=== PATIENT | female | born 1990 | race Caucasian/White ===

== ENCOUNTER 2021-05-12 17:09 | Emergency (ER) | payer OTHER ==
[~2021-05-12] VITALS: Ht 175.3 cm; Wt 80.1 kg
[2021-05-12] MEDS ORDERED: NS 1,000 ML IV ONE (17:25)
[2021-05-12 17:55] LABS: BASO # 0.1 10^3/uL (0.0-0.2); BASO % 0.7 % (0.0-1.0); EOS # 0.2 10^3/uL (0.0-0.5); EOS % 2.8 % (0.0-3.0); HEMATOCRIT 36.9 % (36.0-47.0); HEMOGLOBIN 12.7 g/dl (12.0-15.5); LYMPH # 2.7 10^3/uL (1.5-5.0); LYMPH % 39.9 % (24.0-44.0); MEAN CORPUSCULAR HEMOGLOBIN 31.5 pg (27.0-33.0); MEAN CORPUSCULAR HGB CONC 34.4 g/dl (32.0-36.5); MEAN CORPUSCULAR VOLUME 91.6 fl (80.0-96.0); MONO # 0.6 10^3/uL (0.0-0.8); MONO % 8.6 % (2.0-8.0); NEUTROPHILS # 3.2 10^3/uL (1.5-8.5); NEUTROPHILS % 47.7 % (36.0-66.0); PLATELET COUNT, AUTOMATED 251 10^3/uL (150-450); RED BLOOD COUNT 4.03 10^6/uL (4.00-5.40); WHITE BLOOD COUNT 6.8 10^3/uL (4.0-10.0)
[2021-05-12 18:23] LABS: BLOOD UREA NITROGEN 15 MG/DL (7-18); CALCIUM LEVEL 8.7 MG/DL (8.5-10.1); CARBON DIOXIDE LEVEL 27 MEQ/L (21-32); CHLORIDE LEVEL 109 MEQ/L (98-107); CREATININE FOR GFR 0.83 MG/DL (0.55-1.30); GLOMERULAR FILTRATION RATE > 60.0 (>60); GLUCOSE, FASTING 91 MG/DL (70-100); SODIUM LEVEL 140 MEQ/L (136-145)
[2021-05-12 18:25] LABS: HCG, SERUM QUALITATIVE NEGATIVE (NEGATIVE)
[2021-05-12 19:26] VITALS: BP 129/86
--- NOTE | 2021-05-13 10:14 | ECGEPIP ---
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
== END 2021-05-12 19:37 | disposition home or self-care (01) ==
LOC: M ED 17:09
DX: I49.8 Other specified cardiac arrhythmias (principal); Z88.0 Allergy status to penicillin; Z88.6 Allergy status to analgesic agent

== ENCOUNTER 2021-06-07 12:04 | Emergency (ER) | payer OTHER ==
[~2021-06-07] VITALS: Ht 175.3 cm; Wt 82.9 kg
[2021-06-07] MEDS ORDERED: LITH150C (13:04)
[2021-06-07] MEDS ORDERED: FLUD0.1T (13:04)
[2021-06-07] MEDS ORDERED: BUPR150T12 (13:04)
[2021-06-07] MEDS ORDERED: DIAZ10TA2 (13:04)
[2021-06-07] MEDS ORDERED: NS 1,000 ML IV ONE ×2 (17:35)
[2021-06-07 18:05] LABS: BASO # 0.1 10^3/uL (0.0-0.2); BASO % 0.7 % (0.0-1.0); EOS # 0.3 10^3/uL (0.0-0.5); EOS % 3.2 % (0.0-3.0); HEMATOCRIT 41.4 % (36.0-47.0); HEMOGLOBIN 14.1 g/dl (12.0-15.5); LYMPH % 31.1 % (24.0-44.0); MEAN CORPUSCULAR HEMOGLOBIN 31.6 pg (27.0-33.0); MEAN CORPUSCULAR HGB CONC 34.1 g/dl (32.0-36.5); MEAN CORPUSCULAR VOLUME 92.8 fl (80.0-96.0); MONO # 0.6 10^3/uL (0.0-0.8); MONO % 5.9 % (2.0-8.0); NEUTROPHILS # 5.7 10^3/uL (1.5-8.5); NEUTROPHILS % 58.7 % (36.0-66.0); PLATELET COUNT, AUTOMATED 306 10^3/uL (150-450); RED BLOOD COUNT 4.46 10^6/uL (4.00-5.40); WHITE BLOOD COUNT 9.7 10^3/uL (4.0-10.0)
[2021-06-07 19:06] LABS: CK-MB VALUE MASS 1.3 NG/ML (<3.6); CPK CREATINE PHOSPHOKINASE 139 U/L (26-192); MB/CK RELATIVE INDEX 0.94 (< OR =4); TROPONIN I < 0.02 NG/ML (< 0.10)
[2021-06-07 20:47] VITALS: BP 137/76
--- NOTE | 2021-06-08 19:04 | ECGEPIP ---
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
== END 2021-06-07 20:46 | disposition home or self-care (01) ==
LOC: M ED 12:04
DX: R55 Syncope and collapse (principal); I49.8 Other specified cardiac arrhythmias; Q79.60 Ehlers-Danlos syndrome, unspecified; Z88.0 Allergy status to penicillin; Z88.6 Allergy status to analgesic agent; Z79.899 Other long term (current) drug therapy

== ENCOUNTER → 2021-08-02 | Outpatient (POV) | payer BC, OTHER ==
[~2021-08-02] VITALS: Ht 175.3 cm; Wt 82.9 kg
[~2021-08-02] MED LIST: BUPR150T12; DIAZ10TA2; FLUD0.1T; LITH150C
[2021-08-02 13:30] VITALS: BP 137/87
--- NOTE | 2021-08-04 10:22 | IRCOV ---
[facility] IR Consult Office Visit IR Consult Office Visit DATE: Aug 02, 2021 REASON FOR CONSULTATION/CHIEF COMPLAINT: Port placement. 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 She reports that she has required IV saline infusions for this, although no regular infusions are scheduled. She has changed her care to local slate cutter operator Dr. Orozco and is new to the area. Patient wonders if she may benefit from a port. She does not have regular infusions scheduled. There are no issues with peripheral venous access. ALLERGIES: Please see below. HOME MEDICATIONS: Please see below. PAST MEDICAL HISTORY: None other PAST SURGICAL HISTORY: Non pertinent FAMILY HISTORY: Non pertinent. SOCIAL HISTORY: Non-smoker. Denies alcohol or drugs. REVIEW OF SYSTEMS: Otherwise negative PHYSICAL EXAMINATION: VITAL SIGNS: Please see below. GENERAL APPEARANCE: Appears well. Comfortable at rest. HEENT: Normal eye movements. RESPIRATORY: Breathing comfortably at rest. No use of accessory muscles. CARDIOVASCULAR: Normal rate. EXTREMITIES: Moving all 4 extremities. NEUROLOGICAL: Alert and oriented. PSYCHIATRIC: Appropriate to circumstance. LABORATORY DATA: 06/07/2021 hemoglobin 14.1 hematocrit 41.4 WBC 9.7 platelets 306. Imaging: None. ASSESSMENT/PLAN: 31-year-old female with reported dysautonomia, recently establishing care with local slate cutter operator Dr. Orozco. Patient reports she does require isotonic saline infusions from time to time and wondered if she may benefit from a port. She does not have regular infusions scheduled. Given her young age and the chronicity of this condition, she would be better managed with peripheral IVs, when and as required. Second option would be a PICC line, which may not be practical given her occupation. However, she may be taught to use and maintain her own PICC line. Given her young age, and no present issues with peripheral access, a lifelong port would be troublesome in terms of central venous scarring and port malfunction. Eventually, if patient runs out of peripheral venous access, a port may be indicated. I spent 15 minutes in consultation with the patient. Thank you for this referral. CC Dr. Orozco Allergies Coded Allergies: Penicillins (Verified Allergy, Unknown, 05/12/21) codeine (Verified Allergy, Unknown, 05/12/21) Home Medications Miscellaneous Medications Bupropion Hcl (Bupropion Xl), (Reported) Diazepam (Diazepam), (Reported) Fludrocortisone Acetate (Fludrocortisone Acetate), (Reported) [place] Carbonate ([place] Carbonate), (Reported) VS, I&O, 24H, Fishbone Vital Signs/I&O Vital Signs Date Time Temp Pulse Resp B/P (MAP) Pulse Ox O2 Delivery O2 Flow Rate FiO2 08/02/21 13:30 97.3 87 18 137/87 (104) 98 Room Air NUBIA PRADO MD Aug 04, 2021 10:22
== END ==
LOC: M IRPOV 13:21
PROVIDERS: ATTEND Radiology Diagnostic Radiology
DX: Z01.89 Encounter for other specified special examinations (principal); Z88.0 Allergy status to penicillin; Z88.5 Allergy status to narcotic agent

== ENCOUNTER 2021-08-06 15:03 | Inpatient (IN) | payer BC ==
[~2021-08-06 15:03] MED LIST changes: -BUPR150T12; +BUPR150T12 PO; -DIAZ10TA2; +DIAZ10TA2 PO; -FLUD0.1T; +FLUD0.1T PO; -LITH150C; +LITH150C PO
[2021-08-06] MEDS ORDERED: PROPOFOL 1,000 MG/100 ML VIAL As Ordered ONE (15:11)
[2021-08-06] MEDS ORDERED: MIDAZOLAM INJ 2MG/2ML VIAL (J2250 PER 1MG) As Ordered ONE (15:13)
[2021-08-06] MEDS ORDERED: MIDAZOLAM HCL 100 MG in D5W 80 ML IV SCH (15:15)
[2021-08-06] MEDS ORDERED: REFRIGERATOR IV KEYS XX PRN (15:15)
[2021-08-06] MEDS ORDERED: NS 1,000 ML IV ONE ×2 (15:20)
[2021-08-06 15:27] LABS: VENOUS BASE EXCESS -20.6 (-2.0-2.0); VENOUS HCO3 10.2 MEQ/L (23.0-27.0); VENOUS O2 SATURATION 93.4 % (60.0-80.0); VENOUS PARTIAL PRESSURE CO2 41.4 mmHg (38.0-50.0); VENOUS PARTIAL PRESSURE O2 94.7 mmHg (30.0-50.0); VENOUS PH 7.008 UNITS (7.330-7.430); VENOUS TOTAL CO2 11.4 MEQ/L (24.0-28.0)
[2021-08-06 15:29] LABS: BASO # 0.1 10^3/uL (0.0-0.2); BASO % 0.8 % (0.0-1.0); EOS # 0.5 10^3/uL (0.0-0.5); EOS % 3.9 % (0.0-3.0); HEMATOCRIT 45.7 % (36.0-47.0); HEMOGLOBIN 14.7 g/dl (12.0-15.5); LYMPH # 5.7 10^3/uL (1.5-5.0); LYMPH % 47.7 % (24.0-44.0); MEAN CORPUSCULAR HEMOGLOBIN 31.3 pg (27.0-33.0); MEAN CORPUSCULAR HGB CONC 32.2 g/dl (32.0-36.5); MEAN CORPUSCULAR VOLUME 97.4 fl (80.0-96.0); MONO # 1.1 10^3/uL (0.0-0.8); MONO % 9.2 % (2.0-8.0); NEUTROPHILS # 4.6 10^3/uL (1.5-8.5); PLATELET COUNT, AUTOMATED 326 10^3/uL (150-450); RED BLOOD COUNT 4.69 10^6/uL (4.00-5.40)
--- NOTE | 2021-08-06 15:39 | REP ---
INDICATION: Drug Overdose. COMPARISON: No comparison chest x-ray. TECHNIQUE: Portable upright AP chest radiograph. FINDINGS: The lungs are well inflated and free of infiltrate. Pleural angles are sharp. Heart size is normal. Pulmonary vasculature is not increased. Endotracheal tube is seen in good position at the level of the proximal clavicles. EKG monitoring electrodes are noted. IMPRESSION: Endotracheal tube in good position. Otherwise no acute disease. <Electronically signed by Navarro Saleh > 08/06/21 2644
[2021-08-06] MEDS ORDERED: MAGNESIUM SULFATE IN WATER 2 GM in IV 1 EA IV STA ×2 (15:47)
[2021-08-06] MEDS ORDERED: SODIUM BICARBONATE 8.4% INJ 50 ML SYRINGE IV STA (15:47)
[2021-08-06] MEDS ORDERED: MAGNESIUM SULFATE IN WATER 2GM 50ML BAG (40MG/ML) (FOR ER ONLY) As Ordered ONE (15:49)
--- NOTE | 2021-08-06 16:00 | REP ---
INDICATION: seizing/unconcious. COMPARISON: None. TECHNIQUE: Helical scanning is acquired. 5 mm axial images were reformatted. Coronal MPR images were generated. FINDINGS: Bone window settings demonstrate an intact bony calvarium. There is no evidence of skull fracture or incidental bony calvarial lesion. The visualized paranasal sinuses appear clear. No intraorbital abnormality is seen. On soft tissue window setting images; the lateral, third, and fourth ventricles are normal in size and position. Lucia-white differentiation pattern is normal above and below the tentorium. There are is no evidence of intracranial hemorrhage. No mass, edema, infarction, or midline shift is seen. No extra-axial fluid collection is appreciated. Digital plasma processing centrifuge operator radiograph demonstrates bridget tracheal tube in place. IMPRESSION: Negative noncontrast head CT. <Electronically signed by Navarro Saleh > 08/06/21 1786
[2021-08-06 16:01] LABS: AMPHETAMINES LEVEL URINE NEGATIVE (NEGATIVE); BARBITURATES URINE NEGATIVE (NEGATIVE); BENZODIAZEPINES URINE NEGATIVE (NEGATIVE); CANNABINOIDS URINE NEGATIVE (NEGATIVE); COCAINE METABOLITE URINE NEGATIVE (NEGATIVE); METHADONE URINE NEGATIVE (NEGATIVE); OPIATES URINE NEGATIVE (NEGATIVE); PHENCYCLIDINE URINE NEGATIVE (NEGATIVE)
--- NOTE | 2021-08-06 16:02 | REP ---
INDICATION: seizure. COMPARISON: None. TECHNIQUE: Helical scanning is acquired and overlapping 2 mm high resolution axial images were generated and reviewed at bone and soft tissue window settings. Coronal and sagittal multiplanar re-formations images are generated. FINDINGS: There is no evidence of cervical spine element fracture. No skull base fracture is seen. Cervical vertebral body heights are preserved. Alignment is normal. Facet joints are normally aligned bilaterally at each cervical level on multiplanar re-formations images. There is no evidence of intraspinal or paraspinal hematoma. No extra vertebral abnormality is seen. An bridget tracheal tube is noted in place. IMPRESSION: Negative CT study of the cervical spine without contrast. No fracture seen. <Electronically signed by Navarro Saleh > 08/06/21 0947
[2021-08-06 16:20] LABS: OSMOLALITY SERUM 295 MOSM/KG (275-295)
[2021-08-06 16:23] LABS: ACETAMINOPHEN LEVEL < 2.0 UG/ML (10.0-30.0); ALBUMIN 4.9 GM/DL (3.2-5.2); ALT/SGPT 22 U/L (12-78); BILIRUBIN,DIRECT 0.2 MG/DL (0.0-0.2); BILIRUBIN,TOTAL 0.7 MG/DL (0.2-1.0); BLOOD UREA NITROGEN 12 MG/DL (7-18); CALCIUM LEVEL 8.6 MG/DL (8.5-10.1); CARBON DIOXIDE LEVEL 12 MEQ/L (21-32); CHLORIDE LEVEL 107 MEQ/L (98-107); CPK CREATINE PHOSPHOKINASE 137 U/L (26-192); CREATININE FOR GFR 1.07 MG/DL (0.55-1.30); ETHYL ALCOHOL (ETHANOL) 0.003 % (0.000-0.010); GLOMERULAR FILTRATION RATE > 60.0 (>60); GLUCOSE, FASTING 143 MG/DL (70-100); LITHIUM LEVEL < 0.20 MEQ/L (0.60-1.20); POTASSIUM SERUM 3.2 MEQ/L (3.5-5.1); SALICYLATE LEVEL < 1.7 MG/DL (5.0-30.0); SODIUM LEVEL 141 MEQ/L (136-145); TOTAL PROTEIN 7.9 GM/DL (6.4-8.2)
[2021-08-06] MEDS ORDERED: CHARCOAL ACTIVATED LIQUID 25 GM/120 ML BTL As Ordered ONE ×2 (16:31→16:32)
[2021-08-06] MEDS ORDERED: CHARCOAL ACTIVATED LIQUID 25 GM/120 ML BTL PO ONE (16:35)
--- NOTE | 2021-08-06 16:41 | REP ---
INDICATION: ett tube placement. COMPARISON: Comparison is made with the 3:13 p.m. film from this date. TECHNIQUE: Supine portable AP chest x-ray time stamped 4:28 p.m.. FINDINGS: Endotracheal tube is seen in good position at the level of the proximal clavicles. NG tube is been passed in the left upper quadrant of the abdomen. Monitoring electrodes are seen. The lungs are symmetrically aerated and clear. The pleural angles are sharp. Pulmonary vasculature is not increased. No acute bony abnormality. IMPRESSION: Endotracheal tube in good position. <Electronically signed by Navarro Saleh > 08/06/21 0180
[2021-08-06 16:45] LABS: ABG BASE EXCESS -3.8 (-2.0-2.0); ABG HCO3 21.7 MEQ/L (22.0-26.0); ABG O2 SATURATION 98.8 % (95.0-99.0); ABG PARTIAL PRESSURE CO2 40.7 mmHg (35.0-45.0); ABG PARTIAL PRESSURE O2 146.8 mmHg (75.0-100.0); ABG STANDARD HCO3 21.4 MEQ/L (22.0-26.0); ABG TOTAL CO2 22.9 MEQ/L (22.0-29.0); ABG pH (ARTERIAL) 7.344 UNITS (7.350-7.450)
--- OUTSIDE RECORDS SUMMARY | 2021-08-06 16:46 | CCD | Continuity of Care Document ---
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 Social History Type Date Description Comments Sex Unknown ETOH Use Rarely consumes alcohol Tobacco Use Start: Unknown Patient has never smoked Smoking Status Reviewed: 07/12/21 Patient has never smoked Exercise Type/Frequency Does not exercise curren tly Exercise Limitations Shortness Of Breath Exercise Limitations Dizziness Exercise Limitations Syncope Allergies and adverse reactions Active Allergies Criticality Reaction | Severity Comments Date Penicillin Unable to assess criticality 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 Codeine Unable to assess criticality Urticaria 06/13/2021 Medications Active Medications SIG Qnty Indications Ordering Provide r Date Fludrocortisone Acetate 0.1mg Tabl ets 3 by mouth every day 270tabs I49.8 Tony Anders MD 07/11/2021 Wellbutrin SR 150mg Tablets ER 12H R 1 tablet by mouth daily Unknown 07/11/2021 Jornay PM 20mg Caps ER 24HR 1 by mouth daily as needed Unknown 07/11/2021 Diazepam 5mg Tablets as neede d Unknown 07/11/2021 Ibuprofen 200mg Capsules as n eeded Unknown 07/11/2021 Zyrtec Allergy 10mg Capsules 1 by mouth every day as needed Unknown 07/11/2021 Immunizations Description No Information Available Vital Signs Date Vital Result Comment 07/12/2021 8:13am Weight 185.00 lb Home Weight 180lb Height 69 inches 5'9" BMI (Body Mass Index) 27.3 kg/m2 Heart Rate 74 /min BP Systolic Sitting 141 mmHg [place], large cuff/Ra ; HR: 74 bpm BP Diastolic Sitting 97 mmHg [place], large cuff/R a; HR: 74 bpm BP Systolic Lying Down 140 mmHg [place]ron, large cuff /Ra; HR: 69 bpm BP Diastolic Lying Down 93 mmHg Omron, large cuf f/Ra; HR: 69 bpm BP Systolic Standing 128 mmHg Omron, large cuff/R a; HR: 86 bpm BP Diastolic Standing 89 mmHg Omron, large cuff/ Ra; HR: 86 bpm Results Description No Information Available Procedures Date Code Description Status 07/12/2021 47707 Office/Outpatient New Moderate M DM 45-59 Minutes Completed 07/12/2021 86718 ECG 12-Lead Completed Medical Devices Description No Information Available Encounters Type Date Location Provider Dx Diagnosis Office Visit 07/12/2021 8:00a Main Office Tony Anders MD I49.8 Other specified cardiac arrhythmias Q79.60 Mack-Danlos syndrome, unsp ecified Assessments Date Code Description Provider 07/12/2021 I49.8 Other specified cardiac arrhythm ias Tony Anders MD 07/12/2021 Q79.60 Mack-Danlos syndrome, unspecif ied Tony Anders MD Plan of Treatment Future Appointment(s):* 11/02/2021 1:00 pm - Tony Anders MD at Main Office 07/12/2021 - Tony Anders MD* I49.8 Other specified cardiac arrhythmias* Referral:* Willy Raza DO, Surgery,General * Q79.60 Mack-Danlos syndrome, unspecified * All * Follow up:* Clinic visit in [address] Anders. Functional Status Functional Condition Comment Date Status Independent with all ADL's Activ e Mental Status Description No Information Available Referrals Refer to Reason for Referral Status Appt Date Willy Raza DO 31 yo patient with POTS; pat ient being referred for implantation of a mcc central line port for frequent administration of IV fluids. Thank you. Created [facility] General Sur[facility] [address] [address] [phone]
--- OUTSIDE RECORDS SUMMARY | 2021-08-06 16:46 | CCD | Continuity of Care Document ---
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 Codeine Unable to assess criticality Urticaria 06/13/2021 Medications Description No Information Available Immunizations Description No Information Available Vital Signs Description No Information Available Results Description No Information Available Procedures Description No Information Available Medical Devices Description No Information Available Encounters Description No Information Available Assessments Description No Information Available Plan of Treatment Future Appointment(s):* 07/12/2021 8:00 am - Tony Orozco MD at Main Office Functional Status Description No Information Available Mental Status Description No Information Available Referrals Description No Information Available"
--- OUTSIDE RECORDS SUMMARY | 2021-08-06 16:46 | CCD | Continuity of Care Document ---
Author Author Jaimie GUNTER MD Organization Unknown Address [address] [place] [address] Phone [phone] Care Team Providers Care Nursing Executive Name Role Phone [facility] Andreia Gardner NP-C AUTM [phone] Problems Active Problems Provider Date Sprain of ligament of tarsometatarsal joint Rolando Aviles Onset: 07/02/2018 Finger joint unstable Lm Ambrosio MD Onset: 05/18/2017 Shoulder joint unstable Lm Ambrosio MD Onset: 7 Herniation of rectum into vagina Onset: 08/31/2020 Urinary incontinence Onset: 08/31/2020 Cystocele Onset: 08/31/2020 Social History Type Date Description Comments Sex Unknown Tobacco Use Start: Unknown Never Smoked Cigarettes Smoking Status Reviewed: 04/28/21 Never Smoked Cigarettes ETOH Use Denies alcohol use Tobacco Use Start: Unknown Patient has never smoked Recreational Drug Use Denies Drug Use Exercise Type/Frequency Does not exercise Allergies, Adverse Reactions, Alerts Active Allergies Reaction Severity Comments Date Penicillin Keith Brian's Syndrome 0 05/18/2017 Codeine Itching, Vomiting 06/10/2020 Medications Active Medications SIG Qnty Indications Ordering Provide r Date Fludrocortisone Acetate 0.1mg Tabl ets take 3 tablets (0.3 mg) by mouth every day 90tabs R55 Misha montenegro, DO [facility] 11/25/2020 Normal Saline Infusion 1 liter over 1 hour if needed for dehydratio n 1units Misha Brasher DO [facility] 11/18/2020 Wheelchair Misc light weight wheelchair for limited mobility. with padded seat 1units Q79.60 Misha Brasher DO [facility] 11/10/2020 Zyrtec Allergy 10mg Capsules 1 by mouth every day Unknown Wellbutrin SR 150mg Tablets ER 12H R 1 tablet po daily Unknown Naproxen 500mg Tablets 1 tablet with food by mouth twice a day as needed Unknown 0 Albuterol Sulfate HFA 108(90Base) mcg/Act Aerosol 2 puffs by mouth every 4-6 hours as needed for SOB Unknown Ibuprofen 200 200mg Tablets 400-600mg every 6 hours as needed for pain. Unknown Diazepam 4-6mg as needed Unknown 0 [place] Carbonate 150mg Capsules 100MG at night Unknown History Medications Fludrocortisone Acetate 0.1mg Tabl ets take 2 (0.2 mg) by mouth every day 60tabs E86.0 Cristofer Rodriguez [facility] 11/16/2020 - 11/25/2020 Immunizations Description No Information Available Vital Signs Date Vital Result Comment 04/28/2021 1:37pm Height 69 inches 5'9" Weight 177.00 lb Heart Rate 94 /min BP Systolic 120 mmHg BP Diastolic 70 mmHg Body Temperature 97.8 F Pain Level 2 BMI (Body Mass Index) 26.1 kg/m2 04/22/2021 3:00pm Height 69 inches 5'9" Weight 180.25 lb Heart Rate 66 /min Respiratory Rate 18 /min Body Temperature 96.8 F Pain Level 8 BMI (Body Mass Index) 26.6 kg/m2 Results Test Acquired Date Facility Test Result H/L Range Note Basic Metabolic Panel 01/03/[address] [address] [phone] Sodium 142 mmol/L Normal 135-145 Potassium 4.5 mmol/L Normal 3.5-5.0 Chloride 109 mmol/L Normal 101-111 Co2 Carbon Dioxide 28 mmol/L Normal 22-32 Anion Gap 5 mmol/L Normal 2-11 Glucose 94 mg/dL Normal 70-100 Blood Urea Nitrogen 14 mg/dL Normal 6-24 Creatinine 0.90 mg/dL Normal 0.51-0.95 BUN/Creatinine Ratio 15.6 Normal 8-20 Calcium 9.7 mg/dL Normal 8.6-10.3 Egfr Non- 74.0 >60 Egfr 89.6 >60 1 Basic Metabolic Panel 12/03/[address] [facility] [address] [place] [address] [phone] Sodium 140 mmol/L Normal 135-145 Potassium 3.8 mmol/L Normal 3.5-5.0 Chloride 107 mmol/L Normal 101-111 Co2 Carbon Dioxide 27 mmol/L Normal 22-32 Anion Gap 6 mmol/L Normal 2-11 Glucose 93 mg/dL Normal 70-100 Blood Urea Nitrogen 12 mg/dL Normal 6-24 Creatinine 0.86 mg/dL Normal 0.51-0.95 BUN/Creatinine Ratio 14.0 Normal 8-20 Calcium 9.4 mg/dL Normal 8.6-10.3 Egfr Non- 78.0 >60 Egfr 94.4 >60 2 Basic Metabolic Panel 11/24/[address] [facility] [address] [place] [address] [phone] Sodium 141 mmol/L Normal 135-145 Potassium 4.1 mmol/L Normal 3.5-5.0 Chloride 108 mmol/L Normal 101-111 Co2 Carbon Dioxide 29 mmol/L Normal 22-32 Anion Gap 4 mmol/L Normal 2-11 Glucose 72 mg/dL Normal 70-100 Blood Urea Nitrogen 13 mg/dL Normal 6-24 Creatinine 0.95 mg/dL Normal 0.51-0.95 BUN/Creatinine Ratio 13.7 Normal 8-20 Calcium 9.5 mg/dL Normal 8.6-10.3 Egfr Non- 69.5 >60 Egfr 84.2 >60 3 Gardnerella/Yeast: Vaginal Dna 11/23/2020 N2N/CCD I mport Gardnerella/Yeast: Vaginal Dna See Note 4 Gardnerella/Yeast: Vaginal Dna See Note 5 Gardnerella/Yeast: Vaginal Dna Specimen Inquiry Gardnerella/Yeast: Vaginal Dna See Note 6 Gardnerella/Yeast: Vaginal Dna See Note 7 Gardnerella/Yeast: Vaginal Dna See Note 8 Gardnerella/Yeast: Vaginal Dna See Note 9 Gardnerella/Yeast: Vaginal Dna See Note 10 Gardnerella/Yeast: Vaginal Dna See Note 11 Gardnerella/Yeast: Vaginal Dna Req: [id number] Rec d: 11/23/20 Gardnerella/Yeast: Vaginal Dna Status: Comp Gardnerella/Yeast: Vaginal Dna _ Gardnerella/Yeast: Vaginal Dna Source: Vaginal Spdesc: Gardnerella/Yeast: Vaginal Dna Ordered: Arnol,Yeast Dna, Trich Dna Gardnerella/Yeast: Vaginal Dna Comments: [id number] Gardnerella/Yeast: Vaginal Dna See Note 12 Gardnerella/Yeast: Vaginal Dna Yes To Trich. Gardnerella/Yeast: Vaginal Dna See Note 13 Gardnerella/Yeast: Vaginal Dna See Note 14 Gardnerella/Yeast: Vaginal Dna See Note 15 Gardnerella/Yeast: Vaginal Dna See Note 16 Gardnerella/Yeast: Vaginal Dna See Note 17 Gardnerella/Yeast: Vaginal Dna Organism 1 Negative Maura Gardnerella/Yeast: Vaginal Dna Organism 2 Negative Gardnerella Gardnerella/Yeast: Vaginal Dna See Note 18 Gardnerella/Yeast: Vaginal Dna See Note 19 Gardnerella/Yeast: Vaginal Dna See Note 20 Gardnerella/Yeast: Vaginal Dna data available. Gardnerella/Yeast: Vaginal Dna See Note 21 Gardnerella/Yeast: Vaginal Dna See Note 22 Gardnerella/Yeast: Vaginal Dna See Note 23 Gardnerella/Yeast: Vaginal Dna See Note 24 Gardnerella/Yeast: Vaginal Dna See Note 25 Gardnerella/Yeast: Vaginal Dna Mixed infections may occur. Gardnerella/Yeast: Vaginal Dna See Note 26 Gardnerella/Yeast: Vaginal Dna during or immediately a fter antimicrobial therapy is Gardnerella/Yeast: Vaginal Dna See Note 27 Gardnerella/Yeast: Vaginal Dna See Note 28 Gardnerella/Yeast: Vaginal Dna or failure. Gardnerella/Yeast: Vaginal Dna See Note 29 Gardnerella/Yeast: Vaginal Dna Organism 1 Negative Trichomonas Gardnerella/Yeast: Vaginal Dna Continued On Next Page Gardnerella/Yeast: Vaginal Dna See Note 30 Gardnerella/Yeast: Vaginal Dna See Note 31 Gardnerella/Yeast: Vaginal Dna See Note 32 Gardnerella/Yeast: Vaginal Dna See Note 33 Gardnerella/Yeast: Vaginal Dna See Note 34 Gardnerella/Yeast: Vaginal Dna Specimen Inquiry Gardnerella/Yeast: Vaginal Dna See Note 35 Gardnerella/Yeast: Vaginal Dna See Note 36 Gardnerella/Yeast: Vaginal Dna See Note 37 Gardnerella/Yeast: Vaginal Dna See Note 38 Gardnerella/Yeast: Vaginal Dna See Note 39 Gardnerella/Yeast: Vaginal Dna See Note 40 Gardnerella/Yeast: Vaginal Dna See Note 41 Gardnerella/Yeast: Vaginal Dna See Note 42 Gardnerella/Yeast: Vaginal Dna See Note 43 Gardnerella/Yeast: Vaginal Dna test for therapeutic success or fail ure. Gardnerella/Yeast: Vaginal Dna See Note 44 Gardnerella/Yeast: Vaginal Dna * ML - Main Lab Gardnerella/Yeast: Vaginal Dna . Gardnerella/Yeast: Vaginal Dna End Of Report Gardnerella/Yeast: Vaginal Dna See Note 45 Gardnerella/Yeast: Vaginal Dna See Note 46 Gardnerella/Yeast: Vaginal Dna See Note 47 1 Because ethnic data i s not always readily available, this report includes an eGFR for both -Americans and non- Americans. The National Kidney Disease Education Program (NKDEP) does not endorse the use of the MDRD equation for patients that are not between the ages of 18 and 70, are , have extremes of body size, muscle mass, or nutritional status, or are non- or non-. According to the National Kidney Foundation, irrespective of diagnosis, the stage of the disease is based on the level of kidney function: Stage Description GFR(mL/min/1.73 m(2)) 1 Kidney damage with normal or decre ased GFR 90 2 Kidney damage with mild decrease i n GFR 60-89 3 Moderate decrease in GFR 30-59 4 Severe decrease in GFR 15-29 5 Kidney failure <15 (or dialysis) 2 Because ethnic data i s not always readily available, this report includes an eGFR for both -Americans and non- Americans. The National Kidney Disease Education Program (NKDEP) does not endorse the use of the MDRD equation for patients that are not between the ages of 18 and 70, are , have extremes of body size, muscle mass, or nutritional status, or are non- or non-. According to the National Kidney Foundation, irrespective of diagnosis, the stage of the disease is based on the level of kidney function: Stage Description GFR(mL/min/1.73 m(2)) 1 Kidney damage with normal or decre ased GFR 90 2 Kidney damage with mild decrease i n GFR 60-89 3 Moderate decrease in GFR 30-59 4 Severe decrease in GFR 15-29 5 Kidney failure <15 (or dialysis) 3 Because ethnic data i s not always readily available, this report includes an eGFR for both -Americans and non- Americans. The National Kidney Disease Education Program (NKDEP) does not endorse the use of the MDRD equation for patients that are not between the ages of 18 and 70, are , have extremes of body size, muscle mass, or nutritional status, or are non- or non-. According to the National Kidney Foundation, irrespective of diagnosis, the stage of the disease is based on the level of kidney function: Stage Description GFR(mL/min/1.73 m(2)) 1 Kidney damage with normal or decre ased GFR 90 2 Kidney damage with mild decrease i n GFR 60-89 3 Moderate decrease in GFR 30-59 4 Severe decrease in GFR 15-29 5 Kidney failure <15 (or dialysis) 4 Run Date: 11/24/20 [facility] Live Page 1 5 Run Time: 1214 1 [place], [place] [address] 6 7 Name: Jaimie Tobias : [address]: Chana REYES 8 Acct: [id number] Unit: [facility]ando [id number] Age: 30 Location: [facility] 9 Re11/23/20 Sex: F Status: Reg Ref 10 11 Spec: [id number] Co ll: 11/23/20-[address] [facility] [address]: hCana REYES 12 Verbal to Barbara Sin by German 0055 at 0811 on 11/24/20. 13 Queries: Would you like to order Trichomonas Vaginalis testing? Yes 14 15 Procedure Result Reported Site 16 17 Gardnerella/Yeast: Vaginal D na Final 11/24/20- 1214 ML 18 The presence of G. vaginalis , although suggestive, is not 19 diagnostic for bacterial vag inosis. Results should be 20 interpreted in conjuction wi th other clinical and laboratory 21 Women with vaginal discharge should be evaluated for risk 22 factors of cervicitis and pe lvic inflammatory disease, toxic 23 shock syndrome (S.aureus), a nd if present, evaluated for 24 organisms not included in is assay such as N. gonorrhoeae, 25 C. trachomatis, Mobiluncus, Mycoplasma and/or Prevotella. 26 The performance of this test on patient specimens collected 27 unknown. The presence or abs ence of Maura species, or G. 28 vaginalis cannot be used as a test for therapeutic success 29 Trichomonas: Vaginal Dna Pro be Final 11/24/20- 1214 ML 30 Department Of Pathology, [address] [place] [address] 31 Fa x #[phone] 32 Sharmin Alcazar M.D. Director [facility] # [id number] 33 Run Date: 11/24/20 [facility] Live Page 2 34 Run Time: 1213 [place], [place] [address] 35 36 Patient: MichelineJaimie Zhang [id number] (Continued) 37 38 Specimen: [id number] C ollected: 11/23/20-1499 Received: 11/23/20 (Continued) 39 40 Procedure Result Reported Site 41 42 Trichomonas: Vaginal Dna Pro be Final (continued) 11/24/20-1213 43 The presence or absence of T . vaginalis cannot be used as a 44 45 Department Of Pathology, [address] [place] [address] 46 Fa x #[phone] 47 Sharmin Alcazar M.D. Director [facility] # [id number] Procedures Date Code Description Status 04/28/2021 45209 Office/Outpatient Established Lo w MDM 20-29 Min Completed 04/22/2021 57136 Office/Outpatient Established Lo w MDM 20-29 Min Completed 04/22/2021 26187 Rad Shoulder Comp, Min. 2 Views Completed 01/04/2021 75037 Office/Outpatient Established Lo w MDM 20-29 Min Completed 11/25/2020 41333 Office/Outpatient Established Mo d MDM 30-39 Min Completed 11/23/2020 01980 Office/Outpatient Established Lo w MDM 20-29 Min Completed 11/16/2020 79996 Office/Outpatient Established Mo d MDM 30-39 Min Completed Medical Devices Description No Information Available Encounters Type Date Location Provider Dx Diagnosis Office Visit 04/28/2021 1:30p [facility] brodie Gunter MD S43.431D [facility] glenoid labrum lesi on of right shoulder, subs Office Visit 04/22/2021 2:30p [facility] [place] Lara Salvador, RPA-C M25.511 Pain in right shoulder Office Visit 01/04/2021 9:40a [facility] Misha Brasher DO [facility] R55 Syncope and collapse Office Visit 12/02/2020 1:15p [facility] [place] [facility] brodie Gunter MD S43.431D Superior glenoid labrum lesi on of right shoulder, subs Z47.89 Encounter for other orthoped ic aftercare Office Visit 11/25/2020 9:40a [facility] Misha Brashre, DO FACC R55 Syncope and collapse R00.0 Tachycardia, unspecified E86.0 Dehydration Office Visit 11/23/2020 2:30p [facility] Chana Richey PA-C N81.10 Cystocele, unspecified N76.0 Acute vaginitis N81.6 Rectocele Office Visit 11/16/2020 9:00a [facility] Misha Brasher, DO FACC R55 Syncope and collapse E86.0 Dehydration R00.0 Tachycardia, unspecified Assessments Date Code Description Provider 04/28/2021 S43.431D [facility] glenoid lab rum lesion of right shoulder, subsequent encounter Gonsalo Gunter MD 04/22/2021 M25.511 Pain in right shoulder Lara roque, [facility]-C 01/04/2021 R55 Syncope and collapse Misha flores, DO FAC 12/02/2020 S43.431D [facility] glenoid lab rum lesion of right shoulder, subsequent encounter Gonsalo Gunter MD 12/02/2020 Z47.89 Encounter for other orthopedic a ftercare Gonsalo Gunter MD 11/25/2020 R55 Syncope and collapse Misha flores, DO FACC 11/25/2020 R00.0 Tachycardia, unspecified Misha Brasher, DO FACC 11/25/2020 E86.0 Dehydration Misha Brasher, DO FACC 11/23/2020 N81.10 Cystocele, unspecified SUSANNA WhitesideC 11/23/2020 N76.0 Acute vaginitis ERIC Storey-C 11/23/2020 N81.6 Rectocele SUSANNA StoreyC 11/16/2020 R55 Syncope and collapse Misha flores, DO FACC 11/16/2020 E86.0 Dehydration Misha Brasher, DO FACC 11/16/2020 R00.0 Tachycardia, unspecified Misha Brasher, DO [facility] Plan of Treatment 04/28/2021 - Gonsalo Gunter MD* S43.431D Superior glenoid labrum lesion of right shoulder, subsequent encounter* New Therapy:* Physical Therapy * Follow up:* Follow up: As needed Functional Status Description No Information Available Mental Status Description No Information Available Referrals Description No Information Available
--- OUTSIDE RECORDS SUMMARY | 2021-08-06 16:46 | CCD | Continuity of Care Document ---
Author Author Jaimie ANDERS MD Organization Unknown Address [address] [facility] / [place] [address] Phone [phone] Care Team Providers Care Manager Portable Name Role Phone Misha Brasher DO AUT[facility] [phone] Luz Marina Willy A DO AUTM [phone] Problems Active Problems Provider Date Mack-Danlos syndrome [...] Available Procedures Date Code Description Status 07/12/2021 35673 Office/Outpatient New Moderate M DM 45-59 Minutes Completed 07/12/2021 08411 ECG 12-Lead Completed Medical Devices Description No [...] I49.8 Other specified cardiac arrhythmias* Referral:* Willy Raza, , Surgery,General * Recommendations:* Patient wanted to know if she could have a central line port so she can administer IV normal saline as needed for severe POTS symptoms. She previously had a standing order to receive IV fluids at a local emergency room where she used to live. She finds the administration of IV fluids to be the most effective treatment she has experienced thus far. I think this is a really good treatment option; however, I did explain to the patient that there is always risk of indwelling central line infections as 1 of the drawbacks for this solution. Patient would like to proceed with a central port for administration of IV fluids. I have referred her to general surgery for consideration of implantation of a central IV port. Continue fludrocortisone 0.3 mg daily. Midodrine and pyridostigmine for medication options discussed with the patient; patient wishes to hold off on both of these medications for now and wants to see if she could be managed with self administration of IV normal saline once she has a central IV port. 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 Anders. Functional Status Functional Condition Comment Date Status Independent with all ADL's Activ e Mental Status Description No Information Available Referrals Refer to Reason for Referral Status Appt Date Willy Raza, DO 31 yo patient with POTS; pat ient being referred for implantation of a moth exterminator central line port for frequent administration of IV fluids. Thank you. Created [facility] Medical Practice General Surger [address] [place] [address] [phone]
--- OUTSIDE RECORDS SUMMARY | 2021-08-06 16:47 | CCD ---
Author Author [facility] Organization [facility] Address Unknown Phone Unavailable Care Team Providers Care Solution Consultant Name Role Phone Rakan Kapoor MD Unavailable Unavailable Rakan Kapoor MD Unavailable Unavailable Rakan Kapoor MD Unavailable Unavailable Rakan Kapoor MD Unavailable Unavailable Rakan Kapoor MD Unavailable Unavailable Rakan Kapoor MD Unavailable Unavailable Rakan Kapoor MD Unavailable Unavailable Rakan Kapoor MD Unavailable Unavailable Rakan Kapoor MD Unavailable Unavailable Rakan Kapoor MD Unavailable Unavailable Rakan Kapoor MD Unavailable Unavailable Rakan Kapoor MD Unavailable Unavailable Rakan Kapoor MD Unavailable Unavailable Jessica, F Gonsalo Unavailable Unavailable Jessica, F Gonsalo Unavailable Unavailable Jessica, F Gonsalo Unavailable Unavailable Jessica, F Gonsalo Unavailable Unavailable Jessica, F Gonsalo Unavailable Unavailable Jessica, F Gonsalo Unavailable Unavailable Jessica, F Gonsalo Unavailable Unavailable Jessica, F Gonsalo Unavailable Unavailable Jessica, F Gonsalo Unavailable Unavailable Jessica, F Gonsalo Unavailable Unavailable Jessica, F Gonsalo Unavailable Unavailable Jessica, F Gonsalo Unavailable Unavailable Jessica, F Gonsalo Unavailable Unavailable Jessica, F Gonsalo Unavailable Unavailable Jessica, F Gonsalo Unavailable Unavailable Jessica, F Gonsalo Unavailable Unavailable Jessica, F Gonsalo Unavailable Unavailable Jessica, F Gonsalo Unavailable Unavailable Jessica, F Gonsalo Unavailable Unavailable Jessica, F Gonsalo Unavailable Unavailable Jessica, F Gonsalo Unavailable Unavailable Jessica, F Gonsalo Unavailable Unavailable Jessica, F Gonsalo Unavailable Unavailable Jessica, F Gonsalo Unavailable Unavailable Jessica, F Gonsalo Unavailable Unavailable Jessica, F Gonsalo Unavailable Unavailable Jessica, F Gonsalo Unavailable Unavailable Jessica, F Gonsalo Unavailable Unavailable Jessica, F Gonsalo Unavailable Unavailable Jessica, F Gonsalo Unavailable Unavailable Jessica, F Gonsalo Unavailable Unavailable Kuldip, COVID Unavailable Unavailable Schledorn, A Chana PA Unavailable Unavailable Schledorn, A Chana PA Unavailable Unavailable Schledorn, A Chana PA Unavailable Unavailable Schledorn, A Chana PA Unavailable Unavailable Schledorn, A Chana PA Unavailable Unavailable Schledorn, A Chana PA Unavailable Unavailable Schledorn, A Chana PA Unavailable Unavailable Schledorn, A Chana PA Unavailable Unavailable Schledorn, A Chana PA Unavailable Unavailable Schledorn, A Chana PA Unavailable Unavailable Schledorn, A Chana PA Unavailable Unavailable Schledorn, A Chana PA Unavailable Unavailable Schledorn, A Chana PA Unavailable Unavailable Schledorn, A Chana PA Unavailable Unavailable Schledorn, A Chana PA Unavailable Unavailable Schledorn, A Chana PA Unavailable Unavailable Schledorn, A Chana PA Unavailable Unavailable Schledorn, A Chana PA Unavailable Unavailable Niya Mayer MD Unavailable Unavailable Niya Mayer MD Unavailable Unavailable Niya Mayer MD Unavailable Unavailable Niya Mayer MD Unavailable Unavailable Niya Mayer MD Unavailable Unavailable Niya Mayer MD Unavailable Unavailable Niya Mayer MD Unavailable Unavailable Terrie Hernandez MD Unavailable Unavailable Terrie Hernandez MD Unavailable Unavailable Terrie Hernandez MD Unavailable Unavailable Terrie Hernandez MD Unavailable Unavailable Terrie Hernandez MD Unavailable Unavailable Terrie Hernandez MD Unavailable Unavailable Terrie Hernandez MD Unavailable Unavailable Terrie Hernandez MD Unavailable Unavailable Terrie Hernandez MD Unavailable Unavailable Terrie Hernandez MD Unavailable Unavailable Terrie Hernandez MD Unavailable Unavailable Terrie Hernandez MD Unavailable Unavailable Terrie Hernandez MD Unavailable Unavailable Terrie Hernandez MD Unavailable Unavailable Terrie Hernandez MD Unavailable Unavailable Terrie Hernandez MD Unavailable Unavailable Terrie Hernandez MD Unavailable Unavailable Terrie Hernandez MD Unavailable Unavailable Terrie Hernandez MD Unavailable Unavailable Terrie Hernandez MD Unavailable Unavailable Terrie Hernandez MD Unavailable Unavailable Terrie Hernandez MD Unavailable Unavailable Terrie Hernandez MD Unavailable Unavailable Terrie Hernandez MD Unavailable Unavailable Terrie Hernandez MD Unavailable Unavailable Terrie Hernandez MD Unavailable Unavailable Terrie Hernandez MD Unavailable Unavailable Terrie Hernandez MD Unavailable Unavailable Terrie Hernandez MD Unavailable Unavailable Terrie Hernandez MD Unavailable Unavailable Terrie Hernandez MD Unavailable Unavailable Terrie Hernandez MD Unavailable Unavailable Terrie Hernandez MD Unavailable Unavailable Terrie Hernandez MD Unavailable Unavailable Terrie Hernandez MD Unavailable Unavailable Terrie Hernandez MD Unavailable Unavailable Terrie Hernandez MD Unavailable Unavailable Terrie Hernandez MD Unavailable Unavailable Terrie Hernandez MD Unavailable Unavailable Terrie Hernandez MD Unavailable Unavailable Terrie Hernandez MD Unavailable Unavailable Terrie Hernandez MD Unavailable Unavailable Terrie Hernandez MD Unavailable Unavailable Terrie Hernandez MD Unavailable Unavailable Terrie Hernandez MD Unavailable Unavailable Terrie Hernandez MD Unavailable Unavailable Terrie Hernandez MD Unavailable Unavailable Terrie Hernandez MD Unavailable Unavailable Terrie Hernandez MD Unavailable Unavailable Terrie Hernandez MD Unavailable Unavailable Terrie Hernandez MD Unavailable Unavailable Terrie Hernandez MD Unavailable Unavailable [facility] Unavailable Unavailable Lai Aguirre MD Unavailable Unavailable Lai Aguirre MD Unavailable Unavailable Lai Aguirre MD Unavailable Unavailable Lai Aguirre MD Unavailable Unavailable Lai Aguirre MD Unavailable Unavailable Lai Aguirre MD Unavailable Unavailable Lai Aguirre MD Unavailable Unavailable Lai Aguirre MD Unavailable Unavailable Lai Aguirre MD Unavailable Unavailable Lai Aguirre MD Unavailable Unavailable Lai Aguirre MD Unavailable Unavailable Lai Aguirre MD Unavailable Unavailable Lai Aguirre MD Unavailable Unavailable Lai Aguirre MD Unavailable Unavailable Lai Aguirre MD Unavailable Unavailable Lai Aguirre MD Unavailable Unavailable Lai Aguirre MD Unavailable Unavailable Lai Aguirre MD Unavailable Unavailable Lai Aguirre MD Unavailable Unavailable Lai Aguirre MD Unavailable Unavailable Laney Smith MD Unavailable Unavailable Laney Smith MD Unavailable Unavailable Laney Smith MD Unavailable Unavailable Laney Smith MD Unavailable Unavailable Laney Smith MD Unavailable Unavailable Brasher, S Misha DO Unavailable Unavailable Brasher, S Misha DO Unavailable Unavailable Brasher, S Misha DO Unavailable Unavailable Brasher, S Misha DO Unavailable Unavailable Brasher, S Misha DO Unavailable Unavailable Brasher, S Misha DO Unavailable Unavailable Brasher, S Misha DO Unavailable Unavailable Brasher, S Misha DO Unavailable Unavailable Brasher, S Misha DO Unavailable Unavailable Brasher, S Misha DO Unavailable Unavailable Brasher, S Misha DO Unavailable Unavailable Brasher, S Misha DO Unavailable Unavailable Brasher, S Misha DO Unavailable Unavailable Brasher, S Misha DO Unavailable Unavailable Brasher, S Misha DO Unavailable Unavailable Brasher, S Misha DO Unavailable Unavailable Brasher, S Misha DO Unavailable Unavailable Brasher, S Misha DO Unavailable Unavailable Brasher, S Misha DO Unavailable Unavailable Brasher, S Misha DO Unavailable Unavailable Brasher, S Misha DO Unavailable Unavailable Brasher, S Misha DO Unavailable Unavailable Brasher, S Misha DO Unavailable Unavailable Brasher, S Misha DO Unavailable Unavailable Brasher, S Misha DO Unavailable Unavailable Brasher, S Misha DO Unavailable Unavailable Brasher, S Misha DO Unavailable Unavailable Brasher, S Misha DO Unavailable Unavailable Brasher, S Misha DO Unavailable Unavailable Brasher, S Misha DO Unavailable Unavailable Brasher, S Misha DO Unavailable Unavailable Brasher, S Misha DO Unavailable Unavailable Brasher, S Misha DO Unavailable Unavailable Brasher, S Misha DO Unavailable Unavailable Brasher, S Misha DO Unavailable Unavailable Brasher, S Misha DO Unavailable Unavailable Brasher, S Misha DO Unavailable Unavailable Brasher, S Misha DO Unavailable Unavailable Brasher, S Misha DO Unavailable Unavailable Brasher, S Misha DO Unavailable Unavailable Brasher, S Misha DO Unavailable Unavailable Erika San MD Unavailable Unavailable Erika San MD Unavailable Unavailable Erika San MD Unavailable Unavailable Erika San MD Unavailable Unavailable Erika San MD Unavailable Unavailable Howson, F Ángela MD Unavailable Unavailable Howson, F Ángela MD Unavailable Unavailable Howson, F Ángela MD Unavailable Unavailable Howson, F Ángela MD Unavailable Unavailable Howson, F Ángela MD Unavailable Unavailable Howson, F Ángela MD Unavailable Unavailable Howson, F Ángela MD Unavailable Unavailable Howson, F Ángela MD Unavailable Unavailable Howson, F Ángela MD Unavailable Unavailable Howson, F Ángela MD Unavailable Unavailable Howson, F Ángela MD Unavailable Unavailable Howson, F Ángela MD Unavailable Unavailable Howson, F Ángela MD Unavailable Unavailable Howson, F Ángela MD Unavailable Unavailable Howson, F Ángela MD Unavailable Unavailable Howson, F Ángela MD Unavailable Unavailable Howson, F Ángela MD Unavailable Unavailable Howson, F Ángela MD Unavailable Unavailable Howson, F Ángela MD Unavailable Unavailable Howson, F Ángela MD Unavailable Unavailable Howson, F Ángela MD Unavailable Unavailable Howson, F Ángela MD Unavailable Unavailable Howson, F Ángela MD Unavailable Unavailable Howson, F Ángela MD Unavailable Unavailable Howson, F Ángela MD Unavailable Unavailable Howson, F Ángela MD Unavailable Unavailable Howson, F Ángela MD Unavailable Unavailable Howson, F Ángela MD Unavailable Unavailable Howson, F Ángela MD Unavailable Unavailable Howson, F Ángela MD Unavailable Unavailable Howson, F Ángela MD Unavailable Unavailable Howson, F Ángela MD Unavailable Unavailable Howson, F Ángela MD Unavailable Unavailable Howson, F Ángela MD Unavailable Unavailable Howson, F Ángela MD Unavailable Unavailable Howson, F Ángela MD Unavailable Unavailable Howson, F Ángela MD Unavailable Unavailable Howson, F Ángela MD Unavailable Unavailable Howson, F Ángela MD Unavailable Unavailable Howson, F Ángela MD Unavailable Unavailable Howson, F Ángela MD Unavailable Unavailable ANTECOL, Sherwin RAMIREZ MD Unavailable Unavailable ANTECOLSherwin MD Unavailable Unavailable ANTECOLSherwin MD Unavailable Unavailable ANTECOLSherwin MD Unavailable Unavailable ANTECOLSherwin MD Unavailable Unavailable ANTECOLSherwin MD Unavailable Unavailable ANTECOLSherwin MD Unavailable Unavailable ANTECOLSherwin MD Unavailable Unavailable ANTECOLSherwin MD Unavailable Unavailable ANTECOLSherwin MD Unavailable Unavailable ANTECOLSherwin MD Unavailable Unavailable ANTECOLSherwin MD Unavailable Unavailable ANTECOLSherwin MD Unavailable Unavailable ANTECOLSherwin MD Unavailable Unavailable ANTECOLSherwin MD Unavailable Unavailable ANTECOLSherwin MD Unavailable Unavailable ANTECOLSherwin MD Unavailable Unavailable ANTECOLSherwin MD Unavailable Unavailable ANTECOLSherwin MD Unavailable Unavailable ANTECOLSherwin MD Unavailable Unavailable ANTECOLSherwin MD Unavailable Unavailable ANTECOLSherwin MD Unavailable Unavailable ANTECOLSherwin MD Unavailable Unavailable ANTECOL, Sherwin RAMIREZ MD Unavailable Unavailable ANTECOL, Shewrin RAMIREZ MD Unavailable Unavailable ANTECOL, Sherwin RAMIREZ MD Unavailable Unavailable ANTECOL, Sherwin RAMIREZ MD Unavailable Unavailable ANTECOL, Sherwin RAMIREZ MD Unavailable Unavailable ANTECOL, Sherwin RAMIREZ MD Unavailable Unavailable ANTECOL, Sherwin RAMIREZ MD Unavailable Unavailable ANTECOL, Sherwin RAMIREZ MD Unavailable Unavailable ANTECOL, Sherwin RAMIREZ MD Unavailable Unavailable ANTECOL, Sherwin RAMIREZ MD Unavailable Unavailable ANTECOL, Sherwin RAMIREZ MD Unavailable Unavailable ANTECOL, Sherwin RAMIREZ MD Unavailable Unavailable ANTECOL, Sherwin RAMIREZ MD Unavailable Unavailable ANTECOL, Sherwin RAMIREZ MD Unavailable Unavailable ANTECOL, Sherwin RAMIREZ MD Unavailable Unavailable ANTECOL, Sherwin RAMIREZ MD Unavailable Unavailable ANTECOL, Sherwin RAMIREZ MD Unavailable Unavailable ANTECOL, Sherwin RAMIREZ MD Unavailable Unavailable ANTECOL, Sherwin RAMIREZ MD Unavailable Unavailable ANTECOL, Sherwin RAMIREZ MD Unavailable Unavailable ANTECOL, Sherwin RAMIREZ MD Unavailable Unavailable ANTECOL, Sherwin RAMIREZ MD Unavailable Unavailable ANTECOL, Sherwin RAMIREZ MD Unavailable Unavailable ANTECOL, Sherwin RAMIREZ MD Unavailable Unavailable ANTECOL, Sherwin RAMIREZ MD Unavailable Unavailable ANTECOL, Sherwin RAMIREZ MD Unavailable Unavailable ANTECOL, Sherwin RAMIREZ MD Unavailable Unavailable ANTECOL, Sherwin RAMIREZ MD Unavailable Unavailable ANTECOL, Sherwin RAMIREZ MD Unavailable Unavailable ANTECOL, Sherwin RAMIREZ MD Unavailable Unavailable ANTECOL, Sherwin RAMIREZ MD Unavailable Unavailable MacQueen ([facility] COVID), DO NOT EDIT Damon LY Unavail able Unavailable Terrance Grove MD Unavailable Unavailable Terrance Grove MD Unavailable Unavailable Seemleif, Ray LY Unavailable Unavailable Seemant, Fnmarium LY Unavailable Unavailable Seemant, Fnmarium LY Unavailable Unavailable Seemant, Fnmarium LY Unavailable Unavailable Seemant, Fnmarium LY Unavailable Unavailable Seemleif, Fnmarium LY Unavailable Unavailable Seemleif, Fnmarium LY Unavailable Unavailable Seemant, Fnu Unavailable Unavailable Seemant, Fnu Unavailable Unavailable Seemant, Fnu Unavailable Unavailable Seemant, Fnu Unavailable Unavailable Seemant, Fnu Unavailable Unavailable Seemant, Fnu Unavailable Unavailable Seemant, Fnu Unavailable Unavailable Seemant, Fnu Unavailable Unavailable Seemant, Fnu Unavailable Unavailable Seemant, Fnu MD Unavailable Unavailable Seemant, Fnu Unavailable Unavailable Seemant, Fnu Unavailable Unavailable Seemant, Fnu Unavailable Unavailable Seemant, Fnu Unavailable Unavailable Seemant, Fnu MD Unavailable Unavailable Seemant, Fnu MD Unavailable Unavailable Seemant, Fnu MD Unavailable Unavailable Seemant, Fnu MD Unavailable Unavailable Seemant, Fnu MD Unavailable Unavailable Seemant, Fnu MD Unavailable Unavailable Seemant, Fnu MD Unavailable Unavailable Seemant, Fnu MD Unavailable Unavailable Elfar, M Talita MD Unavailable Unavailable Elfar, M Talita MD Unavailable Unavailable Elfar, M Talita MD Unavailable Unavailable Elfar, M Talita MD Unavailable Unavailable Elfar, M Talita MD Unavailable Unavailable Elfar, M Talita MD Unavailable Unavailable Elfar, M Talita MD Unavailable Unavailable Elfar, M Talita MD Unavailable Unavailable Elfar, M Talita MD Unavailable Unavailable Elfar, M Talita MD Unavailable Unavailable Bitting, A Lara RPA-C Unavailable Unavailable Bitting, A Lara RPA-C Unavailable Unavailable Bitting, A Lara RPA-C Unavailable Unavailable Bitting, A Lara RPA-C Unavailable Unavailable Bitting, A Lara RPA-C Unavailable Unavailable Bitting, A Lara RPA-C Unavailable Unavailable Bitting, A Lara RPA-C Unavailable Unavailable Bitting, A Lara RPA-C Unavailable Unavailable Bitting, A Lara RPA-C Unavailable Unavailable Re-disclosure Warning The records that you are about to access may contain information from federally-assisted alcohol or drug abuse programs. If such information is present, then the following federally mandated warning applies: This information has been disclosed to you from records protected by federal confidentiality rules (42 CFR part 2). The federal rules prohibit you from making any further disclosure of this information unless further disclosure is expressly permitted by the written consent of the person to whom it pertains or as otherwise permitted by 42 CFR part 2. A general authorization for the release of medical or other information is NOT sufficient for this purpose. The Federal rules restrict any use of the information to criminally investigate or prosecute any alcohol or drug abuse patient.The records that you are about to access may contain highly sensitive health information, the redisclosure of which is protected by Article 27-F of the [facility] Public Health law. If you continue you may have access to information: Regarding HIV / AIDS; Provided by facilities licensed or operated by the [facility] Office of Mental Health; or Provided by the [facility] Office for People With Developmental Disabilities. If such information is present, then the following [facility] mandated warning applies: This information has been disclosed to you from confidential records which are protected by state law. State law prohibits you from making any further disclosure of this information without the specific written consent of the person to whom it pertains, or as otherwise permitted by law. Any unauthorized further disclosure in violation of state law may result in a fine or longterm sentence or both. A general authorization for the release of medical or other information is NOT sufficient authorization for further disc losure. Family History Family Member Name Family Member Gender Family Member Status Date o f Status Description Data Source(s) Unknown Male Problem [facility] ([facility] Encounters Encounter Providers Location Date Indications Data Source(s ) Outpatient Attender: ASHLEY ANDERS MD Main Office 07/12/2021 08:00:00 AM EDT [facility] ([facility]) Outpatient 05/12/2021 03:59:15 PM EDT - 021 04:01:58 PM EDT [facility] ([facility]) Outpatient Attender: Gonsalo Lopez [facility] [address] Internal Medicine [facility] 04/28/2021 01:30:00 PM EDT [facility] ([facility] Outpatient Attender: Lara ALVARESC [facility] [address] Internal [facility] 04/22/2021 02:30:00 PM EDT [facility] ([facility] Outpatient Attender: Damon Mark ([facility]) 02/18/2021 02:38:00 PM EDT Covid Testing [facility] Covid Testing Outpatient Attender: Damon Mark ([facility] COVID) MDConsult ant: COVID Kuldip 02/17/2021 12:47:00 PM EDT Covid Testing [facility] Covid Testing Outpatient Attender: Misha Brasher DO 02/10/2021 01:00:00 P M EDT dehydration [facility] dehydration Outpatient Attender: Damon Mark ([facility] COVID) MDConsult ant: COVID Kuldip 02/07/2021 11:24:00 AM EDT Covid Testing [facility] Covid Testing Outpatient Attender: Damon Mark ([facility] COVID) MDConsult ant: COVID Kuldip 01/31/2021 12:02:00 PM EDT Covid Testing [facility] Covid Testing Outpatient Attender: Damon Mark ([facility] COVID) MDConsult ant: COVID [place] 01/24/2021 02:03:00 PM EDT Covid Testing [facility] Covid Testing Outpatient Attender: Damon Mark ([facility] COVID) MDConsult ant: COVID [place] 01/17/2021 03:39:00 PM EDT Covid Testing [facility] Covid Testing Outpatient Attender: Damon Mark ([facility] COVID) MDConsult ant: COVID [place] 01/07/2021 09:07:00 AM EDT Covid Testing [facility] Covid Testing Outpatient Attender: Damon Mark ([facility] COVID) MDConsult ant: COVID [place] 01/04/2021 12:31:00 PM EDT Covid Testing [facility] Covid Testing Outpatient Attender: Misha Brasher DO [facility] [address] Internal Medicine [facility] 01/04/2021 09:40:00 AM EDT [facility] Attender: Misha Brasher DO 01/03/2021 01:1 9:00 PM EDT Syncope and collapse [facility] Syncope and collapse Outpatient Attender: Damon Mark ([facility] COVID) MDConsult ant: COVID [place] 12/31/2020 01:19:00 PM EDT Covid Testing [facility] Covid Testing Outpatient Attender: Damon Mark ([facility] COVID) MDConsult ant: COVID [place] 12/28/2020 01:11:00 PM EDT Covid Testing [facility] Covid Testing Outpatient Attender: Damon Mark ([facility] COVID) MDConsult ant: COVID [place] 12/24/2020 11:38:00 AM EDT Covid Testing [facility] Covid Testing Outpatient Attender: Damon Mark ([facility] COVID) MDConsult ant: COVID [place] 12/21/2020 11:30:00 AM EDT Covid Testing [facility] Covid Testing Outpatient Attender: Damon Mark ([facility] COVID) MDConsult ant: COVID [place] 12/19/2020 11:45:00 AM EDT Covid Testing [facility] Covid Testing Outpatient Attender: Damon Mark ([facility] COVID) MDConsult ant: COVID [place] 12/16/2020 04:31:00 PM EDT Covid Testing [facility] Covid Testing Outpatient Attender: Damon MilesJohnnyliliane ([facility] COVID) MDConsult ant: COVID [place] 12/10/2020 01:34:00 PM EDT Covid Testing [facility] Covid Testing Outpatient Attender: Damon Miles ([facility] COVID) MDConsult ant: COVID [place] 12/07/2020 01:30:00 PM EDT Covid Testing [facility] Covid Testing Outpatient Attender: Misha Brasher DO 12/03/2020 12:3 4:00 PM EST E86.0 hydration [facility] E86.0 hydration Outpatient Attender: Damon Mark ([facility] COVID) MDConsult ant: COVID [place] 12/03/2020 11:49:00 AM EST Covid Testing [facility] Covid Testing Office Visit Attender: Gonsalo Lopez [facility] [address] Internal [facility] 12/02/2020 12:15:00 PM EST [facility] ([facility] Outpatient Attender: Damon Mark ([facility] COVID) MDConsult ant: COVID [place] 11/30/2020 09:13:00 AM EST Covid Testing [facility] Covid Testing Outpatient Attender: Damon Miles ([facility] COVID) MDConsult ant: COVID [place] 11/26/2020 09:22:00 AM EST Covid Testing [facility] Covid Testing Outpatient Attender: Misha Brasher DO [facility] [address] Internal [facility] 11/25/2020 08:40:00 AM EST [facility] ([facility] Outpatient Attender: Misha Brasher DO 11/24/2020 04:4 0:00 PM EST Syncope and collapse [facility] Syncope and collapse Outpatient Attender: Chana REYES 06:34:00 PM EST Acute vaginitis [facility] Acute vaginitis Outpatient Attender: Chana REYES [facility] [address] Internal Med [facility] 11/23/2020 01:30:00 PM EST [facility] ([facility] Outpatient Attender: Damon Mark ([facility] COVID) MDConsult ant: COVID [place] 11/22/2020 08:43:00 AM EST Covid Testing [facility] Covid Testing Outpatient Attender: Misha Brasher DO [facility] [address] Internal [facility] 11/16/2020 08:00:00 AM EST [facility] ([facility] Outpatient Attender: Damon Mark ([facility] COVID) MDConsult ant: COVID [place] 11/15/2020 01:58:00 PM EST Covid Testing [facility] Covid Testing Outpatient Attender: Misha Brasher DO 11/12/2020 02:0 0:00 PM EST E86.0 Dehydration [facility] E86.0 Dehydration Outpatient Attender: Damon Mark ([facility] COVID) MDConsult ant: COVID [place] 11/11/2020 01:13:00 PM EST Covid Testing [facility] Covid Testing Outpatient Attender: Misha Brasher DO [facility] 11/09/2020 09:00:00 AM EST [facility] ([facility] Outpatient Attender: Damon Mark ([facility] COVID) MDConsult ant: COVID [place] 11/05/2020 04:59:00 PM EST Covid Testing [facility] Covid Testing Office Visit Attender: Gonsalo Lopez [facility] 11/02/2020 10:30:00 AM EST [facility] ([facility] Outpatient Attender: Damon Mark ([facility] COVID) MDConsult ant: COVID [place] 11/01/2020 02:45:00 PM EST Covid Testing [facility] Covid Testing Outpatient Attender: Damon Mark ([facility] COVID) MDConsult ant: COVID [place] 10/28/2020 01:14:00 PM EST Covid Testing [facility] Covid Testing Outpatient Attender: Damon Mark ([facility] COVID) MDConsult ant: COVID [place] 10/25/2020 10:59:00 AM EST Covid Testing [facility] Covid Testing Outpatient Attender: Obdulia Hernandez MD [facility] [address] Internal Medicine [facility] 10/07/2020 12:30:00 PM EST [facility] ([facility] Office Visit Attender: Gonsalo Lopez [facility] [address] Internal [facility] 10/05/2020 10:30:00 AM EST [facility] ([facility] Outpatient Attender: Gonsalo Lopez 09/22 09:53:00 AM EST - 09/22/2020 06:10:00 PM EST OTHER INST[facility]ST[facility], RIGHT SHOULDER Patient discharged. Outpatient Attender: Damon Mark ([facility] COVID) MDConsult ant: COVID [place] 09/18/2020 01:38:00 PM EST Covid Testing [facility] Covid Testing Outpatient Attender: Misha Brasher DO [facility] [address] Internal [facility] 09/13/2020 03:40:00 PM EST [facility] ([facility] Outpatient Attender: Damon Mark ([facility] COVID) MDConsult ant: COVID [place] 09/13/2020 12:16:00 PM EST Covid Testing [facility] Covid Testing Outpatient Attender: Damon Mark ([facility] COVID) MDConsult ant: COVID [place] 09/10/2020 09:47:00 AM EST Covid Testing [facility] Covid Testing [facility]patient [facility]: [facility] 09/08/2020 02:36:00 PM EST Covid Testing [facility] Covid Testing Outpatient Attender: Gonsalo Lopez 09/07/2020 04: 00:00 PM EST OTHER INSTABILITY, RIGHT SHOULDER [facility] OTHER INSTABILITY, RIGHT SHOULDER Outpatient Attender: Damon Mark ([facility] COVID) MDConsult ant: COVID [place] 09/03/2020 02:41:00 PM EST Covid Testing [facility] Covid Testing Outpatient Attender: Damon Mark ([facility] COVID) MDConsult ant: COVID [place] 08/30/2020 08:12:00 AM EST Covid Testing [facility] Covid Testing Outpatient Attender: Damon Mark ([facility] COVID) 08/28/2020 10:46:00 AM EST Covid Testing [facility] Covid Testing Outpatient Attender: Damon Mark ([facility] COVID) MDConsult ant: COVID [place] 08/27/2020 02:38:00 PM EST Covid Testing [facility] Covid Testing Outpatient Attender: Damon Mark ([facility] COVID) MDConsult ant: COVID [place] 08/23/2020 10:44:00 AM EST Covid Testing [facility] Covid Testing Emergency Attender: Laney Smith MDAttender: [facility] 08/22/2020 09:22:00 AM EST - 08/22/2020 11:00:00 AM EST THUMB INJURY [facility] THUMB INJURY Patient discharged. Outpatient Attender: Damon Mark ([facility] COVID) MDConsult ant: COVID [place] 08/20/2020 01:05:00 PM EST Covid Testing [facility] Covid Testing Outpatient Attender: Gonsalo Lopez 08/17/2020 10: 58:00 AM EST Other instability, right shoulder [facility] Other instability, right shoulder Outpatient Attender: Damon Mark ([facility] COVID) MDConsult ant: COVID [place] 08/16/2020 02:02:00 PM EST Covid Testing [facility] Covid Testing Outpatient Attender: Damon Mark ([facility] COVID) MDConsult ant: COVID [place] 08/13/2020 01:12:00 PM EST Covid Testing [facility] Covid Testing Outpatient Attender: Gonsalo Lopez [facility] [address] Internal Medicine [facility] 08/10/2020 12:45:00 PM EST [facility] ([facility] Outpatient Attender: Damon Mark ([facility] COVID) MDConsult ant: COVID [place] 08/09/2020 12:45:00 PM EST Covid Testing [facility] Covid Testing Outpatient Attender: Damon Mark ([facility] COVID) MDConsult ant: COVID [place] 08/06/2020 02:33:00 PM EST Covid Testing [facility] Covid Testing Outpatient Attender: Damon Mark ([facility] COVID) MDConsult ant: COVID [place] 08/01/2020 02:47:00 PM EST Covid Testing [facility] Covid Testing Outpatient Attender: Damon MilesJohnnyliliane ([facility] COVID) MDConsult ant: COVID [place] 07/27/2020 11:37:00 AM EST Covid Testing [facility] Covid Testing Outpatient Attender: Damon MilesJohnnyliliane ([facility] COVID) MDConsult ant: COVID [place] 07/20/2020 11:32:00 AM EDT Covid Testing [facility] Covid Testing Outpatient Attender: Damon MilesJohnnyliliane ([facility] COVID) MDConsult ant: COVID [place] 07/16/2020 03:57:00 PM EDT Covid Testing [facility] Covid Testing Outpatient Attender: Damon Deedee ([facility] COVID) MDConsult ant: COVID [place] 07/12/2020 03:50:00 PM EDT Covid Testing [facility] Covid Testing Outpatient Attender: Damon Deedee ([facility] COVID) MDConsult ant: COVID [place] 07/09/2020 02:38:00 PM EDT Covid Testing [facility] Covid Testing Outpatient Attender: Damon Miles ([facility] COVID) MDConsult ant: COVID [place] 07/05/2020 08:22:00 AM EDT Covid Testing [facility] Covid Testing Outpatient Attender: Damon Miles ([facility] COVID) MDConsult ant: COVID [place] 07/02/2020 01:58:00 PM EDT Covid Testing [facility] Covid Testing Outpatient Attender: Damon Deedee ([facility] COVID) MDConsult ant: COVID [place] 06/28/2020 11:15:00 AM EDT Covid Testing [facility] Covid Testing Outpatient Attender: Damon Miles ([facility] COVID) MDConsult ant: COVID [place] 06/24/2020 05:31:00 PM EDT [facility] Outpatient Attender: Damon Deedee ([facility] COVID) MDConsult ant: COVID [place] 06/21/2020 04:49:00 PM EDT [facility] Outpatient Attender: Damon Mark ([facility] COVID) MDConsult ant: COVID [place] 06/18/2020 08:13:00 AM EDT [facility] Outpatient Attender: Damon Mark ([facility] COVID) MDConsult ant: COVROBYN [place] 06/14/2020 12:16:00 PM EDT [facility] Outpatient Attender: Damon Mark ([facility] COVID) MDConsult ant: COVID [place] 06/12/2020 09:49:00 AM EDT [facility] Outpatient Attender: Damon Mark ([facility] COVID) MDConsult ant: LUNA [place] 06/11/2020 12:40:00 PM EDT [facility] Outpatient Attender: Gonsalo Lopez [facility] [address] Internal Medicine [facility] 06/10/2020 08:00:00 AM EDT [facility] ([facility]ngela San MD 06/08/2020 04:04:00 PM EDT - 06/08/2020 05:31:00 PM EDT RIGHT SHOULDER INJURY [facility] RIGHT SHOULDER INJURY Patient discharged. Outpatient Attender: Damon Mark ([facility] COVID) MDConsult ant: LUNA [place] 06/07/2020 08:53:00 AM EDT [facility] Emergency Attender: Fnmarium Seemant MDAttender: [facility] 05/23/2020 09:03:00 AM EDT - 05/23/2020 10:45:00 AM EDT SHOULDER/BACK/ CHEST INJURY [facility] SHOULDER/BACK/ CHEST INJURY Patient discharged. Emergency Attender: Feliz Mayer MD 2018 04:18:00 PM EDT - 12/25/2018 07:08:00 PM EDT BLOODY VOMIT PER PT [facility] BLOODY VOMIT PER PT Inpatient Attender: Terrance Wolf nder: Rakan Kapoor MDAttender: Oliver Aguirre MDAttender: Talita Ochoa MDAdmitter: Rakan Kapoor MD 09/01/2018 02:31:00 AM EST - 09/06/2018 02:45:00 PM EST UNSPECIFIED DEPRESSIVE D/O [facility] UNSPECIFIED DEPRESSIVE D/O Immunizations Vaccine Date Status Description Data Source(s) COVID-19 VACCINE Pfizer 12/25/2020 12:00:00 AM EDT completed [facility] Vaccine Series Complete: YESThis Data wa s Submitted to [facility]. COVID-19 VACCINE Pfizer 12/04/2020 12:00:00 AM EST completed [facility] Vaccine Series Complete: NOThis Data was Submitted to [facility]. Medications Medication Brand Name Start Date Product Form Dose Route Admi nistrative Instructions Pharmacy Instructions Status Indications Reaction Description Data Source(s) Diazepam 5 MG Oral Tablet Diazepam 07/11/2021 12:00:00 AM EDT active [facility] Ibuprofen 200 MG Oral Capsule Ibuprofen 07/11/2021 12:00:00 AM EDT active [facility] ([facility]) 12 HR Bupropion Hydrochloride 150 MG Extended Release Oral Tablet [Wellbutrin] Wellbutrin SR 07/11/2021 12:00:00 AM EDT ORAL active [facility] ([facility]) Jornay PM Jornay PM 07/11/2021 12:00:00 AM EDT ORAL act edwin [facility] ([facility]) Fludrocortisone 0.1 MG Oral Tablet Fludrocortisone Acetate 1 12:00:00 AM EDT ORAL active [facility] ([facility]) cetirizine hydrochloride 10 MG Oral Capsule [Zyrtec] Zyrtec Allergy 07/11/2021 12:00:00 AM EDT ORAL active M EDENT ([facility]) Fludrocortisone 0.1 MG Oral Tablet Fludrocortisone Acetate 0 11/25/2020 12:00:00 AM EST ORAL active [facility] ([facility] Normal Saline Infusion 11/18/2020 12:00:00 AM EST active [facility] ([facility] Fludrocortisone 0.1 MG Oral Tablet Fludrocortisone Acetate 0 11/16/2020 12:00:00 AM EST ORAL completed [facility] ([facility] Wheelchair 11/10/2020 12:00:00 AM EST active [facility] ([facility] Fludrocortisone 0.1 MG Oral Tablet Fludrocortisone Acetate 0 11/09/2020 12:00:00 AM EST ORAL completed [facility] ([facility] Cyclobenzaprine hydrochloride 10 MG Oral Tablet Cyclobenzapr ine HCL 10/06/2020 12:00:00 AM EST ORAL completed [facility] ([facility] Ondansetron 4 MG Oral Tablet Ondansetron HCL 09/27/2020 12:00:00 AM EST active [facility] ([facility] Acetaminophen 325 MG / Hydrocodone Bitartrate 5 MG Oral Tabl et [[place]] [place] 09/27/2020 12:00:00 AM EST ORAL completed [facility] ([facility] Acetaminophen 325 MG / Oxycodone Hydrochloride 5 MG Or al Tablet Oxycodone-Acetaminophen 09/22/2020 12:00:00 AM EST ORAL completed [facility] ([facility] Fluconazole 150 MG Oral Tablet [Diflucan] Diflucan 09/22/2020 1 2:00:00 AM EST completed [facility] ([facility] Sulfamethoxazole 800 MG / Trimethoprim 160 MG Oral Tab let Sulfamethoxazole/Trimethoprim DS 09/22/2020 12:00:00 AM EST completed [facility] ([facility] nebivolol 5 MG Oral Tablet [Bystolic] Bystolic 05/12/2020 12:00:00 AM EDT ORAL completed [facility] ([facility] Insurance Providers Payer name Policy type / Coverage type Policy ID Covered constitution party ID Covered constitution party's relationship to prieto Policy Prieto Plan Information [employer] [id number] SELF [id number] [employer] [id number] SELF [id number] [employer] [id number] SELF [id number] [employer] Student [employer] Commercial [id number] Self [id number] [employer] [id number] SELF [id number] [employer] [id number] SELF [id number] [employer] Commercial [id number] Self [id number] [employer] Commercial [id number] Self [id number] [employer] Commercial [id number] Self [id number] Aetna [facility] F [id number] SELF [id number] SELF PAY [employer] [id number] Self [id number] SELF PAY [employer] [id number] SELF [id number] SELF PAY [employer] [id number] SELF [id number] COVID19 ONLY 0 0 SELF PAY SELF PAY [employer] [id number] SELF [id number] COVID19 ONLY 0 0 SELF PAY [employer] [id number] SELF [id number] SELF PAY [employer] [id number] SELF [id number] [employer] [id number] SELF [id number] COVID19 ONLY 0 0 SELF PAY SELF PAY SELF PAY SELF PAY SELF PAY [employer] [id number] SELF [id number] [employer] [id number] SELF [id number] SELF PAY SELF PAY SELF PAY SELF PAY SELF PAY SELF PAY SELF PAY [employer] [id number] SELF [id number] [employer] [id number] SELF [id number] SELF PAY SELF PAY SELF PAY [employer] [id number] SELF [id number] SELF PAY SELF PAY SELF PAY SELF PAY SELF PAY [employer] [id number] SELF [id number] SELF PAY SELF PAY [employer] [id number] SELF [id number] [employer] [id number] SELF [id number] SELF PAY SELF PAY SELF PAY [employer] [id number] SELF [id number] SELF PAY SELF PAY [employer] [id number] SELF [id number] SELF PAY [employer] [id number] SELF [id number] SELF PAY SELF PAY [employer]ET[employer] [id number] SP [id number] [employer] Commercial [id number] Self [id number] [employer] Commercial [id number] Self [id number] [employer] Commercial [id number] Self [id number] [employer] Commercial [id number] Self [id number] [employer] F [id number] SELF [id number] [employer] F Awaiting SELF Aw aiting [employer] [id number] SELF [id number] BCBS ANTHEM [id number] SP [id number] Problems, Conditions, and Diagnoses Code Display Name Description Problem Type Effective Dates Data Source(s) Z20.822 Z20.822 - Contact with and (suspected) e xposure to COVID-19 Z20.822 - Contact with and (suspected) exposure to COVID-19 Diagnosis 01/23 02:38:00 PM EDT [facility] R55 Syncope and collapse R55 - Syncope and collapse Diagno sis 01/03/2021 01:19:00 PM [facility] N76.0 Acute vaginitis N76.0 - Acute vaginitis Diagnosis 0 11/23/2020 06:34:00 PM [facility] Z11.59 Encounter for screening for other viral diseases Z11.59 - Encounter for screening for other viral diseases Diagnosis 10/25/2020 10:59:00 AM [facility] S69.91XA Unspecified injury of right wrist, hand and finger(s), initial encounter S69.91XA - Unspecified injury of right w rist, hand and finger(s), initial encounter Diagnosis 08/22/2020 09:22:00 AM [facility] M25.311 Other instability, right shoulder M25.31 1 - Other instability, right shoulder Diagnosis 08/17/2020 10:58:00 AM [facility] M25.511 Pain in right shoulder M25.511 - Pain in right shoulde r Diagnosis 06/08/2020 04:04:00 PM EDT [facility] I49.8 Conduction disorder of the heart Conduction disorder o f the heart Problem 07/12/2021 12:00:00 AM EDT [facility] ([facility]) 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/12/2021 12:00:00 AM EDT [facility] ([facility]) [id number] Cystocele Cystocele Problem 08/31/2020 12:00:00 AM ES T [facility] ([facility] [id number] Urinary incontinence Urinary incontinence Problem 08/31/2020 12:00:00 AM EST [facility] ([facility] [id number] 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 Problem 08/31/2020 12:00:00 AM EST [facility] Surgeries/Procedures Procedure Description Date Indications Data Source(s) ECG ROUTINE ECG W/LEAST 12 LDS W/I&R 07/12/2021 12:00: 00 AM EDT [facility] ([facility]) OFFICE OUTPATIENT NEW 45 MINUTES 07/12/2021 12:00:00 A M EDT [facility] ([facility]) OFFICE OUTPATIENT VISIT 15 MINUTES 04/28/2021 12:00:00 AM EDT [facility] ([facility] RADEX SHOULDER COMPLETE MINIMUM 2 VIEWS 04/22/2021 12: 00:00 AM EDT [facility] ([facility] OFFICE OUTPATIENT VISIT 15 MINUTES 04/22/2021 12:00:00 AM EDT [facility] ([facility] OFFICE OUTPATIENT VISIT 15 MINUTES 01/04/2021 12:00:00 AM EDT [facility] ([facility] OFFICE OUTPATIENT VISIT 25 MINUTES 11/25/2020 12:00:00 AM EST [facility] ([facility] OFFICE OUTPATIENT VISIT 15 MINUTES 11/23/2020 12:00:00 AM EST [facility] ([facility] OFFICE OUTPATIENT VISIT 25 MINUTES 11/16/2020 12:00:00 AM EST [facility] ([facility] ECG ROUTINE ECG W/LEAST 12 LDS W/I&R 11/09/2020 12:00: 00 AM EST [facility] ([facility] OFFICE OUTPATIENT VISIT 25 MINUTES 11/09/2020 12:00:00 AM EST [facility] ([facility] FIT&INSJ PESSARY/OTH INTRAVAGINAL SUPPORT DEVICE 10/07 12:00:00 AM EST [facility] ([facility] ANESTHESIA BICEPS TENODESIS RUPTURE LONG TENDON 2019 12:00:00 AM EST [facility] ([facility] TENODESIS LONG TENDON BICEPS 09/22/2020 12:00:00 AM ES T [facility] ([facility] TENODESIS LONG TENDON BICEPS 09/22/2020 12:00:00 AM ES T [facility] ([facility] TENODESIS LONG TENDON BICEPS 09/22/2020 12:00:00 AM ES T [facility] ([facility] ARTHROSCOPY SHOULDER SURGICAL CAPSULORRHAPHY 0 12:00:00 AM EST [facility] ([facility] ARTHROSCOPY SHOULDER SURGICAL CAPSULORRHAPHY 0 12:00:00 AM EST [facility] ([facility] ARTHROSCOPY SHOULDER SURGICAL CAPSULORRHAPHY 0 12:00:00 AM EST [facility] ([facility] ARTHROSCOPY SHOULDER SURG DEBRIDEMENT LIMITED 09/22/20 20 12:00:00 AM EST [facility] ([facility] ECG ROUTINE ECG W/LEAST 12 LDS W/I&R 09/13/2020 12:00: 00 AM EST [facility] ([facility] ECHO TTHRC R-T 2D W/WOM-MODE COMPL SPEC&COLR DOP 06/25 12:00:00 AM EDT [facility] ([facility] ECHO TTHRC R-T 2D W/WOM-MODE COMPL SPEC&COLR DOP 06/25 12:00:00 AM EDT [facility] ([facility] Results ID Date Data Source [id number] 02/18/2021 02:38:00 PM EDT [facility] Name Value Range Interpretation Code Description Data Najma rce(s) Supporting Document(s) SARS-CoV-2 (COVID-19) RNA [Presence] in Respiratory specimen by JW with probe detection Undetected [facility] This lab was ordered by [facility] and reported by [facility]. ID Date Data Source [id number] 02/18/2021 07:46:00 PM EDT [facility] Anterior NareScreening Z20.822 COVIDPTR2 [id number] Name Value Range Interpretation Code Description Data Najma rce(s) Supporting Document(s) SARS Coronavirus-2, PCR Undetected Undetected [facility] Negative results do not preclude SARS-Co V-2 infection andshould not be used as the sole basis for patient managementdecisions.The Tetracore RT-PCR COVID-19 assay has been internallyvalidated for saliva and pooled upper respiratory specimens.Source: Anterior Nare ID Date Data Source [id number] 02/07/2021 11:25:00 AM EDT [facility] Name Value Range Interpretation Code Description Data Najma rce(s) Supporting Document(s) SARS-CoV-2 (COVID-19) RNA [Presence] in Respiratory specimen by JW with probe detection Undetected [facility] This lab was ordered by [facility] and reported by [facility]. ID Date Data Source [id number] 02/07/2021 04:42:00 PM EDT [facility] Anterior NareScreening Z20.822 COVIDPTR2 [id number] Name Value Range Interpretation Code Description Data Najma rce(s) Supporting Document(s) SARS Coronavirus-2, PCR Undetected Undetected [facility] Negative results do not preclude SARS-Co V-2 infection andshould not be used as the sole basis for patient managementdecisions.The Tetracore RT-PCR COVID-19 assay has been internallyvalidated for saliva and pooled upper respiratory specimens.Source: Anterior Nare ID Date Data Source [id number] 01/31/2021 12:03:00 PM EDT [facility] Name Value Range Interpretation Code Description Data Najma rce(s) Supporting Document(s) SARS-CoV-2 (COVID-19) RNA [Presence] in Respiratory specimen by JW with probe detection Undetected [facility] This lab was ordered by [facility] and reported by [facility]. ID Date Data Source [id number] 01/31/2021 06:52:00 PM EDT [facility] Anterior NareScreening Z20.822 COVIDPTR2 [id number] Name Value Range Interpretation Code Description Data Najma rce(s) Supporting Document(s) SARS Coronavirus-2, PCR Undetected Undetected [facility] Negative results do not preclude SARS-Co V-2 infection andshould not be used as the sole basis for patient managementdecisions.The Tetracore RT-PCR COVID-19 assay has been internallyvalidated for saliva and pooled upper respiratory specimens.Source: Anterior Nare ID Date Data Source [id number] 01/17/2021 03:40:00 PM EDT [facility] Name Value Range Interpretation Code Description Data Najma rce(s) Supporting Document(s) SARS-CoV-2 (COVID-19) RNA [Presence] in Respiratory specimen by JW with probe detection Undetected [facility] This lab was ordered by [facility] and reported by [facility]. ID Date Data Source [id number] 01/18/2021 12:34:00 PM EDT [facility] Anterior NareScreening Z20.822 COVIDPTR2 [id number] Name Value Range Interpretation Code Description Data Najma rce(s) Supporting Document(s) SARS Coronavirus-2, PCR Undetected Undetected [facility] Negative results do not preclude SARS-Co V-2 infection andshould not be used as the sole basis for patient managementdecisions.The Tetracore RT-PCR COVID-19 assay has been internallyvalidated for saliva and pooled upper respiratory specimens.Source: Anterior Nare ID Date Data Source [id number] 01/07/2021 09:07:00 AM EDT [facility] Name Value Range Interpretation Code Description Data Najma rce(s) Supporting Document(s) SARS-CoV-2 (COVID-19) RNA [Presence] in Respiratory specimen by JW with probe detection Undetected [facility] This lab was ordered by [facility] and reported by [facility]. ID Date Data Source [id number] 01/07/2021 02:56:00 PM EDT [facility] Anterior NareScreening Z20.822 COVIDPTR2 [id number] Name Value Range Interpretation Code Description Data Najma rce(s) Supporting Document(s) SARS Coronavirus-2, PCR Undetected Undetected [facility] Negative results do not preclude SARS-Co V-2 infection andshould not be used as the sole basis for patient managementdecisions.The Tetracore RT-PCR COVID-19 assay has been internallyvalidated for saliva and pooled upper respiratory specimens.Source: Anterior Nare ID Date Data Source [id number] 01/04/2021 12:31:00 PM EDT [facility] Name Value Range Interpretation Code Description Data Najma rce(s) Supporting Document(s) SARS-CoV-2 (COVID-19) RNA [Presence] in Respiratory specimen by JW with probe detection Undetected [facility] This lab was ordered by [facility] and reported by [facility]. ID Date Data Source [id number] 01/04/2021 06:41:00 PM EDT [facility] Anterior NareScreening Z20.822 COVIDPTR2 [id number] Name Value Range Interpretation Code Description Data Najma rce(s) Supporting Document(s) SARS Coronavirus-2, PCR Undetected Undetected [facility] Negative results do not preclude SARS-Co V-2 infection andshould not be used as the sole basis for patient managementdecisions.The Tetracore RT-PCR COVID-19 assay has been internallyvalidated for saliva and pooled upper respiratory specimens.Source: Anterior Nare ID Date Data Source [id number] 01/03/2021 01:21:00 PM EDT [facility] ([facility] Name Value Range Interpretation Code Description Data Najma rce(s) Supporting Document(s) Sodium [Moles/volume] in Serum or Plasma 142 mmol/L 135-145 [facility] ([facility] Potassium [Moles/volume] in Serum or Plasma 4.5 mmol/L 3.5-5.0 [facility] ([facility] Chloride [Moles/volume] in Serum or Plasma 109 mmol/L 101-111 [facility] ([facility] Carbon dioxide, total [Moles/volume] in Serum or Plasma 28 mmol/L 22 -32 [facility] ([facility] Anion Gap 5 mmol/L 2-11 [facility] ([facility] Urea nitrogen [Mass/volume] in Serum or Plasma 14 mg/dL 6-24 [facility] ([facility] Glucose [Mass/volume] in Serum or Plasma 94 mg/dL 70-100 [facility] ([facility] Creatinine [Mass/volume] in Serum or Plasma 0.90 mg/dL 0.51-0.95 [facility] ([facility] Calcium [Mass/volume] in Serum or Plasma 9.7 mg/dL 8.6-10.3 [facility] ([facility] BUN/Creatinine Ratio 15.6 8-20 [facility] ([facility] Glomerular filtration rate/1.73 sq M pre dicted among blacks [Volume Rate/Area] in Serum or Plasma by Creatinine-based formula (MDRD) 89.6 [facility] ([facility] <content>Because ethnic data is n ot always readily available,</content>
<content>this report includes an eGFR for both - Americans and</content>
<content>non- Americans.</content>
<content>The National Kidney Disease Education Program (NKDEP) does</content>
<content>not endorse the use of the MDRD equation for patients that</content>
<content>are not between the ages of 18 and 70, are , have</content>
<content>extremes of body size, muscle mass, or nutritional status,</content>
<content>or are non- or non- A merican.</content>
<content>According to the National Kidney Foundation, irrespective of</content>
<content>diagnosis, the stage of the disease is based on the level of</content>
<content>kidney function:</content>
<content>Stage Description GFR(mL/min/1.73 m(2))</content>
<content>1 Kidney damage with normal or decreased GFR 90</content>
<content>2 Kidney damage with mild decrease in GFR 60-89</content>
<content>3 Moderate decrease in GFR 30-59</content>
<content>4 Severe decrease in GFR 15-29</content>
<content>5 Kidney failure <15 (or dialysis)</content>
<content></content> Glomerular filtration rate/1.73 sq M pre dicted among non-blacks [Volume Rate/Area] in Serum or Plasma by Creatinine-based formula (MDRD) 74.0 [facility] ([facility] ID Date Data Source [id number] 01/03/2021 02:43:00 PM EDT [facility] Name Value Range Interpretation Code Description Data Najma rce(s) Supporting Document(s) Sodium 142 mmol/L 135-145 N [facility] Potassium 4.5 mmol/L 3.5-5.0 N [facility] Chloride 109 mmol/L 101-111 N [facility] CO2 Carbon Dioxide 28 mmol/L 22-[address] [facility] Anion Gap 5 mmol/L 2-11 N [facility] Glucose 94 mg/dL 70-100 N [facility] Blood Urea Nitrogen 14 mg/dL 6-[address] [facility] Creatinine 0.90 mg/dL 0.51-0.[address] [facility] [address] BUN/Creatinine Ratio 15.6 8-20 N [facility] Calcium 9.7 mg/dL 8.6-10.3 N [facility] r EGFR Non- 74.0 >60 [facility] EGFR 89.6 >60 [facility] Because ethnic data is not always readily available,this report includes an eGFR for both -Americans andnon- Americans.The National Kidney Disease Education Program (NKDEP) doesnot endorse the use of the MDRD equation for patients thatare not between the ages of 18 and 70, are , haveextremes of body size, muscle mass, or nutritional status,or are non- or non-.According to the National Kidney Foundation, irrespective ofdiagnosis, the stage of the disease is based on the level ofkidney function:Stage Description GFR(mL/min/1.73 m(2))1 Kidney damage with normal or decreased GFR 902 Kidney damage with mild decrease in GFR 60-893 Moderate decrease in GFR 30-594 Severe decrease in GFR 15-295 Kidney failure <15 (or dialysis) ID Date Data Source [id number] 12/31/2020 01:33:00 PM EDT [facility] Name Value Range Interpretation Code Description Data Najma rce(s) Supporting Document(s) SARS-CoV-2 (COVID-19) RNA [Presence] in Respiratory specimen by JW with probe detection Undetected [facility] This lab was ordered by [facility] and reported by [facility]. ID Date Data Source [id number] 12/31/2020 07:11:00 PM EDT [facility] Anterior NareScreening Z20.822 COVIDPTR2 [id number] Name Value Range Interpretation Code Description Data Najma rce(s) Supporting Document(s) SARS Coronavirus-2, PCR Undetected Undetected [facility] Negative results do not preclude SARS-Co V-2 infection andshould not be used as the sole basis for patient managementdecisions.The Tetracore RT-PCR COVID-19 assay has been internallyvalidated for saliva and pooled upper respiratory specimens.Source: Anterior Nare ID Date Data Source [id number] 12/28/2020 01:11:00 PM EDT [facility] Name Value Range Interpretation Code Description Data Najma rce(s) Supporting Document(s) SARS-CoV-2 (COVID-19) RNA [Presence] in Respiratory specimen by JW with probe detection Undetected [facility] This lab was ordered by [facility] and reported by [facility]. ID Date Data Source [id number] 12/29/2020 08:18:00 AM EDT [facility] Anterior NareScreening Z20.822 COVIDPTR2 [id number] Name Value Range Interpretation Code Description Data Najma rce(s) Supporting Document(s) SARS Coronavirus-2, PCR Undetected Undetected [facility] Negative results do not preclude SARS-Co V-2 infection andshould not be used as the sole basis for patient managementdecisions.The Tetracore RT-PCR COVID-19 assay has been internallyvalidated for saliva and pooled upper respiratory specimens.Source: Anterior Nare ID Date Data Source [id number] 12/24/2020 11:39:00 AM EDT [facility] Name Value Range Interpretation Code Description Data Najma rce(s) Supporting Document(s) SARS-CoV-2 (COVID-19) RNA [Presence] in Respiratory specimen by JW with probe detection Undetected [facility] This lab was ordered by [facility] and reported by [facility]. ID Date Data Source [id number] 12/24/2020 05:37:00 PM EDT [facility] Anterior NareScreening Z20.822 COVIDPTR2 [id number] Name Value Range Interpretation Code Description Data Najma e(s) Supporting Document(s) SARS Coronavirus-2, PCR Undetected Undetected [facility] Negative results do not preclude SARS-Co V-2 infection andshould not be used as the sole basis for patient managementdecisions.The Tetracore RT-PCR COVID-19 assay has been internallyvalidated for saliva and pooled upper respiratory specimens.Source: Anterior Nare ID Date Data Source [id number] 12/21/2020 11:32:00 AM EDT [facility] Name Value Range Interpretation Code Description Data Najma rce(s) Supporting Document(s) SARS-CoV-2 (COVID-19) RNA [Presence] in Respiratory specimen by JW with probe detection Undetected [facility] This lab was ordered by [facility] and reported by [facility]. ID Date Data Source [id number] 12/21/2020 04:26:00 PM EDT [facility] Anterior NareScreening Z20.822 COVIDPTR2 [id number] Name Value Range Interpretation Code Description Data Najma rce(s) Supporting Document(s) SARS Coronavirus-2, PCR Undetected Undetected [facility] Negative results do not preclude SARS-Co V-2 infection andshould not be used as the sole basis for patient managementdecisions.The Tetracore RT-PCR COVID-19 assay has been internallyvalidated for saliva and pooled upper respiratory specimens.Source: Anterior Nare ID Date Data Source [id number] 12/19/2020 11:46:00 AM EDT [facility] Name Value Range Interpretation Code Description Data Najma rce(s) Supporting Document(s) SARS-CoV-2 (COVID-19) RNA [Presence] in Respiratory specimen by JW with probe detection Undetected [facility] This lab was ordered by [facility] and reported by [facility]. ID Date Data Source [id number] 12/19/2020 06:38:00 PM EDT [facility] Anterior NareScreening Z20.822 COVIDPTR2 [id number] Name Value Range Interpretation Code Description Data Najma rce(s) Supporting Document(s) SARS Coronavirus-2, PCR Undetected Undetected [facility] Negative results do not preclude SARS-Co V-2 infection andshould not be used as the sole basis for patient managementdecisions.The Tetracore RT-PCR COVID-19 assay has been internallyvalidated for saliva and pooled upper respiratory specimens.Source: Anterior Nare ID Date Data Source [id number] 12/16/2020 04:32:00 PM EDT [facility] Name Value Range Interpretation Code Description Data Najma rce(s) Supporting Document(s) SARS-CoV-2 (COVID-19) RNA [Presence] in Respiratory specimen by JW with probe detection Undetected [facility] This lab was ordered by [facility] and reported by [facility]. ID Date Data Source [id number] 12/17/2020 01:00:00 PM EDT [facility] Anterior NareScreening Z20.822 COVIDPTR2 [id number] Name Value Range Interpretation Code Description Data Najma rce(s) Supporting Document(s) SARS Coronavirus-2, PCR Undetected Undetected [facility] Negative results do not preclude SARS-Co V-2 infection andshould not be used as the sole basis for patient managementdecisions.The Tetracore RT-PCR COVID-19 assay has been internallyvalidated for saliva and pooled upper respiratory specimens.Source: Anterior Nare ID Date Data Source [id number] 12/10/2020 01:54:00 PM EDT [facility] Name Value Range Interpretation Code Description Data Najma rce(s) Supporting Document(s) SARS-CoV-2 (COVID-19) RNA [Presence] in Respiratory specimen by JW with probe detection Undetected [facility] This lab was ordered by [facility] and reported by [facility]. ID Date Data Source [id number] 12/10/2020 08:36:00 PM EDT [facility] Anterior NareScreening Z20.822 COVIDPTR2 [id number] Name Value Range Interpretation Code Description Data Najma rce(s) Supporting Document(s) SARS Coronavirus-2, PCR Undetected Undetected [facility] Negative results do not preclude SARS-Co V-2 infection andshould not be used as the sole basis for patient managementdecisions.The Tetracore RT-PCR COVID-19 assay has been internallyvalidated for saliva and pooled upper respiratory specimens.Source: Anterior Nare ID Date Data Source [id number] 12/07/2020 01:31:00 PM EDT [facility] Name Value Range Interpretation Code Description Data Najma rce(s) Supporting Document(s) SARS-CoV-2 (COVID-19) RNA [Presence] in Respiratory specimen by JW with probe detection Undetected [facility] This lab was ordered by [facility] and reported by [facility]. ID Date Data Source [id number] 12/08/2020 03:08:00 PM EDT [facility] Anterior NareScreening Z20.822 COVIDPTR2 [id number] Name Value Range Interpretation Code Description Data Najma rce(s) Supporting Document(s) SARS Coronavirus-2, PCR Undetected Undetected [facility] Negative results do not preclude SARS-Co V-2 infection andshould not be used as the sole basis for patient managementdecisions.The Tetracore RT-PCR COVID-19 assay has been internallyvalidated for saliva and pooled upper respiratory specimens.Source: Anterior Nare ID Date Data Source [id number] 12/03/2020 12:52:00 PM EST [facility] ([facility] Name Value Range Interpretation Code Description Data Najma rce(s) Supporting Document(s) Sodium [Moles/volume] in Serum or Plasma 140 mmol/L 135-145 [facility] ([facility] Potassium [Moles/volume] in Serum or Plasma 3.8 mmol/L 3.5-5.0 [facility] ([facility] Chloride [Moles/volume] in Serum or Plasma 107 mmol/L 101-111 [facility] ([facility] Carbon dioxide, total [Moles/volume] in Serum or Plasma 27 mmol/L 22 -32 [facility] ([facility] Anion Gap 6 mmol/L 2-11 [facility] ([facility] Urea nitrogen [Mass/volume] in Serum or Plasma 12 mg/dL 6-24 [facility] ([facility] Glucose [Mass/volume] in Serum or Plasma 93 mg/dL 70-100 [facility] ([facility] Creatinine [Mass/volume] in Serum or Plasma 0.86 mg/dL 0.51-0.95 [facility] ([facility] BUN/Creatinine Ratio 14.0 8-20 [facility] ([facility] Calcium [Mass/volume] in Serum or Plasma 9.4 mg/dL 8.6-10.3 [facility] ([facility] Glomerular filtration rate/1.73 sq M pre dicted among non-blacks [Volume Rate/Area] in Serum or Plasma by Creatinine-based formula (MDRD) 78.0 [facility] ([facility] Glomerular filtration rate/1.73 sq M pre dicted among blacks [Volume Rate/Area] in Serum or Plasma by Creatinine-based formula (MDRD) 94.4 [facility] ([facility] <content>Because ethnic data is n ot always readily available,</content>
<content>this report includes an eGFR for both - Americans and</content>
<content>non- Americans.</content>
<content>The National Kidney Disease Education Program (NKDEP) does</content>
<content>not endorse the use of the MDRD equation for patients that</content>
<content>are not between the ages of 18 and 70, are , have</content>
<content>extremes of body size, muscle mass, or nutritional status,</content>
<content>or are non- or non- A merican.</content>
<content>According to the National Kidney Foundation, irrespective of</content>
<content>diagnosis, the stage of the disease is based on the level of</content>
<content>kidney function:</content>
<content>Stage Description GFR(mL/min/1.73 m(2))</content>
<content>1 Kidney damage with normal or decreased GFR 90</content>
<content>2 Kidney damage with mild decrease in GFR 60-89</content>
<content>3 Moderate decrease in GFR 30-59</content>
<content>4 Severe decrease in GFR 15-29</content>
<content>5 Kidney failure <15 (or dialysis)</content>
<content></content> ID Date Data Source [id number] 12/03/2020 01:24:00 PM EST [facility] Name Value Range Interpretation Code Description Data Najma rce(s) Supporting Document(s) Sodium 140 mmol/L 135-145 N [facility] er Potassium 3.8 mmol/L 3.5-5.0 N [facility] Chloride 107 mmol/L 101-111 N [facility] CO2 Carbon Dioxide 27 mmol/L 22-[address] [facility] Anion Gap 6 mmol/L 2-11 N [facility] Glucose 93 mg/dL 70-100 N [facility] Blood Urea Nitrogen 12 mg/dL 6-24 N [facility] ical [place] Creatinine 0.86 mg/dL 0.51-0.[address] [facility] ter BUN/Creatinine Ratio 14.0 8-20 [facility] [place] Calcium 9.4 mg/dL 8.6-10.3 N [facility] r EGFR Non- 78.0 >60 [facility] EGFR 94.4 >60 [facility] Because ethnic data is not always readily available,this report includes an eGFR for both -Americans andnon- Americans.The National Kidney Disease Education Program (NKDEP) doesnot endorse the use of the MDRD equation for patients thatare not between the ages of 18 and 70, are , haveextremes of body size, muscle mass, or nutritional status,or are non- or non-.According to the National Kidney Foundation, irrespective ofdiagnosis, the stage of the disease is based on the level ofkidney function:Stage Description GFR(mL/min/1.73 m(2))1 Kidney damage with normal or decreased GFR 902 Kidney damage with mild decrease in GFR 60-893 Moderate decrease in GFR 30-594 Severe decrease in GFR 15-295 Kidney failure <15 (or dialysis) ID Date Data Source [id number] 12/03/2020 05:26:00 PM [facility] Anterior NareScreening Z20.822 COVIDPTR2 [id number] Name Value Range Interpretation Code Description Data Najma rce(s) Supporting Document(s) SARS Coronavirus-2, PCR Undetected Undetected [facility] Negative results do not preclude SARS-Co V-2 infection andshould not be used as the sole basis for patient managementdecisions.The Tetracore RT-PCR COVID-19 assay has been internallyvalidated for saliva and pooled upper respiratory specimens.Source: Anterior Nare ID Date Data Source [id number] 11/30/2020 04:32:00 PM [facility] Anterior NareScreening Z20.822 COVIDPTR2 [id number] Name Value Range Interpretation Code Description Data Najma rce(s) Supporting Document(s) SARS Coronavirus-2, PCR Undetected Undetected [facility] Negative results do not preclude SARS-Co V-2 infection andshould not be used as the sole basis for patient managementdecisions.The Tetracore RT-PCR COVID-19 assay has been internallyvalidated for saliva and pooled upper respiratory specimens.Source: Anterior Nare ID Date Data Source [id number] 11/26/2020 04:30:00 PM [facility] Anterior NareScreening Z20.822 COVIDPTR1 [id number] Name Value Range Interpretation Code Description Data Najma rce(s) Supporting Document(s) SARS Coronavirus-2, PCR Undetected Undetected [facility] Negative results do not preclude SARS-Co V-2 infection andshould not be used as the sole basis for patient managementdecisions.The Tetracore RT-PCR COVID-19 assay has been internallyvalidated for saliva and pooled upper respiratory specimens.Source: Anterior Nare ID Date Data Source [id number] 11/24/2020 04:33:00 PM EST [facility] ([facility] Name Value Range Interpretation Code Description Data Najma rce(s) Supporting Document(s) Sodium [Moles/volume] in Serum or Plasma 141 mmol/L 135-145 [facility] ([facility] Potassium [Moles/volume] in Serum or Plasma 4.1 mmol/L 3.5-5.0 [facility] ([facility] Chloride [Moles/volume] in Serum or Plasma 108 mmol/L 101-111 [facility] ([facility] Anion Gap 4 mmol/L 2-11 [facility] ([facility] Carbon dioxide, total [Moles/volume] in Serum or Plasma 29 mmol/L 22 -32 [facility] ([facility] Glucose [Mass/volume] in Serum or Plasma 72 mg/dL 70-100 [facility] ([facility] Urea nitrogen [Mass/volume] in Serum or Plasma 13 mg/dL 6-24 [facility] ([facility] BUN/Creatinine Ratio 13.7 8-20 [facility] ([facility] Creatinine [Mass/volume] in Serum or Plasma 0.95 mg/dL 0.51-0.95 [facility] ([facility] Calcium [Mass/volume] in Serum or Plasma 9.5 mg/dL 8.6-10.3 [facility] ([facility] Glomerular filtration rate/1.73 sq M pre dicted among non-blacks [Volume Rate/Area] in Serum or Plasma by Creatinine-based formula (MDRD) 69.5 [facility] ([facility] Glomerular filtration rate/1.73 sq M pre dicted among blacks [Volume Rate/Area] in Serum or Plasma by Creatinine-based formula (MDRD) 84.2 [facility] ([facility] <content>Because ethnic data is n ot always readily available,</content>
<content>this report includes an eGFR for both - Americans and</content>
<content>non- Americans.</content>
<content>The National Kidney Disease Education Program (NKDEP) does</content>
<content>not endorse the use of the MDRD equation for patients that</content>
<content>are not between the ages of 18 and 70, are , have</content>
<content>extremes of body size, muscle mass, or nutritional status,</content>
<content>or are non- or non- A merican.</content>
<content>According to the National Kidney Foundation, irrespective of</content>
<content>diagnosis, the stage of the disease is based on the level of</content>
<content>kidney function:</content>
<content>Stage Description GFR(mL/min/1.73 m(2))</content>
<content>1 Kidney damage with normal or decreased GFR 90</content>
<content>2 Kidney damage with mild decrease in GFR 60-89</content>
<content>3 Moderate decrease in GFR 30-59</content>
<content>4 Severe decrease in GFR 15-29</content>
<content>5 Kidney failure <15 (or dialysis)</content>
<content></content> ID Date Data Source [id number] 11/24/2020 07:24:00 PM [facility] [id number] Name Value Range Interpretation Code Description Data Najma rce(s) Supporting Document(s) Sodium 141 mmol/L 135-145 N [facility] er Potassium 4.1 mmol/L 3.5-5.0 N [facility] Chloride 108 mmol/L 101-111 N [facility] CO2 Carbon Dioxide 29 mmol/L 22-[address] [facility] Anion Gap 4 mmol/L 2-11 N [facility] r Glucose 72 mg/dL 70-100 N [facility] r Blood Urea Nitrogen 13 mg/dL 6-24 N [facility] ical Center Creatinine 0.95 mg/dL 0.51-0.[address] [facility] ter BUN/Creatinine Ratio 13.7 8-20 N [facility] dical [place] Calcium 9.5 mg/dL 8.6-10.3 N [facility] r EGFR Non- 69.5 >60 [facility] EGFR 84.2 >60 [facility] Because ethnic data is not always readily available,this report includes an eGFR for both -Americans andnon- Americans.The National Kidney Disease Education Program (NKDEP) doesnot endorse the use of the MDRD equation for patients thatare not between the ages of 18 and 70, are , haveextremes of body size, muscle mass, or nutritional status,or are non- or non-.According to the National Kidney Foundation, irrespective ofdiagnosis, the stage of the disease is based on the level ofkidney function:Stage Description GFR(mL/min/1.73 m(2))1 Kidney damage with normal or decreased GFR 902 Kidney damage with mild decrease in GFR 60-893 Moderate decrease in GFR 30-594 Severe decrease in GFR 15-295 Kidney failure <15 (or dialysis) ID Date Data Source [id number] 11/23/2020 12:00:00 PM EST TONYA ([facility] Name Value Range Interpretation Code Description Data Najma rce(s) Supporting Document(s) Gardnerella/Yeast: Vaginal Dna Laboratory test result TONYA ([facility] Run Date: 11/24/20 [facility] Lab Live Page 1 Gardnerella/Yeast: Vaginal Dna Laboratory test result MEDHINA ([facility] Run Time: 1214 [address], [place], [place] [address] Gardnerella/Yeast: Vaginal Dna Laboratory test result [facility] ([facility] Gardnerella/Yeast: Vaginal Dna Laboratory test result [facility] ([facility] Gardnerella/Yeast: Vaginal Dna Laboratory test result [facility] ([facility] Name: Janna Mora OB: [address]: Chana REYES Gardnerella/Yeast: Vaginal Dna Laboratory test result [facility] ([facility] Acct: [id number] Unit: [id number] ge: 30 Location: [facility] Gardnerella/Yeast: Vaginal Dna Laboratory test result [facility] ([facility] Gardnerella/Yeast: Vaginal Dna Laboratory test result [facility] ([facility] Re11/23/20 S ex: F Status: Reg Ref Gardnerella/Yeast: Vaginal Dna Laboratory test result [facility] ([facility] Spec: [id number] Rajat: 1-[address]: Chana REYES Gardnerella/Yeast: Vaginal Dna Laboratory test result [facility] ([facility] Gardnerella/Yeast: Vaginal Dna Laboratory test result MEDENT ([facility] Gardnerella/Yeast: Vaginal Dna Laboratory test result MEDENT ([facility] Gardnerella/Yeast: Vaginal Dna Laboratory test result [facility] ([facility] Gardnerella/Yeast: Vaginal Dna Laboratory test result [facility] ([facility] Gardnerella/Yeast: Vaginal Dna Laboratory test result [facility] ([facility] Gardnerella/Yeast: Vaginal Dna Laboratory test result [facility] ([facility] Gardnerella/Yeast: Vaginal Dna Laboratory test result [facility] ([facility] Verbal to Barbara Sin by [id number] at 0811 on 11/24/20. Gardnerella/Yeast: Vaginal Dna Laboratory test result [facility] ([facility] Queries: Would you like to order Tricho monas Vaginalis testing? Yes Gardnerella/Yeast: Vaginal Dna Laboratory test result [facility] ([facility] Gardnerella/Yeast: Vaginal Dna Laboratory test result [facility] ([facility] Procedure Result Reported Site Gardnerella/Yeast: Vaginal Dna Laboratory test result [facility] ([facility] Gardnerella/Yeast: Vaginal Dna Laboratory test result [facility] ([facility] Gardnerella/Yeast: Vaginal Dna Final 11/24/20-1214 ML Gardnerella/Yeast: Vaginal Dna Laboratory test result [facility] ([facility] Gardnerella/Yeast: Vaginal Dna Laboratory test result [facility] ([facility] The presence of G. vaginalis, although s uggestive, is not Gardnerella/Yeast: Vaginal Dna Laboratory test result [facility] ([facility] Gardnerella/Yeast: Vaginal Dna Laboratory test result [facility] ([facility] interpreted in conjuction with other cli nical and laboratory Gardnerella/Yeast: Vaginal Dna Laboratory test result [facility] ([facility] diagnostic for bacterial vaginosis. Res ults should be Gardnerella/Yeast: Vaginal Dna Laboratory test result [facility] ([facility] Gardnerella/Yeast: Vaginal Dna Laboratory test result [facility] ([facility] Women with vaginal discharge should be e valuated for risk Gardnerella/Yeast: Vaginal Dna Laboratory test result [facility] ([facility] factors of cervicitis and pelvic inflamm atory disease, toxic Gardnerella/Yeast: Vaginal Dna Laboratory test result [facility] ([facility] shock syndrome (S.aureus), and if presen t, evaluated for Gardnerella/Yeast: Vaginal Dna Laboratory test result [facility] ([facility] organisms not included in this assay suc h as N. gonorrhoeae, Gardnerella/Yeast: Vaginal Dna Laboratory test result [facility] ([facility] C. trachomatis, Mobiluncus, Mycoplasma a nd/or Prevotella. Gardnerella/Yeast: Vaginal Dna Laboratory test result [facility] ([facility] Gardnerella/Yeast: Vaginal Dna Laboratory test result [facility] ([facility] The performance of this test on patient specimens collected Gardnerella/Yeast: Vaginal Dna Laboratory test result [facility] ([facility] Gardnerella/Yeast: Vaginal Dna Laboratory test result [facility] ([facility] vaginalis cannot be used as a test for therapeutic success Gardnerella/Yeast: Vaginal Dna Laboratory test result [facility] ([facility] unknown. The presence or absence of Cand lina species, or G. Gardnerella/Yeast: Vaginal Dna Laboratory test result [facility] ([facility] Gardnerella/Yeast: Vaginal Dna Laboratory test result [facility] ([facility] Trichomonas: Vaginal Dna Probe Final 11/24/20-1214 ML Gardnerella/Yeast: Vaginal Dna Laboratory test result [facility] ([facility] Gardnerella/Yeast: Vaginal Dna Laboratory test result [facility] ([facility] Department Of Pathology, [address] [place], [place] [address] Gardnerella/Yeast: Vaginal Dna Laboratory test result [facility] ([facility] Gardnerella/Yeast: Vaginal Dna Laboratory test result [facility] ([facility] Fax # Gardnerella/Yeast: Vaginal Dna Laboratory test result [facility] ([facility] Sharmin Alcazar M.D. Director [facility] # [id number] Gardnerella/Yeast: Vaginal Dna Laboratory test result [facility] ([facility] Run Date: 11/24/20 [facility] Lab Live Page 2 Gardnerella/Yeast: Vaginal Dna Laboratory test result [facility] ([facility] Run Time: 1214 [address] [place], [place] [address] Gardnerella/Yeast: Vaginal Dna Laboratory test result [facility] ([facility] Gardnerella/Yeast: Vaginal Dna Laboratory test result [facility] ([facility] Gardnerella/Yeast: Vaginal Dna Laboratory test result [facility] ([facility] Patient: Janna Mora [id number] (Continued) Gardnerella/Yeast: Vaginal Dna Laboratory test result [facility] ([facility] Gardnerella/Yeast: Vaginal Dna Laboratory test result [facility] ([facility] Specimen: [id number] Collected: Received: 11/23/20 (Continued) Gardnerella/Yeast: Vaginal Dna Laboratory test result [facility] ([facility] Gardnerella/Yeast: Vaginal Dna Laboratory test result [facility] ([facility] Procedure Result Reported Site Gardnerella/Yeast: Vaginal Dna Laboratory test result [facility] ([facility] Gardnerella/Yeast: Vaginal Dna Laboratory test result [facility] ([facility] The presence or absence of T. vaginalis cannot be used as a Gardnerella/Yeast: Vaginal Dna Laboratory test result [facility] ([facility] Trichomonas: Vaginal Dna Probe Final (continued) 11/24/20-1214 Gardnerella/Yeast: Vaginal Dna Laboratory test result [facility] ([facility] Gardnerella/Yeast: Vaginal Dna Laboratory test result [facility] ([facility] Gardnerella/Yeast: Vaginal Dna Laboratory test result [facility] ([facility] Gardnerella/Yeast: Vaginal Dna Laboratory test result [facility] ([facility] Gardnerella/Yeast: Vaginal Dna Laboratory test result [facility] ([facility] Gardnerella/Yeast: Vaginal Dna Laboratory test result [facility] ([facility] Department Of Pathology, [address] [place] [address] Gardnerella/Yeast: Vaginal Dna Laboratory test result [facility] ([facility] Fax # Gardnerella/Yeast: Vaginal Dna Laboratory test result [facility] ([facility] Sharmin Alcazar M.D. Director [facility] # [id number] ID Date Data Source [id number] 11/22/2020 05:07:00 PM [facility] Anterior NareScreening Z20.822 COVIDPTR1 [id number] Name Value Range Interpretation Code Description Data Najma rce(s) Supporting Document(s) SARS Coronavirus-2, PCR Undetected Undetected [facility] Negative results do not preclude SARS-Co V-2 infection andshould not be used as the sole basis for patient managementdecisions.The Tetracore RT-PCR COVID-19 assay has been internallyvalidated for saliva and pooled upper respiratory specimens.Source: Anterior Nare ID Date Data Source [id number] 11/20/2020 12:00:00 AM EST [facility] Name Value Range Interpretation Code Description Data Najma rce(s) Supporting Document(s) SARS-CoV-2 (COVID-19) RNA [Presence] in Respiratory specimen by JW with probe detection Negative [facility] This lab was ordered by [facility] a nd reported by [facility]. ID Date Data Source [id number] 11/15/2020 01:58:00 PM EST [facility] Name Value Range Interpretation Code Description Data Najma rce(s) Supporting Document(s) SARS-CoV-2 (COVID-19) RNA [Presence] in Respiratory specimen by JW with probe detection Undetected [facility] This lab was ordered by [facility] and reported by [facility]. ID Date Data Source [id number] 11/15/2020 09:10:00 PM EST [facility] Anterior NareScreening Z20.822 COVIDPTR1 [id number] Name Value Range Interpretation Code Description Data Najma rce(s) Supporting Document(s) SARS Coronavirus-2, PCR Undetected Undetected [facility] Negative results do not preclude SARS-Co V-2 infection andshould not be used as the sole basis for patient managementdecisions.The Tetracore RT-PCR COVID-19 assay has been internallyvalidated for saliva and pooled upper respiratory specimens.Source: Anterior Nare ID Date Data Source [id number] 11/11/2020 01:14:00 PM EST [facility] Name Value Range Interpretation Code Description Data Najma rce(s) Supporting Document(s) SARS-CoV-2 (COVID-19) RNA [Presence] in Respiratory specimen by JW with probe detection Undetected [facility] This lab was ordered by [facility] and reported by [facility]. ID Date Data Source [id number] 11/11/2020 08:41:00 PM EST [facility] Anterior NareScreening Z20.822 COVIDPTR1 [id number] Name Value Range Interpretation Code Description Data Najma rce(s) Supporting Document(s) SARS Coronavirus-2, PCR Undetected Undetected [facility] Negative results do not preclude SARS-Co V-2 infection andshould not be used as the sole basis for patient managementdecisions.The Tetracore RT-PCR COVID-19 assay has been internallyvalidated for saliva and pooled upper respiratory specimens.Source: Anterior Nare ID Date Data Source [id number] 11/05/2020 10:02:00 PM EST [facility] Anterior NareScreening Z20.822 COVIDPTR1 [id number] Name Value Range Interpretation Code Description Data Najma rce(s) Supporting Document(s) SARS Coronavirus-2, PCR Undetected Undetected [facility] Negative results do not preclude SARS-Co V-2 infection andshould not be used as the sole basis for patient managementdecisions.The Tetracore RT-PCR COVID-19 assay has been internallyvalidated for saliva and pooled upper respiratory specimens.Source: Anterior Nare ID Date Data Source [id number] 11/01/2020 02:46:00 PM EST [facility] Name Value Range Interpretation Code Description Data Najma rce(s) Supporting Document(s) SARS-CoV-2 (COVID-19) RNA [Presence] in Respiratory specimen by JW with probe detection Undetected [facility] This lab was ordered by [facility] and reported by [facility]. ID Date Data Source [id number] 11/01/2020 11:11:00 PM EST [facility] Anterior NareScreening Z20.822 COVIDPTR1 [id number] Name Value Range Interpretation Code Description Data Najma rce(s) Supporting Document(s) SARS Coronavirus-2, PCR Undetected Undetected [facility] Negative results do not preclude SARS-Co V-2 infection andshould not be used as the sole basis for patient managementdecisions.The Tetracore RT-PCR COVID-19 assay has been internallyvalidated for saliva and pooled upper respiratory specimens.Source: Anterior Nare ID Date Data Source [id number] 10/28/2020 01:15:00 PM EST [facility] Name Value Range Interpretation Code Description Data Najma rce(s) Supporting Document(s) SARS-CoV-2 (COVID-19) RNA [Presence] in Respiratory specimen by JW with probe detection Undetected [facility] This lab was ordered by [facility] and reported by [facility]. ID Date Data Source [id number] 10/28/2020 06:51:00 PM EST [facility] Anterior NareScreening Z20.822 COVIDPTR1 [id number] Name Value Range Interpretation Code Description Data Najma rce(s) Supporting Document(s) SARS Coronavirus-2, PCR Undetected Undetected [facility] Negative results do not preclude SARS-Co V-2 infection andshould not be used as the sole basis for patient managementdecisions.The Tetracore RT-PCR COVID-19 assay has been internallyvalidated for saliva and pooled upper respiratory specimens.Source: Anterior Nare ID Date Data Source [id number] 10/25/2020 11:00:00 AM EST [facility] Name Value Range Interpretation Code Description Data Najma rce(s) Supporting Document(s) SARS-CoV-2 (COVID-19) RNA [Presence] in Respiratory specimen by JW with probe detection Undetected [facility] This lab was ordered by [facility] and reported by [facility]. ID Date Data Source [id number] 10/25/2020 05:57:00 PM [facility] Anterior NareScreening Z11.59 [id number] Name Value Range Interpretation Code Description Data Najma rce(s) Supporting Document(s) SARS Coronavirus-2, PCR Undetected Undetected [facility] Negative results do not preclude SARS-Co V-2 infection andshould not be used as the sole basis for patient managementdecisions.The Tetracore RT-PCR COVID-19 assay has been internallyvalidated for saliva and pooled upper respiratory specimens.Source: Anterior Nare ID Date Data Source [id number] 09/23/2020 07:33:00 PM [facility] Operative Report Patient: Janna Mora /Age: 06 1990 30 Admission Date: 09/22/20 Location: OPERATING ROOM [facility] Observation Date/Time: Provider: Gonsalo Lopez MD OPERATIVE REPORT: DATE OF OPERATION: 09/22/20 DATE OF : [birth year] SURGEON: Gonsalo Lopez MD. CLIENT CUSTOMER MANAGER: ERIC Carr. A physician zoning assistant was required for the length of the procedure for assistance with patient positioning, retraction, instrumentation, and closure. ANESTHESIOLOGIST: Dr. Zapien. ANESTHESIA: General anesthesia, regional interscalene block anesthesia. PRE-OP DIAGNOSES: 1. Right shoulder recurrent glenohumeral joint instability. 2. Right shoulder chronic labrum tears. 3. Right shoulder long head biceps tendon instability, subluxation. 4. Mack-Danlos syndrome. 5. 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 POST-OP DIAGNOSES: 1. Right shoulder recurrent glenohumeral joint instability. 2. Right shoulder anteroinferior and posterior labrum tears. 3. Right shoulder long head biceps tendon instability, subluxation. 4. Mack-Danlos syndrome. 5. 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 OPERATIVE PROCEDURE: 1. Right shoulder arthroscopic capsulolabral repair including labrum repair anteroinferior and posterior with capsular tightening. 2. Right shoulder open proximal biceps tenodesis, subpectoral. 3. Right shoulder arthroscopic limited debridement consisting of debridement of paralabral cyst. ANTIBIOTICS: Clindamycin 900 mg IV. IV FLUIDS: See anesthesia note. [id number] TIME: 122 minutes approximately. SPECIMEN: None. IMPLANTS: Arthrex SutureTak suture anchors x4 for the labrum repair. Arthrex proximal biceps button for the open biceps tenodesis. COMPLICATIONS: None. ESTIMATED BLOOD LOSS: Minimal. INDICATIONS FOR PROCEDURE: The patient is 30-year-old woman, who has had recurrent instability of the right shoulder. She had an MRI ordered by a colleague of kajal in 2016 and an MRI ordered in 2019, which both showed labrum tears about the glenohumeral joint. The 2020 MRI showed extra-articular dislocation of the long head of the biceps tendon, superficial to the subscapularis tendon. There was also large chronic paralabral cyst visualized in 2016 and 2019. On exam, an MRI,this was not clearly impinging the suprascapular nerve or branch, but was notable for its large size. The patient was also noted to have Mack-Danlos syndrome with a psychiatric history. Discussed risks and potential complications of surgery. Discussed biceps treatment options and the patient preferred open biceps tenodesis over arthroscopic tenodesis or tenotomy. DESCRIPTION OF PROCEDURE: In preoperative holding, the patient signed a written consent. Operativeextremity was marked in preoperative holding. The patient was taken back to the operating room and placed supine on the operating room table after anesthesia, in preoperative holding, had performed aregional interscalene nerve block. With the patient sedated and intubated, examination under anesthesia right shoulder demonstrated full passive range of motion in all directions. It showed increased laxity posteriorly of the humeral head on the glenoid. The patient was placed into the lateral decubitus position with the right shoulder up. Axillary roll. All bony prominences padded. Longitudinal traction with 15 pounds with the appropriate amount of shoulder forward flexion and abduction. The Pérez and Nephew lateral traction bony was applied to the table. The right shoulder was prepped and draped. A formal surgical time-out was performed. Spinal needle was placed into the glenohumeral joint from posterior. Infused 30 cc of normal saline. Established posterior glenohumeral joint portal using standard technique. Diagnostic arthroscopy commenced. The humeral head appeared well located on the glenoid. It was not significantly subluxed anterior or posterior as I sometimes find just upon entering the joint. There was some clear capaciousness tothe joint and increased capsular laxity, which I noted immediately. There was some tearing to the labrum noted, but no significant displacement to the labrum either anterior or posterior. I applied the lateral traction bony and created an anteroinferior portal. I probed the labrum. There was indeed an anteroinferior labrum tear. The probe could fit within between the labrum and the glenoid. There was some posteroin ferior labrum tearing as well. There was no superior labrum tear affecting the biceps anchor. Posterosuperiorly, there was likewise no labrum tear. Visualizing from anterior, I tried to get a liberator within that posteroinferior plane between the labrum and the glenoid, but there was not a significant gap there. The labrum was reasonably well apposed. It just was not displaced. I was able to define a little bit of the plane between the anteroinferior labrum and the glenoid, but again this was not medialized at all to start with. I evaluated the biceps with the probe. I noted, quite im pressively, that the biceps tendon to sublux medial and superficial to the subscapularis tendon. I had been under-impressed by the preoperative MRI finding, but this was indeed a good call by Radiology and there was clear instability medially of the long head biceps tendon. I therefore released the biceps near its anchor with an arthroscopic scissors. With the lateral traction bony in place, I next made an anterosuperior portal. Visualizing from the anterosuperior portal and also visualizing from the posterior portal, I evaluated the area posteriorto the posterior labrum. It was clear that I would not get to the paralabral cyst through the planebetween the glenoid and the labrum given the lack of displacement of the posteroinferior labrum tear. I therefore went directly towards the cyst, which had some swelling, clearly appreciated deepto the capsule medial to the posterior capsule. I first placed spinal needle into that area of swelling and produced some cystic fluid. I then used a switching stick and placed that in there to disrupt the cyst and allow it to drain into the joint. I visualized and used that switching stick both visualizing from anterosuperior and from posterior. This should result in a complete release of that cystic fluid. I was actually able to palpate with the switching stick along the glenoid itself, in the location of the cyst based on preoperative MRI. I never used the shaver there, just the switching stick. Done with the cyst decompression in the biceps release, I moved towards the capsular labrum repair. I placed the arthroscope into the anterior-superior portal where it remained during most of the remainder of the arthroscopic component of the procedure. I placed 4 anchors. The first through the anteroinferior portal and the remaining three more posteriorly through a percutaneous incision. I had created a new posterior portal after I placed the lateral traction bony. All anchors were well placed. I used a retrograde suture passer to place horizontal mattress stitches. I tied from inferior to superior. I grabbed the labrum with my tissue bites as well as asafe amount of capsule given my desire of both to tighten the capsule as well as to repair the labrum tears. The capsulolabral repair, I clearly tightened up the capsule visibly anteriorly and posteriorly as I arthroscoped the shoulder. Also when I removed the lateral traction bony, there was clearly a decreased translation anterior and posterior of the shoulder, as I manipulated the humerus. The humeral head appeared well balanced. I closed skin incisions with figure -of-eight, figure of 12 stitches using nylon 3-0 suture. I removed longitudinal traction. I converted the patient to a slightly supine position. I made a short longitudinal incision over the anteromedial upper arm. I dissected down to the bicipital groove just distal to the level of the pectoralis major tendon. I placed retractors. Removed long head biceps tendon. Debrided periosteum overlying the bicipital groove. I placed a Beath pin unicortically. I placed 4 stitches in the long head biceps tendon using FiberLoop suture. I loadedthe biceps button. I placed the biceps button in the humerus, flipped it and tied a knot. Used a free needle to place an additional tenodesis stitch in the long head biceps tendon. I removed the excess suture and proximal tendon. Irrigation. A closure of the subcutaneous tissue with buried simple stitches using Vicryl 3-0 suture. Closure of the subcuticular layer with a running stitch using Monocryl 3-0 suture. Mastisol, Steri-Strips, 4x4s, and Tegaderm. Arthroscopic skin incisionshad Xeroform, 4x4s, ABDs, and foam tape placed. Sling with abduction pillow. DISPOSITION: The patient was awakened, extubated, and transferred to the PACU. The patient was given Percocet as needed to take for pain control. The patient was placed on a 7-day course of antibiotics given the open biceps tendon skin incision adjacent to the axilla. This was with Bactrim for 7 days. The patient at her own request preoperatively was given 2 doses of Diflucan to prevent or minimize the risk of the yeast infection while on the antibiotics. The patient will remain into the sling at all times. Wound care instructions provided. The patient will follow up in 10 to 14 days postoperatively. I will likely delay to start a physical therapy until somewhere between 2 and 6 weeks postoperatively given the patient's Mack-Danlos and the capsular tightening element to this procedure in addition to the labrum repair. I assumed that large component of the patient's instability was due to capsular laxity because her labral tears were not particularly displaced. [id number]/[facility] #: [id number] <Electronically signed by Gonsalo Lopez MD> 09/24/20 1728 Gonsalo Lopez MD Dictated Date/Time: 09/23/20 1933 Transcribed Date/Time 09/24/20 0210 Copy to: CC: Gonsalo Lopez MD Name Value Range Interpretation Code Description Data Najma rce(s) Supporting Document(s) ID Date Data Source [id number] 09/18/2020 01:39:00 PM EST [facility] Name Value Range Interpretation Code Description Data Najma rce(s) Supporting Document(s) SARS-CoV-2 (COVID-19) RNA [Presence] in Respiratory specimen by JW with probe detection [facility] This lab was ordered by [facility] and reported by [facility]. ID Date Data Source [id number] 09/19/2020 03:47:00 PM EST [facility] Anterior NareScreening Z11.59 [id number] Name Value Range Interpretation Code Description Data Najma rce(s) Supporting Document(s) SARS Coronavirus-2, PCR Undetected Undetected [facility] Negative results do not preclude SARS-Co V-2 infection andshould not be used as the sole basis for patient managementdecisions.The Tetracore RT-PCR COVID-19 assay has been internallyvalidated for saliva and pooled upper respiratory specimens.Source: Anterior Nare ID Date Data Source [id number] 09/13/2020 12:17:00 PM EST [facility] Name Value Range Interpretation Code Description Data Najma rce(s) Supporting Document(s) SARS-CoV-2 (COVID-19) RNA [Presence] in Respiratory specimen by JW with probe detection [facility] This lab was ordered by [facility] and reported by [facility]. ID Date Data Source [id number] 09/14/2020 01:31:00 PM EST [facility] Anterior NareScreening Z11.59 [id number] Name Value Range Interpretation Code Description Data Najma rce(s) Supporting Document(s) SARS Coronavirus-2, PCR Undetected Undetected [facility] Negative results do not preclude SARS-Co V-2 infection andshould not be used as the sole basis for patient managementdecisions.The Tetracore RT-PCR COVID-19 assay has been internallyvalidated for saliva and pooled upper respiratory specimens.Source: Anterior Nare ID Date Data Source [id number] 09/10/2020 09:47:00 AM EST [facility] Name Value Range Interpretation Code Description Data Najma rce(s) Supporting Document(s) SARS-CoV-2 (COVID-19) RNA [Presence] in Respiratory specimen by JW with probe detection [facility] This lab was ordered by [facility] and reported by [facility]. ID Date Data Source [id number] 09/11/2020 12:17:00 PM EST [facility] Anterior NareScreening Z11.59 [id number] Name Value Range Interpretation Code Description Data Najma rce(s) Supporting Document(s) SARS Coronavirus-2, PCR Undetected Undetected [facility] Negative results do not preclude SARS-Co V-2 infection andshould not be used as the sole basis for patient managementdecisions.The Tetracore RT-PCR COVID-19 assay has been internallyvalidated for saliva and pooled upper respiratory specimens.Source: Anterior Nare ID Date Data Source [id number] 09/08/2020 02:38:00 PM EST [facility] Name Value Range Interpretation Code Description Data Najam rce(s) Supporting Document(s) SARS-CoV-2 (COVID-19) RNA [Presence] in Respiratory specimen by JW with probe detection [facility] This lab was ordered by [facility] and reported by [facility]. ID Date Data Source [id number] 09/09/2020 01:56:00 PM EST [facility] Anterior NareScreening Z11.59 [id number] Name Value Range Interpretation Code Description Data Najma rce(s) Supporting Document(s) SARS Coronavirus-2, PCR Undetected Undetected [facility] Negative results do not preclude SARS-Co V-2 infection andshould not be used as the sole basis for patient managementdecisions.The Tetracore RT-PCR COVID-19 assay has been internallyvalidated for saliva and pooled upper respiratory specimens.Source: Anterior Nare ID Date Data Source [id number] 09/04/2020 02:43:00 PM EST [facility] Anterior NareScreening Z11.59 [id number] Name Value Range Interpretation Code Description Data Najma rce(s) Supporting Document(s) SARS Coronavirus-2, PCR Undetected Undetected [facility] Negative results do not preclude SARS-Co V-2 infection andshould not be used as the sole basis for patient managementdecisions.The Tetracore RT-PCR COVID-19 assay has been internallyvalidated for saliva and pooled upper respiratory specimens.Source: Anterior Nare ID Date Data Source [id number] 08/31/2020 12:00:00 PM EST [facility] ([facility] Name Value Range Interpretation Code Description Data Najma rce(s) Supporting Document(s) Laboratory test finding (navigational concept) Laboratory test result [facility] ID Date Data Source [id number] 08/30/2020 08:12:00 AM EST [facility] Name Value Range Interpretation Code Description Data Najma rce(s) Supporting Document(s) SARS-CoV-2 (COVID-19) RNA [Presence] in Respiratory specimen by JW with probe detection [facility] This lab was ordered by [facility] and reported by [facility]. ID Date Data Source [id number] 08/31/2020 02:41:00 PM EST [facility] Anterior NareScreening Z11.59 [id number] Name Value Range Interpretation Code Description Data Najma rce(s) Supporting Document(s) SARS Coronavirus-2, PCR Undetected Undetected [facility] Negative results do not preclude SARS-Co V-2 infection andshould not be used as the sole basis for patient managementdecisions.The Tetracore RT-PCR COVID-19 assay has been internallyvalidated for saliva and pooled upper respiratory specimens.Source: Anterior Nare ID Date Data Source [id number] 08/28/2020 10:47:00 AM EST [facility] Name Value Range Interpretation Code Description Data Najma rce(s) Supporting Document(s) SARS-CoV-2 (COVID-19) RNA [Presence] in Respiratory specimen by JW with probe detection [facility] This lab was ordered by [facility] and reported by [facility]. ID Date Data Source [id number] 08/28/2020 05:36:00 PM EST [facility] Anterior NareScreening Z11.59 [id number] Name Value Range Interpretation Code Description Data Najma rce(s) Supporting Document(s) SARS Coronavirus-2, PCR Undetected Undetected [facility] Negative results do not preclude SARS-Co V-2 infection andshould not be used as the sole basis for patient managementdecisions.The Tetracore RT-PCR COVID-19 assay has been internallyvalidated for saliva and pooled upper respiratory specimens.Source: Anterior Nare ID Date Data Source [id number] 08/27/2020 02:40:00 PM EST [facility] Name Value Range Interpretation Code Description Data Najma rce(s) Supporting Document(s) SARS-CoV-2 (COVID-19) RNA [Presence] in Respiratory specimen by JW with probe detection [facility] This lab was ordered by [facility] and reported by [facility]. ID Date Data Source [id number] 08/28/2020 01:21:00 PM EST [facility] Anterior NareScreening Z11.59 [id number] Name Value Range Interpretation Code Description Data Najma rce(s) Supporting Document(s) SARS Coronavirus-2, PCR Undetected Undetected [facility] Negative results do not preclude SARS-Co V-2 infection andshould not be used as the sole basis for patient managementdecisions.The Tetracore RT-PCR COVID-19 assay has been internallyvalidated for saliva and pooled upper respiratory specimens.Source: Anterior Nare ID Date Data Source [id number] 08/23/2020 10:44:00 AM EST [facility] Name Value Range Interpretation Code Description Data Najma rce(s) Supporting Document(s) SARS-CoV-2 (COVID-19) RNA [Presence] in Respiratory specimen by JW with probe detection [facility] This lab was ordered by [facility] and reported by [facility]. ID Date Data Source [id number] 08/24/2020 12:10:00 PM EST [facility] Anterior NareScreening Z11.59 [id number] Name Value Range Interpretation Code Description Data Najma rce(s) Supporting Document(s) SARS Coronavirus-2, PCR Undetected Undetected [facility] Negative results do not preclude SARS-Co V-2 infection andshould not be used as the sole basis for patient managementdecisions.The Tetracore RT-PCR COVID-19 assay has been internallyvalidated for saliva and pooled upper respiratory specimens.Source: Anterior Nare ID Date Data Source [id number] 08/22/2020 10:19:00 AM [facility] Patient Name: Janna Mora Medical Record #: [id number] Ordering Physician: Laney Smith MD : 1990 Age: 30 Sex: F Location: [facility] Exam Date: 08/22/20 0946 ADM Status: REG ER Observation Date/Time: Order Information: THUMB RIGHT Accession Number: [id number] CPT: 69469 Indication: Right thumb pain. 3 views of the right thumb demonstrates no fracture. No other bone or joint abnormality is identified. IMPRESSION: No fracture of the right thumb is noted. <Electronically signed by Valerie Vidal MD in OV> 08/22/20 1023 Dictated By: Valerie Vidal MD Dictated Date/Time: 08/22/20 1019 Transcribed Date/Time: 08/22/20 1019 Copy to: CC:Laney Smith MD; Valerie Vidal MD; Andreia Gardner NP Imaging - [facility] [address] [address] ph [phone]) ph [phone] ph ) Name Value Range Interpretation Code Description Data Najma rce(s) Supporting Document(s) ID Date Data Source [id number] 08/22/2020 10:17:00 AM [facility] Provider Documentation Patient: Janna Mora Account Number: [id number] /Age: 06 1990 30 Medical Record #: [id number] Service Date: 08/22/20 Location: [facility] Observation Date/Time: Hand/Wrist HPI - HPI Summary HPI Summary: PATIENT HAS A HISTORY OF MACK-DANLOS SYNDROME AND HAS JOINT LAXITY. AT BASELINE HAS IMMOBILITY ATRIGHT FIRST MCP. STATES THAT OVERNIGHT LAST NIGHT SHE MUST HAVE ROLLED OVER HER HAND. SHE DEVELOPEDSHARP PAIN IN HER RIGHT THUMB. SHE WONDERS IF IT DISLOCATED AT THAT TIME. CURRENTLY APPEARS TO BE IN PROPER POSITION HOWEVER SHE IS REQUESTING AN X-RAY TO BE SURE. - History Of Current Complaint Hx Obtained From: Patient Hx Last Menstrual Period: 08/05/2020 Onset/Duration: Sudden Onset Severity Initially: Moderate Severity Currently: Moderate Pain Intensity: 8 Pain Scale Used: 0-10 Numeric Character Of Pain: Sharp Aggravating Factor(s): Other - PALPATION Alleviating Factor(s): Rest Associated Signs And Symptoms: Positive: Negative Related History: Dominant Hand Right - History Of Current Complaint Chief Complaint: UCUpperExtremity Stated Complaint: THUMB INJURY Time Seen by Provider: 08/22/20 09:39 - Allergies/Home Medications Allergies/Adverse Reactions: Allergies Allergy/AdvReac Type Severity Reaction Status Date / Time codeine Allergy Itching Verified 08/22/20 09:31 Penicillins Allergy See Comment Verified 08/22/20 09:31 Home Medications: Home Medications dextroamphetamine 10 mg PO DAILY 12/25/18 [History Confirmed 08/22/20] diazepam 4 mg PO Q8H PRN 07/26/19 [History Confirmed 08/22/20] albuterol sulfate 2 inh INH Q6H PRN 04/01/20 [History Confirmed 08/22/20] bupropion HCl 150 mg PO DAILY 04/01/20 [History Confirmed 08/22/20] valacyclovir 1,000 mg PO DAILY PRN 04/01/20 [History Confirmed 08/22/20] naproxen 500 mg PO BID PRN #40 tab 06/08/20 [Rx Confirmed 08/22/20] PMH/Surg Hx/FS Hx/Imm Hx - Additional Past Medical History Additional PMH: MACK-DANLOS SYNDROME Psychological History: Depression, Post Traumatic Stress Disorder - Surgical History Surgical History: Yes Surgery Procedure, Year, and Place: [place] [facility]STE[facility] 11/2016 RIGHT FOOT(BUNION REPAIR). LEFT SHOULDER TENDON REPAIR 2008. [facility] REPAIR FOR FRACTURE 2008. TONSILS/ADENOIDS 1999. LEFT BREASTBIOPSY 2006 - Family History Known Family History: Positive: Other - GERD, father...MOM with ED and POTS, Non-Contributory - Social History Alcohol Use: None Alcohol Amount: 4 cups of vodka or wine Substance Use Type: None Smoking Status (MU): Never Smoked Tobacco - Immunization History Most Recent Influenza Vaccination: June 2018 Most Recent Pneumonia Vaccination: unknown Review of Systems All Other Systems Reviewed And Are Negative: Yes Constitutional: Positive: Negative Skin: Positive: Negative Respiratory: Positive: Negative Cardiovascular: Positive: Negative Gastrointestinal: Positive: Negative Musculoskeletal: Positive: Arthralgia, Decreased ROM Physical Exam Triage Information Reviewed: Yes Appearance: Well-Appearing, No Pain Distress, Well-Nourished Vital Signs: Initial Vital Signs Temp 98.6 F 08/22/20 09:33 Pulse 88 08/22/20 09:33 Resp 18 08/22/20 09:33 BP 118/79 08/22/20 09:33 Pulse Ox 100 08/22/20 09:33 Vital Signs Reviewed: Yes Eyes: Positive: Conjunctiva Clear ENT: Positive: Hearing grossly normal Neck: Positive: Supple Respiratory: Positive: No respiratory distress, No accessory muscle use Cardiovascular: Positive: Pulses Normal Musculoskeletal: Positive: No Edema, ROM Limited @ - RIGHT THUMB LIMITED MCP MVMT, Other: - TTP RIGHT 1ST METACARPAL Neurological: Positive: Alert Psychological: Positive: Age Appropriate Behavior Skin: Negative: Rashes Diagnostics - Radiology RIGHT THUMB XRAYS Radiology Interpretation Completed By: Radiologist Summary of Radiographic Findings: 3 views of the right thumb demonstrates no fracture. No other boneor joint abnormality is identified. Hand/Wrist Course/Dx - Course Course Of Treatment: X-RAYS OF RIGHT THUMB TODAY UNREMARKABLE. PATIENT PLACED IN A THUMB SPICA FOR SUPPORT INSTABILITY. SHE IS ALREADY ESTABLISHED WITH ORTHOPEDICS WILL FOLLOW UP WITH THEM IF NEEDED. - Differential Dx/Diagnosis Provider Diagnosis: Pain of right thumb Discharge ED - Sign-Out/Discharge Documenting (check all that apply): Patient Departure All imaging exams completed and their final reports reviewed: Yes - Billing Disposition and Condition Condition: STABLE Disposition: Home - Discharge Plan Condition: Stable Disposition: HOME Patient Education Materials: Finger Sprain (ED) Referrals: Gonsalo Lopez MD [Medical Doctor] - If Needed Andreia Gardner NP [Primary Care Provider] - If Needed Additional Instructions: X-RAYS OF THE RIGHT THUMB TODAY ARE UNREMARKABLE. THUMB SPICA APPLIED FOR SUPPORT AND STABILITY. FOLLOW-UP WITH YOUR ORTHOPEDIST. <Electronically signed by aLney Smith MD> 08/22/20 1040 Entered by: Laney Smith MD Entered Date/Time: 08/22/20 1017 Copy to: Andreia Gardner NP Name Value Range Interpretation Code Description Data Najma rce(s) Supporting Document(s) ID Date Data Source [id number] 08/20/2020 01:23:00 PM [facility] Name Value Range Interpretation Code Description Data Najma rce(s) Supporting Document(s) SARS-CoV-2 (COVID-19) RNA [Presence] in Respiratory specimen by JW with probe detection [facility] This lab was ordered by [facility] and reported by [facility]. ID Date Data Source [id number] 08/21/2020 11:43:00 AM [facility] Anterior NareScreening Z11.59 [id number] Name Value Range Interpretation Code Description Data Najma rce(s) Supporting Document(s) SARS Coronavirus-2, PCR Undetected Undetected [facility] Negative results do not preclude SARS-Co V-2 infection andshould not be used as the sole basis for patient managementdecisions.The Tetra[employer]ist RT-PCR COVID-19 assay has been internallyvalidated for saliva and pooled upper respiratory specimens.Source: Anterior Nare ID Date Data Source [id number] 08/17/2020 05:40:00 PM [facility] Patient Name: Janna Mora Medical Record #: [id number] Ordering Physician: Gonsalo Lopez MD Account Numb er: [id number] : 1990 Age: 30 Sex: F Location: [facility] Exam Date: 08/17/20 ADM Status: REG REF Observation Date/Time: Order Information: ARTHROGRAM SHOULDER RT Accession Number: [id number] CPT: 16277 CPT II Codes: G9500 PROCEDURE: Fluoroscopy guided arthrogram of the right shoulder INDICATION: Pain. ANESTHESIA: 1% lidocaine injected locally FLUOROSCOPY TIME: 7 seconds PROCEDURAL NARRATIVE: Immediately before the procedure the risks and benefits were explained to the patient and informed consent was obtained. A timeout was performed and all involved parties agreed to the patient, procedure and laterality. The patient was prepped and draped in usual sterile fashion. Local anesthesia was obtained with 1% lidocaine without epinephrine. Using fluoroscopic guidance, a 22-gauge needle was advanced into the joint space. Intra-articular position was confirmed with a small injection of of iodinated contrast. Approximately 10 mL of a dilute gadolinium solution was then administered intra-articularly. The needle was removed. Hemostasis was obtained with manual compression and the injection site was dressed with a sterile Band-Aid. IMPRESSION: Uncomplicated fluoroscopically guided arthrogram prior to MRI imaging. <Electronically signed by Fede Mae MD in OV> 08/17/201739 Dictated By: Fede Mae MD Dictated Date/Time: 08/17/201739 Transcribed Date/Time: 08/17/201739 Copy to: CC:Gonsalo Lopez MD; Andreia Gardner DAMAGE ADJUSTER; Fede Mae MD Imaging - [facility] Imaging - [facility] [address] [place] [address] ph ([phone]) ph ([phone]) ph ( [phone]) Name Value Range Interpretation Code Description Data Najma rce(s) Supporting Document(s) ID Date Data Source [id number] 08/17/2020 03:01:00 PM [facility] Patient Name: Janna Mora Medical Record #: [id number] Ordering Physician: Gonsalo Lopez MD Account Numb er: [id number] : 1990 Age: 30 Sex: F Location: [facility] Exam Date: 08/17/20 ADM Status: REG REF Observation Date/Time: Order Information: MRI SHOULDER ARTHROGRAM RIGHTW Accession Number: [id number] CPT: 58008 Indication: RIGHT shoulder instability. History of labral tears on MRI 3 years ago. Mack Danlos syndrome. Comparison: Limited spot images from conventional arthrogram performed immediately preceding and in preparation for the MRI arthrogram. June 08, 2020 radiographs. June 13, 2017 MRI. Technique: [employer] [place] 1.5 Dana [id number]. Following fluoroscopic guided intra-articular gadolinium administration multiplanar T1 fat sat including ABER (if clinically feasible), coronal T2 fat sat, and coronal PD series of the RIGHT shoulder were obtained. The patient was unable to tolerate the ABER positioning. Report: BONES: Negative for traumatic bone injury, avascular necrosis, or suspicious osseous lesions. ACROMIOCLAVICULAR JOINT: #. Normal acromioclavicular joint alignment. #. Negative for AC joint arthropathy. ACROMION MORPHOLOGY: Shallow concave undersurface consistent with type 2 morphology. SUBACROMIAL SUBDELTOID BURSA E: Only trace fluid in the subacromial subdeltoid bursae. ROTATOR CUFF: #: Supraspinatus: Intact unremarkable supraspinatus tendon. Negative for muscle edema or atrophy. #: Infraspinatus: Intact unremarkable infraspinatus tendon. Negative for muscle edema or atrophy. #: Teres minor: Intact unremarkable teres minor insertion at greater tuberosity inferior facet. Negative for muscle edema or atrophy. #: Subscapularis: Intact unremarkable subscapularis tendon. Negative for muscle edema or atrophy. GLENOHUMERAL JOINT: #. ALIGNMENT: Normal. #: DISTENSION WITH CONTRAST: Adequate. #. LABRUM: Nondisplaced tear involving the superior labrum, anterosuperior labral segment, and posterior labrum similar to the prior exam with associated para labral cyst arising from the inferior aspect of the posterior labrum with extension medial and cephalad to the supraglenoid and suprascapular notches measuring up to 4.3 cm cephalocaudal and at the level of the suprascapular notch 1.2 cm AP by 1.3 cm transverse without significant change. #. LONG HEAD BICEPS TENDON (LHBT): The long head biceps tendon is dislocated from the bicipital groove extra-articular and is visualized approximating the distal anterior margin of the subscapularis tendon without significant change. Negative for long head biceps tendon tendinopathy or tear. #. ARTICULAR CARTILAGE: Normal. #. JOINT CAPSULE / GLENOHUMERAL LIGAMENTS: Irregular morphology of the superior glenohumeral ligament likely reflecting sequela tear with compromised origin due to labral tear without significant change. Th e middle glenohumeral ligament is not well visualized and presumed torn without significant change. Unremarkable anterior band of the inferior glenohumeral ligament. Capacious posterior aspect of the axillary recess favoring stretch tear of the posterior band inferior glenohumeral ligament with interval worsening. SPACES: Paralabral cyst at the spinoglenoid and suprascapular notches as described above. Unremarkable quadrilateral space. IMPRESSION: #. Factors contributing to instability include large labral tear, long head biceps tendon extra-articular dislocation, and glenohumeral ligament tears as described. #. 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 Negative for associated muscle atrophy to indicate significant peripheral nerve compression. <Electronically signed by Feliz Servin MD in OV> 08/17/20 1516 Dictated By: Feliz Servin MD Dictated Date/Time: 08/17/20 1501 Transcribed Date/Time: 08/17/20 1501 Copy to: CC:Gonsalo oLpez MD; Andreia Gardner DAMAGE ADJUSTER; Feliz Servin MD Imaging - [facility] Imaging - [facility] Imaging - [facility] [address] [address] ph ([phone]) ph ([phone] ph ( [phone]) Name Value Range Interpretation Code Description Data Najma rce(s) Supporting Document(s) ID Date Data Source [id number] 08/16/2020 02:03:00 PM EST [facility] Name Value Range Interpretation Code Description Data Najma rce(s) Supporting Document(s) SARS-CoV-2 (COVID-19) RNA [Presence] in Respiratory specimen by JW with probe detection [facility] This lab was ordered by [facility] and reported by [facility]. ID Date Data Source [id number] 08/17/2020 04:22:00 PM [facility] Anterior NareScreening Z11.59 [id number] Name Value Range Interpretation Code Description Data Najma rce(s) Supporting Document(s) SARS Coronavirus-2, PCR Undetected Undetected [facility] Negative results do not preclude SARS-Co V-2 infection andshould not be used as the sole basis for patient managementdecisions.The Tetracore RT-PCR COVID-19 assay has been internallyvalidated for saliva and pooled upper respiratory specimens.Source: Anterior Nare ID Date Data Source [id number] 08/14/2020 12:15:00 PM [facility] Anterior NareScreening Z11.59 [id number] Name Value Range Interpretation Code Description Data Najma rce(s) Supporting Document(s) SARS Coronavirus-2, PCR Undetected Undetected [facility] Negative results do not preclude SARS-Co V-2 infection andshould not be used as the sole basis for patient managementdecisions.The Tetracore RT-PCR COVID-19 assay has been internallyvalidated for saliva and pooled upper respiratory specimens.Source: Anterior Nare ID Date Data Source [id number] 08/09/2020 12:45:00 PM [facility] Name Value Range Interpretation Code Description Data Najma rce(s) Supporting Document(s) SARS-CoV-2 (COVID-19) RNA [Presence] in Respiratory specimen by JW with probe detection [facility] This lab was ordered by [facility] and reported by [facility]. ID Date Data Source [id number] 08/10/2020 11:35:00 AM [facility] Anterior NareScreening Z11.59 [id number] Name Value Range Interpretation Code Description Data Najma rce(s) Supporting Document(s) SARS Coronavirus-2, PCR Undetected Undetected [facility] Negative results do not preclude SARS-Co V-2 infection andshould not be used as the sole basis for patient managementdecisions.The Tetracore RT-PCR COVID-19 assay has been internallyvalidated for saliva and pooled upper respiratory specimens.Source: Anterior Nare ID Date Data Source [id number] 08/07/2020 05:00:00 PM [facility] Anterior NareScreening Z11.59 [id number] Name Value Range Interpretation Code Description Data Najma rce(s) Supporting Document(s) SARS Coronavirus-2, PCR Undetected Undetected [facility] Negative results do not preclude SARS-Co V-2 infection andshould not be used as the sole basis for patient managementdecisions.The Tetracore RT-PCR COVID-19 assay has been internallyvalidated for saliva and pooled upper respiratory specimens.Source: Anterior Nare ID Date Data Source [id number] 08/01/2020 02:48:00 PM [facility] Name Value Range Interpretation Code Description Data Najma rce(s) Supporting Document(s) SARS-CoV-2 (COVID-19) RNA [Presence] in Respiratory specimen by JW with probe detection [facility] This lab was ordered by [facility] and reported by [facility]. ID Date Data Source [id number] 08/02/2020 03:34:00 PM [facility] Anterior NareScreening Z11.59 [id number] Name Value Range Interpretation Code Description Data Najma rce(s) Supporting Document(s) SARS Coronavirus-2, PCR Undetected Undetected [facility] Negative results do not preclude SARS-Co V-2 infection andshould not be used as the sole basis for patient managementdecisions.The Tetracore RT-PCR COVID-19 assay has been internallyvalidated for saliva and pooled upper respiratory specimens.Source: Anterior Nare ID Date Data Source [id number] 07/27/2020 11:37:00 AM [facility] Name Value Range Interpretation Code Description Data Najma rce(s) Supporting Document(s) SARS-CoV-2 (COVID-19) RNA [Presence] in Respiratory specimen by JW with probe detection [facility] This lab was ordered by [facility] and reported by [facility]. ID Date Data Source [id number] 07/27/2020 06:19:00 PM EST [facility] Anterior NareScreening Z11.59 [id number] Name Value Range Interpretation Code Description Data Najma rce(s) Supporting Document(s) SARS Coronavirus-2, PCR Undetected Undetected [facility] Negative results do not preclude SARS-Co V-2 infection andshould not be used as the sole basis for patient managementdecisions.The Tetracore RT-PCR COVID-19 assay has been internallyvalidated for saliva and pooled upper respiratory specimens.Source: Anterior Nare ID Date Data Source [id number] 07/20/2020 11:32:00 AM EDT [facility] Name Value Range Interpretation Code Description Data Najma rce(s) Supporting Document(s) SARS-CoV-2 (COVID-19) RNA [Presence] in Respiratory specimen by JW with probe detection [facility] This lab was ordered by [facility] and reported by [facility]. ID Date Data Source [id number] 07/20/2020 08:30:00 PM EDT [facility] Anterior NareScreening Z11.59 [id number] Name Value Range Interpretation Code Description Data Najma rce(s) Supporting Document(s) SARS Coronavirus-2, PCR Undetected Undetected [facility] Negative results do not preclude SARS-Co V-2 infection andshould not be used as the sole basis for patient managementdecisions.The Tetracore RT-PCR COVID-19 assay has been internallyvalidated for saliva and pooled upper respiratory specimens.Source: Anterior Nare ID Date Data Source [id number] 07/16/2020 03:58:00 PM EDT [facility] Name Value Range Interpretation Code Description Data Najma rce(s) Supporting Document(s) SARS-CoV-2 (COVID-19) RNA [Presence] in Respiratory specimen by JW with probe detection [facility] This lab was ordered by [facility] and reported by [facility]. ID Date Data Source [id number] 07/17/2020 08:16:00 PM EDT [facility] Anterior NareScreening Z11.59 [id number] Name Value Range Interpretation Code Description Data Najma rce(s) Supporting Document(s) SARS Coronavirus-2, PCR Undetected Undetected [facility] Negative results do not preclude SARS-Co V-2 infection andshould not be used as the sole basis for patient managementdecisions.The Tetracore RT-PCR COVID-19 assay has been internallyvalidated for saliva and pooled upper respiratory specimens.Source: Anterior Nare ID Date Data Source [id number] 07/12/2020 03:50:00 PM EDT [facility] Name Value Range Interpretation Code Description Data Najma rce(s) Supporting Document(s) SARS-CoV-2 (COVID-19) RNA [Presence] in Respiratory specimen by JW with probe detection [facility] This lab was ordered by [facility] and reported by [facility]. ID Date Data Source [id number] 07/13/2020 05:14:00 PM EDT [facility] Anterior Nare;Screening Z11.59 [id number] Name Value Range Interpretation Code Description Data Najma rce(s) Supporting Document(s) SARS Coronavirus-2, PCR Undetected Undetected [facility] Negative results do not preclude SARS-Co V-2 infection andshould not be used as the sole basis for patient managementdecisions.The Tetracore RT-PCR COVID-19 assay has been internallyvalidated for saliva and pooled upper respiratory specimens. SARS Coronavirus-2, Source Anterior Nare [facility] Anterior nare collection may be less sen sitive for viraldetection than nasopharyngeal sampling. ID Date Data Source [id number] 07/10/2020 01:24:00 PM EDT [facility] Anterior Nare;Screening Z11.59 [id number] Name Value Range Interpretation Code Description Data Najma rce(s) Supporting Document(s) SARS Coronavirus-2, PCR Undetected Undetected [facility] Negative results do not preclude SARS-Co V-2 infection andshould not be used as the sole basis for patient managementdecisions.The Tetracore RT-PCR COVID-19 assay has been internallyvalidated for saliva and pooled upper respiratory specimens. SARS Coronavirus-2, Source Anterior Nare [facility] Anterior nare collection may be less sen sitive for viraldetection than nasopharyngeal sampling. ID Date Data Source [id number] 07/05/2020 08:22:00 AM EDT [facility] Name Value Range Interpretation Code Description Data Najma rce(s) Supporting Document(s) SARS-CoV-2 (COVID-19) RNA [Presence] in Respiratory specimen by JW with probe detection [facility] This lab was ordered by [facility] and reported by [facility]. ID Date Data Source [id number] 07/06/2020 12:37:00 PM EDT [facility] Anterior [id number] Name Value Range Interpretation Code Description Data Najma rce(s) Supporting Document(s) SARS Coronavirus-2, PCR Undetected Undetected [facility] Negative results do not preclude SARS-Co V-2 infection andshould not be used as the sole basis for patient managementdecisions.The Tetracore RT-PCR COVID-19 assay has been internallyvalidated for saliva and pooled upper respiratory specimens. SARS Coronavirus-2, Source Anterior Nare [facility] Anterior nare collection may be less sen sitive for viraldetection than nasopharyngeal sampling. ID Date Data Source [id number] 07/03/2020 12:43:00 PM EDT [facility] Anterior [id number] Name Value Range Interpretation Code Description Data Najma rce(s) Supporting Document(s) SARS Coronavirus-2, PCR Undetected Undetected [facility] Negative results do not preclude SARS-Co V-2 infection andshould not be used as the sole basis for patient managementdecisions.The Tetracore RT-PCR COVID-19 assay has been internallyvalidated for saliva and pooled upper respiratory specimens. SARS Coronavirus-2, Source Anterior Nare [facility] Anterior nare collection may be less sen sitive for viraldetection than nasopharyngeal sampling. ID Date Data Source [id number] 06/28/2020 11:16:00 AM EDT [facility] Name Value Range Interpretation Code Description Data Najma rce(s) Supporting Document(s) SARS-CoV-2 (COVID-19) RNA [Presence] in Respiratory specimen by JW with probe detection [facility] This lab was ordered by [facility] and reported by [facility]. ID Date Data Source [id number] 06/29/2020 10:50:00 AM EDT [facility] Anterior [id number] Name Value Range Interpretation Code Description Data Najma rce(s) Supporting Document(s) SARS Coronavirus-2, PCR Undetected Undetected [facility] Negative results do not preclude SARS-Co V-2 infection andshould not be used as the sole basis for patient managementdecisions.The Tetracore RT-PCR COVID-19 assay has been internallyvalidated for saliva and pooled upper respiratory specimens. SARS Coronavirus-2, Source Anterior Nare [facility] Anterior nare collection may be less sen sitive for viraldetection than nasopharyngeal sampling. ID Date Data Source [id number] 06/25/2020 05:23:00 PM EDT [facility] Anterior [id number] Name Value Range Interpretation Code Description Data Najma rce(s) Supporting Document(s) SARS Coronavirus-2, PCR Undetected Undetected [facility] Negative results do not preclude SARS-Co V-2 infection andshould not be used as the sole basis for patient managementdecisions.The Tetracore RT-PCR COVID-19 assay has been internallyvalidated for saliva and pooled upper respiratory specimens. SARS Coronavirus-2, Source Anterior Nare [facility] Anterior nare collection may be less sen sitive for viraldetection than nasopharyngeal sampling. ID Date Data Source [id number] 06/22/2020 06:57:00 PM EDT [facility] Anterior [id number] Name Value Range Interpretation Code Description Data Najma rce(s) Supporting Document(s) SARS Coronavirus-2, PCR Undetected Undetected [facility] Negative results do not preclude SARS-Co V-2 infection andshould not be used as the sole basis for patient managementdecisions.The Tetracore RT-PCR COVID-19 assay has been internallyvalidated for saliva and pooled upper respiratory specimens. SARS Coronavirus-2, Source Anterior Nare [facility] Anterior nare collection may be less sen sitive for viraldetection than nasopharyngeal sampling. ID Date Data Source [id number] 06/18/2020 08:13:00 AM EDT [facility] Name Value Range Interpretation Code Description Data Najma rce(s) Supporting Document(s) SARS-CoV-2 (COVID-19) RNA [Presence] in Respiratory specimen by JW with probe detection [facility] This lab was ordered by [facility] and reported by [facility]. ID Date Data Source [id number] 06/18/2020 03:12:00 PM EDT [facility] Anterior [id number] Name Value Range Interpretation Code Description Data Najma rce(s) Supporting Document(s) SARS Coronavirus-2, PCR Undetected Undetected [facility] Negative results do not preclude SARS-Co V-2 infection andshould not be used as the sole basis for patient managementdecisions.The Tetracore RT-PCR COVID-19 assay has been internallyvalidated for saliva and pooled upper respiratory specimens. SARS Coronavirus-2, Source Anterior Nare [facility] Anterior nare collection may be less sen sitive for viraldetection than nasopharyngeal sampling. ID Date Data Source [id number] 06/14/2020 12:17:00 PM EDT [facility] Name Value Range Interpretation Code Description Data Najma rce(s) Supporting Document(s) SARS-CoV-2 (COVID-19) RNA [Presence] in Respiratory specimen by JW with probe detection [facility] This lab was ordered by [facility] and reported by [facility]. ID Date Data Source [id number] 06/14/2020 06:43:00 PM EDT [facility] Anterior [id number] Name Value Range Interpretation Code Description Data Najma rce(s) Supporting Document(s) SARS Coronavirus-2, PCR Undetected Undetected [facility] Negative results do not preclude SARS-Co V-2 infection andshould not be used as the sole basis for patient managementdecisions.The Tetracore RT-PCR COVID-19 assay has been internallyvalidated for saliva and pooled upper respiratory specimens. SARS Coronavirus-2, Source Anterior Nare [facility] Anterior nare collection may be less sen sitive for viraldetection than nasopharyngeal sampling. ID Date Data Source [id number] 06/11/2020 12:40:00 PM EDT [facility] Name Value Range Interpretation Code Description Data Najma rce(s) Supporting Document(s) SARS-CoV-2 (COVID-19) RNA [Presence] in Respiratory specimen by JW with probe detection [facility] This lab was ordered by [facility] and reported by [facility]. ID Date Data Source [id number] 06/11/2020 05:40:00 PM EDT [facility] [id number] Name Value Range Interpretation Code Description Data Najma rce(s) Supporting Document(s) SARS Coronavirus-2, PCR Undetected Undetected [facility] Negative results do not preclude SARS-Co V-2 infection andshould not be used as the sole basis for patient managementdecisions.The Tetracore RT-PCR COVID-19 assay has been internallyvalidated for saliva and pooled upper respiratory specimens. SARS Coronavirus-2, Source Nasopharyngeal [facility] ID Date Data Source [id number] 06/08/2020 04:44:00 PM EDT [facility] Patient Name: Janna Mora Ordering Physician: Ángela San MD Account N umber: [id number] : 1990 Age: 30 Sex: F Location: [facility]RG[facility] Exam Date: 06/08/20 1624 ADM Status: REG ER Observation Date/Time: Order Information: SHOULDER RIGHT 2+ VWS Accession Number: [id number] CPT: 56009 HISTORY: hx of recurrent shoulder dislocations . COMPARISONS: May 23, 2020 VIEWS: 4, Frontal internal rotation, external rotation, outlet, and axillary views of the right shoulder FINDINGS: BONE DENSITY: Normal. BONES: There is no displaced fracture. JOINTS: There is no arthropathy. ALIGNMENT: There is no dislocation. SOFT TISSUES: Unremarkable. OTHER FINDINGS: None. IMPRESSION: NO ACUTE OSSEOUS INJURY. IF SYMPTOMS PERSIST, RECOMMEND REPEAT IMAGING. <Electronically signed by Johnson Dawson MD in OV> 06/08/201644 Dictated By: Johnson Dawson MD Dictated Date/Time: 06/08/201643 Transcribed Date/Time: 06/08/201643 Copy to: CC:Johnson Dawson MD; Ángela San MD; Andreia Gardner NP Imaging - [facility] Imaging - [facility] [address] [address] ph [phone] ph [phone] ) Name Value Range Interpretation Code Description Data Najma rce(s) Supporting Document(s) ID Date Data Source [id number] 06/08/2020 04:17:00 PM EDT Health system Provider Documentation Patient: Janna Mora Account Number: [id number] /Age: 06 1990 30 Medical Record #: [id number] Service Date: 06/08/20 Location: URGENT CARE - 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 x 4 days ago, she scratched her neck and dislocated her right shoulder which was "popped back in" by a vet medicine resident. 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 Right hand dominant, finds that pain is limiting her ability to work, although she is reluctant to have restrictions. . She has an orthopedic assessment arranged in 2 days, having missed a scheduled visit today, She has a sling, but finds that it does not really restrict her tendency to continue to use the right arm freely. - History of Current Complaint Hx Obtained From: Patient Hx Last Menstrual Period: 05/10/20 Onset/Duration: Sudden Onset, Lasting Days Timing: Constant Severity Initially: Moderate Severity Currently: Moderate Location Of Pain: Is Discrete @ - right shoulder Character: Aching Aggravating Factor(s): Movement Alleviating Factor(s): Rest Associated Signs And Symptoms: Positive: Negative Related History: Dominant Hand Right - Risk Factors Non-Orthopedic Risk Factor: Negative DVT Risk Factors: Negative - History of Current Complaint Chief Complaint: UCUpperExtremity Stated Complaint: RIGHT SHOULDER INJURY Time Seen by Provider: 06/08/20 16:17 - Allergies/Home Medications Allergies/Adverse Reactions: Allergies Allergy/AdvReac Type Severity Reaction Status Date / Time codeine Allergy Itching Verified 06/08/20 16:18 Penicillins Allergy See Comment Verified 06/08/20 16:18 Home Medications: Home Medications de xtroamphetamine 10 mg PO DAILY 12/25/18 [History Confirmed 06/08/20] diazepam 4 mg PO Q8H PRN 07/26/19 [History Confirmed 06/08/20] albuterol sulfate 2 inh INH Q6H PRN 04/01/20 [History Confirmed 06/08/20] bupropion HCl 150 mg PO DAILY 04/01/20 [History Confirmed 06/08/20] valacyclovir 1,000 mg PO DAILY PRN 04/01/20 [History Confirmed 06/08/20] naproxen 500 mg PO BID PRN 14 Days #28 tab 05/23/20 [Rx Confirmed 06/08/20] nebivolol [Bystolic] 5 mg PO DAILY 05/23/20 [History Confirmed 06/08/20] tramadol 50 mg PO BID PRN 7 Days #14 tab MDD 2 05/23/20 [Rx Confirmed 06/08/20] naproxen 500 mg PO BID PRN #40 tab 06/08/20 [Rx] tramadol [Ultram] 50 mg PO Q8H PRN #12 tab MDD 3 06/08/20 [Rx] PMH/Surg Hx/FS Hx/Imm Hx - Additional Past Medical History Additional PMH: Efe's Danlos Previously Healthy: Yes Cardiovascular History: Other - hx of autonomic dysfunction Psychological History: Anxiety, Other - attention deficit disorder - Surgical History Surgical History: Yes Surgery Procedure, Year, and Place: [facility] 11/2016 RIGHT FOOT(BUNION REPAIR). LEFT SHOULDER TENDON REPAIR 2008. MAXILLA REPAIR FOR FRACTURE 2008. WISDOM TEETH. TONSILS/ADENOIDS 1999. LEFT BREAST BIOPSY 2006 - Family History Known Family History: Positive: Other - GERD, father...MOM with ED and POTS, Non-Contributory - Social History Occupation: Student Alcohol Use: Rare Alcohol Amount: 4 cups of vodka or wine Substance Use Type: None Smoking Status (MU): Never Smoked Tobacco - Immunization History Most Recent Influenza Vaccination: June 2018 Most Recent Pneumonia Vaccination: unknown Review of Systems All Other Systems Reviewed And Are Negative: Yes Constitutional: Positive: Negative Skin: Positive: Negative Respiratory: Positive: Negative Cardiovascular: Positive: Negative Motor: Positive: Decreased ROM - right shoulder Neurovascular: Positive: Negative Musculoskeletal: Positive: Arthralgia Neurological/Mental Status: Positive: Negative Psychological: Positive: Negative Physical Exam Triage Information Reviewed: Yes Appearance: Well-Appearing, Pain Distress - mild ENT: Positive: Normal ENT inspection Neck exam: Normal Respiratory: Positive: Lungs clear, Normal breath sounds Cardiovascular: Positive: RRR, No Murmur Musculoskeletal Exam: Other - TTP right ACC joint without swelling or deformity Musculoskeletal: Positive: Strength Intact, ROM Limited @ - right shoulder with pain with active abduction, Neurological: Positive: Alert, Muscle Tone Normal Psychological Exam: Normal Diagnostics - Radiology No standard instances Radiology Interpretation Completed By: Radiologist - VIEWS: 4, Frontal internal rotation, external rotation, outlet, and axillary views of the right shoulder FINDINGS: BONE DENSITY: Normal. BONES: There is no displaced fracture. JOINTS: There is no arthropathy. ALIGNMENT: There is no dislocation. SOFT TISSUES: Unremarkable. OTHER FINDINGS: None. IMPRESSION: NO ACUTE OSSEOUS INJURY. IF SYMPTOMS PERSIST, RECOMMEND REPEAT IMAGING. Shoulder Course/Dx - Course Course Of Treatment: Discussed pain control. She decreased use of naroxen due to concern about runnign out of prescriptive rx, di cussed rx given Tramadol has been effective for her without significant side effect. Reviewed interactions with meds, particularly with valium rx which she has for anxiety. She agrees not to use diazepam at the same time as tramadol . [facility] reviewed search number [id number]. Advised to avoid diazepam use at the same time as tramadol; she has not been aware of excess sedation or side effects. She was given a shoulder immobilzer today which she prefers due to her awareness that even with a splint she tends to overuse the right shoulder and arm. Ortho follow up is pending in 2 days. - Differential Dx/Diagnosis Differential Diagnosis/HQI/PQRI: Dislocation, Sprain, Tendonitis, Other - AC joint separation - Differential Dx/Diagnosis Provider Diagnosis: Recurrent dislocation, right shoulder Discharge ED - Sign-Out/Discharge Documenting (check all that apply): Patient Departure All imaging exams completed and their final reports reviewed: Yes - Billing Disposition and Condition Condition: STABLE Disposition: Home - Discharge Plan Condition: Stable Disposition: HOME Prescriptions: naproxen 500 mg PO BID PRN #40 tab PRN Reason: Pain tramadol [Ultram] 50 mg PO Q8H PRN #12 tab MDD 3 PRN Reason: Pain, Severe Patient Education Materials: Shoulder Pain (ED) Referrals: Andreia Gardner NP [Primary Care Provider] - Gonsalo Lopez MD [Medical Doctor] - Additional Instructions: Use ice to the left shoulder to help ease pain and use the immobilizer for comfort. Take naproxen twice daily for pain control, stopping if it causes stomach upset or nausea. Use tramadol sparingly for severe pain, and do not combine use with diazepam due to increased risk of sedation and dizziness. Please ensure that you follow up with Dr. Lopez as arranged for later this week. <Electronically signed by Ángela San MD> 06/08/20 3721 Entered by: Ángela San MD Entered Date/Time: 06/08/20 1617 Copy to: Andreia Gardner NP Name Value Range Interpretation Code Description Data Najma rce(s) Supporting Document(s) ID Date Data Source [id number] 06/07/2020 08:53:00 AM EDT [facility] Name Value Range Interpretation Code Description Data Najma rce(s) Supporting Document(s) SARS-CoV-2 (COVID-19) RNA [Presence] in Respiratory specimen by JW with probe detection [facility] This lab was ordered by [facility] and reported by [facility]. ID Date Data Source [id number] 06/07/2020 04:07:00 PM EDT [facility] [id number] Name Value Range Interpretation Code Description Data Najma rce(s) Supporting Document(s) SARS Coronavirus-2, PCR Undetected Undetected [facility] Negative results do not preclude SARS-Co V-2 infection andshould not be used as the sole basis for patient managementdecisions.The [employer]ist PT-PCR COVID-19 assay has been internallyvalidated for saliva and pooled upper respiratory specimens. SARS Coronavirus-2, Source Nasopharyngeal [facility] Procedure Social History Code Duration Value Status Description Data Source(s ) Smoking 07/12/2021 12:00:00 AM EDT Patient has never smoked co mpleted Patient has never smoked [facility] (Cardiology [facility]) Smoking 04/28/2021 12:00:00 AM EDT Never Smoked Cigarettes com pleted Never Smoked Cigarettes MEDENT ([facility] Vital Signs ID Date Data Source UNK Name Value Range Interpretation Code Description Data Source(s) Body weight 185.00 [lb_av] 185.00 [lb_av] MEDEN T ([facility]) Body height 69 [in_i] 69 [in_i] [facility] ([facility]) 5'9" Body mass index (BMI) [Ratio] 27.3 kg/m2 27.3 k g/m2 [facility] ([facility]) Heart rate 74 /min 74 /min MEDENT (Cardio logy [facility]) Systolic blood pressure--sitting 141 mm[Hg] 141 mm[Hg] [facility] ([facility]) [place], large cuff/Ra; HR: 74 bpm Diastolic blood pressure--sitting 97 mm[Hg] 97 mm[Hg] [facility] ([facility]) [place], large cuff/Ra; HR: 74 bpm Systolic blood pressure--supine 140 mm[Hg] 140 mm[Hg] [facility] ([facility]) [place], large cuff/Ra; HR: 69 bpm Diastolic blood pressure--supine 93 mm[Hg] 93 mm[Hg] MED[facility] ([facility]) [place], large cuff/Ra; HR: 69 bpm Systolic blood pressure--standing 128 mm[Hg] 12 8 mm[Hg] MED[facility] ([facility]) [place], large cuff/Ra; HR: 86 bpm Diastolic blood pressure--standing 89 mm[Hg] 8 9 mm[Hg] [facility] ([facility]) [place], large cuff/Ra; HR: 86 bpm Body temperature 97.8 [degF] 97.8 [degF] [facility] ([facility] Body mass index (BMI) [Ratio] 26.1 kg/m2 26.1 k g/m2 MED[facility] ([facility] Body height 69 [in_i] 69 [in_i] MED[facility] ([facility] 5'9" Body weight 177.00 [lb_av] 177.00 [lb_av] MEDEN T ([facility] Heart rate 94 /min 94 /min MED[facility] ([facility] Systolic blood pressure 120 mm[Hg] 120 mm[Hg] M EDENT ([facility] Diastolic blood pressure 70 mm[Hg] 70 mm[Hg] MED[facility] ([facility] Respiratory rate 18 /min 18 /min MEDENT ( [facility] Body height 69 [in_i] 69 [in_i] MEDENT ([facility] 5'9" Body weight 180.25 [lb_av] 180.25 [lb_av] MEDEN T ([facility] Heart rate 66 /min 66 /min [facility] ([facility] Body mass index (BMI) [Ratio] 26.6 kg/m2 26.6 k g/m2 [facility] ([facility] Body temperature 96.8 [degF] 96.8 [degF] [facility] ([facility] Diastolic blood pressure--standing 80 mm[Hg] 8 0 mm[Hg] [facility] ([facility] Body weight 180.00 [lb_av] 180.00 [lb_av] MEDEN T ([facility] Diastolic blood pressure 78 mm[Hg] 78 mm[Hg] [facility] ([facility] Body height 69 [in_i] 69 [in_i] MED[facility] ([facility] 5'9" Heart rate 68 /min 68 /min MED[facility] ([facility] Systolic blood pressure 118 mm[Hg] 118 mm[Hg] M EDENT ([facility] Systolic blood pressure--standing 120 mm[Hg] 12 0 mm[Hg] [facility] ([facility] Body temperature 97.3 [degF] 97.3 [degF] [facility] ([facility] Body mass index (BMI) [Ratio] 26.6 kg/m2 26.6 k g/m2 [facility] ([facility] Systolic blood pressure 110 mm[Hg] 110 mm[Hg] M EDENT ([facility] Diastolic blood pressure 80 mm[Hg] 80 mm[Hg] MED[facility] ([facility] Respiratory rate 18 /min 18 /min [facility] ( [facility] Body temperature 97.1 [degF] 97.1 [degF] MED[facility] ([facility] Body mass index (BMI) [Ratio] 26.3 kg/m2 26.3 k g/m2 MED[facility] ([facility] Body height 69 [in_i] 69 [in_i] [facility] ([facility] 5'9" Body weight 178.00 [lb_av] 178.00 [lb_av] MEDEN T ([facility] Heart rate 72 /min 72 /min MED[facility] ([facility] Body height 69 [in_i] 69 [in_i] MED[facility] ([facility] 5'9" Body weight 132.00 [lb_av] 132.00 [lb_av] MEDEN T ([facility] Systolic blood pressure 112 mm[Hg] 112 mm[Hg] M EDENT ([facility] Diastolic blood pressure 90 mm[Hg] 90 mm[Hg] [facility] ([facility] Systolic blood pressure--standing 110 mm[Hg] 11 0 mm[Hg] [facility] ([facility] Diastolic blood pressure--standing 92 mm[Hg] 9 2 mm[Hg] [facility] ([facility] Body mass index (BMI) [Ratio] 19.5 kg/m2 19.5 k g/m2 [facility] ([facility] Heart rate 64 /min 64 /min [facility] ([facility] Body temperature 97.7 [degF] 97.7 [degF] [facility] ([facility] Systolic blood pressure--standing 110 mm[Hg] 11 0 mm[Hg] MED[facility] ([facility] Diastolic blood pressure--standing 70 mm[Hg] 7 0 mm[Hg] [facility] ([facility] Body temperature 97.7 [degF] 97.7 [degF] [facility] ([facility] Body mass index (BMI) [Ratio] 19.5 kg/m2 19.5 k g/m2 [facility] ([facility] Body height 69 [in_i] 69 [in_i] [facility] ([facility] 5'9" Body weight 132.00 [lb_av] 132.00 [lb_av] MEDEN T ([facility] clothes/shoes Heart rate 64 /min 64 /min MED[facility] ([facility] Systolic blood pressure--sitting 112 mm[Hg] 112 mm[Hg] [facility] ([facility] Diastolic blood pressure--sitting 60 mm[Hg] 60 mm[Hg] [facility] ([facility] Body weight 179.00 [lb_av] 179.00 [lb_av] MEDEN T ([facility] clothes/shoes Systolic blood pressure--sitting 114 mm[Hg] 114 mm[Hg] [facility] ([facility] Diastolic blood pressure--sitting 80 mm[Hg] 80 mm[Hg] [facility] ([facility] Body height 69 [in_i] 69 [in_i] [facility] ([facility] 5'9" Heart rate 64 /min 64 /min [facility] ([facility] Body temperature 96.9 [degF] 96.9 [degF] [facility] ([facility] Body mass index (BMI) [Ratio] 26.4 kg/m2 26.4 k g/m2 [facility] ([facility] Body height 69 [in_i] 69 [in_i] [facility] ([facility] 5'9" Body mass index (BMI) [Ratio] 26.3 kg/m2 26.3 k g/m2 [facility] ([facility] Diastolic blood pressure 70 mm[Hg] 70 mm[Hg] [facility] ([facility] Body weight 178.00 [lb_av] 178.00 [lb_av] MEDEN T ([facility] Heart rate 84 /min 84 /min [facility] ([facility] Systolic blood pressure 136 mm[Hg] 136 mm[Hg] M EDENT ([facility] Body temperature 97.1 [degF] 97.1 [degF] MED[facility] ([facility] Oxygen saturation in Arterial blood by Pulse oximetry 98 % 98 % MED[facility] ([facility] Body height 69 [in_i] 69 [in_i] MED[facility] ([facility] 5'9" Heart rate 84 /min 84 /min MED[facility] ([facility] Systolic blood pressure 100 mm[Hg] 100 mm[Hg] M EDENT ([facility] Diastolic blood pressure 80 mm[Hg] 80 mm[Hg] [facility] ([facility] Respiratory rate 18 /min 18 /min [facility] ( [facility] Body temperature 97.5 [degF] 97.5 [degF] [facility] ([facility] Heart rate 96 /min 96 /min [facility] ([facility] Systolic blood pressure 114 mm[Hg] 114 mm[Hg] M EDENT ([facility] Body temperature 97.5 [degF] 97.5 [degF] [facility] ([facility] Body height 69 [in_i] 69 [in_i] [facility] ([facility] 5'9" Body weight 179.00 [lb_av] 179.00 [lb_av] MEDEN T ([facility] Diastolic blood pressure 72 mm[Hg] 72 mm[Hg] [facility] ([facility] Oxygen saturation in Arterial blood by Pulse oximetry 97 % 97 % [facility] ([facility] Body mass index (BMI) [Ratio] 26.4 kg/m2 26.4 k g/m2 [facility] ([facility] Body height 69 [in_i] 69 [in_i] [facility] ([facility] 5'9" Body weight 172.00 [lb_av] 172.00 [lb_av] MEDEN T ([facility] Heart rate 76 /min 76 /min [facility] ([facility] Systolic blood pressure--standing 128 mm[Hg] 12 8 mm[Hg] MED[facility] ([facility] Lue Diastolic blood pressure--standing 90 mm[Hg] 9 0 mm[Hg] MED[facility] ([facility] Lue Respiratory rate 17 /min 17 /min MED[facility] ( [facility] Body temperature 97.1 [degF] 97.1 [degF] [facility] ([facility] Body mass index (BMI) [Ratio] 25.4 kg/m2 25.4 k g/m2 [facility] ([facility] Body height 69 [in_i] 69 [in_i] [facility] ([facility] 5'9" Body weight 176.00 [lb_av] 176.00 [lb_av] MEDEN T ([facility] Heart rate 64 /min 64 /min [facility] ([facility] Systolic blood pressure 119 mm[Hg] 119 mm[Hg] M EDENT ([facility] Diastolic blood pressure 74 mm[Hg] 74 mm[Hg] [facility] ([facility] Body temperature 97.1 [degF] 97.1 [degF] [facility] ([facility] Body mass index (BMI) [Ratio] 26.0 kg/m2 26.0 k g/m2 [facility] ([facility] Body height 69 [in_i] 69 [in_i] [facility] ([facility] 5'9" Body weight 178.00 [lb_av] 178.00 [lb_av] MEDEN T ([facility] Heart rate 72 /min 72 /min [facility] ([facility] Systolic blood pressure 116 mm[Hg] 116 mm[Hg] M EDENT ([facility] Diastolic blood pressure 64 mm[Hg] 64 mm[Hg] [facility] ([facility] Respiratory rate 12 /min 12 /min [facility] ( [facility] Body temperature 96.6 [degF] 96.6 [degF] [facility] ([facility] Body mass index (BMI) [Ratio] 26.3 kg/m2 26.3 k g/m2 [facility] ([facility] Body temperature 96.8 [degF] 96.8 [degF] [facility] ([facility] Systolic blood pressure 120 mm[Hg] 120 mm[Hg] M EDENT ([facility] Diastolic blood pressure 84 mm[Hg] 84 mm[Hg] [facility] ([facility] Body temperature 97.5 [degF] 97.5 [degF] [facility] ([facility] Body mass index (BMI) [Ratio] 25.0 kg/m2 25.0 k g/m2 [facility] ([facility] Body height 69.5 [in_i] 69.5 [in_i] [facility] ([facility] 5'9.50" Body weight 172.00 [lb_av] 172.00 [lb_av] MEDEN T ([facility] Heart rate 82 /min 82 /min [facility] ([facility] ID Date Data Source [id number] 09/24/2020 05:29:00 PM EST [facility] Name Value Range Interpretation Code Description Data Source(s) HEIGHT 175 cm 175 cm [facility] WEIGHT RECORDED 79.2 kg 79.2 kg [facility] HEIGHT 175.26 cm 175.26 cm [facility] WEIGHT RECORDED 77.069211 kg 77.026212 kg [facility] ID Date Data Source [id number] 08/17/2020 05:44:00 PM EST [facility] Name Value Range Interpretation Code Description Data Source(s) WEIGHT RECORDED 77.650957 kg 77.662586 kg [facility] WEIGHT RECORDED 77.584813 kg 77.595733 kg [facility] ID Date Data Source [id number] 12/03/2020 11:36:00 AM [facility] Name Value Range Interpretation Code Description Data Source(s) HEIGHT 175.26 cm 175.26 cm [facility] WEIGHT RECORDED 74.393740 kg 74.642454 kg [facility] ID Date Data Source [id number] 12/03/2020 11:36:00 AM [facility] Name Value Range Interpretation Code Description Data Source(s) HEIGHT 175.26 cm 175.26 cm [facility] WEIGHT RECORDED 72.542450 kg 72.280202 kg [facility] HEIGHT 175.26 cm 175.26 cm [facility] WEIGHT RECORDED 72.370757 kg 72.991954 kg [facility] ID Date Data Source [id number] 12/03/2020 11:36:00 AM [facility] Name Value Range Interpretation Code Description Data Source(s) HEIGHT 175.26 cm 175.26 cm [facility] WEIGHT RECORDED 70.837762 kg 70.568166 kg [facility] HEIGHT 175.26 cm 175.26 cm [facility] WEIGHT RECORDED 70.892811 kg 70.243771 kg [facility] HEIGHT 175.26 cm 175.26 cm [facility] WEIGHT RECORDED 70.257998 kg 70.964640 kg [facility]
[2021-08-06 17:06] LABS: RSV AMPLIFICATION NEGATIVE (NEGATIVE)
[2021-08-06] MEDS: propofoL 1,000 MG in IV 1 EA IV SCH ×2 (17:20→19:46)
--- OUTSIDE RECORDS SUMMARY | 2021-08-06 17:32 | CCD ---
Author Author [facility] Organization [facility] Address Unknown Phone Unavailable Care Team Providers Care Career Development Consultant Name Role Phone Rakan Kapoor MD [...] Unavailable Terrie Hernandez MD Unavailable Unavailable [facility] Unavailable Unavailable Lai Aguirre MD Unavailable Unavailable [...] Unavailable Laney Smith MD Unavailable Unavailable Laney Simth MD Unavailable Unavailable Brasher, S Misha DO [...] S Misha DO Unavailable Unavailable Brasher, S Msiha DO Unavailable Unavailable Brasher, S Misha DO [...] F Ángela MD Unavailable Unavailable Howson, F Nágela MD Unavailable Unavailable Howson, F Ángela MD [...] ANTECOL, Sherwin RAMIREZ MD Unavailable Unavailable MacQueen ([facility] COVID), DO NOT EDIT Damon LY Unavail [...] is protected by Article 27-F of the [facility] Public Health law. If you continue you may have access to information: Regarding HIV / AIDS; Provided by facilities licensed or operated by the [facility] Office of Mental Health; or Provided by the [facility] Office for People With Developmental Disabilities. If such information is present, then the following [facility] mandated warning applies: This information has been [...] law may result in a fine or fdc sentence or both. A general authorization for the release of medical or other information is NOT sufficient authorization for further disc losure. Family History Family Member Name Family Member Gender Family Member Status Date o f Status Description Data Source(s) Unknown Male Problem MEDENT ([facility] Encounters Encounter Providers Location Date Indications Data Source(s ) Outpatient Attender: ASHLEY ANDERS MD Main Office 07/12/2021 08:00:00 AM EDT MED[facility] ([facility]) Outpatient 05/12/2021 03:59:15 PM EDT - 021 04:01:58 PM EDT Doc[facility]Tap ([facility]) Outpatient Attender: Gonsalo Lopez [facility] Internal Medicine [facility] 04/28/2021 01:30:00 PM EDT MEDENT ([facility] Outpatient Attender: Lara ALVARESC [facility] Internal [facility] 04/22/2021 02:30:00 PM EDT MEDENT ([facility] Outpatient Attender: Damon Mark ([facility] COVROBYN) 02/18/2021 02:38:00 PM EDT Covid Testing [facility] Covid Testing Outpatient Attender: Damon Mark ([facility] COVID) MDConsult ant: COVID Kuldip 02/17/2021 12:47:00 PM EDT Covid Testing [facility] Covid Testing Outpatient Attender: Misha Brasher DO 02/10/2021 01:00:00 P M EDT dehydration [facility] dehydration Outpatient Attender: Damon Mark ([facility] COVID) MDConsult ant: COVID Kuldip 02/07/2021 11:24:00 AM EDT Covid Testing [facility] Covid Testing Outpatient Attender: Damon Mark ([facility] COVID) MDConsult ant: COVID [place] 01/31/2021 12:02:00 PM EDT Covid Testing [facility] Covid Testing Outpatient Attender: Damon Mark ([facility] COVID) MDConsult ant: COVID [place] 01/24/2021 02:03:00 PM EDT Covid Testing [facility] Covid Testing Outpatient Attender: Damon Mark ([facility] COVID) MDConsult ant: COVID [place] 01/17/2021 03:39:00 PM EDT Covid Testing [facility] Covid Testing Outpatient Attender: Damon Mark ([facility] COVID) MDConsult ant: COVID [place] 01/07/2021 09:07:00 AM EDT Covid Testing [facility] Covid Testing Outpatient Attender: Damon Mark ([facility] COVID) MDConsult ant: COVID [place] 01/04/2021 12:31:00 PM EDT Covid Testing [facility] Covid Testing Outpatient Attender: Misha Brasher DO [facility] 01/04/2021 09:40:00 AM EDT [facility] Attender: Misha Brasher DO 01/03/2021 01:1 9:00 PM EDT Syncope and collapse [facility] Syncope and collapse Outpatient Attender: Damon Mark ([facility] COVID) MDConsult ant: COVID [place] 12/31/2020 01:19:00 PM EDT Covid Testing [facility] Covid Testing Outpatient Attender: Damon Mark ([facility] COVID) MDConsult ant: COVID [place] 12/28/2020 01:11:00 PM EDT Covid Testing [facility] Covid Testing Outpatient Attender: Damon Mark ([facility] COVID) MDConsult ant: COVID [place] 12/24/2020 11:38:00 AM EDT Covid Testing [facility] Covid Testing Outpatient Attender: Damon Mark ([facility] COVID) MDConsult ant: COVID [place] 12/21/2020 11:30:00 AM EDT Covid Testing [facility] Covid Testing Outpatient Attender: Damon Mark ([facility] COVID) MDConsult ant: COVID [place] 12/19/2020 11:45:00 AM EDT Covid Testing [facility] Covid Testing Outpatient Attender: Damon Mark ([facility] COVID) MDConsult ant: COVID [place] 12/16/2020 04:31:00 PM EDT Covid Testing [facility] Covid Testing Outpatient Attender: Damon MilesJohnnyliliane ([facility] COVID) MDConsult ant: COVID [place] 12/10/2020 01:34:00 PM EDT Covid Testing [facility] Covid Testing Outpatient Attender: Damon Miles ([facility] COVID) MDConsult ant: COVID [place] 12/07/2020 01:30:00 PM EDT Covid Testing [facility] Covid Testing Outpatient Attender: Misha Brasher DO 12/03/2020 12:3 4:00 PM EST E86.0 hydration [facility] E86.0 hydration Outpatient Attender: Damon Mark ([facility] COVID) MDConsult ant: COVID [place] 12/03/2020 11:49:00 AM EST Covid Testing [facility] Covid Testing Office Visit Attender: Gonsalo Lopez [facility] Internal [facility] 12/02/2020 12:15:00 PM EST MED[facility] ([facility] Outpatient Attender: Damon Mark ([facility] COVID) MDConsult ant: COVID [place] 11/30/2020 09:13:00 AM EST Covid Testing [facility] Covid Testing Outpatient Attender: Damon Miles ([facility] COVID) MDConsult ant: COVID [place] 11/26/2020 09:22:00 AM EST Covid Testing [facility] Covid Testing Outpatient Attender: Misha Brasher DO [facility] Internal [facility] 11/25/2020 08:40:00 AM EST MED[facility] ([facility] Outpatient Attender: Misha Brasher DO 11/24/2020 04:4 0:00 PM EST Syncope and collapse [facility] Syncope and collapse Outpatient Attender: Chana REYES 06:34:00 PM EST Acute vaginitis [facility] Acute vaginitis Outpatient Attender: Chana REYES [facility] Internal Med [facility] 11/23/2020 01:30:00 PM EST MEDENT ([facility] Outpatient Attender: Damon Mark ([facility] COVID) MDConsult ant: COVID [place] 11/22/2020 08:43:00 AM EST Covid Testing [facility] Covid Testing Outpatient Attender: Misha Brasher DO [facility] Internal [facility] 11/16/2020 08:00:00 AM EST MEDENT ([facility] Outpatient Attender: Damon Mark ([facility] COVID) MDConsult ant: COVID [place] 11/15/2020 01:58:00 PM EST Covid Testing [facility] Covid Testing Outpatient Attender: Misha Brasher DO 11/12/2020 02:0 0:00 PM EST E86.0 Dehydration [facility] E86.0 Dehydration Outpatient Attender: Damon Mark ([facility] COVID) MDConsult ant: COVID [place] 11/11/2020 01:13:00 PM EST Covid Testing [facility] Covid Testing Outpatient Attender: Misha Brasher DO [facility] 11/09/2020 09:00:00 AM EST MED[facility] ([facility] Outpatient Attender: Damon Mark ([facility] COVID) MDConsult ant: COVID [place] 11/05/2020 04:59:00 PM EST Covid Testing [facility] Covid Testing Office Visit Attender: Gonsalo Lopez [facility] 11/02/2020 10:30:00 AM EST MEDENT ([facility] Outpatient Attender: Damon Mark ([facility] COVID) MDConsult ant: COVID [place] 11/01/2020 02:45:00 PM EST Covid Testing [facility] Covid Testing Outpatient Attender: Damon Mark ([facility] COVID) MDConsult ant: COVID [place] 10/28/2020 01:14:00 PM EST Covid Testing [facility] Covid Testing Outpatient Attender: Damon Mark ([facility] COVID) MDConsult ant: COVID [place] 10/25/2020 10:59:00 AM EST Covid Testing [facility] Covid Testing Outpatient Attender: Obdulia Hernandez MD [facility] 10/07/2020 12:30:00 PM EST MEDENT ([facility] Office Visit Attender: Gonsalo Lopez [facility] 10/05/2020 10:30:00 AM EST MEDENT ([facility] Outpatient Attender: Gonsalo Lopez 09/22 09:53:00 AM EST - 09/22/2020 06:10:00 PM EST [facility] Patient discharged. Outpatient Attender: Damon Mark ([facility] COVID) MDConsult ant: COVID [place] 09/18/2020 01:38:00 PM EST Covid Testing [facility] Covid Testing Outpatient Attender: Misha Brasher DO [facility] 09/13/2020 03:40:00 PM EST MED[facility] ([facility] Outpatient Attender: Damon Mark ([facility] COVID) MDConsult ant: COVID [place] 09/13/2020 12:16:00 PM EST Covid Testing [facility] Covid Testing Outpatient Attender: Damon Mark ([facility] COVID) MDConsult ant: COVID [place] 09/10/2020 09:47:00 AM EST Covid Testing [facility] Covid Testing Outpatient [facility]: [facility] COV[facility]ATHER LY 09/08/2020 02:36:00 PM EST Covid Testing [facility] Covid Testing Outpatient Attender: Gonsalo Lopez 09/07/2020 04: 00:00 PM EST OTHER INSTABILITY, RIGHT SHOULDER [facility] OTHER INSTABILITY, RIGHT SHOULDER Outpatient Attender: Damon Mark ([facility] COVID) MDConsult ant: COVID [place] 09/03/2020 02:41:00 PM EST Covid Testing [facility] Covid Testing Outpatient Attender: Damon Mark ([facility] COVID) MDConsult ant: COVID [place] 08/30/2020 08:12:00 AM EST Covid Testing [facility] Covid Testing Outpatient Attender: Dmaon Mark ([facility] COVID) 08/28/2020 10:46:00 AM EST Covid Testing [facility] Covid Testing Outpatient Attender: Damon Mark ([facility] COVID) MDConsult ant: COVID [place] 08/27/2020 02:38:00 PM EST Covid Testing [facility] Covid Testing Outpatient Attender: Damon Mark ([facility] COVID) MDConsult ant: COVID [place] 08/23/2020 10:44:00 AM EST Covid Testing [facility] Covid Testing Emergency Attender: Laney Smith MDAttender: [facility] 08/22/2020 09:22:00 AM EST - 08/22/2020 11:00:00 AM EST THUMB INJURY [facility] ter THUMB INJURY Patient discharged. Outpatient Attender: Damon Mark ([facility] COVID) MDConsult ant: COVID [place] 08/20/2020 01:05:00 PM EST Covid Testing [facility] Covid Testing Outpatient Attender: Gonsalo Lopez 08/17/2020 10: 58:00 AM EST Other instability, right shoulder [facility] Other instability, right shoulder Outpatient Attender: Damon Mark ([facility] COVID) MDConsult ant: COVID [place] 08/16/2020 02:02:00 PM EST Covid Testing [facility] Covid Testing Outpatient Attender: Damon Mark ([facility] COVID) MDConsult ant: COVID [place] 08/13/2020 01:12:00 PM EST Covid Testing [facility] Covid Testing Outpatient Attender: Gonsalo Lopez [facility] 08/10/2020 12:45:00 PM EST MEDENT ([facility] Outpatient Attender: Damon Mark ([facility] COVID) MDConsult ant: COVID [place] 08/09/2020 12:45:00 PM EST Covid Testing [facility] Covid Testing Outpatient Attender: Damon Mark ([facility] COVID) MDConsult ant: COVID [place] 08/06/2020 02:33:00 PM EST Covid Testing [facility] Covid Testing Outpatient Attender: Damon Mark ([facility] COVID) MDConsult ant: COVID [place] 08/01/2020 02:47:00 PM EST Covid Testing [facility] Covid Testing Outpatient Attender: Damon MilesJohnnyliliane ([facility] COVID) MDConsult ant: COVID [place] 07/27/2020 11:37:00 AM EST Covid Testing [facility] Covid Testing Outpatient Attender: Damon MilesJohnnyliliane ([facility] COVID) MDConsult ant: COVID [place] 07/20/2020 11:32:00 AM EDT Covid Testing [facility] Covid Testing Outpatient Attender: Damon MilesJohnnyliliane ([facility] COVID) MDConsult ant: COVID [place] 07/16/2020 03:57:00 PM EDT Covid Testing [facility] Covid Testing Outpatient Attender: Damon Deedee ([facility] COVID) MDConsult ant: COVID [place] 07/12/2020 03:50:00 PM EDT Covid Testing [facility] Covid Testing Outpatient Attender: Damon Deedee ([facility] COVID) MDConsult ant: COVID [place] 07/09/2020 02:38:00 PM EDT Covid Testing [facility] Covid Testing Outpatient Attender: aDmon Miles ([facility] COVID) MDConsult ant: COVID [place] 07/05/2020 08:22:00 AM EDT Covid Testing [facility] Covid Testing Outpatient Attender: Damon Miles ([facility] COVID) MDConsult ant: COVID [place] 07/02/2020 01:58:00 PM EDT Covid Testing [facility] Covid Testing Outpatient Attender: Damon Deedee ([facility] COVID) MDConsult ant: COVID [place] 06/28/2020 11:15:00 AM EDT Covid Testing [facility] Covid Testing Outpatient Attender: Damon Miles ([facility] COVID) MDConsult ant: COVID [place] 06/24/2020 05:31:00 PM EDT [facility] Outpatient Attender: Damon Deedee ([facility] COVID) MDConsult ant: COVID [place] 06/21/2020 04:49:00 PM EDT [facility] Outpatient Attender: Damon Mark ([facility] COVID) MDConsult ant: COVID [place] 06/18/2020 08:13:00 AM EDT [facility] Outpatient Attender: Damon Mark ([facility] COVID) MDConsult ant: COVROBYN [place] 06/14/2020 12:16:00 PM EDT [facility] Outpatient Attender: Damon Mark ([facility] COVID) MDConsult ant: COVID [place] 06/12/2020 09:49:00 AM EDT [facility] Outpatient Attender: Damon Mark ([facility] COVID) MDConsult ant: LUNA [place] 06/11/2020 12:40:00 PM EDT [facility] Outpatient Attender: Gonsalo Lopez [facility] Internal Medicine [facility] 06/10/2020 08:00:00 AM EDT MEDENT ([facility]ngela San MD 06/08/2020 04:04:00 PM EDT - 06/08/2020 05:31:00 PM EDT RIGHT SHOULDER INJURY [facility] ter RIGHT SHOULDER INJURY Patient discharged. Outpatient Attender: Damon Mark ([facility] COVID) MDConsult ant: LUNA [place] 06/07/2020 08:53:00 AM EDT [facility] Emergency Attender: Fnmarium Seemant MDAttender: [facility] 05/23/2020 09:03:00 AM EDT - 05/23/2020 10:45:00 AM EDT SHOULDER/BACK/ CHEST INJURY [facility] SHOULDER/BACK/ CHEST INJURY Patient discharged. Emergency Attender: Feliz Mayer MD 2018 04:18:00 PM EDT - 12/25/2018 07:08:00 PM EDT BLOODY VOMIT PER PT [facility] BLOODY VOMIT PER PT Inpatient Attender: Terrance Wolf nder: Rakan Kapoor MDAttender: Oliver Aguirre MDAttender: Talita Ochoa MDAdmitter: Rakan Kapoor MD 09/01/2018 02:31:00 AM EST - 09/06/2018 02:45:00 PM EST UNSPECIFIED DEPRESSIVE D/O [facility] UNSPECIFIED DEPRESSIVE D/O Immunizations Vaccine Date Status Description Data Source(s) COVID-19 VACCINE Pfizer 12/25/2020 12:00:00 AM EDT completed [facility] Vaccine Series Complete: YESThis Data wa s Submitted to [facility] Via [employer]. COVID-19 VACCINE Pfizer 12/04/2020 12:00:00 AM EST completed [facility] Vaccine Series Complete: NOThis Data was Submitted to [facility] Via [employer]. Medications Medication Brand Name Start Date Product Form Dose Route Admi nistrative Instructions Pharmacy Instructions Status Indications Reaction Description Data Source(s) Diazepam 5 MG Oral Tablet Diazepam 07/11/2021 12:00:00 AM EDT [facility] Ibuprofen 200 MG Oral Capsule Ibuprofen 07/11/2021 12:00:00 AM EDT active [facility] ([facility]) 12 HR Bupropion Hydrochloride 150 MG Extended Release Oral Tablet [Wellbutrin] Wellbutrin SR 07/11/2021 12:00:00 AM EDT ORAL active MED[facility] ([facility]) Jornay PM Jornay PM 07/11/2021 12:00:00 AM EDT ORAL act edwin MEDENT ([facility]) Fludrocortisone 0.1 MG Oral Tablet Fludrocortisone Acetate 1 12:00:00 AM EDT ORAL active MEDENT ([facility]) cetirizine hydrochloride 10 MG Oral Capsule [Zyrtec] Zyrtec Allergy 07/11/2021 12:00:00 AM EDT ORAL active M EDENT ([facility]) Fludrocortisone 0.1 MG Oral Tablet Fludrocortisone Acetate 0 11/25/2020 12:00:00 AM EST ORAL active MEDENT ([facility] Normal Saline Infusion 11/18/2020 12:00:00 AM EST active [facility] ([facility] Fludrocortisone 0.1 MG Oral Tablet Fludrocortisone Acetate 0 11/16/2020 12:00:00 AM EST ORAL completed [facility] ([facility] Wheelchair 11/10/2020 12:00:00 AM EST active [facility] ([facility] Fludrocortisone 0.1 MG Oral Tablet Fludrocortisone Acetate 0 11/09/2020 12:00:00 AM EST ORAL completed [facility] ([facility] Cyclobenzaprine hydrochloride 10 MG Oral Tablet Cyclobenzapr ine HCL 10/06/2020 12:00:00 AM EST ORAL completed MEDENT ([facility] Ondansetron 4 MG Oral Tablet Ondansetron HCL 09/27/2020 12:00:00 AM EST active MEDENT ([facility] Acetaminophen 325 MG / Hydrocodone Bitartrate 5 MG Oral Tabl et [Gilman] Gilman 09/27/2020 12:00:00 AM EST ORAL completed [facility] ([facility] Acetaminophen 325 MG / Oxycodone Hydrochloride 5 MG Or al Tablet Oxycodone-Acetaminophen 09/22/2020 12:00:00 AM EST ORAL completed MEDENT ([facility] Fluconazole 150 MG Oral Tablet [Diflucan] Diflucan 09/22/2020 1 2:00:00 AM EST completed MEDENT ([facility] Sulfamethoxazole 800 MG / Trimethoprim 160 MG Oral Tab let Sulfamethoxazole/Trimethoprim DS 09/22/2020 12:00:00 AM EST completed MEDENT ([facility] nebivolol 5 MG Oral Tablet [Bystolic] Bystolic 05/12/2020 12:00:00 AM EDT ORAL completed MEDENT ([facility] Insurance Providers Payer name Policy type / Coverage type Policy ID Covered republican ID Covered republican's relationship to prieto Policy Prieto Plan Information [employer] [id number] SELF [id number] [employer] [id number] SELF [id number] [employer] [id number] SELF [id number] [employer] Commercial [id number] Self [id number] [employer] [id number] SELF [id number] [employer] [id number] SELF [id number] [employer] [id number] Self [id number] [employer] [id number] Self [id number] [employer] [id number] Self [id number] [employer] [facility] F [id number] SELF [id number] SELF PAY [employer] [id number] Self [id number] SELF PAY [employer] [id number] SELF [id number] SELF PAY [employer] [id number] SELF [id number] COVID19 ONLY 0 0 SELF PAY SELF PAY [employer] [id number] SELF [id number] COVID19 ONLY 0 0 SELF PAY [employer] [id number] SELF [id number] SELF PAY [employer] [id number] SELF [id number] [employer] [id number] SELF [id number] COVID19 ONLY 0 0 SELF PAY SELF PAY SELF PAY SELF PAY SELF PAY [employer] [id number] SELF [id number] [employer] [id number] SELF [id number] SELF PAY SELF PAY SELF PAY SELF PAY SELF PAY SELF PAY SELF PAY [employer] [id number] SELF [id number] [employer] [id number] SELF [id number] SELF PAY SELF PAY SELF PAY [employer] [id number] SELF [id number] SELF PAY SELF PAY SELF PAY SELF PAY SELF PAY [employer] [id number] SELF [id number] SELF PAY SELF PAY [employer] [id number] SELF [id number] [employer] [id number] SELF [id number] SELF PAY SELF PAY SELF PAY [employer] [id number] SELF [id number] SELF PAY SELF PAY [employer] [id number] SELF [id number] SELF PAY [employer] [id number] SELF [id number] SELF PAY SELF PAY [employer] [id number] SP [id number] [employer] [id number] Self [id number] [employer] [id number] Self [id number] [employer] [id number] Self [id number] [employer] [id number] Self [id number] [employer] F [id number] SELF [id number] [employer] F Awaiting SELF Aw aiting [employer] [id number] SELF [id number] BCBS ANTHEM [id number] SP [id number] Problems, Conditions, and Diagnoses Code Display Name Description Problem Type Effective Dates Data Source(s) Z20.822 Z20.822 - Contact with and (suspected) e xposure to COVID-19 Z20.822 - Contact with and (suspected) exposure to COVID-19 Diagnosis 01/23 02:38:00 PM EDT [facility] R55 Syncope and collapse R55 - Syncope and collapse Diagno sis 01/03/2021 01:19:00 PM [facility] N76.0 Acute vaginitis N76.0 - Acute vaginitis Diagnosis 0 11/23/2020 06:34:00 PM [facility] Z11.59 Encounter for screening for other viral diseases Z11.59 - Encounter for screening for other viral diseases Diagnosis 10/25/2020 10:59:00 AM [facility] S69.91XA Unspecified injury of right wrist, hand and finger(s), initial encounter S69.91XA - Unspecified injury of right w rist, hand and finger(s), initial encounter Diagnosis 08/22/2020 09:22:00 AM [facility] M25.311 Other instability, right shoulder M25.31 1 - Other instability, right shoulder Diagnosis 08/17/2020 10:58:00 AM [facility] M25.511 Pain in right shoulder M25.511 - Pain in right shoulde r Diagnosis 06/08/2020 04:04:00 PM EDT [facility] I49.8 Conduction disorder of the heart Conduction disorder o f the heart Problem 07/12/2021 12:00:00 AM EDT [facility] ([facility]) 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/12/2021 12:00:00 AM EDT [facility] ([facility]) [id number] Cystocele Cystocele Problem 08/31/2020 12:00:00 AM ES T [facility] ([facility] [id number] Urinary incontinence Urinary incontinence Problem 08/31/2020 12:00:00 AM EST [facility] ([facility] [id number] 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 Problem 08/31/2020 12:00:00 AM EST [facility] Surgeries/Procedures Procedure Description Date Indications Data Source(s) ECG ROUTINE ECG W/LEAST 12 LDS W/I&R 07/12/2021 12:00: 00 AM EDT [facility] ([facility]) OFFICE OUTPATIENT NEW 45 MINUTES 07/12/2021 12:00:00 A M EDT [facility] ([facility]) OFFICE OUTPATIENT VISIT 15 MINUTES 04/28/2021 12:00:00 AM EDT [facility] ([facility] RADEX SHOULDER COMPLETE MINIMUM 2 VIEWS 04/22/2021 12: 00:00 AM EDT [facility] ([facility] OFFICE OUTPATIENT VISIT 15 MINUTES 04/22/2021 12:00:00 AM EDT [facility] ([facility] OFFICE OUTPATIENT VISIT 15 MINUTES 01/04/2021 12:00:00 AM EDT [facility] ([facility] OFFICE OUTPATIENT VISIT 25 MINUTES 11/25/2020 12:00:00 AM EST [facility] ([facility] OFFICE OUTPATIENT VISIT 15 MINUTES 11/23/2020 12:00:00 AM EST [facility] ([facility] OFFICE OUTPATIENT VISIT 25 MINUTES 11/16/2020 12:00:00 AM EST [facility] ([facility] ECG ROUTINE ECG W/LEAST 12 LDS W/I&R 11/09/2020 12:00: 00 AM EST [facility] ([facility] OFFICE OUTPATIENT VISIT 25 MINUTES 11/09/2020 12:00:00 AM EST [facility] ([facility] FIT&INSJ PESSARY/OTH INTRAVAGINAL SUPPORT DEVICE 10/07 12:00:00 AM EST [facility] ([facility] ANESTHESIA BICEPS TENODESIS RUPTURE LONG TENDON 2019 12:00:00 AM EST [facility] ([facility] TENODESIS LONG TENDON BICEPS 09/22/2020 12:00:00 AM ES T [facility] ([facility] TENODESIS LONG TENDON BICEPS 09/22/2020 12:00:00 AM ES T [facility] ([facility] TENODESIS LONG TENDON BICEPS 09/22/2020 12:00:00 AM ES T [facility] ([facility] ARTHROSCOPY SHOULDER SURGICAL CAPSULORRHAPHY 0 12:00:00 AM EST [facility] ([facility] ARTHROSCOPY SHOULDER SURGICAL CAPSULORRHAPHY 0 12:00:00 AM EST [facility] ([facility] ARTHROSCOPY SHOULDER SURGICAL CAPSULORRHAPHY 0 12:00:00 AM EST [facility] ([facility] ARTHROSCOPY SHOULDER SURG DEBRIDEMENT LIMITED 09/22/20 20 12:00:00 AM EST [facility] ([facility] ECG ROUTINE ECG W/LEAST 12 LDS W/I&R 09/13/2020 12:00: 00 AM EST [facility] ([facility] ECHO TTHRC R-T 2D W/WOM-MODE COMPL SPEC&COLR DOP 06/25 12:00:00 AM EDT [facility] ([facility] ECHO TTHRC R-T 2D W/WOM-MODE COMPL SPEC&COLR DOP 06/25 12:00:00 AM EDT [facility] ([facility] Results ID Date Data Source [id number] 02/18/2021 02:38:00 PM EDT [facility] Name Value Range Interpretation Code Description Data Najma rce(s) Supporting Document(s) SARS-CoV-2 (COVID-19) RNA [Presence] in Respiratory specimen by JW with probe detection Undetected [facility] This lab was ordered by [facility] and reported by [facility]. ID Date Data Source [id number] 02/18/2021 07:46:00 PM EDT [facility] Anterior NareScreening Z20.822 COVIDPTR2 [id number] Name Value Range Interpretation Code Description Data Najma rce(s) Supporting Document(s) SARS Coronavirus-2, PCR Undetected Undetected [facility] Negative results do not preclude SARS-Co V-2 infection andshould not be used as the sole basis for patient managementdecisions.The Tetracore RT-PCR COVID-19 assay has been internallyvalidated for saliva and pooled upper respiratory specimens.Source: Anterior Nare ID Date Data Source [id number] 02/07/2021 11:25:00 AM EDT [facility] Name Value Range Interpretation Code Description Data Najma rce(s) Supporting Document(s) SARS-CoV-2 (COVID-19) RNA [Presence] in Respiratory specimen by JW with probe detection Undetected [facility] This lab was ordered by [facility] and reported by [facility]. ID Date Data Source [id number] 02/07/2021 04:42:00 PM EDT [facility] Anterior NareScreening Z20.822 COVIDPTR2 [id number] Name Value Range Interpretation Code Description Data Najma rce(s) Supporting Document(s) SARS Coronavirus-2, PCR Undetected Undetected [facility] Negative results do not preclude SARS-Co V-2 infection andshould not be used as the sole basis for patient managementdecisions.The Tetracore RT-PCR COVID-19 assay has been internallyvalidated for saliva and pooled upper respiratory specimens.Source: Anterior Nare ID Date Data Source [id number] 01/31/2021 12:03:00 PM EDT [facility] Name Value Range Interpretation Code Description Data Najma rce(s) Supporting Document(s) SARS-CoV-2 (COVID-19) RNA [Presence] in Respiratory specimen by JW with probe detection Undetected [facility] This lab was ordered by [facility] and reported by [facility]. ID Date Data Source [id number] 01/31/2021 06:52:00 PM EDT [facility] Anterior NareScreening Z20.822 COVIDPTR2 [id number] Name Value Range Interpretation Code Description Data Najma rce(s) Supporting Document(s) SARS Coronavirus-2, PCR Undetected Undetected [facility] Negative results do not preclude SARS-Co V-2 infection andshould not be used as the sole basis for patient managementdecisions.The Tetracore RT-PCR COVID-19 assay has been internallyvalidated for saliva and pooled upper respiratory specimens.Source: Anterior Nare ID Date Data Source [id number] 01/17/2021 03:40:00 PM EDT [facility] Name Value Range Interpretation Code Description Data Najma rce(s) Supporting Document(s) SARS-CoV-2 (COVID-19) RNA [Presence] in Respiratory specimen by JW with probe detection Undetected [facility] This lab was ordered by [facility] and reported by [facility]. ID Date Data Source [id number] 01/18/2021 12:34:00 PM EDT [facility] Anterior NareScreening Z20.822 COVIDPTR2 [id number] Name Value Range Interpretation Code Description Data Najma rce(s) Supporting Document(s) SARS Coronavirus-2, PCR Undetected Undetected [facility] Negative results do not preclude SARS-Co V-2 infection andshould not be used as the sole basis for patient managementdecisions.The Tetracore RT-PCR COVID-19 assay has been internallyvalidated for saliva and pooled upper respiratory specimens.Source: Anterior Nare ID Date Data Source [id number] 01/07/2021 09:07:00 AM EDT [facility] Name Value Range Interpretation Code Description Data Najma rce(s) Supporting Document(s) SARS-CoV-2 (COVID-19) RNA [Presence] in Respiratory specimen by JW with probe detection Undetected [facility] This lab was ordered by [facility] and reported by [facility]. ID Date Data Source [id number] 01/07/2021 02:56:00 PM EDT [facility] Anterior NareScreening Z20.822 COVIDPTR2 [id number] Name Value Range Interpretation Code Description Data Najma rce(s) Supporting Document(s) SARS Coronavirus-2, PCR Undetected Undetected [facility] Negative results do not preclude SARS-Co V-2 infection andshould not be used as the sole basis for patient managementdecisions.The Tetracore RT-PCR COVID-19 assay has been internallyvalidated for saliva and pooled upper respiratory specimens.Source: Anterior Nare ID Date Data Source [id number] 01/04/2021 12:31:00 PM EDT [facility] Name Value Range Interpretation Code Description Data Najma rce(s) Supporting Document(s) SARS-CoV-2 (COVID-19) RNA [Presence] in Respiratory specimen by JW with probe detection Undetected [facility] This lab was ordered by [facility] and reported by [facility]. ID Date Data Source [id number] 01/04/2021 06:41:00 PM EDT [facility] Anterior NareScreening Z20.822 COVIDPTR2 [id number] Name Value Range Interpretation Code Description Data Najma rce(s) Supporting Document(s) SARS Coronavirus-2, PCR Undetected Undetected [facility] Negative results do not preclude SARS-Co V-2 infection andshould not be used as the sole basis for patient managementdecisions.The Tetracore RT-PCR COVID-19 assay has been internallyvalidated for saliva and pooled upper respiratory specimens.Source: Anterior Nare ID Date Data Source [id number] 01/03/2021 01:21:00 PM EDT [facility] ([facility] Name Value Range Interpretation Code Description Data Najma rce(s) Supporting Document(s) Sodium [Moles/volume] in Serum or Plasma 142 mmol/L 135-145 [facility] ([facility] Potassium [Moles/volume] in Serum or Plasma 4.5 mmol/L 3.5-5.0 [facility] ([facility] Chloride [Moles/volume] in Serum or Plasma 109 mmol/L 101-111 [facility] ([facility] Carbon dioxide, total [Moles/volume] in Serum or Plasma 28 mmol/L 22 -32 [facility] ([facility] Anion Gap 5 mmol/L 2-11 [facility] ([facility] Urea nitrogen [Mass/volume] in Serum or Plasma 14 mg/dL 6-24 [facility] ([facility] Glucose [Mass/volume] in Serum or Plasma 94 mg/dL 70-100 [facility] ([facility] Creatinine [Mass/volume] in Serum or Plasma 0.90 mg/dL 0.51-0.95 [facility] ([facility] Calcium [Mass/volume] in Serum or Plasma 9.7 mg/dL 8.6-10.3 [facility] ([facility] BUN/Creatinine Ratio 15.6 8-20 [facility] ([facility] Glomerular filtration rate/1.73 sq M pre dicted among blacks [Volume Rate/Area] in Serum or Plasma by Creatinine-based formula (MDRD) 89.6 [facility] ([facility] <content>Because ethnic data [...] or Plasma by Creatinine-based formula (MDRD) 74.[address] [facility] ([facility] ID Date Data Source [id number] 01/03/2021 02:43:00 PM EDT [facility] Name Value Range Interpretation Code Description Data Najma rce(s) Supporting Document(s) Sodium 142 mmol/L 135-145 N [facility] Potassium 4.5 mmol/L 3.5-5.0 N [facility] Chloride 109 mmol/L 101-111 N [facility] CO2 Carbon Dioxide 28 mmol/L 22-32 N [facility] Anion Gap 5 mmol/L 2-11 N [facility] Glucose 94 mg/dL 70-100 N [facility] Blood Urea Nitrogen 14 mg/dL 6-24 N [facility] Creatinine 0.90 mg/dL 0.51-0.[address] [facility] [address] BUN/Creatinine Ratio 15.6 8-20 N [facility] Calcium 9.7 mg/dL 8.6-10.3 N [facility] r EGFR Non- 74.0 >60 [facility] EGFR 89.6 >60 [facility] Because ethnic data is not always [...] <15 (or dialysis) ID Date Data Source [id number] 12/31/2020 01:33:00 PM EDT [facility] Name Value Range Interpretation Code Description Data Najma rce(s) Supporting Document(s) SARS-CoV-2 (COVID-19) RNA [Presence] in Respiratory specimen by JW with probe detection Undetected [facility] This lab was ordered by [facility] and reported by [facility]. ID Date Data Source [id number] 12/31/2020 07:11:00 PM EDT [facility] Anterior NareScreening Z20.822 COVIDPTR2 [id number] Name Value Range Interpretation Code Description Data Najma rce(s) Supporting Document(s) SARS Coronavirus-2, PCR Undetected Undetected [facility] Negative results do not preclude SARS-Co V-2 infection andshould not be used as the sole basis for patient managementdecisions.The Tetracore RT-PCR COVID-19 assay has been internallyvalidated for saliva and pooled upper respiratory specimens.Source: Anterior Nare ID Date Data Source [id number] 12/28/2020 01:11:00 PM EDT [facility] Name Value Range Interpretation Code Description Data Najma rce(s) Supporting Document(s) SARS-CoV-2 (COVID-19) RNA [Presence] in Respiratory specimen by JW with probe detection Undetected [facility] This lab was ordered by [facility] and reported by [facility]. ID Date Data Source [id number] 12/29/2020 08:18:00 AM EDT [facility] Anterior NareScreening Z20.822 COVIDPTR2 [id number] Name Value Range Interpretation Code Description Data Najma rce(s) Supporting Document(s) SARS Coronavirus-2, PCR Undetected Undetected [facility] Negative results do not preclude SARS-Co V-2 infection andshould not be used as the sole basis for patient managementdecisions.The Tetracore RT-PCR COVID-19 assay has been internallyvalidated for saliva and pooled upper respiratory specimens.Source: Anterior Nare ID Date Data Source [id number] 12/24/2020 11:39:00 AM EDT [facility] Name Value Range Interpretation Code Description Data Najma rce(s) Supporting Document(s) SARS-CoV-2 (COVID-19) RNA [Presence] in Respiratory specimen by JW with probe detection Undetected [facility] This lab was ordered by [facility] and reported by [facility]. ID Date Data Source [id number] 12/24/2020 05:37:00 PM EDT [facility] Anterior NareScreening Z20.822 COVIDPTR2 [id number] Name Value Range Interpretation Code Description Data Najma e(s) Supporting Document(s) SARS Coronavirus-2, PCR Undetected Undetected [facility] Negative results do not preclude SARS-Co V-2 infection andshould not be used as the sole basis for patient managementdecisions.The Tetracore RT-PCR COVID-19 assay has been internallyvalidated for saliva and pooled upper respiratory specimens.Source: Anterior Nare ID Date Data Source [id number] 12/21/2020 11:32:00 AM EDT [facility] Name Value Range Interpretation Code Description Data Najma rce(s) Supporting Document(s) SARS-CoV-2 (COVID-19) RNA [Presence] in Respiratory specimen by JW with probe detection Undetected [facility] This lab was ordered by [facility] and reported by [facility]. ID Date Data Source [id number] 12/21/2020 04:26:00 PM EDT [facility] Anterior NareScreening Z20.822 COVIDPTR2 [id number] Name Value Range Interpretation Code Description Data Najma rce(s) Supporting Document(s) SARS Coronavirus-2, PCR Undetected Undetected [facility] Negative results do not preclude SARS-Co V-2 infection andshould not be used as the sole basis for patient managementdecisions.The Tetracore RT-PCR COVID-19 assay has been internallyvalidated for saliva and pooled upper respiratory specimens.Source: Anterior Nare ID Date Data Source [id number] 12/19/2020 11:46:00 AM EDT [facility] Name Value Range Interpretation Code Description Data Najma rce(s) Supporting Document(s) SARS-CoV-2 (COVID-19) RNA [Presence] in Respiratory specimen by JW with probe detection Undetected [facility] This lab was ordered by [facility] and reported by [facility]. ID Date Data Source [id number] 12/19/2020 06:38:00 PM EDT [facility] Anterior NareScreening Z20.822 COVIDPTR2 [id number] Name Value Range Interpretation Code Description Data Najma rce(s) Supporting Document(s) SARS Coronavirus-2, PCR Undetected Undetected [facility] Negative results do not preclude SARS-Co V-2 infection andshould not be used as the sole basis for patient managementdecisions.The Tetracore RT-PCR COVID-19 assay has been internallyvalidated for saliva and pooled upper respiratory specimens.Source: Anterior Nare ID Date Data Source [id number] 12/16/2020 04:32:00 PM EDT [facility] Name Value Range Interpretation Code Description Data Najma rce(s) Supporting Document(s) SARS-CoV-2 (COVID-19) RNA [Presence] in Respiratory specimen by JW with probe detection Undetected [facility] This lab was ordered by [facility] and reported by [facility]. ID Date Data Source [id number] 12/17/2020 01:00:00 PM EDT [facility] Anterior NareScreening Z20.822 COVIDPTR2 [id number] Name Value Range Interpretation Code Description Data Najma rce(s) Supporting Document(s) SARS Coronavirus-2, PCR Undetected Undetected [facility] Negative results do not preclude SARS-Co V-2 infection andshould not be used as the sole basis for patient managementdecisions.The Tetracore RT-PCR COVID-19 assay has been internallyvalidated for saliva and pooled upper respiratory specimens.Source: Anterior Nare ID Date Data Source [id number] 12/10/2020 01:54:00 PM EDT [facility] Name Value Range Interpretation Code Description Data Najma rce(s) Supporting Document(s) SARS-CoV-2 (COVID-19) RNA [Presence] in Respiratory specimen by JW with probe detection Undetected [facility] This lab was ordered by [facility] and reported by [facility]. ID Date Data Source [id number] 12/10/2020 08:36:00 PM EDT [facility] Anterior NareScreening Z20.822 COVIDPTR2 [id number] Name Value Range Interpretation Code Description Data Najma rce(s) Supporting Document(s) SARS Coronavirus-2, PCR Undetected Undetected [facility] Negative results do not preclude SARS-Co V-2 infection andshould not be used as the sole basis for patient managementdecisions.The Tetracore RT-PCR COVID-19 assay has been internallyvalidated for saliva and pooled upper respiratory specimens.Source: Anterior Nare ID Date Data Source [id number] 12/07/2020 01:31:00 PM EDT [facility] Name Value Range Interpretation Code Description Data Najma rce(s) Supporting Document(s) SARS-CoV-2 (COVID-19) RNA [Presence] in Respiratory specimen by JW with probe detection Undetected [facility] This lab was ordered by [facility] and reported by [facility]. ID Date Data Source [id number] 12/08/2020 03:08:00 PM EDT [facility] Anterior NareScreening Z20.822 COVIDPTR2 [id number] Name Value Range Interpretation Code Description Data Najma rce(s) Supporting Document(s) SARS Coronavirus-2, PCR Undetected Undetected [facility] Negative results do not preclude SARS-Co V-2 infection andshould not be used as the sole basis for patient managementdecisions.The Tetracore RT-PCR COVID-19 assay has been internallyvalidated for saliva and pooled upper respiratory specimens.Source: Anterior Nare ID Date Data Source [id number] 12/03/2020 12:52:00 PM EST [facility] ([facility] Name Value Range Interpretation Code Description Data Najma rce(s) Supporting Document(s) Sodium [Moles/volume] in Serum or Plasma 140 mmol/L 135-145 [facility] ([facility] Potassium [Moles/volume] in Serum or Plasma 3.8 mmol/L 3.5-5.0 [facility] ([facility] Chloride [Moles/volume] in Serum or Plasma 107 mmol/L 101-111 [facility] ([facility] Carbon dioxide, total [Moles/volume] in Serum or Plasma 27 mmol/L 22 -32 [facility] ([facility] Anion Gap 6 mmol/L 2-11 [facility] ([facility] Urea nitrogen [Mass/volume] in Serum or Plasma 12 mg/dL 6-24 [facility] ([facility] Glucose [Mass/volume] in Serum or Plasma 93 mg/dL 70-100 [facility] ([facility] Creatinine [Mass/volume] in Serum or Plasma 0.86 mg/dL 0.51-0.95 [facility] ([facility] BUN/Creatinine Ratio 14.0 8-20 [facility] ([facility] Calcium [Mass/volume] in Serum or Plasma 9.4 mg/dL 8.6-10.3 [facility] ([facility] Glomerular filtration rate/1.73 sq M pre dicted among non-blacks [Volume Rate/Area] in Serum or Plasma by Creatinine-based formula (MDRD) 78.0 [facility] ([facility] Glomerular filtration rate/1.73 sq M pre dicted among blacks [Volume Rate/Area] in Serum or Plasma by Creatinine-based formula (MDRD) 94.4 [facility] ([facility] <content>Because ethnic data is [...] (or dialysis)</content>
<content></content> ID Date Data Source [id number] 12/03/2020 01:24:00 PM EST [facility] Name Value Range Interpretation Code Description Data Najma rce(s) Supporting Document(s) Sodium 140 mmol/L 135-145 N [facility] er Potassium 3.8 mmol/L 3.5-5.0 N [facility] Chloride 107 mmol/L 101-111 N [facility] CO2 Carbon Dioxide 27 mmol/L 22-32 N [facility] Anion Gap 6 mmol/L 2-11 N [facility] Glucose 93 mg/dL 70-100 N [facility] Blood Urea Nitrogen 12 mg/dL 6-24 N [facility] ical [place] Creatinine 0.86 mg/dL 0.51-0.[address] [facility] [address] BUN/Creatinine Ratio 14.0 8-20 [facility] [place] Calcium 9.4 mg/dL 8.6-10.3 N [facility] r EGFR Non- 78.0 >60 [facility] EGFR 94.4 >60 [facility] Because ethnic data is not always [...] <15 (or dialysis) ID Date Data Source [id number] 12/03/2020 05:26:00 PM [facility] Anterior NareScreening Z20.822 COVIDPTR2 [id number] Name Value Range Interpretation Code Description Data Najma rce(s) Supporting Document(s) SARS Coronavirus-2, PCR Undetected Undetected [facility] Negative results do not preclude SARS-Co V-2 infection andshould not be used as the sole basis for patient managementdecisions.The Tetracore RT-PCR COVID-19 assay has been internallyvalidated for saliva and pooled upper respiratory specimens.Source: Anterior Nare ID Date Data Source [id number] 11/30/2020 04:32:00 PM [facility] Anterior NareScreening Z20.822 COVIDPTR2 [id number] Name Value Range Interpretation Code Description Data Najma rce(s) Supporting Document(s) SARS Coronavirus-2, PCR Undetected Undetected [facility] Negative results do not preclude SARS-Co V-2 infection andshould not be used as the sole basis for patient managementdecisions.The Tetracore RT-PCR COVID-19 assay has been internallyvalidated for saliva and pooled upper respiratory specimens.Source: Anterior Nare ID Date Data Source [id number] 11/26/2020 04:30:00 PM [facility] Anterior NareScreening Z20.822 COVIDPTR1 [id number] Name Value Range Interpretation Code Description Data Najma rce(s) Supporting Document(s) SARS Coronavirus-2, PCR Undetected Undetected [facility] Negative results do not preclude SARS-Co V-2 infection andshould not be used as the sole basis for patient managementdecisions.The Tetracore RT-PCR COVID-19 assay has been internallyvalidated for saliva and pooled upper respiratory specimens.Source: Anterior Nare ID Date Data Source [id number] 11/24/2020 04:33:00 PM EST [facility] ([facility] Name Value Range Interpretation Code Description Data Najma rce(s) Supporting Document(s) Sodium [Moles/volume] in Serum or Plasma 141 mmol/L 135-145 [facility] ([facility] Potassium [Moles/volume] in Serum or Plasma 4.1 mmol/L 3.5-5.0 [facility] ([facility] Chloride [Moles/volume] in Serum or Plasma 108 mmol/L 101-111 [facility] ([facility] Anion Gap 4 mmol/L 2-11 [facility] ([facility] Carbon dioxide, total [Moles/volume] in Serum or Plasma 29 mmol/L 22 -32 [facility] ([facility] Glucose [Mass/volume] in Serum or Plasma 72 mg/dL 70-100 [facility] ([facility] Urea nitrogen [Mass/volume] in Serum or Plasma 13 mg/dL 6-24 [facility] ([facility] BUN/Creatinine Ratio 13.7 8-20 [facility] ([facility] Creatinine [Mass/volume] in Serum or Plasma 0.95 mg/dL 0.51-0.95 [facility] ([facility] Calcium [Mass/volume] in Serum or Plasma 9.5 mg/dL 8.6-10.3 [facility] ([facility] Glomerular filtration rate/1.73 sq M pre dicted among non-blacks [Volume Rate/Area] in Serum or Plasma by Creatinine-based formula (MDRD) 69.5 [facility] ([facility] Glomerular filtration rate/1.73 sq M pre dicted among blacks [Volume Rate/Area] in Serum or Plasma by Creatinine-based formula (MDRD) 84.2 [facility] ([facility] <content>Because ethnic data is [...] (or dialysis)</content>
<content></content> ID Date Data Source [id number] 11/24/2020 07:24:00 PM [facility] [id number] Name Value Range Interpretation Code Description Data Najma rce(s) Supporting Document(s) Sodium 141 mmol/L 135-145 N [facility] er Potassium 4.1 mmol/L 3.5-5.0 N [facility] Chloride 108 mmol/L 101-111 N [facility] CO2 Carbon Dioxide 29 mmol/L 22-32 N [facility] Anion Gap 4 mmol/L 2-11 N [facility] r Glucose 72 mg/dL 70-100 N [facility] r Blood Urea Nitrogen 13 mg/dL 6-24 N [facility] ical Center Creatinine 0.95 mg/dL 0.51-0.[address] [facility] [address] BUN/Creatinine Ratio 13.7 8-20 N [facility] dical [place] Calcium 9.5 mg/dL 8.6-10.3 N [facility] r EGFR Non- 69.5 >60 [facility] EGFR 84.2 >60 [facility] Because ethnic data is not always [...] <15 (or dialysis) ID Date Data Source [id number] 11/23/2020 12:00:00 PM EST [facility] ([facility] Name Value Range Interpretation Code Description Data Najma rce(s) Supporting Document(s) Gardnerella/Yeast: Vaginal Dna Laboratory test result [facility] ([facility] Run Date: 11/24/20 [facility] Lab Live Page 1 Gardnerella/Yeast: Vaginal Dna Laboratory test result [facility] ([facility] Run Time: [address], [place], [place] [address] Gardnerella/Yeast: Vaginal Dna Laboratory test result [facility] ([facility] Gardnerella/Yeast: Vaginal Dna Laboratory test result [facility] ([facility] Gardnerella/Yeast: Vaginal Dna Laboratory test [facility] ([facility] Name: Janna Mora OB: [address]: Chana REYES Gardnerella/Yeast: Vaginal Dna Laboratory test result [facility] ([facility] Acct: [id number] Unit: [id number] ge: 30 Location: [facility] Gardnerella/Yeast: Vaginal Dna Laboratory test result [facility] ([facility] Gardnerella/Yeast: Vaginal Dna Laboratory test result [facility] ([facility] Re11/23/20 S ex: F Status: Reg Ref Gardnerella/Yeast: Vaginal Dna Laboratory test result [facility] ([facility] Spec: [id number] Rajat: 1-[address]: Chana REYES Gardnerella/Yeast: Vaginal Dna Laboratory test result [facility] ([facility] Gardnerella/Yeast: Vaginal Dna Laboratory test result [facility] ([facility] Gardnerella/Yeast: Vaginal Dna Laboratory test result [facility] ([facility] Gardnerella/Yeast: Vaginal Dna Laboratory test result [facility] ([facility] Gardnerella/Yeast: Vaginal Dna Laboratory test result [facility] ([facility] Gardnerella/Yeast: Vaginal Dna Laboratory test result [facility] ([facility] Gardnerella/Yeast: Vaginal Dna Laboratory test result [facility] ([facility] Gardnerella/Yeast: Vaginal Dna Laboratory test result [facility] ([facility] Verbal to Barbara Sin by [id number] at 0811 on 11/24/20. Gardnerella/Yeast: Vaginal Dna Laboratory test result [facility] ([facility] Queries: Would you like to order Tricho monas Vaginalis testing? Yes Gardnerella/Yeast: Vaginal Dna Laboratory test result [facility] ([facility] Gardnerella/Yeast: Vaginal Dna Laboratory test result [facility] ([facility] Procedure Result Reported Site Gardnerella/Yeast: Vaginal Dna Laboratory test result [facility] ([facility] Gardnerella/Yeast: Vaginal Dna Laboratory test result [facility] ([facility] Gardnerella/Yeast: Vaginal Dna Final 11/24/20-1214 ML Gardnerella/Yeast: Vaginal Dna Laboratory test result [facility] ([facility] Gardnerella/Yeast: Vaginal Dna Laboratory test result [facility] ([facility] The presence of G. vaginalis, although s uggestive, is not Gardnerella/Yeast: Vaginal Dna Laboratory test result [facility] ([facility] Gardnerella/Yeast: Vaginal Dna Laboratory test result [facility] ([facility] interpreted in conjuction with other cli nical and laboratory Gardnerella/Yeast: Vaginal Dna Laboratory test result [facility] ([facility] diagnostic for bacterial vaginosis. Res ults should be Gardnerella/Yeast: Vaginal Dna Laboratory test result [facility] ([facility] Gardnerella/Yeast: Vaginal Dna Laboratory test result [facility] ([facility] Women with vaginal discharge should be e valuated for risk Gardnerella/Yeast: Vaginal Dna Laboratory test result [facility] ([facility] factors of cervicitis and pelvic inflamm atory disease, toxic Gardnerella/Yeast: Vaginal Dna Laboratory test result [facility] ([facility] shock syndrome (S.aureus), and if presen t, evaluated for Gardnerella/Yeast: Vaginal Dna Laboratory test result [facility] ([facility] organisms not included in this assay suc h as N. gonorrhoeae, Gardnerella/Yeast: Vaginal Dna Laboratory test result [facility] ([facility] C. trachomatis, Mobiluncus, Mycoplasma a nd/or Prevotella. Gardnerella/Yeast: Vaginal Dna Laboratory test result [facility] ([facility] Gardnerella/Yeast: Vaginal Dna Laboratory test result [facility] ([facility] The performance of this test on patient specimens collected Gardnerella/Yeast: Vaginal Dna Laboratory test result [facility] ([facility] Gardnerella/Yeast: Vaginal Dna Laboratory test result [facility] ([facility] vaginalis cannot be used as a test for therapeutic success Gardnerella/Yeast: Vaginal Dna Laboratory test result [facility] ([facility] unknown. The presence or absence of Cand lina species, or G. Gardnerella/Yeast: Vaginal Dna Laboratory test result [facility] ([facility] Gardnerella/Yeast: Vaginal Dna Laboratory test result [facility] ([facility] Trichomonas: Vaginal Dna Probe Final 11/24/20-1214 ML Gardnerella/Yeast: Vaginal Dna Laboratory test result [facility] ([facility] Gardnerella/Yeast: Vaginal Dna Laboratory test result [facility] ([facility] Department Of Pathology, [address] [place], [place] [address] Gardnerella/Yeast: Vaginal Dna Laboratory test result [facility] ([facility] Gardnerella/Yeast: Vaginal Dna Laboratory test result [facility] ([facility] Fax # Gardnerella/Yeast: Vaginal Dna Laboratory test result [facility] ([facility] Sharmin Alcazar M.D. Director [facility] # [id number] Gardnerella/Yeast: Vaginal Dna Laboratory test result [facility] ([facility] Run Date: 11/24/20 [facility] Lab Live Page 2 Gardnerella/Yeast: Vaginal Dna Laboratory test result [facility] ([facility] Run Time: 1214 [address] [place], [place] [address] Gardnerella/Yeast: Vaginal Dna Laboratory test result [facility] ([facility] Gardnerella/Yeast: Vaginal Dna Laboratory test result [facility] ([facility] Gardnerella/Yeast: Vaginal Dna Laboratory test result [facility] ([facility] Patient: Janna Mora [id number] (Continued) Gardnerella/Yeast: Vaginal Dna Laboratory test result [facility] ([facility] Gardnerella/Yeast: Vaginal Dna Laboratory test result [facility] ([facility] Specimen: [id number] Collected: Received: 11/23/20 (Continued) Gardnerella/Yeast: Vaginal Dna Laboratory test result [facility] ([facility] Gardnerella/Yeast: Vaginal Dna Laboratory test result [facility] ([facility] Procedure Result Reported Site Gardnerella/Yeast: Vaginal Dna Laboratory test result [facility] ([facility] Gardnerella/Yeast: Vaginal Dna Laboratory test result [facility] ([facility] The presence or absence of T. vaginalis cannot be used as a Gardnerella/Yeast: Vaginal Dna Laboratory test result [facility] ([facility] Trichomonas: Vaginal Dna Probe Final (continued) 11/24/20-1214 Gardnerella/Yeast: Vaginal Dna Laboratory test result [facility] ([facility] Gardnerella/Yeast: Vaginal Dna Laboratory test result [facility] ([facility] Gardnerella/Yeast: Vaginal Dna Laboratory test result [facility] ([facility] Gardnerella/Yeast: Vaginal Dna Laboratory test result [facility] ([facility] Gardnerella/Yeast: Vaginal Dna Laboratory test result [facility] ([facility] Gardnerella/Yeast: Vaginal Dna Laboratory test result [facility] ([facility] Department Of Pathology, [address] [place] [address] Gardnerella/Yeast: Vaginal Dna Laboratory test result [facility] ([facility] Fax #[phone] Gardnerella/Yeast: Vaginal Dna Laboratory test result [facility] ([facility] Sharmin Alcazar M.D. Director [facility] # [id number] ID Date Data Source [id number] 11/22/2020 05:07:00 PM [facility] Anterior NareScreening Z20.822 COVIDPTR1 [id number] Name Value Range Interpretation Code Description Data Najma rce(s) Supporting Document(s) SARS Coronavirus-2, PCR Undetected Undetected [facility] Negative results do not preclude SARS-Co V-2 infection andshould not be used as the sole basis for patient managementdecisions.The Tetracore RT-PCR COVID-19 assay has been internallyvalidated for saliva and pooled upper respiratory specimens.Source: Anterior Nare ID Date Data Source [id number] 11/20/2020 12:00:00 AM EST [facility] Name Value Range Interpretation Code Description Data Najma rce(s) Supporting Document(s) SARS-CoV-2 (COVID-19) RNA [Presence] in Respiratory specimen by JW with probe detection Negative [facility] This lab was ordered by [facility] a nd reported by [facility]. ID Date Data Source [id number] 11/15/2020 01:58:00 PM EST [facility] Name Value Range Interpretation Code Description Data Najma rce(s) Supporting Document(s) SARS-CoV-2 (COVID-19) RNA [Presence] in Respiratory specimen by JW with probe detection Undetected [facility] This lab was ordered by [facility] and reported by [facility]. ID Date Data Source [id number] 11/15/2020 09:10:00 PM EST [facility] Anterior NareScreening Z20.822 COVIDPTR1 [id number] Name Value Range Interpretation Code Description Data Najma rce(s) Supporting Document(s) SARS Coronavirus-2, PCR Undetected Undetected [facility] Negative results do not preclude SARS-Co V-2 infection andshould not be used as the sole basis for patient managementdecisions.The Tetracore RT-PCR COVID-19 assay has been internallyvalidated for saliva and pooled upper respiratory specimens.Source: Anterior Nare ID Date Data Source [id number] 11/11/2020 01:14:00 PM EST [facility] Name Value Range Interpretation Code Description Data Najma rce(s) Supporting Document(s) SARS-CoV-2 (COVID-19) RNA [Presence] in Respiratory specimen by JW with probe detection Undetected [facility] This lab was ordered by [facility] and reported by [facility]. ID Date Data Source [id number] 11/11/2020 08:41:00 PM EST [facility] Anterior NareScreening Z20.822 COVIDPTR1 [id number] Name Value Range Interpretation Code Description Data Najma rce(s) Supporting Document(s) SARS Coronavirus-2, PCR Undetected Undetected [facility] Negative results do not preclude SARS-Co V-2 infection andshould not be used as the sole basis for patient managementdecisions.The Tetracore RT-PCR COVID-19 assay has been internallyvalidated for saliva and pooled upper respiratory specimens.Source: Anterior Nare ID Date Data Source [id number] 11/05/2020 10:02:00 PM EST [facility] Anterior NareScreening Z20.822 COVIDPTR1 [id number] Name Value Range Interpretation Code Description Data Najma rce(s) Supporting Document(s) SARS Coronavirus-2, PCR Undetected Undetected [facility] Negative results do not preclude SARS-Co V-2 infection andshould not be used as the sole basis for patient managementdecisions.The Tetracore RT-PCR COVID-19 assay has been internallyvalidated for saliva and pooled upper respiratory specimens.Source: Anterior Nare ID Date Data Source [id number] 11/01/2020 02:46:00 PM EST [facility] Name Value Range Interpretation Code Description Data Najma rce(s) Supporting Document(s) SARS-CoV-2 (COVID-19) RNA [Presence] in Respiratory specimen by JW with probe detection Undetected [facility] This lab was ordered by [facility] and reported by [facility]. ID Date Data Source [id number] 11/01/2020 11:11:00 PM EST [facility] Anterior NareScreening Z20.822 COVIDPTR1 [id number] Name Value Range Interpretation Code Description Data Najma rce(s) Supporting Document(s) SARS Coronavirus-2, PCR Undetected Undetected [facility] Negative results do not preclude SARS-Co V-2 infection andshould not be used as the sole basis for patient managementdecisions.The Tetracore RT-PCR COVID-19 assay has been internallyvalidated for saliva and pooled upper respiratory specimens.Source: Anterior Nare ID Date Data Source [id number] 10/28/2020 01:15:00 PM EST [facility] Name Value Range Interpretation Code Description Data Najma rce(s) Supporting Document(s) SARS-CoV-2 (COVID-19) RNA [Presence] in Respiratory specimen by JW with probe detection Undetected [facility] This lab was ordered by [facility] and reported by [facility]. ID Date Data Source [id number] 10/28/2020 06:51:00 PM EST [facility] Anterior NareScreening Z20.822 COVIDPTR1 [id number] Name Value Range Interpretation Code Description Data Najma rce(s) Supporting Document(s) SARS Coronavirus-2, PCR Undetected Undetected [facility] Negative results do not preclude SARS-Co V-2 infection andshould not be used as the sole basis for patient managementdecisions.The Tetracore RT-PCR COVID-19 assay has been internallyvalidated for saliva and pooled upper respiratory specimens.Source: Anterior Nare ID Date Data Source [id number] 10/25/2020 11:00:00 AM EST [facility] Name Value Range Interpretation Code Description Data Najma rce(s) Supporting Document(s) SARS-CoV-2 (COVID-19) RNA [Presence] in Respiratory specimen by JW with probe detection Undetected [facility] This lab was ordered by [facility] and reported by [facility]. ID Date Data Source [id number] 10/25/2020 05:57:00 PM [facility] Anterior NareScreening Z11.59 [id number] Name Value Range Interpretation Code Description Data Najma rce(s) Supporting Document(s) SARS Coronavirus-2, PCR Undetected Undetected [facility] Negative results do not preclude SARS-Co V-2 infection andshould not be used as the sole basis for patient managementdecisions.The Tetracore RT-PCR COVID-19 assay has been internallyvalidated for saliva and pooled upper respiratory specimens.Source: Anterior Nare ID Date Data Source [id number] 09/23/2020 07:33:00 PM [facility] Operative Report Patient: Janna Mora /Age: 06 1990 30 Admission Date: 09/22/20 Location: OPERATING ROOM [facility] Observation Date/Time: Provider: Gonsalo Lopez MD OPERATIVE REPORT: DATE OF OPERATION: 09/22/20 DATE OF : [birth year] SURGEON: Gonsalo Lopez MD. HIGHWAY MAINTENANCE SUPERVISOR: ERIC Carr. A physician registrar assistant was required for the length of [...] mg IV. IV FLUIDS: See anesthesia note. BQPN-IC-XYIN TIME: 122 minutes approximately. SPECIMEN: None. IMPLANTS: [...] her labral tears were not particularly displaced. [id number]/[facility] #: [id number] <Electronically signed by Gonsalo Lopez MD> 09/24/20 1728 Gonsalo Lopez MD Dictated Date/Time: 09/23/20 1933 Transcribed Date/Time 09/24/20 0210 Copy to: CC: Gonsalo Lopez MD Name Value Range Interpretation Code Description Data Najma rce(s) Supporting Document(s) ID Date Data Source [id number] 09/18/2020 01:39:00 PM EST [facility] Name Value Range Interpretation Code Description Data Najma rce(s) Supporting Document(s) SARS-CoV-2 (COVID-19) RNA [Presence] in Respiratory specimen by JW with probe detection [facility] This lab was ordered by [facility] and reported by [facility]. ID Date Data Source [id number] 09/19/2020 03:47:00 PM EST [facility] Anterior NareScreening Z11.59 [id number] Name Value Range Interpretation Code Description Data Najma rce(s) Supporting Document(s) SARS Coronavirus-2, PCR Undetected Undetected [facility] Negative results do not preclude SARS-Co V-2 infection andshould not be used as the sole basis for patient managementdecisions.The Tetracore RT-PCR COVID-19 assay has been internallyvalidated for saliva and pooled upper respiratory specimens.Source: Anterior Nare ID Date Data Source [id number] 09/13/2020 12:17:00 PM EST [facility] Name Value Range Interpretation Code Description Data Najma rce(s) Supporting Document(s) SARS-CoV-2 (COVID-19) RNA [Presence] in Respiratory specimen by JW with probe detection [facility] This lab was ordered by [facility] and reported by [facility]. ID Date Data Source [id number] 09/14/2020 01:31:00 PM EST [facility] Anterior NareScreening Z11.59 [id number] Name Value Range Interpretation Code Description Data Najma rce(s) Supporting Document(s) SARS Coronavirus-2, PCR Undetected Undetected [facility] Negative results do not preclude SARS-Co V-2 infection andshould not be used as the sole basis for patient managementdecisions.The Tetracore RT-PCR COVID-19 assay has been internallyvalidated for saliva and pooled upper respiratory specimens.Source: Anterior Nare ID Date Data Source [id number] 09/10/2020 09:47:00 AM EST [facility] Name Value Range Interpretation Code Description Data Najma rce(s) Supporting Document(s) SARS-CoV-2 (COVID-19) RNA [Presence] in Respiratory specimen by JW with probe detection [facility] This lab was ordered by [facility] and reported by [facility]. ID Date Data Source [id number] 09/11/2020 12:17:00 PM EST [facility] Anterior NareScreening Z11.59 [id number] Name Value Range Interpretation Code Description Data Najma rce(s) Supporting Document(s) SARS Coronavirus-2, PCR Undetected Undetected [facility] Negative results do not preclude SARS-Co V-2 infection andshould not be used as the sole basis for patient managementdecisions.The Tetracore RT-PCR COVID-19 assay has been internallyvalidated for saliva and pooled upper respiratory specimens.Source: Anterior Nare ID Date Data Source [id number] 09/08/2020 02:38:00 PM EST [facility] Name Value Range Interpretation Code Description Data Najma rce(s) Supporting Document(s) SARS-CoV-2 (COVID-19) RNA [Presence] in Respiratory specimen by JW with probe detection [facility] This lab was ordered by [facility] and reported by [facility]. ID Date Data Source [id number] 09/09/2020 01:56:00 PM EST [facility] Anterior NareScreening Z11.59 [id number] Name Value Range Interpretation Code Description Data Najma rce(s) Supporting Document(s) SARS Coronavirus-2, PCR Undetected Undetected [facility] Negative results do not preclude SARS-Co V-2 infection andshould not be used as the sole basis for patient managementdecisions.The Tetracore RT-PCR COVID-19 assay has been internallyvalidated for saliva and pooled upper respiratory specimens.Source: Anterior Nare ID Date Data Source [id number] 09/04/2020 02:43:00 PM EST [facility] Anterior NareScreening Z11.59 [id number] Name Value Range Interpretation Code Description Data Najma rce(s) Supporting Document(s) SARS Coronavirus-2, PCR Undetected Undetected [facility] Negative results do not preclude SARS-Co V-2 infection andshould not be used as the sole basis for patient managementdecisions.The [employer] RT-PCR COVID-19 assay has been internallyvalidated for saliva and pooled upper respiratory specimens.Source: Anterior Nare ID Date Data Source [id number] 08/31/2020 12:00:00 PM EST [facility] ([facility] Name Value Range Interpretation Code Description Data Najma rce(s) Supporting Document(s) Laboratory test finding (navigational concept) [facility] ID Date Data Source [id number] 08/30/2020 08:12:00 AM EST [facility] Name Value Range Interpretation Code Description Data Najma rce(s) Supporting Document(s) SARS-CoV-2 (COVID-19) RNA [Presence] in Respiratory specimen by JW with probe detection [facility] This lab was ordered by [facility] and reported by [facility]. ID Date Data Source [id number] 08/31/2020 02:41:00 PM EST [facility] Anterior NareScreening Z11.59 [id number] Name Value Range Interpretation Code Description Data Najma rce(s) Supporting Document(s) SARS Coronavirus-2, PCR Undetected Undetected [facility] Negative results do not preclude SARS-Co V-2 infection andshould not be used as the sole basis for patient managementdecisions.The Tet[employer]ore RT-PCR COVID-19 assay has been internallyvalidated for saliva and pooled upper respiratory specimens.Source: Anterior Nare ID Date Data Source [id number] 08/28/2020 10:47:00 AM EST [facility] Name Value Range Interpretation Code Description Data Najma rce(s) Supporting Document(s) SARS-CoV-2 (COVID-19) RNA [Presence] in Respiratory specimen by JW with probe detection [facility] This lab was ordered by [facility] and reported by [facility]. ID Date Data Source [id number] 08/28/2020 05:36:00 PM EST [facility] Anterior NareScreening Z11.59 [id number] Name Value Range Interpretation Code Description Data Najma rce(s) Supporting Document(s) SARS Coronavirus-2, PCR Undetected Undetected [facility] Negative results do not preclude SARS-Co V-2 infection andshould not be used as the sole basis for patient managementdecisions.The Tetracore RT-PCR COVID-19 assay has been internallyvalidated for saliva and pooled upper respiratory specimens.Source: Anterior Nare ID Date Data Source [id number] 08/27/2020 02:40:00 PM EST [facility] Name Value Range Interpretation Code Description Data Najma rce(s) Supporting Document(s) SARS-CoV-2 (COVID-19) RNA [Presence] in Respiratory specimen by JW with probe detection [facility] This lab was ordered by [facility] and reported by [facility]. ID Date Data Source [id number] 08/28/2020 01:21:00 PM EST [facility] Anterior NareScreening Z11.59 [id number] Name Value Range Interpretation Code Description Data Najma rce(s) Supporting Document(s) SARS Coronavirus-2, PCR Undetected Undetected [facility] Negative results do not preclude SARS-Co V-2 infection andshould not be used as the sole basis for patient managementdecisions.The Tetracore RT-PCR COVID-19 assay has been internallyvalidated for saliva and pooled upper respiratory specimens.Source: Anterior Nare ID Date Data Source [id number] 08/23/2020 10:44:00 AM EST [facility] Name Value Range Interpretation Code Description Data Najma rce(s) Supporting Document(s) SARS-CoV-2 (COVID-19) RNA [Presence] in Respiratory specimen by JW with probe detection [facility] This lab was ordered by [facility] and reported by [facility]. ID Date Data Source [id number] 08/24/2020 12:10:00 PM EST [facility] Anterior NareScreening Z11.59 [id number] Name Value Range Interpretation Code Description Data Najma rce(s) Supporting Document(s) SARS Coronavirus-2, PCR Undetected Undetected [facility] Negative results do not preclude SARS-Co V-2 infection andshould not be used as the sole basis for patient managementdecisions.The Tet[employer]ore RT-PCR COVID-19 assay has been internallyvalidated for saliva and pooled upper respiratory specimens.Source: Anterior Nare ID Date Data Source [id number] 08/22/2020 10:19:00 AM [facility] Patient Name: Janna Mora Medical Record #: [id number] Ordering Physician: Laney Smith MD : 1990 Age: 30 Sex: F Location: [facility] Exam Date: 08/22/20 0946 ADM Status: REG ER Observation Date/Time: Order Information: THUMB RIGHT Accession Number: [id number] CPT: 01408 Indication: Right thumb pain. 3 views of [...] Vidal MD; Andreia Gardner NP Imaging - [facility] [address] [address] ph [phone]) ph [phone] ph ) Name Value Range Interpretation Code Description Data Najma rce(s) Supporting Document(s) ID Date Data Source [id number] 08/22/2020 10:17:[address] [facility] Provider Documentation Patient: Janna Mora Account Number: [id number] /Age: 06 1990 30 Medical Record #: [id number] Service Date: 08/22/20 Location: [facility] Observation Date/Time: Hand/Wrist HPI - HPI Summary [...] FOLLOW-UP WITH YOUR ORTHOPEDIST. <Electronically signed by Laney Smith MD> 08/22/20 1040 Entered by: Laney Smith MD Entered Date/Time: 08/22/20 1017 Copy to: Andreia Gardner NP Name Value Range Interpretation Code Description Data Najma rce(s) Supporting Document(s) ID Date Data Source [id number] 08/20/2020 01:23:00 PM [facility] Name Value Range Interpretation Code Description Data Najma rce(s) Supporting Document(s) SARS-CoV-2 (COVID-19) RNA [Presence] in Respiratory specimen by JW with probe detection [facility] This lab was ordered by [facility] and reported by [facility]. ID Date Data Source [id number] 08/21/2020 11:43:00 AM [facility] Anterior NareScreening Z11.59 [id number] Name Value Range Interpretation Code Description Data Najma rce(s) Supporting Document(s) SARS Coronavirus-2, PCR Undetected Undetected [facility] Negative results do not preclude SARS-Co V-2 infection andshould not be used as the sole basis for patient managementdecisions.The [employer] RT-PCR COVID-19 assay has been internallyvalidated for saliva and pooled upper respiratory specimens.Source: Anterior Nare ID Date Data Source [id number] 08/17/2020 05:40:00 PM [facility] Patient Name: Janna Mora Medical Record #: [id number] Ordering Physician: Gonsalo Lopez MD Account Numb er: [id number] : 1990 Age: 30 Sex: F Location: [facility] Exam Date: 08/17/20 ADM Status: REG REF Observation Date/Time: Order Information: ARTHROGRAM SHOULDER RT Accession Number: [id number] CPT: 97402 CPT II Codes: G9500 PROCEDURE: Fluoroscopy guided [...] Copy to: CC:Gonsalo Lopez MD; Andreia Gardner ROAD DESIGN DRAFTSPERSON; Fede Mae MD Imaging - [facility] us Imaging - [facility] [address] [place] [address] ph [phone]) ph ([phone] ph ( [phone]) Name Value Range Interpretation Code Description Data Najma rce(s) Supporting Document(s) ID Date Data Source [id number] 08/17/2020 03:01:00 PM [facility] Patient Name: Janna Mora Medical Record #: [id number] Ordering Physician: Gonsalo Lopez MD Account Numb er: [id number] : 1990 Age: 30 Sex: F Location: [facility] Exam Date: 08/17/20 ADM Status: REG REF Observation Date/Time: Order Information: MRI SHOULDER ARTHROGRAM RIGHTW Accession Number: [id number] CPT: 91556 Indication: RIGHT shoulder instability. History of labral tears on MRI 3 years ago. Mack Danlos syndrome. Comparison: Limited spot images from conventional arthrogram performed immediately preceding and in preparation for the MRI arthrogram. June 08, 2020 radiographs. June 13, 2017 MRI. Technique: [employer] [place] 1.5 Dana QR150C. Following fluoroscopic guided intra-articular gadolinium administration multiplanar [...] Transcribed Date/Time: 08/17/20 1501 Copy to: CC:Gonsalo Lopez MD; Andreia Gardner ROAD DESIGN DRAFTSPERSON; Feliz Servin MD Imaging - [facility] Imaging - [facility] Imaging - [facility] [address] [address] ph [phone] ph [phone] ph ) Name Value Range Interpretation Code Description Data Najma rce(s) Supporting Document(s) ID Date Data Source [id number] 08/16/2020 02:03:00 PM EST [facility] Name Value Range Interpretation Code Description Data Najma rce(s) Supporting Document(s) SARS-CoV-2 (COVID-19) RNA [Presence] in Respiratory specimen by JW with probe detection [facility] This lab was ordered by [facility] and reported by [facility]. ID Date Data Source [id number] 08/17/2020 04:22:00 PM [facility] Anterior NareScreening Z11.59 [id number] [id number] Name Value Range Interpretation Code Description Data Najma rce(s) Supporting Document(s) SARS Coronavirus-2, PCR Undetected Undetected [facility] Negative results do not preclude SARS-Co V-2 infection andshould not be used as the sole basis for patient managementdecisions.The Tet[employer]ore RT-PCR COVID-19 assay has been internallyvalidated for saliva and pooled upper respiratory specimens.Source: Anterior Nare ID Date Data Source [id number] 08/14/2020 12:15:00 PM [facility] Anterior NareScreening Z11.59 [id number] Name Value Range Interpretation Code Description Data Najma rce(s) Supporting Document(s) SARS Coronavirus-2, PCR Undetected Undetected [facility] Negative results do not preclude SARS-Co V-2 infection andshould not be used as the sole basis for patient managementdecisions.The Tet[employer]ore RT-PCR COVID-19 assay has been internallyvalidated for saliva and pooled upper respiratory specimens.Source: Anterior Nare ID Date Data Source [id number] 08/09/2020 12:45:00 PM [facility] Name Value Range Interpretation Code Description Data Najma rce(s) Supporting Document(s) SARS-CoV-2 (COVID-19) RNA [Presence] in Respiratory specimen by JW with probe detection [facility] This lab was ordered by [facility] and reported by [facility]. ID Date Data Source [id number] 08/10/2020 11:35:00 AM [facility] Anterior NareScreening Z11.59 [id number] 4400 Name Value Range Interpretation Code Description Data Najma rce(s) Supporting Document(s) SARS Coronavirus-2, PCR Undetected Undetected [facility] Negative results do not preclude SARS-Co V-2 infection andshould not be used as the sole basis for patient managementdecisions.The Tetracore RT-PCR COVID-19 assay has been internallyvalidated for saliva and pooled upper respiratory specimens.Source: Anterior Nare ID Date Data Source [id number] 08/07/2020 05:00:00 PM [facility] Anterior NareScreening Z11.59 [id number] [id number] Name Value Range Interpretation Code Description Data Najma rce(s) Supporting Document(s) SARS Coronavirus-2, PCR Undetected Undetected [facility] Negative results do not preclude SARS-Co V-2 infection andshould not be used as the sole basis for patient managementdecisions.The Tet[employer]ore RT-PCR COVID-19 assay has been internallyvalidated for saliva and pooled upper respiratory specimens.Source: Anterior Nare ID Date Data Source [id number] 08/01/2020 02:48:00 PM [facility] Name Value Range Interpretation Code Description Data Najma rce(s) Supporting Document(s) SARS-CoV-2 (COVID-19) RNA [Presence] in Respiratory specimen by JW with probe detection [facility] This lab was ordered by [facility] and reported by [facility]. ID Date Data Source [id number] 08/02/2020 03:34:00 PM [facility] Anterior NareScreening Z11.59 [id number] Name Value Range Interpretation Code Description Data Najma rce(s) Supporting Document(s) SARS Coronavirus-2, PCR Undetected Undetected [facility] Negative results do not preclude SARS-Co V-2 infection andshould not be used as the sole basis for patient managementdecisions.The Tet[employer]ore RT-PCR COVID-19 assay has been internallyvalidated for saliva and pooled upper respiratory specimens.Source: Anterior Nare ID Date Data Source [id number] 07/27/2020 11:37:00 AM [facility] Name Value Range Interpretation Code Description Data Najma rce(s) Supporting Document(s) SARS-CoV-2 (COVID-19) RNA [Presence] in Respiratory specimen by JW with probe detection [facility] This lab was ordered by [facility] and reported by [facility]. ID Date Data Source [id number] 07/27/2020 06:19:00 PM EST [facility] Anterior NareScreening Z11.59 [id number] 8053 Name Value Range Interpretation Code Description Data Najma rce(s) Supporting Document(s) SARS Coronavirus-2, PCR Undetected Undetected [facility] Negative results do not preclude SARS-Co V-2 infection andshould not be used as the sole basis for patient managementdecisions.The Tet[employer] RT-PCR COVID-19 assay has been internallyvalidated for saliva and pooled upper respiratory specimens.Source: Anterior Nare ID Date Data Source [id number] 07/20/2020 11:32:00 AM EDT [facility] Name Value Range Interpretation Code Description Data Najma rce(s) Supporting Document(s) SARS-CoV-2 (COVID-19) RNA [Presence] in Respiratory specimen by JW with probe detection [facility] This lab was ordered by [facility] and reported by [facility]. ID Date Data Source [id number] 07/20/2020 08:30:00 PM EDT [facility] Anterior NareScreening Z11.59 [id number] Name Value Range Interpretation Code Description Data Najma rce(s) Supporting Document(s) SARS Coronavirus-2, PCR Undetected Undetected [facility] Negative results do not preclude SARS-Co V-2 infection andshould not be used as the sole basis for patient managementdecisions.The [employer] RT-PCR COVID-19 assay has been internallyvalidated for saliva and pooled upper respiratory specimens.Source: Anterior Nare ID Date Data Source [id number] 07/16/2020 03:58:00 PM EDT [facility] Name Value Range Interpretation Code Description Data Najma rce(s) Supporting Document(s) SARS-CoV-2 (COVID-19) RNA [Presence] in Respiratory specimen by JW with probe detection [facility] This lab was ordered by [facility] and reported by [facility]. ID Date Data Source [id number] 07/17/2020 08:16:00 PM EDT [facility] Anterior NareScreening Z11.59 [id number] [id number] Name Value Range Interpretation Code Description Data Najma rce(s) Supporting Document(s) SARS Coronavirus-2, PCR Undetected Undetected [facility] Negative results do not preclude SARS-Co V-2 infection andshould not be used as the sole basis for patient managementdecisions.The Tet[employer]ore RT-PCR COVID-19 assay has been internallyvalidated for saliva and pooled upper respiratory specimens.Source: Anterior Nare ID Date Data Source [id number] 07/12/2020 03:50:00 PM EDT [facility] Name Value Range Interpretation Code Description Data Najma rce(s) Supporting Document(s) SARS-CoV-2 (COVID-19) RNA [Presence] in Respiratory specimen by JW with probe detection [facility] This lab was ordered by [facility] and reported by [facility]. ID Date Data Source [id number] 07/13/2020 05:14:00 PM EDT [facility] Anterior Nare;Screening Z11.59 [id number] Name Value Range Interpretation Code Description Data Najma rce(s) Supporting Document(s) SARS Coronavirus-2, PCR Undetected Undetected [facility] Negative results do not preclude SARS-Co V-2 infection andshould not be used as the sole basis for patient managementdecisions.The [employer] RT-PCR COVID-19 assay has been internallyvalidated for saliva and pooled upper respiratory specimens. SARS Coronavirus-2, Source Anterior Nare [facility] Anterior nare collection may be less sen sitive for viraldetection than nasopharyngeal sampling. ID Date Data Source [id number] 07/10/2020 01:24:00 PM EDT [facility] Anterior Nare;Screening Z11.59 [id number] [id number] Name Value Range Interpretation Code Description Data Najma rce(s) Supporting Document(s) SARS Coronavirus-2, PCR Undetected Undetected [facility] Negative results do not preclude SARS-Co V-2 infection andshould not be used as the sole basis for patient managementdecisions.The [employer] RT-PCR COVID-19 assay has been internallyvalidated for saliva and pooled upper respiratory specimens. SARS Coronavirus-2, Source Anterior Nare [facility] Anterior nare collection may be less sen sitive for viraldetection than nasopharyngeal sampling. ID Date Data Source [id number] 07/05/2020 08:22:00 AM EDT [facility] Name Value Range Interpretation Code Description Data Najma rce(s) Supporting Document(s) SARS-CoV-2 (COVID-19) RNA [Presence] in Respiratory specimen by JW with probe detection [facility] This lab was ordered by [facility] and reported by [facility]. ID Date Data Source [id number] 07/06/2020 12:37:00 PM EDT [facility] Anterior [id number] Name Value Range Interpretation Code Description Data Najma rce(s) Supporting Document(s) SARS Coronavirus-2, PCR Undetected Undetected [facility] Negative results do not preclude SARS-Co V-2 infection andshould not be used as the sole basis for patient managementdecisions.The [employer] RT-PCR COVID-19 assay has been internallyvalidated for saliva and pooled upper respiratory specimens. SARS Coronavirus-2, Source Anterior Nare [facility] Anterior nare collection may be less sen sitive for viraldetection than nasopharyngeal sampling. ID Date Data Source [id number] 07/03/2020 12:43:00 PM EDT [facility] Anterior [id number] Name Value Range Interpretation Code Description Data Najma rce(s) Supporting Document(s) SARS Coronavirus-2, PCR Undetected Undetected [facility] Negative results do not preclude SARS-Co V-2 infection andshould not be used as the sole basis for patient managementdecisions.The [employer] RT-PCR COVID-19 assay has been internallyvalidated for saliva and pooled upper respiratory specimens. SARS Coronavirus-2, Source Anterior Nare [facility] Anterior nare collection may be less sen sitive for viraldetection than nasopharyngeal sampling. ID Date Data Source [id number] 06/28/2020 11:16:00 AM EDT [facility] Name Value Range Interpretation Code Description Data Najma rce(s) Supporting Document(s) SARS-CoV-2 (COVID-19) RNA [Presence] in Respiratory specimen by JW with probe detection [facility] This lab was ordered by [facility] and reported by [facility]. ID Date Data Source [id number] 06/29/2020 10:50:00 AM EDT [facility] Anterior [id number] Name Value Range Interpretation Code Description Data Najma rce(s) Supporting Document(s) SARS Coronavirus-2, PCR Undetected Undetected [facility] Negative results do not preclude SARS-Co V-2 infection andshould not be used as the sole basis for patient managementdecisions.The [employer] RT-PCR COVID-19 assay has been internallyvalidated for saliva and pooled upper respiratory specimens. SARS Coronavirus-2, Source Anterior Nare [facility] Anterior nare collection may be less sen sitive for viraldetection than nasopharyngeal sampling. ID Date Data Source [id number] 06/25/2020 05:23:00 PM EDT [facility] Anterior [id number] Name Value Range Interpretation Code Description Data Najma rce(s) Supporting Document(s) SARS Coronavirus-2, PCR Undetected Undetected [facility] Negative results do not preclude SARS-Co V-2 infection andshould not be used as the sole basis for patient managementdecisions.The [employer] RT-PCR COVID-19 assay has been internallyvalidated for saliva and pooled upper respiratory specimens. SARS Coronavirus-2, Source Anterior Nare [facility] Anterior nare collection may be less sen sitive for viraldetection than nasopharyngeal sampling. ID Date Data Source [id number] 06/22/2020 06:57:00 PM EDT [facility] Anterior [id number] Name Value Range Interpretation Code Description Data Najma rce(s) Supporting Document(s) SARS Coronavirus-2, PCR Undetected Undetected [facility] Negative results do not preclude SARS-Co V-2 infection andshould not be used as the sole basis for patient managementdecisions.The [employer] RT-PCR COVID-19 assay has been internallyvalidated for saliva and pooled upper respiratory specimens. SARS Coronavirus-2, Source Anterior Nare [facility] Anterior nare collection may be less sen sitive for viraldetection than nasopharyngeal sampling. ID Date Data Source [id number] 06/18/2020 08:13:00 AM EDT [facility] Name Value Range Interpretation Code Description Data Najma rce(s) Supporting Document(s) SARS-CoV-2 (COVID-19) RNA [Presence] in Respiratory specimen by JW with probe detection [facility] This lab was ordered by [facility] and reported by [facility]. ID Date Data Source [id number] 06/18/2020 03:12:00 PM EDT [facility] Anterior [id number] Name Value Range Interpretation Code Description Data Najma rce(s) Supporting Document(s) SARS Coronavirus-2, PCR Undetected Undetected [facility] Negative results do not preclude SARS-Co V-2 infection andshould not be used as the sole basis for patient managementdecisions.The [employer] RT-PCR COVID-19 assay has been internallyvalidated for saliva and pooled upper respiratory specimens. SARS Coronavirus-2, Source Anterior Nare [facility] Anterior nare collection may be less sen sitive for viraldetection than nasopharyngeal sampling. ID Date Data Source [id number] 06/14/2020 12:17:00 PM EDT [facility] Name Value Range Interpretation Code Description Data Najma rce(s) Supporting Document(s) SARS-CoV-2 (COVID-19) RNA [Presence] in Respiratory specimen by JW with probe detection [facility] This lab was ordered by [facility] and reported by [facility]. ID Date Data Source [id number] 06/14/2020 06:43:00 PM EDT [facility] Anterior [id number] Name Value Range Interpretation Code Description Data Najma rce(s) Supporting Document(s) SARS Coronavirus-2, PCR Undetected Undetected [facility] Negative results do not preclude SARS-Co V-2 infection andshould not be used as the sole basis for patient managementdecisions.The [employer] RT-PCR COVID-19 assay has been internallyvalidated for saliva and pooled upper respiratory specimens. SARS Coronavirus-2, Source Anterior Nare [facility] Anterior nare collection may be less sen sitive for viraldetection than nasopharyngeal sampling. ID Date Data Source [id number] 06/11/2020 12:40:00 PM EDT [facility] Name Value Range Interpretation Code Description Data Najma rce(s) Supporting Document(s) SARS-CoV-2 (COVID-19) RNA [Presence] in Respiratory specimen by JW with probe detection [facility] This lab was ordered by [facility] and reported by [facility]. ID Date Data Source [id number] 06/11/2020 05:40:00 PM EDT [facility] [id number] Name Value Range Interpretation Code Description Data Najma rce(s) Supporting Document(s) SARS Coronavirus-2, PCR Undetected Undetected [facility] Negative results do not preclude SARS-Co V-2 infection andshould not be used as the sole basis for patient managementdecisions.The [employer] RT-PCR COVID-19 assay has been internallyvalidated for saliva and pooled upper respiratory specimens. SARS Coronavirus-2, Source Nasopharyngeal [facility] ID Date Data Source [id number] 06/08/2020 04:44:00 PM EDT [facility] Patient Name: Janna Mora Ordering Physician: Ángela San MD Account N umber: [id number] : 1990 Age: 30 Sex: F Location: [facility] Exam Date: 06/08/20 1624 ADM Status: REG ER Observation Date/Time: Order Information: SHOULDER RIGHT 2+ VWS Accession Number: [id number] CPT: 16476 HISTORY: hx of recurrent shoulder dislocations . [...] San MD; Andreia Gardner NP Imaging - [facility] [address] [address] ph [phone] ph [phone] ph ( [phone]) Name Value Range Interpretation Code Description Data Najma rce(s) Supporting Document(s) ID Date Data Source [id number] 06/08/2020 04:17:00 PM EDT [facility] Provider Documentation Patient: Janna Mora Account Number: [id number] /Age: 06 1990 30 Medical Record #: [id number] Service Date: 06/08/20 Location: [facility]RGENT [facility] - [facility] Observation Date/Time: Shoulder Pain HPI [...] 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 Right hand dominant, finds that pain [...] at the same time as tramadol . 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 Advised to avoid diazepam use at the [...] <Electronically signed by Ángela San MD> 06/08/20 [id number] Entered by: Ángela San MD Entered Date/Time: 06/08/20 1617 Copy to: Andreia Gardner NP Name Value Range Interpretation Code Description Data Najma rce(s) Supporting Document(s) ID Date Data Source [id number] 06/07/2020 08:53:00 AM EDT [facility] Name Value Range Interpretation Code Description Data Najma rce(s) Supporting Document(s) SARS-CoV-2 (COVID-19) RNA [Presence] in Respiratory specimen by JW with probe detection [facility] This lab was ordered by [facility] and reported by [facility]. ID Date Data Source [id number] 06/07/2020 04:07:00 PM EDT [facility] [id number] Name Value Range Interpretation Code Description Data Najma rce(s) Supporting Document(s) SARS Coronavirus-2, PCR Undetected Undetected [facility] Negative results do not preclude SARS-Co V-2 infection andshould not be used as the sole basis for patient managementdecisions.The [employer] PT-PCR COVID-19 assay has been internallyvalidated for saliva and pooled upper respiratory specimens. SARS Coronavirus-2, Source Nasopharyngeal [facility] Procedure Social History Code Duration Value Status Description Data Source(s ) Smoking 07/12/2021 12:00:00 AM EDT Patient has never smoked co mpleted Patient has never smoked [facility] ([facility]) Smoking 04/28/2021 12:00:00 AM EDT Never Smoked Cigarettes com pleted Never Smoked Cigarettes [facility] ([facility] Vital Signs ID Date Data Source UNK Name Value Range Interpretation Code Description Data Source(s) Body weight 185.00 [lb_av] 185.00 [lb_av] [facility] T ([facility]) Body height 69 [in_i] 69 [in_i] [facility] ([facility]) 5'9" Body mass index (BMI) [Ratio] 27.3 kg/m2 27.3 k g/m2 [facility] ([facility]) Heart rate 74 /min 74 /min [facility] ([facility]) Systolic blood pressure--sitting 141 mm[Hg] 141 mm[Hg] [facility] ([facility]) [place], large cuff/Ra; HR: 74 bpm Diastolic blood pressure--sitting 97 mm[Hg] 97 mm[Hg] [facility] ([facility]) [place], large cuff/Ra; HR: 74 bpm Systolic blood pressure--supine 140 mm[Hg] 140 mm[Hg] [facility] ([facility]) [place], large cuff/Ra; HR: 69 bpm Diastolic blood pressure--supine 93 mm[Hg] 93 mm[Hg] [facility] ([facility]) [place], large cuff/Ra; HR: 69 bpm Systolic blood pressure--standing 128 mm[Hg] 12 8 mm[Hg] [facility] ([facility]) [place], large cuff/Ra; HR: 86 bpm Diastolic blood pressure--standing 89 mm[Hg] 8 9 mm[Hg] [facility] ([facility]) [place], large cuff/Ra; HR: 86 bpm Body temperature 97.8 [degF] 97.8 [degF] [facility] ([facility] Body mass index (BMI) [Ratio] 26.1 kg/m2 26.1 k g/m2 [facility] ([facility] Body height 69 [in_i] 69 [in_i] [facility] ([facility] 5'9" Body weight 177.00 [lb_av] 177.00 [lb_av] MEDEN T ([facility] Heart rate 94 /min 94 /min [facility] ([facility] Systolic blood pressure 120 mm[Hg] 120 mm[Hg] M EDENT ([facility] Diastolic blood pressure 70 mm[Hg] 70 mm[Hg] [facility] ([facility] Body height 69 [in_i] 69 [in_i] [facility] ([facility] 5'9" Body weight 180.25 [lb_av] 180.25 [lb_av] MEDEN T ([facility] Heart rate 66 /min 66 /min [facility] ([facility] Body temperature 96.8 [degF] 96.8 [degF] [facility] ([facility] Respiratory rate 18 /min 18 /min [facility] ( [facility] Body mass index (BMI) [Ratio] 26.6 kg/m2 26.6 k g/m2 [facility] ([facility] Diastolic blood pressure--standing 80 mm[Hg] 8 0 mm[Hg] [facility] ([facility] Body weight 180.00 [lb_av] 180.00 [lb_av] MEDEN T ([facility] Diastolic blood pressure 78 mm[Hg] 78 mm[Hg] [facility] ([facility] Body height 69 [in_i] 69 [in_i] [facility] ([facility] 5'9" Heart rate 68 /min 68 /min [facility] ([facility] Systolic blood pressure 118 mm[Hg] 118 mm[Hg] M EDENT ([facility] Systolic blood pressure--standing 120 mm[Hg] 12 0 mm[Hg] [facility] ([facility] Body temperature 97.3 [degF] 97.3 [degF] [facility] ([facility] Body mass index (BMI) [Ratio] 26.6 kg/m2 26.6 k g/m2 [facility] ([facility] Systolic blood pressure 110 mm[Hg] 110 mm[Hg] M EDENT ([facility] Diastolic blood pressure 80 mm[Hg] 80 mm[Hg] [facility] ([facility] Respiratory rate 18 /min 18 /min [facility] ( [facility] Body temperature 97.1 [degF] 97.1 [degF] [facility] ([facility] Body mass index (BMI) [Ratio] 26.3 kg/m2 26.3 k g/m2 [facility] ([facility] Body height 69 [in_i] 69 [in_i] [facility] ([facility] 5'9" Body weight 178.00 [lb_av] 178.00 [lb_av] MEDEN T ([facility] Heart rate 72 /min 72 /min [facility] ([facility] Body height 69 [in_i] 69 [in_i] [facility] ([facility] 5'9" Body weight 132.00 [lb_av] 132.00 [lb_av] MEDEN T ([facility] Systolic blood pressure 112 mm[Hg] 112 mm[Hg] M EDENT ([facility] Diastolic blood pressure 90 mm[Hg] 90 mm[Hg] [facility] ([facility] Systolic blood pressure--standing 110 mm[Hg] 11 0 mm[Hg] [facility] ([facility] Diastolic blood pressure--standing 92 mm[Hg] 9 2 mm[Hg] [facility] ([facility] Body mass index (BMI) [Ratio] 19.5 kg/m2 19.5 k g/m2 [facility] ([facility] Heart rate 64 /min 64 /min [facility] ([facility] Body temperature 97.7 [degF] 97.7 [degF] [facility] ([facility] Systolic blood pressure--standing 110 mm[Hg] 11 0 mm[Hg] [facility] ([facility] Diastolic blood pressure--standing 70 mm[Hg] 7 0 mm[Hg] [facility] ([facility] Body temperature 97.7 [degF] 97.7 [degF] [facility] ([facility] Body mass index (BMI) [Ratio] 19.5 kg/m2 19.5 k g/m2 [facility] ([facility] Body height 69 [in_i] 69 [in_i] [facility] ([facility] 5'9" Body weight 132.00 [lb_av] 132.00 [lb_av] MEDEN T ([facility] clothes/shoes Heart rate 64 /min 64 /min [facility] ([facility] Systolic blood pressure--sitting 112 mm[Hg] 112 mm[Hg] [facility] ([facility] Diastolic blood pressure--sitting 60 mm[Hg] 60 mm[Hg] [facility] ([facility] Body weight 179.00 [lb_av] 179.00 [lb_av] MEDEN T ([facility] clothes/shoes Systolic blood pressure--sitting 114 mm[Hg] 114 mm[Hg] [facility] ([facility] Diastolic blood pressure--sitting 80 mm[Hg] 80 mm[Hg] [facility] ([facility] Body height 69 [in_i] 69 [in_i] [facility] ([facility] 5'9" Heart rate 64 /min 64 /min [facility] ([facility] Body temperature 96.9 [degF] 96.9 [degF] [facility] ([facility] Body mass index (BMI) [Ratio] 26.4 kg/m2 26.4 k g/m2 [facility] ([facility] Diastolic blood pressure 70 mm[Hg] 70 mm[Hg] [facility] ([facility] Body mass index (BMI) [Ratio] 26.3 kg/m2 26.3 k g/m2 [facility] ([facility] Body height 69 [in_i] 69 [in_i] [facility] ([facility] 5'9" Body weight 178.00 [lb_av] 178.00 [lb_av] MEDEN T ([facility] Heart rate 84 /min 84 /min [facility] ([facility] Systolic blood pressure 136 mm[Hg] 136 mm[Hg] M EDENT ([facility] Body temperature 97.1 [degF] 97.1 [degF] MED[facility] ([facility] Oxygen saturation in Arterial blood by Pulse oximetry 98 % 98 % [facility] ([facility] Body height 69 [in_i] 69 [in_i] [facility] ([facility] 5'9" Heart rate 84 /min 84 /min MED[facility] ([facility] Systolic blood pressure 100 mm[Hg] 100 mm[Hg] M EDENT ([facility] Diastolic blood pressure 80 mm[Hg] 80 mm[Hg] MED[facility] ([facility] Respiratory rate 18 /min 18 /min MED[facility] ( [facility] Body temperature 97.5 [degF] 97.5 [degF] [facility] ([facility] Heart rate 96 /min 96 /min [facility] ([facility] Body temperature 97.5 [degF] 97.5 [degF] [facility] ([facility] Systolic blood pressure 114 mm[Hg] 114 mm[Hg] EDENT ([facility] Body height 69 [in_i] 69 [in_i] [facility] ([facility] 5'9" Body weight 179.00 [lb_av] 179.00 [lb_av] MEDEN T ([facility] Diastolic blood pressure 72 mm[Hg] 72 mm[Hg] [facility] ([facility] Oxygen saturation in Arterial blood by Pulse oximetry 97 % 97 % [facility] ([facility] Body mass index (BMI) [Ratio] 26.4 kg/m2 26.4 k g/m2 [facility] ([facility] Body height 69 [in_i] 69 [in_i] [facility] ([facility] 5'9" Body weight 172.00 [lb_av] 172.00 [lb_av] MEDEN T ([facility] Heart rate 76 /min 76 /min [facility] ([facility] Systolic blood pressure--standing 128 mm[Hg] 12 8 mm[Hg] MED[facility] ([facility] Lue Diastolic blood pressure--standing 90 mm[Hg] 9 0 mm[Hg] [facility] ([facility] Lue Respiratory rate 17 /min 17 /min MED[facility] ( [facility] Body temperature 97.1 [degF] 97.1 [degF] [facility] ([facility] Body mass index (BMI) [Ratio] 25.4 kg/m2 25.4 k g/m2 [facility] ([facility] Body height 69 [in_i] 69 [in_i] [facility] ([facility] 5'9" Body weight 176.00 [lb_av] 176.00 [lb_av] MEDEN T ([facility] Heart rate 64 /min 64 /min [facility] ([facility] Systolic blood pressure 119 mm[Hg] 119 mm[Hg] M EDENT ([facility] Diastolic blood pressure 74 mm[Hg] 74 mm[Hg] [facility] ([facility] Body temperature 97.1 [degF] 97.1 [degF] [facility] ([facility] Body mass index (BMI) [Ratio] 26.0 kg/m2 26.0 k g/m2 [facility] ([facility] Body height 69 [in_i] 69 [in_i] [facility] ([facility] 5'9" Body weight 178.00 [lb_av] 178.00 [lb_av] MEDEN T ([facility] Heart rate 72 /min 72 /min [facility] ([facility] Systolic blood pressure 116 mm[Hg] 116 mm[Hg] M EDENT ([facility] Diastolic blood pressure 64 mm[Hg] 64 mm[Hg] MED[facility] ([facility] Respiratory rate 12 /min 12 /min MED[facility] ( [facility] Body temperature 96.6 [degF] 96.6 [degF] [facility] ([facility] Body mass index (BMI) [Ratio] 26.3 kg/m2 26.3 k g/m2 [facility] ([facility] Body temperature 96.8 [degF] 96.8 [degF] [facility] ([facility] Body height 69.5 [in_i] 69.5 [in_i] MEDENT ([facility] 5'9.50" Body weight 172.00 [lb_av] 172.00 [lb_av] MEDEN T ([facility] Heart rate 82 /min 82 /min [facility] ([facility] Systolic blood pressure 120 mm[Hg] 120 mm[Hg] M EDENT ([facility] Diastolic blood pressure 84 mm[Hg] 84 mm[Hg] [facility] ([facility] Body temperature 97.5 [degF] 97.5 [degF] [facility] ([facility] Body mass index (BMI) [Ratio] 25.0 kg/m2 25.0 k g/m2 [facility] ([facility] ID Date Data Source [id number] 09/24/2020 05:29:00 PM EST [facility] Name Value Range Interpretation Code Description Data Source(s) HEIGHT 175 cm 175 cm [facility] WEIGHT RECORDED 79.2 kg 79.2 kg [facility] HEIGHT 175.26 cm 175.26 cm [facility] WEIGHT RECORDED 77.109515 kg 77.622228 kg [facility] ID Date Data Source [id number] 08/17/2020 05:44:00 PM EST [facility] Name Value Range Interpretation Code Description Data Source(s) WEIGHT RECORDED 77.059265 kg 77.471276 kg [facility] WEIGHT RECORDED 77.153785 kg 77.958386 kg [facility] ID Date Data Source [id number] 12/03/2020 11:36:00 AM [facility] Name Value Range Interpretation Code Description Data Source(s) HEIGHT 175.26 cm 175.26 cm [facility] WEIGHT RECORDED 74.542336 kg 74.601593 kg [facility] ID Date Data Source [id number] 12/03/2020 11:36:00 AM [facility] Name Value Range Interpretation Code Description Data Source(s) HEIGHT 175.26 cm 175.26 cm [facility] WEIGHT RECORDED 72.381331 kg 72.030461 kg [facility] HEIGHT 175.26 cm 175.26 cm [facility] WEIGHT RECORDED 72.240186 kg 72.683259 kg [facility] ID Date Data Source [id number] 12/03/2020 11:36:00 AM [facility] Name Value Range Interpretation Code Description Data Source(s) HEIGHT 175.26 cm 175.26 cm [facility] WEIGHT RECORDED 70.347279 kg 70.895190 kg [facility] HEIGHT 175.26 cm 175.26 cm [facility] WEIGHT RECORDED 70.536721 kg 70.633604 kg [facility] HEIGHT 175.26 cm 175.26 cm [facility] WEIGHT RECORDED 70.073152 kg 70.331799 kg [facility]
[2021-08-06] MEDS ORDERED: fentaNYL 100 MCG/2 ML INJECTION (J3010) IV PRN (17:35)
[2021-08-06] MEDS ORDERED: IPRATROPIUM 0.5MG/ALBUTEROL 2.5MG INH SOL UD 3ML (DUONEB) NEB PRN (17:40)
--- NOTE | 2021-08-06 17:52 | HPEPDOC ---
[facility] Medical History & Physical Date of Admission Aug 06, 2021 Date of Service: Aug 06, 2021 Attending Physician: SHANAE DEL TORO MD History and Physical CHIEF COMPLAINT: Dog overdose, seizure HISTORY OF PRESENT ILLNESS: This is a 31-year-old female with past medical history of Ehler Danlos, POTS, asthma, depression, PTSD who was brought into the hospital by EMS for drug overdose. History was taken from her fianc and emergency physician. Patient was having an argument with her fianc at home. She went into the bathroom and took some pills. When she came out of the bathroom, she collapsed. She told her fianc that she took the bottle of Benadryl. Her fianc called EMS and EMS brought her to the emergency department. On route, patient had an episode of tonic-clonic seizure in which she received Ativan and broke. In the emergency department, she was intubated for airway protection. Labs show slight leukocytosis of 12,000. ABG with significant metabolic acidosis. Lactic acid was 16. There is no evidence of renal failure. [place], salicylate, acetaminophen, ethyl alcohol level were undetectable. EKG with slight prolonged QTC respiratory viral panel was negative. CT scan of the head and neck showed no evidence of intracranial abnormality or neck fracture. Chest x-ray show no evidence of effusion or infiltrate. Endotracheal tube in appropriate position. Poison control was consulted and she was given activated charcoal. She was also given 2 g of magnesium. She will be admitted to ICU for further management. PAST MEDICAL HISTORY: Mack-Danlos, POTS, asthma, depression, PTSD PAST SURGICAL HISTORY: Shoulder surgery in August 2020 Foot surgery SOCIAL HISTORY: Lives alone, smoke weed on occasion, no etOH, no illicit drugs. 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 Home medication: Please see below REVIEW OF SYSTEMS: Unable to obtain as patient is currently intubated and sedated. HOME MEDICATIONS: Please see below. PHYSICAL EXAMINATION: VITAL SIGNS: Vital signs stable. GENERAL APPEARANCE: Currently intubated and sedated. She does respond to painful stimuli. HEENT: Intubated, no evidence of cervical adenopathy or JVD. CARDIOVASCULAR: Regular S1-S2 with no evidence of murmur. LUNGS: Clear to auscultation bilaterally. Multiple self-inflicted wounds scar on the anterior chest wall. ABDOMEN: Soft, nontender with active bowel sounds. MUSCULOSKELETAL: No evidence of joint effusion or joint swelling. EXTREMITIES: No evidence of finger clubbing or pedal edema. Multiple self- inflicted wounds scar on the forearms. NEUROLOGICAL: Nonfocal with pupils reactive to light equally. PSYCHIATRIC: Cannot be assessed. LABORATORY DATA: See below. IMAGING: CT scan of the head and neck showed no evidence of intracranial abnormality or neck fracture. Chest x-ray show no evidence of effusion or infiltrate. Endotracheal tube in appropriate position. MICROBIOLOGY: Please see below. ASSESSMENT: This is a 31-year-old female with past medical history of Ehler Danlos, POTS, asthma, depression, PTSD who was brought into the hospital by EMS for drug overdose (Wellbutrin or Benadryl). #Acute respiratory failure -Secondary to inability to protect airway due to drug overdose and seizure. Patient is currently intubated. Gas exchange is optimal. Ventilator setting: Assist control/volume control respiratory rate 12, tidal volume 400, PEEP 5, FiO2 21%. -We will perform sedation holiday tomorrow for possibility of extubation. #Metabolic encephalopathy -Secondary to drug overdose and seizure with possibility of post ictal. -CT brain with no evidence of intracranial pathology. -We will hold off initiating antiepileptic medication. #New onset of seizure -Due to Benadryl or Wellbutrin overdose. Will hold off initiating antiepilepsy medication. Seizure precaution. #Anion gap metabolic acidosis -Due to lactic acidosis. She will be started on maintenance IV fluid. #Lactic acidosis -Due to seizure. #Prolonged QTC -Patient received 2 g of magnesium in the emergency department. Will repeat EKG tomorrow to monitor QTC. Avoid QT prolonging drug. #Intentional drug overdose/suicidal attempt -Patient received 2 g of magnesium for prolonged QT and activated charcoal to OT tube. -Poison control on board. -We will keep patient on maintenance IV fluid. #History is of pots -We will resume fludrocortisone. #History of depression, PTSD and Mack-Danlos -We will hold all home medications. DVT prophylaxis: Lovenox GI prophylaxis: Protonix Diet: N.p.o. CODE STATUS: Full code Critical care time excluding procedure is 60 minutes. Vital Signs Vital Signs Date Time Temp Pulse Resp B/P (MAP) Pulse Ox O2 Delivery O2 Flow Rate FiO2 08/06/21 17:15 123/78 (93) 08/06/21 17:03 104 100 08/06/21 15:22 40 Room Air 08/06/21 15:15 30 Laboratory Data Labs 24H Laboratory Tests 2 08/06/21 15:10: Immature Granulocyte % (Auto) 0.4, Neutrophils (%) (Auto) 38.0, Lymphocytes (%) (Auto) 47.7H, Monocytes (%) (Auto) 9.2H, Eosinophils (%) (Auto) 3.9H, Basophils (%) (Auto) 0.8, Neutrophils # (Auto) 4.6, Lymphocytes # (Auto) 5.7H, Monocytes # (Auto) 1.1H, Eosinophils # (Auto) 0.5, Basophils # (Auto) 0.1, Nucleated Red Blood Cells % (auto) 0.0, Anion Gap 22H, Glomerular Filtration Rate > 60.0, Osmolality 295, Lactic Acid Level 16.3*H, Calcium Level 8.6, Total Bilirubin 0.7, Direct Bilirubin 0.2, Aspartate Amino Transf (AST/SGOT) 12, Alanine Aminotransferase (ALT/SGPT) 22, Alkaline Phosphatase 64, Total Creatine Kinase 137, Total Protein 7.9, Albumin 4.9, Albumin/Globulin Ratio 1.6, Thyroid Stimulating Hormone (TSH) 3.480, Salicylates Level < 1.7L, Acetaminophen Level < 2.0L, [place] Level < 0.20L, Ethyl Alcohol Level 0.003 08/06/21 15:13: Blood Gas Bicarbonate Standard 10.0, Venous Blood pH 7.008L, Venous Blood Partial Pressure CO2 41.4, Venous Blood Partial Pressure O2 94.7H, Venous Blood Total Carbon Dioxide 11.4L, Venous Blood HCO3 10.2L, Venous Blood Oxygen Saturation 93.4H, Venous Blood Base Excess -20.6L 08/06/21 15:14: Urine Color COLORLESS, Urine Appearance CLEAR, Urine pH 5.0, Urine Specific [place] 1.009, Urine Protein 1+H, Urine Glucose (UA) 1+H, Urine Ketones NEGATIVE, Urine Blood NEGATIVE, Urine Nitrite NEGATIVE, Urine Bilirubin NEGATIVE, Urine Urobilinogen 0.2, Urine Leukocyte Esterase NEGATIVE, Urine WBC (Auto) 1, Urine RBC (Auto) 0, Urine Hyaline Casts (Auto) 0, Urine Bacteria (Auto) NEGATIVE, Urine Squamous Epithelial Cells 0, Urine Sperm (Auto) , Urine Opiates Screen NEGATIVE, Urine Methadone Screen NEGATIVE, Urine Barbiturates Screen NEGATIVE, Urine Phencyclidine Screen NEGATIVE, Urine Amphetamines Screen NEGATIVE, Urine Benzodiazepines Screen NEGATIVE, Urine Cocaine Metabolite Screen NEGATIVE, Urine Cannabinoids Screen NEGATIVE 08/06/21 15:16: POC Glucose (Misc Panel) 140H, POC Sodium (Misc Panel) 142, POC Potassium (Misc Panel) 3.1L, POC Chloride (Misc Panel) 105, POC Total CO2 (Misc Panel) 12.0L, POC Blood Urea Nitrogen (Misc Panel 11, POC Ionized Calcium (Misc Panel) 4.6, POC Creatinine (Misc Panel) 0.7, POC Hematocrit (Misc Panel) 48.0 08/06/21 16:25: Coronavirus (COVID-19)(PCR) NEGATIVE, Influenza Type A (RT-PCR) NEGATIVE, Influenza Type B (RT-PCR) NEGATIVE, Respiratory Syncytial Virus (PCR) NEGATIVE 08/06/21 16:36: Blood Gas Bicarbonate Standard 21.4L, Arterial Blood pH 7.344L, Arterial Blood Partial Pressure CO2 40.7, Arterial Blood Partial Pressure O2 146.8H, Arterial Blood Total CO2 22.9, Arterial Blood HCO3 21.7L, Arterial Blood Base Excess - 3.8L, Arterial Blood Oxygen Saturation 98.8 CBC/BMP Laboratory Tests 08/06/21 15:10 Home Medications Miscellaneous Medications Bupropion Hcl (Bupropion Xl) 150 Mg Tab.er.24h Diazepam (Diazepam) 10 Mg Tablet Fludrocortisone Acetate (Fludrocortisone Acetate) 0.1 Mg Tablet [place] Carbonate ([place] Carbonate) 150 Mg Capsule Allergies Coded Allergies: Penicillins (Verified Allergy, Unknown, 05/12/21) codeine (Verified Allergy, Unknown, 05/12/21) A-FIB/CHADSVASC A-FIB History Current/History of A-Fib/PAF?: No SHANAE DEL TORO MD Aug 06, 2021 17:52
[2021-08-06] MEDS: PANTOPRAZOLE 40MG VIAL (C9113 PER 1) IV SCH (17:57)
[2021-08-06] MEDS ORDERED: ETOMIDATE INJ 20MG/10ML VIAL ONE (18:03)
[2021-08-06] MEDS ORDERED: SUCCINYLCHOLINE 100 MG/5 ML SYRINGE (J0330) ONE (18:03)
[2021-08-06] MEDS ORDERED: METH20CP3 PO (18:19)
[2021-08-06] MEDS ORDERED: HOME MED LIST COMPLETE! XX SCH (18:40)
--- NOTE | 2021-08-06 18:42 | ECGEPIP ---
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
--- NOTE | 2021-08-06 18:43 | ECGEPIP ---
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
[2021-08-06] MEDS ORDERED: COMMENTS (18:44)
[2021-08-06] MEDS: MIDAZOLAM INJ 2MG/2ML VIAL (J2250 PER 1MG) IV PRN (19:44)
[2021-08-06 20:00] VITALS: BP 120/87
[2021-08-06] MEDS: NS 1,000 ML IV SCH (20:33)
[2021-08-06 21:00] VITALS: BP 120/77
[2021-08-06] MEDS: CHLORHEXIDINE GLUCONATE 0.12 % 15ML UDC (PERIDEX ORAL RINSE) MT SCH (21:22)
[2021-08-06] MEDS: ENOXAPARIN 40MG/0.4ML SYRINGE (J1650 PER 10MG) SC SCH (21:22)
[2021-08-06] MEDS: dexmedeTOMidine 200 MCG in IV 1 EA IV SCH ×2 (21:30→21:45)
[2021-08-06 22:00] VITALS: BP 115/71
[2021-08-06 22:10] VITALS: O2SAT 100
[2021-08-06 23:00] VITALS: BP 111/72
[2021-08-07] VITALS (24 sets, daily range): BP systolic 104–121; BP diastolic 62–78
[2021-08-07] MEDS ORDERED: POTASSIUM CHL PWD 20 MEQ PACKET NG ONE (00:30)
[2021-08-07] MEDS: MIDAZOLAM INJ 2MG/2ML VIAL (J2250 PER 1MG) IV PRN ×5 (01:05→22:56)
[2021-08-07] MEDS: propofoL 1,000 MG in IV 1 EA IV SCH ×6 (02:31→22:39)
[2021-08-07] MEDS: dexmedeTOMidine 200 MCG in IV 1 EA IV SCH ×3 (02:32→16:11)
[2021-08-07 06:12] LABS: HEMATOCRIT 36.1 % (36.0-47.0); MEAN CORPUSCULAR HEMOGLOBIN 31.6 pg (27.0-33.0); MEAN CORPUSCULAR HGB CONC 33.5 g/dl (32.0-36.5); MEAN CORPUSCULAR VOLUME 94.3 fl (80.0-96.0); RED BLOOD COUNT 3.83 10^6/uL (4.00-5.40); WHITE BLOOD COUNT 10.4 10^3/uL (4.0-10.0)
--- NOTE | 2021-08-07 06:19 | ECGEPIP ---
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
[2021-08-07 06:27] LABS: BLOOD UREA NITROGEN 8 MG/DL (7-18); CALCIUM LEVEL 7.7 MG/DL (8.5-10.1); CARBON DIOXIDE LEVEL 25 MEQ/L (21-32); CHLORIDE LEVEL 115 MEQ/L (98-107); CREATININE FOR GFR 0.78 MG/DL (0.55-1.30); GLOMERULAR FILTRATION RATE > 60.0 (>60); GLUCOSE, FASTING 84 MG/DL (70-100); MAGNESIUM LEVEL 2.6 MG/DL (1.8-2.4); PHOSPHORUS LEVEL 3.3 MG/DL (2.5-4.9); SODIUM LEVEL 145 MEQ/L (136-145)
[2021-08-07 06:54] LABS: HEMOGLOBIN 12.1 g/dl (12.0-15.5); PLATELET COUNT, AUTOMATED 217 10^3/uL (150-450)
[2021-08-07] MEDS: CHLORHEXIDINE GLUCONATE 0.12 % 15ML UDC (PERIDEX ORAL RINSE) MT SCH ×2 (08:42→20:48)
[2021-08-07] MEDS: FLUDROCORTISONE ACETATE 0.1 MG TAB NG SCH (08:42)
[2021-08-07] MEDS: PANTOPRAZOLE 40MG VIAL (C9113 PER 1) IV SCH (08:42)
[2021-08-07] MEDS: NS 1,000 ML IV SCH (08:44)
[2021-08-07] MEDS ORDERED: CALCIUM CHLORIDE 10% 1 GM in D5W 100 ML IV ONE ×2 (11:05→12:00)
--- NOTE | 2021-08-07 11:07 | IPNPDOC ---
Subjective Date Seen The patient was seen on 08/07/21. Subjective Chief Complaint/HPI Patient is agitated coming off sedation. However she does follow commands. General: Reports: ROS Unobtainable Objective Physical Examination General Exam: Positive: Other (Sedated comfortably.) Eye Exam: Positive: Conjunctiva & lids normal; Negative: Sclera icteric ENT Exam: Positive: Atraumatic Neck Exam: Positive: Supple; Negative: JVD Chest Exam: Positive: Clear to auscultation, Normal air movement; Negative: Rales, Rhonchi, Wheezing Heart Exam: Positive: Rate Normal, Regular Rhythm Telemetry: Positive: No significant arrhythmia Abdomen Exam: Positive: Normal bowel sounds, Soft; Negative: Tenderness Extremity Exam: Positive: Other (Multiple self-inflicted wounds scar on all 4 extremities); Negative: Clubbing, Edema Neuro Exam: Positive: Strength at 5/5 X4 ext Psych Exam: Positive: Other (Cannot be assessed) Assessment /Plan Assessment This is a 31-year-old female with past medical history of Ehler Danlos, POTS, asthma, depression, PTSD who was brought into the hospital by EMS for drug overdose (Wellbutrin or Benadryl). Plan/VTE VTE Prophylaxis Ordered?: Yes Plan #Acute respiratory failure -Secondary to inability to protect airway due to drug overdose and seizure. Patient is currently intubated. Gas exchange is optimal. Ventilator setting: Assist control/volume control respiratory rate 12, tidal volume 400, PEEP 5, FiO2 21%. -Patient will remain intubated and sedated until Benadryl (half-life for 9 hours) and Wellbutrin (half-life of 36 hours) in the system is metabolized. #Metabolic encephalopathy -Secondary to drug overdose and seizure with possibility of post ictal. -CT brain with no evidence of intracranial pathology. -We will hold off initiating antiepileptic medication. -Daily sedation holiday. #New onset of seizure -Due to Benadryl or Wellbutrin overdose. Will hold off initiating antiepilepsy medication. Seizure precaution. #Anion gap metabolic acidosis -Due to lactic acidosis. She will be started on maintenance IV fluid. #Lactic acidosis -Due to seizure. Lactic acid trending down. #Prolonged QTc -Patient received 2 g of magnesium in the emergency department. Avoid QT prolonging drug. -We will give 1 g of calcium chloride today. #Intentional drug overdose/suicidal attempt -Patient received 2 g of magnesium for prolonged QT and activated charcoal to OT tube. -Poison control on board. -We will keep patient on maintenance IV fluid. -She will need to be assessed by psychiatry and discharged to inpatient psych unit when she is medically cleared. #History is of pots -We will resume fludrocortisone. #History of depression, PTSD and Mcak-Danlos -We will hold all home medications. DVT prophylaxis: Lovenox GI prophylaxis: Protonix Diet: N.p.o. CODE STATUS: Full code Disposition Continue ICU care. VS, I&O, 24H, Fishbone Vital Signs/I&O Vital Signs Date Time Temp Pulse Resp B/P (MAP) Pulse Ox O2 Delivery O2 Flow Rate FiO2 08/07/21 09:00 62 13 104/65 (78) 99 Ventilator 21 08/07/21 07:00 96.7 I&O- Last 24 Hours up to 6 AM 08/07/21 06:00 Intake Total 3052.8 ml Output Total 4005 ml Balance -952.2 ml Laboratory Data 24H LABS Laboratory Tests 2 08/06/21 15:10: Immature Granulocyte % (Auto) 0.4, Neutrophils (%) (Auto) 38.0, Lymphocytes (%) (Auto) 47.7H, Monocytes (%) (Auto) 9.2H, Eosinophils (%) (Auto) 3.9H, Basophils (%) (Auto) 0.8, Neutrophils # (Auto) 4.6, Lymphocytes # (Auto) 5.7H, Monocytes # (Auto) 1.1H, Eosinophils # (Auto) 0.5, Basophils # (Auto) 0.1, Nucleated Red Blood Cells % (auto) 0.0, Anion Gap 22H, Glomerular Filtration Rate > 60.0, Osmolality 295, Lactic Acid Level 16.3*H, Calcium Level 8.6, Total Bilirubin 0.7, Direct Bilirubin 0.2, Aspartate Amino Transf (AST/SGOT) 12, Alanine Aminotransferase (ALT/SGPT) 22, Alkaline Phosphatase 64, Total Creatine Kinase 137, Total Protein 7.9, Albumin 4.9, Albumin/Globulin Ratio 1.6, Thyroid Stimulating Hormone (TSH) 3.480, Salicylates Level < 1.7L, Acetaminophen Level < 2.0L, [place] Level < 0.20L, Ethyl Alcohol Level 0.003 08/06/21 15:13: Blood Gas Bicarbonate Standard 10.0, Venous Blood pH 7.008L, Venous Blood Partial Pressure CO2 41.4, Venous Blood Partial Pressure O2 94.7H, Venous Blood Total Carbon Dioxide 11.4L, Venous Blood HCO3 10.2L, Venous Blood Oxygen Saturation 93.4H, Venous Blood Base Excess -20.6L 08/06/21 15:14: Urine Color COLORLESS, Urine Appearance CLEAR, Urine pH 5.0, Urine Specific [place] 1.009, Urine Protein 1+H, Urine Glucose (UA) 1+H, Urine Ketones NEGATIVE, Urine Blood NEGATIVE, Urine Nitrite NEGATIVE, Urine Bilirubin NEGATIVE, Urine Urobilinogen 0.2, Urine Leukocyte Esterase NEGATIVE, Urine WBC (Auto) 1, Urine RBC (Auto) 0, Urine Hyaline Casts (Auto) 0, Urine Bacteria (Auto) NEGATIVE, Urine Squamous Epithelial Cells 0, Urine Sperm (Auto) , Urine Opiates Screen NEGATIVE, Urine Methadone Screen NEGATIVE, Urine Barbiturates Screen NEGATIVE, Urine Phencyclidine Screen NEGATIVE, Urine Amphetamines Screen NEGATIVE, Urine Benzodiazepines Screen NEGATIVE, Urine Cocaine Metabolite Screen NEGATIVE, Urine Cannabinoids Screen NEGATIVE 08/06/21 15:16: POC Glucose (Misc Panel) 140H, POC Sodium (Misc Panel) 142, POC Potassium (Misc Panel) 3.1L, POC Chloride (Misc Panel) 105, POC Total CO2 (Misc Panel) 12.0L, POC Blood Urea Nitrogen (Misc Panel 11, POC Ionized Calcium (Misc Panel) 4.6, POC Creatinine (Misc Panel) 0.7, POC Hematocrit (Misc Panel) 48.0 08/06/21 15:22: POC Beta HCG, Quantitative < 5.0 08/06/21 16:25: Coronavirus (COVID-19)(PCR) NEGATIVE, Influenza Type A (RT-PCR) NEGATIVE, Influenza Type B (RT-PCR) NEGATIVE, Respiratory Syncytial Virus (PCR) NEGATIVE 08/06/21 16:36: Blood Gas Bicarbonate Standard 21.4L, Arterial Blood pH 7.344L, Arterial Blood Partial Pressure CO2 40.7, Arterial Blood Partial Pressure O2 146.8H, Arterial Blood Total CO2 22.9, Arterial Blood HCO3 21.7L, Arterial Blood Base Excess - 3.8L, Arterial Blood Oxygen Saturation 98.8 08/06/21 21:23: Lactic Acid Followup at 4 Hours 3.9*H 08/07/21 05:21: Nucleated Red Blood Cells % (auto) 0.0, Anion Gap 5L, Glomerular Filtration Rate > 60.0, Calcium Level 7.7L, Phosphorus Level 3.3, Magnesium Level 2.6H CBC/BMP Laboratory Tests 08/06/21 15:10 08/07/21 05:21 SHANAE DEL TORO MD Aug 07, 2021 11:07
[2021-08-07] MEDS: LR 1,000 ML IV SCH (13:37)
[2021-08-07] MEDS: ENOXAPARIN 40MG/0.4ML SYRINGE (J1650 PER 10MG) SC SCH (20:48)
[2021-08-08] VITALS (15 sets, daily range): BP systolic 111–142; BP diastolic 70–91
[2021-08-08] MEDS: MIDAZOLAM INJ 2MG/2ML VIAL (J2250 PER 1MG) IV PRN (01:20)
[2021-08-08] MEDS: LR 1,000 ML IV SCH (02:16)
[2021-08-08] MEDS: propofoL 1,000 MG in IV 1 EA IV SCH ×2 (02:16→06:10)
[2021-08-08 05:12] LABS: HEMOGLOBIN 11.8 g/dl (12.0-15.5); MEAN CORPUSCULAR HEMOGLOBIN 31.9 pg (27.0-33.0); MEAN CORPUSCULAR HGB CONC 33.7 g/dl (32.0-36.5); MEAN CORPUSCULAR VOLUME 94.6 fl (80.0-96.0); PLATELET COUNT, AUTOMATED 194 10^3/uL (150-450); WHITE BLOOD COUNT 10.3 10^3/uL (4.0-10.0)
[2021-08-08 05:25] LABS: BLOOD UREA NITROGEN 10 MG/DL (7-18); CALCIUM LEVEL 8.1 MG/DL (8.5-10.1); CARBON DIOXIDE LEVEL 26 MEQ/L (21-32); CHLORIDE LEVEL 114 MEQ/L (98-107); CREATININE FOR GFR 0.89 MG/DL (0.55-1.30); GLOMERULAR FILTRATION RATE > 60.0 (>60); GLUCOSE, FASTING 99 MG/DL (70-100); POTASSIUM SERUM 3.7 MEQ/L (3.5-5.1); SODIUM LEVEL 145 MEQ/L (136-145)
[2021-08-08] MEDS: FLUDROCORTISONE ACETATE 0.1 MG TAB NG SCH (07:23)
[2021-08-08] MEDS ORDERED: CEPACOL LOZENGE PO PRN (07:45)
--- NOTE | 2021-08-08 07:58 | IPNPDOC ---
Subjective Date Seen The patient was seen on 08/08/21. Subjective Chief Complaint/HPI Complaining of sore throat after extubation. General: Reports: ROS Unobtainable (Patient has sore throat and unable to talk much. ) Objective Physical Examination General Exam: Positive: Alert, Cooperative, No Acute Distress, Other Eye Exam: Positive: Conjunctiva & lids normal; Negative: Sclera icteric ENT Exam: Positive: Atraumatic Neck Exam: Positive: Supple; Negative: JVD Chest Exam: Positive: Clear to auscultation, Normal air movement; Negative: Rales, Rhonchi, Wheezing Heart Exam: Positive: Rate Normal, Regular Rhythm Telemetry: Positive: No significant arrhythmia Abdomen Exam: Positive: Normal bowel sounds, Soft; Negative: Tenderness Extremity Exam: Positive: Other (Multiple self-inflicted wounds scar on all 4 extremities); Negative: Clubbing, Edema Neuro Exam: Positive: Normal Speech, Strength at 5/5 X4 ext Psych Exam: Positive: Mental status NL, Oriented x 3, Other (not suicidal.) Assessment /Plan Assessment This is a 31-year-old female with past medical history of Ehler Danlos, POTS, as thma, depression, PTSD who was brought into the hospital by EMS for drug overdose (Benadryl). Plan/VTE VTE Prophylaxis Ordered?: Yes Plan #Acute respiratory failure -Secondary to inability to protect airway due to drug overdose and seizure. -She was intubated for 48 hrs until the drugs were metabolized. -She's following commands appropriately and did well on spont breath trial. Therefore, she's extubated. #Metabolic encephalopathy -Secondary to drug overdose and seizure with possibility of post ictal. -CT brain with no evidence of intracranial pathology. -We will hold off initiating antiepileptic medication. -She's following commands appropriately. #New onset of seizure -CT brain with no acute intracranial pathology. -Due to Benadryl or Wellbutrin overdose. Will hold off initiating antiepilepsy medication. Seizure precaution. #Anion gap metabolic acidosis -Due to lactic acidosis. She was started on maintenance IV fluid. Acidosis resolved. #Lactic acidosis -Due to seizure. Lactic acid trending down. #Prolonged QTc -Patient received 2 g of magnesium in the emergency department. Avoid QT prolonging drug. -QTc today is 450ms (normal). #Intentional drug overdose/suicidal attempt -Patient received 2 g of magnesium for prolonged QT and activated charcoal to OT tube. -Poison control on board. -We will keep patient on maintenance IV fluid until she can swallow. -Psych consulted for comprehensive eval. #History is of pots -We will resume fludrocortisone. #History of depression, PTSD and Mack-Danlos -We will hold all home medications until cleared by psych to restart. DVT prophylaxis: Lovenox GI prophylaxis: not indicated. Diet: regular diet CODE STATUS: Full code Critical care time excluding procedure is 30 minutes. Disposition possible transfer to inpatient psych vs medsurg this afternoon. VS, I&O, 24H, Fishbone Vital Signs/I&O Vital Signs Date Time Temp Pulse Resp B/P (MAP) Pulse Ox O2 Delivery O2 Flow Rate FiO2 08/08/21 07:31 62 17 99 21 08/08/21 06:00 122/78 (93) Ventilator 08/08/21 04:00 97.0 I&O- Last 24 Hours up to 6 AM 08/08/21 06:00 Intake Total 2461.05 ml Output Total 1735 ml Balance 726.05 ml Laboratory Data 24H LABS Laboratory Tests 2 08/08/21 04:47: Nucleated Red Blood Cells % (auto) 0.0, Anion Gap 5L, Glomerular Filtration Rate > 60.0, Calcium Level 8.1L, Magnesium Level 2.0 CBC/BMP Laboratory Tests 08/08/21 04:47 SHANAE DEL TORO MD Aug 08, 2021 07:58
--- NOTE | 2021-08-08 17:17 | MHIPNPDOC ---
[facility] Progress Note Progress Note DATE OF SERVICE: 08/08/21 HISTORY: As per previous notes: "This is a 31-year-old female with past medical history of Ehler Danlos, POTS, asthma, depression, PTSD who was brought into the hospital by EMS for drug overdose. History was taken from her fianc and emergency physician. Patient was having an argument with her fianc at home. She went into the bathroom and took some pills. When she came out of the bathroom, she collapsed. She told her fianc that she took the bottle of Benadryl. Her fianc called EMS and EMS brought her to the emergency department. On route, patient had an episode of tonic-clonic seizure in which she received Ativan and broke. In the emergency department, she was intubated for airway protection. Labs show slight leukocytosis of 12,000. ABG with significant metabolic acidosis. Lactic acid was 16. There is no evidence of renal failure. [place], salicylate, acetaminophen, ethyl alcohol level were undetectable. EKG with slight prolonged QTC respiratory viral panel was negative. CT scan of the head and neck showed no evidence of intracranial abnormality or neck fracture. Chest x-ray show no evidence of effusion or infiltrate. Endotracheal tube in appropriate position. Poison control was consulted and she was given activated charcoal. She was also given 2 g of magnesium. She will be admitted to ICU for further management." Today, 08/08/21, the patient tells me she did everything impulsively. She says she has had suicidal thoughts all her life and she had planned that if she ever attempted to kill herself she would overdose on Benadryl. She says she really doesn't know why she overdosed. She says she feels tired and a little bit dizzy, she feels sweaty. VITAL SIGNS: See below. NEW TEST RESULTS: See below CURRENT MEDICATIONS: See below. MENTAL STATUS EXAMINATION: Patient is a 31-year old female, who is alert, cooperative, dressed in hospital clothes. Speech: Is slow, tremulous, normal in tone and volume. Language skills are intact. Thought processes including: linear and coherent. Thought content: denies SI/HI, denies thought delusions. Abstract reasoning, and computation: fair. Description of associations: not loose, she is not psychotic Description of abnormal or psychotic thoughts: Denies TAV hallucinations, she is not responding to internal stimuli Judgment: poor Insight: Poor. Orientation: x 3. Recent and remote memory: intact. Attention span and concentration: she is able to focus on the conversation. Language: no abnormalities observed Fund of knowledge: average Mood: depressed. Affect: congruent with mood. DIAGNOSES: 1. Major Depressive disorder, severe 2. PTSD by history 3. suicide attempt 4. POTS 5. Ehler-Danlos. 6. Asthma ASSESSMENT: patient needs to be transferred to [facility], she has put her life at risk recently by taking about 2 gms. of Benadryl which caused a seizure but she was given Ativan that was able to break it. She was intubated. She says she has been depressed for a long time nd has had suicidal thoughts for a long time. She stopped taking Wellbutrin 2-3 weeks ago because she didn't want to call her Psychiatrist ( Telehealth) because she is not happy with her. MANAGEMENT PLAN: Transfer to [facility] TIME SPENT: 20 minutes. Vital Signs Vital Signs Date Time Temp Pulse Resp B/P (MAP) Pulse Ox O2 Delivery O2 Flow Rate FiO2 08/08/21 15:49 99.6 86 20 141/91 (108) 97 Room Air 08/08/21 08:00 2.0 08/08/21 07:31 21 Laboratory Data 24H Labs Laboratory Tests 2 08/08/21 04:47: Nucleated Red Blood Cells % (auto) 0.0, Anion Gap 5L, Glomerular Filtration Rate > 60.0, Calcium Level 8.1L, Magnesium Level 2.0 CBC/BMP Laboratory Tests 08/08/21 04:47 Current Medications Current Medications Medications (Trade) Dose Ordered Sig/Jenny Route PRN Reason Start Time Stop Time Status Last Admin Dose Admin Albuterol/ Ipratropium (Duoneb (Ipr 0.5mg/Alb 2.5mg)) 3 ml Q6HP PRN NEB WHEEZING 08/06/21 17:40 Cetylpyridinium Chloride (Cepacol) 2 michael Q2HP PRN PO SORE THROAT 08/08/21 07:45 Chlorhexidine Gluconate (Peridex Oral Rinse) SWAB/BRUSH ORAL CAVITY BID MT 08/06/21 21:00 08/08/21 07:38 DC 08/07/21 20:48 Dexmedetomidine HCl 200 mcg/IV Miscellaneous Supplies 50 ml @ 4.195 mls/ hr [id number] IV 08/06/21 18:00 08/08/21 07:38 DC 08/07/21 16:11 Enoxaparin Sodium (Lovenox) 40 mg QHS SC 08/06/21 21:00 08/07/21 20:48 Fentanyl Citrate (Sublimaze) 25 mcg Q1HP PRN IV SEVERE PAIN (PS 8-10) 08/06/21 17:35 08/08/21 07:47 DC Fludrocortisone Acetate (Florinef) 0.1 mg DAILY NG 08/07/21 09:00 08/08/21 07:23 Home Med (Home Med List Complete!) ASDIRECTED XX 08/06/21 18:40 08/06/21 18:41 DC Lactated Ringer's 1,000 ml @ 75 mls/hr [id number] IV 08/07/21 10:50 08/08/21 11:37 DC 08/08/21 02:16 Magnesium Sulfate/ Water 2 gm/IV Miscellaneous Supplies 50 ml @ 300 mls/hr STAT STAT IV 08/06/21 15:47 08/06/21 15:56 DC 08/06/21 15:52 Midazolam HCl (Versed) 2 mg Q15MP PRN IV AGITATION 08/06/21 17:20 08/08/21 07:38 DC 08/08/21 01:20 Midazolam HCl 100 mg/Dextrose 100 ml @ 2 mls/hr Q24H IV 08/06/21 15:15 08/06/21 21:31 DC 08/06/21 19:45 Non-Formulary Medication (Refrigerator [place]) Q1M PRN XX SEE LABEL COMMENTS 08/06/21 15:15 Cancel Pantoprazole Sodium (Protonix) 40 mg DAILY IV 08/06/21 09:00 08/08/21 07:38 DC 08/07/21 08:42 Propofol 1000 mg/ IV Miscellaneous Supplies 100 ml @ 5.034 mls/ hr Q12H IV 08/06/21 17:20 08/08/21 07:38 DC 08/08/21 06:10 Sodium Bicarbonate (Sodium Bicarbonate) 50 meq STAT STAT IV 08/06/21 15:47 08/06/21 15:49 DC 08/06/21 16:00 Sodium Chloride 1,000 ml @ 75 mls/hr [id number] IV 08/06/21 18:00 08/07/21 10:53 DC 08/07/21 08:44 Allergies Coded Allergies: Penicillins (Verified Allergy, Unknown, 05/12/21) codeine (Verified Allergy, Unknown, 05/12/21) ROSALINO HOOKS MD Aug 08, 2021 17:09
--- NOTE | 2021-08-08 18:24 | DS.PDOC ---
Discharge Summary General Date of Admission Aug 06, 2021 at 17:18 Date of Discharge 08/08/21 Discharge Summary PROCEDURES PERFORMED DURING STAY: intubation DISCHARGE DIAGNOSES: #suicidal attempt - drug overdose #POTS #depression, PTSD #lacticic acidosis #prolonged QT #new onset seizure - secondary to drug overdose #Mack-Danlos COMPLICATIONS/CHIEF COMPLAINT: Overdose. HISTORY OF PRESENT ILLNESS: From H&P: This is a 31-year-old female with past medical history of Ehler Danlos, POTS, asthma, depression, PTSD who was brought into the hospital by EMS for drug overdose. History was taken from her fianc and emergency physician. Patient was having an argument with her fianc at home. She went into the bathroom and took some pills. When she came out of the bathroom, she collapsed. She told her fianc that she took the bottle of Benadryl. Her fianc called EMS and EMS brought her to the emergency department. On route, patient had an episode of tonic-clonic seizure in which she received Ativan and broke. In the emergency department, she was intubated for airway protection. Labs show slight leukocytosis of 12,000. ABG with significant metabolic acidosis. Lactic acid was 16. There is no evidence of renal failure. [place], salicylate, acetaminophen, ethyl alcohol level were undetectable. EKG with slight prolonged QTC respiratory viral panel was negative. CT scan of the head and neck showed no evidence of intracranial abnormality or neck fracture. Chest x-ray show no evidence of effusion or infiltrate. Endotracheal tube in appropriate position. Poison control was consulted and she was given activated charcoal. She was also given 2 g of magnesium. She will be admitted to ICU for further management. HOSPITAL COURSE: Patient transferred to hospitalist service 08/08/21, psych consulted, and discharged to [facility] for suicidal attempt/intentional drug overdose. #Acute respiratory failure - resolved -Secondary to inability to protect airway due to drug overdose and seizure. -She was intubated for 48 hrs until the drugs were metabolized. -She's following commands appropriately and did well on spont breath trial. Therefore, she's extubated. #Metabolic encephalopathy - resolved -Secondary to drug overdose and seizure with possibility of post ictal. -CT brain with no evidence of intracranial pathology. -We will hold off initiating antiepileptic medication. -She's following commands appropriately. #New onset of seizure -CT brain with no acute intracranial pathology. -Due to Benadryl or Wellbutrin overdose. Will hold off initiating antiepilepsy medication. Seizure precaution. #Anion gap metabolic acidosis -Due to lactic acidosis. She was started on maintenance IV fluid. Acidosis resolved. #Lactic acidosis -Due to seizure. Lactic acid trending down. #Prolonged QTc -Patient received 2 g of magnesium in the emergency department. Avoid QT prolo nging drug. -QTc today is 450ms (normal). #Intentional drug overdose/suicidal attempt -Patient received 2 g of magnesium for prolonged QT and activated charcoal to OT tube. -Poison control on board. -We will keep patient on maintenance IV fluid until she can swallow. -Psych consulted for comprehensive eval. #History is of pots -We will resume fludrocortisone. #History of depression, PTSD and Mack-Danlos -We will hold all home medications until cleared by psych to restart. DISCHARGE MEDICATIONS: Please see below. ALLERGIES: Please see below. PHYSICAL EXAMINATION ON DISCHARGE: VITAL SIGNS: Please see below. GENERAL: NAD HEENT: NC/AT Lungs: CTA B/L Heart: +S1S2, RRR Abd: soft, NT, +BS Ext: no edema Psych: AAOx3 Neuro: no gross focal deficits LABORATORY DATA: Please see below. ACTIVITY: [As tolerated]. DISPOSITION: discharge to [facility] DISCHARGE INSTRUCTIONS: 1. PCP in 3-5 days from discharge from [facility] 2. Further direction as per [facility] DISCHARGE CONDITION: [Stable]. TIME SPENT ON DISCHARGE: 35 minutes. Vital Signs/I&Os Vital Signs Date Time Temp Pulse Resp B/P (MAP) Pulse Ox O2 Delivery O2 Flow Rate FiO2 08/08/21 15:49 99.6 86 20 141/91 (108) 97 Room Air 08/08/21 08:00 2.0 08/08/21 07:31 21 I&O- Last 24 Hours up to 6 AM 08/08/21 06:00 Intake Total 2461.05 ml Output Total 1735 ml Balance 726.05 ml Laboratory Data Labs 24H Laboratory Tests 2 08/08/21 04:47: Nucleated Red Blood Cells % (auto) 0.0, Anion Gap 5L, Glomerular Filtration Rate > 60.0, Calcium Level 8.1L, Magnesium Level 2.0 CBC/BMP Laboratory Tests 08/08/21 04:47 Discharge Medications Scheduled Fludrocortisone Acetate (Fludrocortisone Acetate) 0.1 Mg Tablet, 0.3 MG PO DAILY, (Reported) Allergies Coded Allergies: Penicillins (Verified Allergy, Unknown, 05/12/21) codeine (Verified Allergy, Unknown, 05/12/21) CAROLINE MCGUIRE MD Aug 08, 2021 18:24
[2021-08-08] MEDS: ENOXAPARIN 40MG/0.4ML SYRINGE (J1650 PER 10MG) SC SCH (21:45)
[2021-08-09] MEDS ORDERED: WELLTAB38 PO (09:09)
== END 2021-08-08 21:21 | DRG 812 ==
LOC: EDBD 15:03 → M ED 15:03 → M ED INP 17:18 → M PCU 19:21 → M MSPAV 08-08 15:29 → UNDODISIN 08-08 21:21 → M MSPAV 08-08 22:23 → M PSY 08-08 22:23
PROVIDERS: ADMIT Internal Medicine Critical Care Medicine; ATTEND Internal Medicine
PROC: 5A1945Z Respiratory Ventilation, 24-96 Consecutive Hours (ICD-10-PCS; principal; 2021-08-06)
DX: T45.0X2A Poisoning by antiallergic and antiemetic drugs, intentional self-harm, initial encounter (principal); J96.00 Acute respiratory failure, unspecified whether with hypoxia or hypercapnia; G93.41 Metabolic encephalopathy; E87.2 Acidosis; Q79.60 Ehlers-Danlos syndrome, unspecified; G40.309 Generalized idiopathic epilepsy and epileptic syndromes, not intractable, without status epilepticus; J45.909 Unspecified asthma, uncomplicated; F43.10 Post-traumatic stress disorder, unspecified; F32.9 Major depressive disorder, single episode, unspecified; Z88.0 Allergy status to penicillin; Z88.5 Allergy status to narcotic agent

== ENCOUNTER 2021-08-08 17:37 | Inpatient (IN) | payer BC ==
[~2021-08-08] VITALS: Ht 172.7 cm; Wt 80.7 kg
[~2021-08-08 17:37] MED LIST changes: +COMMENTS; +METH20CP3 PO
[2021-08-08] MEDS ORDERED: MOM 30ML SUSPENSION UDC PO PRN (18:30)
[2021-08-08] MEDS ORDERED: OLANZapine ORAL DISINTEGRATING TAB 5MG PO PRN (18:30)
[2021-08-08] MEDS ORDERED: MAALOX 30 ML SUSP *UDC PO PRN (18:30)
[2021-08-08 22:29] VITALS: BP 153/94
--- OUTSIDE RECORDS SUMMARY | 2021-08-08 22:57 | CCD ---
Author Author [facility] Organization [facility] Address Unknown Phone Unavailable Care Team Providers Care Police Superintendent Name Role Phone Rakan Kapoor MD Unavailable [...] Unavailable Unavailable Terrie Hernandez MD Unavailable Unavailable Terire Hernandez MD Unavailable Unavailable Terrie Hernandez MD [...] Unavailable Terrie Hernandez MD Unavailable Unavailable [facility] Unavailable Unavailable Lai Aguirre MD Unavailable Unavailable [...] F Ángela MD Unavailable Unavailable Howson, F Ánglea MD Unavailable Unavailable Howson, F Ángela MD [...] Sherwin RAMIREZ MD Unavailable Unavailable ANTECOL, Sherwin RAIMREZ MD Unavailable Unavailable ANTECOL, Sherwin RAMIREZ MD Unavailable Unavailable ANTECOL, Sherwin RAMIREZ MD Unavailable Unavailable ANTECOL, Sherwin RAMIREZ MD Unavailable Unavailable ANTECOL, Sherwin RAMIREZ MD Unavailable Unavailable ANTECOL, Sherwin RAMIREZ MD Unavailable Unavailable ANTECOL, Sherwin RAMIREZ MD Unavailable Unavailable ANTECOL, Sherwin RAMIREZ MD Unavailable Unavailable [place]Queen ([facility] COVID), DO NOT EDIT Damon LY Unavail able Unavailable Terrance Grove MD Unavailable Unavailable Terrance Grove MD Unavailable Unavailable SeemRay yadav MD Unavailable Unavailable Seemant, Fnu Unavailable Unavailable Seemant, Fnu Unavailable Unavailable Seemant, Fnu Unavailable Unavailable Seemant Fnu Unavailable Unavailable Seemleif, Fnu Unavailable Unavailable Seemant, Fnu Unavailable Unavailable [...] is protected by Article 27-F of the [facility] Public Health law. If you continue you may have access to information: Regarding HIV / AIDS; Provided by facilities licensed or operated by the [facility] Office of Mental Health; or Provided by the [facility] Office for People With Developmental Disabilities. If such information is present, then the following [facility] mandated warning applies: This information [...] law may result in a fine or senior living sentence or both. A general authorization for the release of medical or other information is NOT sufficient authorization for further disc losure. Family History Family Member Name Family Member Gender Family Member Status Date o f Status Description Data Source(s) Unknown Male Problem [facility] ([facility]) Encounters Encounter Providers Location Date Indications Data Source(s ) Outpatient Attender: ASHLEY ANDERS MD Main Office 07/12/2021 08:00:00 AM EDT [facility] ([facility]) Outpatient 05/12/2021 03:59:15 PM EDT - 021 04:01:58 PM EDT [facility] ([facility]) Outpatient Attender: Gonsalo Lopez [facility] Internal Medicine [facility] 04/28/2021 01:30:00 PM EDT MEDENT ([facility] Outpatient Attender: Lara ALVARESC [facility] Internal [facility] 04/22/2021 02:30:00 PM EDT MED[facility] ([facility] Outpatient Attender: Damon Mark ([facility] [place]) 02/18/2021 02:38:00 PM EDT Covid Testing [facility] Covid Testing Outpatient Attender: Damon Mark ([facility] COVID) MDConsult ant: JOYAID Kuldip 02/17/2021 12:47:00 PM EDT Covid Testing [facility] Covid Testing Outpatient Attender: Misha Brasher DO 02/10/2021 01:00:00 P M EDT dehydration [facility] dehydration Outpatient Attender: Damon Mark ([facility] COVID) MDConsult ant: COVID [facility] 02/07/2021 11:24:00 AM EDT Covid Testing [facility] Covid Testing Outpatient Attender: Damon Mark ([facility] COVID) MDConsult ant: COVID [facility] 01/31/2021 12:02:00 PM EDT Covid Testing [facility] Covid Testing Outpatient Attender: Damon Mark ([facility] COVID) MDConsult ant: COVID [facility] 01/24/2021 02:03:00 PM EDT Covid Testing [facility] Covid Testing Outpatient Attender: Damon Mark ([facility] COVID) MDConsult ant: COVID [facility] 01/17/2021 03:39:00 PM EDT Covid Testing [facility] Covid Testing Outpatient Attender: Damon Mark ([facility] COVID) MDConsult ant: COVID [facility] 01/07/2021 09:07:00 AM EDT Covid Testing [facility] Covid Testing Outpatient Attender: Damon Mark ([facility] COVID) MDConsult ant: COVID [facility] 01/04/2021 12:31:00 PM EDT Covid Testing [facility] Covid Testing Outpatient Attender: Misha Brasher DO [facility] Internal [facility] 01/04/2021 09:40:00 AM EDT [facility] Attender: Misha Brasher DO 01/03/2021 01:1 9:00 PM EDT Syncope and collapse [facility] Syncope and collapse Outpatient Attender: Damon Mark ([facility] COVID) MDConsult ant: COVID [facility] 12/31/2020 01:19:00 PM EDT Covid Testing [facility] Covid Testing Outpatient Attender: Damon Mark ([facility] COVID) MDConsult ant: COVID [facility] 12/28/2020 01:11:00 PM EDT Covid Testing [facility] Covid Testing Outpatient Attender: Damon Mark ([facility] COVID) MDConsult ant: COVID [facility] 12/24/2020 11:38:00 AM EDT Covid Testing [facility] Covid Testing Outpatient Attender: Damon Mark ([facility] COVID) MDConsult ant: COVID [facility] 12/21/2020 11:30:00 AM EDT Covid Testing [facility] Covid Testing Outpatient Attender: Damon Mark ([facility] COVID) MDConsult ant: COVID [facility] 12/19/2020 11:45:00 AM EDT Covid Testing [facility] Covid Testing Outpatient Attender: Damon Hanliliane ([facility] COVID) MDConsult ant: COVID [facility] 12/16/2020 04:31:00 PM EDT Covid Testing [facility] Covid Testing Outpatient Attender: Damon MilesJohnnyliliane ([facility] COVID) MDConsult ant: COVID [facility] 12/10/2020 01:34:00 PM EDT Covid Testing [facility] Covid Testing Outpatient Attender: Damon MilesJohnnyliliane ([facility] COVID) MDConsult ant: COVID [facility] 12/07/2020 01:30:00 PM EDT Covid Testing [facility] Covid Testing Outpatient Attender: Misha Brasher DO 12/03/2020 12:3 4:00 PM EST E86.0 hydration [facility] E86.0 hydration Outpatient Attender: Damon Mark ([facility] COVID) MDConsult ant: COVID [facility] 12/03/2020 11:49:00 AM EST Covid Testing [facility] Covid Testing Office Visit Attender: Gonsalo Lopez [facility] Internal Medicine [facility] 12/02/2020 12:15:00 PM EST [facility] ([facility] Outpatient Attender: Damon Mark ([facility] COVID) MDConsult ant: COVID [facility] 11/30/2020 09:13:00 AM EST Covid Testing [facility] Covid Testing Outpatient Attender: Damon Miles ([facility] COVID) MDConsult ant: COVID [facility] 11/26/2020 09:22:00 AM EST Covid Testing [facility] Covid Testing Outpatient Attender: Misha Brasher DO [facility] Internal [facility] 11/25/2020 08:40:00 AM EST MEDENT ([facility] Outpatient Attender: Misha Brasher DO 11/24/2020 04:4 0:00 PM EST Syncope and collapse [facility] Syncope and collapse Outpatient Attender: Chana REYES 06:34:00 PM EST Acute vaginitis [facility] Acute vaginitis Outpatient Attender: Chana REYES [facility] Internal Med [facility] 11/23/2020 01:30:00 PM EST [facility] ([facility] Outpatient Attender: Damon Mark ([facility] COVID) MDConsult ant: COVID [facility] 11/22/2020 08:43:00 AM EST Covid Testing [facility] Covid Testing Outpatient Attender: Misha Brasher DO [facility] Internal [facility] 11/16/2020 08:00:00 AM EST [facility] ([facility] Outpatient Attender: Damon Mark ([facility] COVID) MDConsult ant: COVID [facility] 11/15/2020 01:58:00 PM EST Covid Testing [facility] Covid Testing Outpatient Attender: Misha Brasher DO 11/12/2020 02:0 0:00 PM EST E86.0 Dehydration [facility] E86.0 Dehydration Outpatient Attender: Damon Mark ([facility] COVID) MDConsult ant: COVID [facility] 11/11/2020 01:13:00 PM EST Covid Testing [facility] Covid Testing Outpatient Attender: Misha Brasher DO [facility] 11/09/2020 09:00:00 AM EST [facility] ([facility] Outpatient Attender: Damon Mark ([facility] COVID) MDConsult ant: COVID [facility] 11/05/2020 04:59:00 PM EST Covid Testing [facility] Covid Testing Office Visit Attender: Gonsalo Lopez [facility] Internal [facility] 11/02/2020 10:30:00 AM EST [facility] ([facility] Outpatient Attender: Damon Mark ([facility] COVID) MDConsult ant: COVID [facility] 11/01/2020 02:45:00 PM EST Covid Testing [facility] Covid Testing Outpatient Attender: Damon Mark ([facility] COVID) MDConsult ant: COVID [facility] 10/28/2020 01:14:00 PM EST Covid Testing [facility] Covid Testing Outpatient Attender: Damon Mark ([facility] COVID) MDConsult ant: COVID [facility] 10/25/2020 10:59:00 AM EST Covid Testing [facility] Covid Testing Outpatient Attender: Obdulia Hernandez MD [facility] Internal Medicine [facility] 10/07/2020 12:30:00 PM EST MED[facility] ([facility] Office Visit Attender: Gonsalo Lopez [facility] Internal [facility] 10/05/2020 10:30:00 AM EST [facility] ([facility] Outpatient Attender: Gonsalo Lopez 09/22 09:53:00 AM EST - 09/22/2020 06:10:00 PM EST OTHER [facility] OTHER [facility]ST[facility], RIGHT SHOULDER Patient discharged. Outpatient Attender: Damon Mark ([facility] COVID) MDConsult ant: COVID [facility] 09/18/2020 01:38:00 PM EST Covid Testing [facility] Covid Testing Outpatient Attender: Misha Brasher DO [facility] Internal [facility] 09/13/2020 03:40:00 PM EST [facility] ([facility] Outpatient Attender: Damon Mark ([facility] COVID) MDConsult ant: COVID [facility] 09/13/2020 12:16:00 PM EST Covid Testing [facility] Covid Testing Outpatient Attender: Damon Mark ([facility] COVID) MDConsult ant: COVID [facility] 09/10/2020 09:47:00 AM EST Covid Testing [facility] Covid Testing Outpatient Attender: Damon Mark ([facility] ADAM LY 09/08/2020 02:36:00 PM EST Covid Testing [facility] Covid Testing Outpatient Attender: Gonsalo Lopez 09/07/2020 04: 00:00 PM EST OTHER INSTABILITY, RIGHT SHOULDER [facility] OTHER INSTABILITY, RIGHT SHOULDER Outpatient Attender: Damon Mark ([facility] COVID) MDConsult ant: COVID [facility] 09/03/2020 02:41:00 PM EST Covid Testing [facility] Covid Testing Outpatient Attender: Damon Mark ([facility] COVID) MDConsult ant: COVID [facility] 08/30/2020 08:12:00 AM EST Covid Testing [facility] Covid Testing Outpatient Attender: Damon Mark ([facility] COVID) 08/28/2020 10:46:00 AM EST Covid Testing [facility] Covid Testing Outpatient Attender: Damon Mark ([facility] COVID) MDConsult ant: COVID [facility] 08/27/2020 02:38:00 PM EST Covid Testing [facility] Covid Testing Outpatient Attender: Damon Mark ([facility] COVID) MDConsult ant: COVID [facility] 08/23/2020 10:44:00 AM EST Covid Testing [facility] Covid Testing Emergency Attender: Laney Smith MDAttender: [facility] 08/22/2020 09:22:00 AM EST - 08/22/2020 11:00:00 AM EST THUMB INJURY [facility] ter THUMB INJURY Patient discharged. Outpatient Attender: Damon Mark ([facility] COVID) MDConsult ant: COVID [facility] 08/20/2020 01:05:00 PM EST Covid Testing [facility] Covid Testing Outpatient Attender: Gonsalo Lopez 08/17/2020 10: 58:00 AM EST Other instability, right shoulder [facility] Other instability, right shoulder Outpatient Attender: Damon Mark ([facility] COVID) MDConsult ant: COVID [facility] 08/16/2020 02:02:00 PM EST Covid Testing [facility] Covid Testing Outpatient Attender: Damon Mark ([facility] COVID) MDConsult ant: COVID [facility] 08/13/2020 01:12:00 PM EST Covid Testing [facility] Covid Testing Outpatient Attender: Gonsalo Lopez [facility] Internal Medicine [facility] 08/10/2020 12:45:00 PM EST MED[facility] ([facility] Outpatient Attender: Damon Mark ([facility] COVID) MDConsult ant: COVID [facility] 08/09/2020 12:45:00 PM EST Covid Testing [facility] Covid Testing Outpatient Attender: Damon Mark ([facility] COVID) MDConsult ant: COVID [facility] 08/06/2020 02:33:00 PM EST Covid Testing [facility] Covid Testing Outpatient Attender: Damon Mark ([facility] COVID) MDConsult ant: COVID [facility] 08/01/2020 02:47:00 PM EST Covid Testing [facility] Covid Testing Outpatient Attender: Damon MilesJohnnyliliane ([facility] COVID) MDConsult ant: COVID [facility] 07/27/2020 11:37:00 AM EST Covid Testing [facility] Covid Testing Outpatient Attender: Damon MilesJohnnyliliane ([facility] COVID) MDConsult ant: COVID [facility] 07/20/2020 11:32:00 AM EDT Covid Testing [facility] Covid Testing Outpatient Attender: Damon Deedee ([facility] COVID) MDConsult ant: COVID [facility] 07/16/2020 03:57:00 PM EDT Covid Testing [facility] Covid Testing Outpatient Attender: Damon Deedee ([facility] COVID) MDConsult ant: COVID [facility] 07/12/2020 03:50:00 PM EDT Covid Testing [facility] Covid Testing Outpatient Attender: Damon Mark ([facility] COVID) MDConsult ant: COVID [facility] 07/09/2020 02:38:00 PM EDT Covid Testing [facility] Covid Testing Outpatient Attender: Damon Deedee ([facility] COVID) MDConsult ant: COVID [facility] 07/05/2020 08:22:00 AM EDT Covid Testing [facility] Covid Testing Outpatient Attender: Damon Deedee ([facility] COVID) MDConsult ant: COVID [facility] 07/02/2020 01:58:00 PM EDT Covid Testing [facility] Covid Testing Outpatient Attender: Damon Deedee ([facility] COVID) MDConsult ant: COVID [facility] 06/28/2020 11:15:00 AM EDT Covid Testing [facility] Covid Testing Outpatient Attender: Damon Deedee ([facility] COVID) MDConsult ant: COVID [facility] 06/24/2020 05:31:00 PM EDT [facility] Outpatient Attender: Damon Mark ([facility] COVID) MDConsult ant: COVID [facility] 06/21/2020 04:49:00 PM EDT [facility] Outpatient Attender: Damon Mark ([facility] COVID) MDConsult ant: COVID [facility] 06/18/2020 08:13:00 AM EDT [facility] Outpatient Attender: Damon Mark ([facility] COVID) MDConsult ant: COVID [facility] 06/14/2020 12:16:00 PM EDT [facility] Outpatient Attender: Damon Mark ([facility] COVID) MDConsult ant: COVID [facility] 06/12/2020 09:49:00 AM EDT [facility] Outpatient Attender: Damon Mark ([facility] COVID) MDConsult ant: COVID [facility] 06/11/2020 12:40:00 PM EDT [facility] Outpatient Attender: Gonsalo Lopez [facility] Internal Medicine [facility] 06/10/2020 08:00:00 AM EDT MED[facility] ([facility]ngela San MD 06/08/2020 04:04:00 PM EDT - 06/08/2020 05:31:00 PM EDT RIGHT SHOULDER INJURY [facility] ter RIGHT SHOULDER INJURY Patient discharged. Emergency Attender: Ray Perry MDAttender: [facility] 05/23/2020 09:03:00 AM EDT - 05/23/2020 10:45:00 AM EDT SHOULDER/BACK/ CHEST INJURY [facility] SHOULDER/BACK/ CHEST INJURY Patient discharged. Emergency Attender: Feliz Mayer MD 2018 04:18:00 PM EDT - 12/25/2018 07:08:00 PM EDT BLOODY VOMIT PER PT [facility] BLOODY VOMIT PER PT Inpatient Attender: Terrance Wolf nder: Rakan Kapoor MDAttender: Oliver Aguirre MDAttender: Talita Ochoa MDAdmitter: Rakan Kapoor MD 09/01/2018 02:31:00 AM EST - 09/06/2018 02:45:00 PM EST UNSPECIFIED DEPRESSIVE D/O [facility] UNSPECIFIED DEPRESSIVE D/O Immunizations Vaccine Date Status Description Data Source(s) COVID-19 VACCINE Pfizer 12/25/2020 12:00:00 AM EDT completed [facility] Vaccine Series Complete: YESThis Data wa s Submitted to [facility] Via [email or web address]. COVID-19 VACCINE Pfizer 12/04/2020 12:00:00 AM EST completed [facility] Vaccine Series Complete: NOThis Data was Submitted to [facility] [email or web address]. Medications Medication Brand Name Start Date Product Form Dose Route Admi nistrative Instructions Pharmacy Instructions Status Indications Reaction Description Data Source(s) Diazepam 5 MG Oral Tablet Diazepam 07/11/2021 12:00:00 AM EDT active [facility] ([facility] Ibuprofen 200 MG Oral Capsule Ibuprofen 07/11/2021 12:00:00 AM EDT active [facility] ([facility]) 12 HR Bupropion Hydrochloride 150 MG Extended Release Oral Tablet [Wellbutrin] Wellbutrin SR 07/11/2021 12:00:00 AM EDT ORAL active [facility] ([facility]) Jornay PM Jornay PM 07/11/2021 12:00:00 AM EDT ORAL act edwin MEDENT ([facility]) Fludrocortisone 0.1 MG Oral Tablet Fludrocortisone Acetate 1 12:00:00 AM EDT ORAL active [facility] ([facility]) cetirizine hydrochloride 10 MG Oral Capsule [Zyrtec] Zyrtec Allergy 07/11/2021 12:00:00 AM EDT ORAL active M EDENT ([facility]) Fludrocortisone 0.1 MG Oral Tablet Fludrocortisone Acetate 0 11/25/2020 12:00:00 AM EST ORAL active [facility] ([facility] Normal Saline Infusion 11/18/2020 12:00:00 AM EST active [facility] ([facility] Fludrocortisone 0.1 MG Oral Tablet Fludrocortisone Acetate 0 11/16/2020 12:00:00 AM EST ORAL completed [facility] ([facility] Wheelchair 11/10/2020 12:00:00 AM EST active [facility] ([facility] Fludrocortisone 0.1 MG Oral Tablet Fludrocortisone Acetate 0 11/09/2020 12:00:00 AM EST ORAL completed [facility] ([facility] Cyclobenzaprine hydrochloride 10 MG Oral Tablet Cyclobenzapr ine HCL 10/06/2020 12:00:00 AM EST ORAL completed [facility] ([facility] Ondansetron 4 MG Oral Tablet Ondansetron HCL 09/27/2020 12:00:00 AM EST active [facility] ([facility] Acetaminophen 325 MG / Hydrocodone Bitartrate 5 MG Oral Tabl et [[place]] [place] 09/27/2020 12:00:00 AM EST ORAL completed MEDENT ([facility] Acetaminophen 325 MG / Oxycodone Hydrochloride 5 MG Or al Tablet Oxycodone-Acetaminophen 09/22/2020 12:00:00 AM EST ORAL completed MEDENT ([facility] Fluconazole 150 MG Oral Tablet [Diflucan] Diflucan 09/22/2020 1 2:00:00 AM EST completed MED[facility] ([facility] Sulfamethoxazole 800 MG / Trimethoprim 160 MG Oral Tab let Sulfamethoxazole/Trimethoprim DS 09/22/2020 12:00:00 AM EST completed [facility] ([facility] nebivolol 5 MG Oral Tablet [Bystolic] Bystolic 05/12/2020 12:00:00 AM EDT ORAL completed MED[facility] ([facility] Insurance Providers Payer name Policy type / Coverage type Policy ID Covered constitution party ID Covered constitution party's relationship to prieto Policy Prieto Plan Information [employer] [id number] SELF [id number] [employer] [id number] SELF [id number] [employer] [id number] SELF [id number] [employer] Commercial [id number] Self [id number] [employer] [id number] SELF [id number] [employer] [id number] SELF [id number] [employer] Commercial [id number] Self [id number] [employer] Commercial [id number] Self [id number] [employer] Commercial [id number] Self [id number] [employer] [facility] F [id number] SELF [id number] SELF PAY [employer] [id number] Self [id number] SELF PAY [employer] [id number] SELF [id number] SELF PAY [employer] [id number] SELF [id number] COVID19 ONLY 0 0 SELF PAY SELF PAY [employer] [id number] SELF [id number] COVID19 ONLY 0 0 SELF PAY [employer] [id number] SELF [id number] SELF PAY [employer] [id number] SELF [id number] [employer] [id number] SELF [id number] COVID19 ONLY 0 0 SELF PAY SELF PAY SELF PAY SELF PAY SELF PAY [employer] [id number] SELF [id number] [employer] [id number] SELF [id number] SELF PAY SELF PAY SELF PAY SELF PAY SELF PAY SELF PAY SELF PAY [employer] [id number] SELF [id number] [employer] [id number] SELF [id number] SELF PAY SELF PAY SELF PAY [employer] [id number] SELF [id number] SELF PAY SELF PAY SELF PAY SELF PAY SELF PAY [employer] ST[employer]ENT HEALTH [id number] SELF [id number] SELF PAY SELF PAY [employer] [id number] SELF [id number] [employer] [id number] SELF [id number] SELF PAY SELF PAY SELF PAY [employer] [id number] SELF [id number] SELF PAY SELF PAY [employer] [id number] SELF [id number] SELF PAY [employer] [id number] SELF [id number] SELF PAY SELF PAY AETNA [id number] SP [id number] [employer] [id number] Self [id number] [employer] [id number] Self [id number] [employer] [id number] Self [id number] [employer] [id number] Self [id number] [employer] F [id number] SELF [id number] [employer] F Awaiting SELF Aw aiting [employer] ST[employer]ENT [employer] [id number] SELF [id number] BC[employer] ANTHEM [id number] SP [id number] Problems, Conditions, and Diagnoses Code Display Name Description Problem Type Effective Dates Data Source(s) Z20.822 Z20.822 - Contact with and (suspected) e xposure to COVID-19 Z20.822 - Contact with and (suspected) exposure to COVID-19 Diagnosis 01/23 02:38:00 PM EDT [facility] R55 Syncope and collapse R55 - Syncope and collapse Diagno sis 01/03/2021 01:19:00 PM EDT [facility] N76.0 Acute vaginitis N76.0 - Acute vaginitis Diagnosis 0 11/23/2020 06:34:00 PM [facility] Z11.59 Encounter for screening for other viral diseases Z11.59 - Encounter for screening for other viral diseases Diagnosis 10/25/2020 10:59:00 AM [facility] S69.91XA Unspecified injury of right wrist, hand and finger(s), initial encounter S69.91XA - Unspecified injury of right w rist, hand and finger(s), initial encounter Diagnosis 08/22/2020 09:22:00 AM [facility] M25.311 Other instability, right shoulder M25.31 1 - Other instability, right shoulder Diagnosis 08/17/2020 10:58:00 AM [facility] I49.8 Conduction disorder of the heart Conduction disorder o f the heart Problem 07/12/2021 12:00:00 AM EDT [facility] ([facility]) 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/12/2021 12:00:00 AM EDT [facility] ([facility]) [id number] Cystocele Cystocele Problem 08/31/2020 12:00:00 AM ES T [facility] ([facility] [id number] Urinary incontinence Urinary incontinence Problem 08/31/2020 12:00:00 AM EST [facility] ([facility] [id number] 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 Problem 08/31/2020 12:00:00 AM EST [facility] Surgeries/Procedures Procedure Description Date Indications Data Source(s) ECG ROUTINE ECG W/LEAST 12 LDS W/I&R 07/12/2021 12:00: 00 AM EDT [facility] ([facility]) OFFICE OUTPATIENT NEW 45 MINUTES 07/12/2021 12:00:00 A M EDT [facility] ([facility]) OFFICE OUTPATIENT VISIT 15 MINUTES 04/28/2021 12:00:00 AM EDT [facility] ([facility] RADEX SHOULDER COMPLETE MINIMUM 2 VIEWS 04/22/2021 12: 00:00 AM EDT [facility] ([facility] OFFICE OUTPATIENT VISIT 15 MINUTES 04/22/2021 12:00:00 AM EDT [facility] ([facility] OFFICE OUTPATIENT VISIT 15 MINUTES 01/04/2021 12:00:00 AM EDT [facility] ([facility] OFFICE OUTPATIENT VISIT 25 MINUTES 11/25/2020 12:00:00 AM EST [facility] ([facility] OFFICE OUTPATIENT VISIT 15 MINUTES 11/23/2020 12:00:00 AM EST [facility] ([facility] OFFICE OUTPATIENT VISIT 25 MINUTES 11/16/2020 12:00:00 AM EST [facility] ([facility] ECG ROUTINE ECG W/LEAST 12 LDS W/I&R 11/09/2020 12:00: 00 AM EST [facility] ([facility] OFFICE OUTPATIENT VISIT 25 MINUTES 11/09/2020 12:00:00 AM EST [facility] ([facility] FIT&INSJ PESSARY/OTH INTRAVAGINAL SUPPORT DEVICE 10/07 12:00:00 AM EST [facility] ([facility] ANESTHESIA BICEPS TENODESIS RUPTURE LONG TENDON 2019 12:00:00 AM EST [facility] ([facility] TENODESIS LONG TENDON BICEPS 09/22/2020 12:00:00 AM ES T [facility] ([facility] TENODESIS LONG TENDON BICEPS 09/22/2020 12:00:00 AM ES T [facility] ([facility] TENODESIS LONG TENDON BICEPS 09/22/2020 12:00:00 AM ES T [facility] ([facility] ARTHROSCOPY SHOULDER SURGICAL CAPSULORRHAPHY 0 12:00:00 AM EST [facility] ([facility] ARTHROSCOPY SHOULDER SURGICAL CAPSULORRHAPHY 0 12:00:00 AM EST [facility] ([facility] ARTHROSCOPY SHOULDER SURGICAL CAPSULORRHAPHY 0 12:00:00 AM EST [facility] ([facility] ARTHROSCOPY SHOULDER SURG DEBRIDEMENT LIMITED 09/22/20 20 12:00:00 AM EST [facility] ([facility] ECG ROUTINE ECG W/LEAST 12 LDS W/I&R 09/13/2020 12:00: 00 AM EST [facility] ([facility] ECHO TTHRC R-T 2D W/WOM-MODE COMPL SPEC&COLR DOP 06/25 12:00:00 AM EDT [facility] ([facility] ECHO TTHRC R-T 2D W/WOM-MODE COMPL SPEC&COLR DOP 06/25 12:00:00 AM EDT [facility] ([facility] Results ID Date Data Source [id number] 02/18/2021 02:38:00 PM EDT [facility] Name Value Range Interpretation Code Description Data Najma rce(s) Supporting Document(s) SARS-CoV-2 (COVID-19) RNA [Presence] in Respiratory specimen by JW with probe detection Undetected [facility] This lab was ordered by [facility] and reported by [facility]. ID Date Data Source [id number] 02/18/2021 07:46:00 PM EDT [facility] Anterior NareScreening Z20.822 COVIDPTR2 [id number] Name Value Range Interpretation Code Description Data Najma rce(s) Supporting Document(s) SARS Coronavirus-2, PCR Undetected Undetected [facility] Negative results do not preclude SARS-Co V-2 infection andshould not be used as the sole basis for patient managementdecisions.The Tetracore RT-PCR COVID-19 assay has been internallyvalidated for saliva and pooled upper respiratory specimens.Source: Anterior Nare ID Date Data Source [id number] 02/07/2021 11:25:00 AM EDT [facility] Name Value Range Interpretation Code Description Data Najma rce(s) Supporting Document(s) SARS-CoV-2 (COVID-19) RNA [Presence] in Respiratory specimen by JW with probe detection Undetected [facility] This lab was ordered by [facility] and reported by [facility]. ID Date Data Source [id number] 02/07/2021 04:42:00 PM EDT [facility] Anterior NareScreening Z20.822 COVIDPTR2 [id number] Name Value Range Interpretation Code Description Data Najma rce(s) Supporting Document(s) SARS Coronavirus-2, PCR Undetected Undetected [facility] Negative results do not preclude SARS-Co V-2 infection andshould not be used as the sole basis for patient managementdecisions.The Tetracore RT-PCR COVID-19 assay has been internallyvalidated for saliva and pooled upper respiratory specimens.Source: Anterior Nare ID Date Data Source [id number] 01/31/2021 12:03:00 PM EDT [facility] Name Value Range Interpretation Code Description Data Najma rce(s) Supporting Document(s) SARS-CoV-2 (COVID-19) RNA [Presence] in Respiratory specimen by JW with probe detection Undetected [facility] This lab was ordered by [facility] and reported by [facility]. ID Date Data Source [id number] 01/31/2021 06:52:00 PM EDT [facility] Anterior NareScreening Z20.822 COVIDPTR2 [id number] Name Value Range Interpretation Code Description Data Najma rce(s) Supporting Document(s) SARS Coronavirus-2, PCR Undetected Undetected [facility] Negative results do not preclude SARS-Co V-2 infection andshould not be used as the sole basis for patient managementdecisions.The Tetracore RT-PCR COVID-19 assay has been internallyvalidated for saliva and pooled upper respiratory specimens.Source: Anterior Nare ID Date Data Source [id number] 01/17/2021 03:40:00 PM EDT [facility] Name Value Range Interpretation Code Description Data Najma rce(s) Supporting Document(s) SARS-CoV-2 (COVID-19) RNA [Presence] in Respiratory specimen by WJ with probe detection Undetected [facility] This lab was ordered by [facility] and reported by [facility]. ID Date Data Source [id number] 01/18/2021 12:34:00 PM EDT [facility] Anterior NareScreening Z20.822 COVIDPTR2 [id number] Name Value Range Interpretation Code Description Data Najma rce(s) Supporting Document(s) SARS Coronavirus-2, PCR Undetected Undetected [facility] Negative results do not preclude SARS-Co V-2 infection andshould not be used as the sole basis for patient managementdecisions.The Tetracore RT-PCR COVID-19 assay has been internallyvalidated for saliva and pooled upper respiratory specimens.Source: Anterior Nare ID Date Data Source [id number] 01/07/2021 09:07:00 AM EDT [facility] Name Value Range Interpretation Code Description Data Najma rce(s) Supporting Document(s) SARS-CoV-2 (COVID-19) RNA [Presence] in Respiratory specimen by JW with probe detection Undetected [facility] This lab was ordered by [facility] and reported by [facility]. ID Date Data Source [id number] 01/07/2021 02:56:00 PM EDT [facility] Anterior NareScreening Z20.822 COVIDPTR2 [id number] Name Value Range Interpretation Code Description Data Najma rce(s) Supporting Document(s) SARS Coronavirus-2, PCR Undetected Undetected [facility] Negative results do not preclude SARS-Co V-2 infection andshould not be used as the sole basis for patient managementdecisions.The Tetracore RT-PCR COVID-19 assay has been internallyvalidated for saliva and pooled upper respiratory specimens.Source: Anterior Nare ID Date Data Source [id number] 01/04/2021 12:31:00 PM EDT [facility] Name Value Range Interpretation Code Description Data Najma rce(s) Supporting Document(s) SARS-CoV-2 (COVID-19) RNA [Presence] in Respiratory specimen by JW with probe detection Undetected [facility] This lab was ordered by [facility] and reported by [facility]. ID Date Data Source [id number] 01/04/2021 06:41:00 PM EDT [facility] Anterior NareScreening Z20.822 COVIDPTR2 [id number] Name Value Range Interpretation Code Description Data Najma rce(s) Supporting Document(s) SARS Coronavirus-2, PCR Undetected Undetected [facility] Negative results do not preclude SARS-Co V-2 infection andshould not be used as the sole basis for patient managementdecisions.The Tetracore RT-PCR COVID-19 assay has been internallyvalidated for saliva and pooled upper respiratory specimens.Source: Anterior Nare ID Date Data Source [id number] 01/03/2021 01:21:00 PM EDT [facility] ([facility] Name Value Range Interpretation Code Description Data Najma rce(s) Supporting Document(s) Sodium [Moles/volume] in Serum or Plasma 142 mmol/L 135-145 [facility] ([facility] Potassium [Moles/volume] in Serum or Plasma 4.5 mmol/L 3.5-5.0 [facility] ([facility] Chloride [Moles/volume] in Serum or Plasma 109 mmol/L 101-111 [facility] ([facility] Carbon dioxide, total [Moles/volume] in Serum or Plasma 28 mmol/L 22 -32 [facility] ([facility] Anion Gap 5 mmol/L 2-11 [facility] ([facility] Urea nitrogen [Mass/volume] in Serum or Plasma 14 mg/dL 6-24 [facility] ([facility] Glucose [Mass/volume] in Serum or Plasma 94 mg/dL 70-100 [facility] ([facility] Creatinine [Mass/volume] in Serum or Plasma 0.90 mg/dL 0.51-0.95 [facility] ([facility] Calcium [Mass/volume] in Serum or Plasma 9.7 mg/dL 8.6-10.3 [facility] ([facility] BUN/Creatinine Ratio 15.6 8-20 [facility] ([facility] Glomerular filtration rate/1.73 sq M pre dicted among blacks [Volume Rate/Area] in Serum or Plasma by Creatinine-based formula (MDRD) 89.6 [facility] ([facility] <content>Because ethnic data [...] or Plasma by Creatinine-based formula (MDRD) 74.0 [facility] ([facility] ID Date Data Source [id number] 01/03/2021 02:43:00 PM EDT [facility] Name Value Range Interpretation Code Description Data Najma rce(s) Supporting Document(s) Sodium 142 mmol/L 135-145 N [facility] Potassium 4.5 mmol/L 3.5-5.0 N [facility] Chloride 109 mmol/L 101-111 N [facility] CO2 Carbon Dioxide 28 mmol/L 22-32 N [facility] Anion Gap 5 mmol/L 2-11 N [facility] Glucose 94 mg/dL 70-100 N [facility] Blood Urea Nitrogen 14 mg/dL 6-24 N [facility] Creatinine 0.90 mg/dL 0.51-0.[address] [facility] [address] BUN/Creatinine Ratio 15.6 8-20 N [facility] Calcium 9.7 mg/dL 8.6-10.3 N [facility] r EGFR Non- 74.0 >60 [facility] EGFR 89.6 >60 [facility] Because ethnic data is not [...] <15 (or dialysis) ID Date Data Source [id number] 12/31/2020 01:33:00 PM EDT [facility] Name Value Range Interpretation Code Description Data Najma rce(s) Supporting Document(s) SARS-CoV-2 (COVID-19) RNA [Presence] in Respiratory specimen by JW with probe detection Undetected [facility] This lab was ordered by [facility] and reported by [facility]. ID Date Data Source [id number] 12/31/2020 07:11:00 PM EDT [facility] Anterior NareScreening Z20.822 COVIDPTR2 [id number] Name Value Range Interpretation Code Description Data Najma rce(s) Supporting Document(s) SARS Coronavirus-2, PCR Undetected Undetected [facility] Negative results do not preclude SARS-Co V-2 infection andshould not be used as the sole basis for patient managementdecisions.The Tetracore RT-PCR COVID-19 assay has been internallyvalidated for saliva and pooled upper respiratory specimens.Source: Anterior Nare ID Date Data Source [id number] 12/28/2020 01:11:00 PM EDT [facility] Name Value Range Interpretation Code Description Data Najma rce(s) Supporting Document(s) SARS-CoV-2 (COVID-19) RNA [Presence] in Respiratory specimen by JW with probe detection Undetected [facility] This lab was ordered by [facility] and reported by [facility]. ID Date Data Source [id number] 12/29/2020 08:18:00 AM EDT [facility] Anterior NareScreening Z20.822 COVIDPTR2 [id number] Name Value Range Interpretation Code Description Data Najma rce(s) Supporting Document(s) SARS Coronavirus-2, PCR Undetected Undetected [facility] Negative results do not preclude SARS-Co V-2 infection andshould not be used as the sole basis for patient managementdecisions.The Tetracore RT-PCR COVID-19 assay has been internallyvalidated for saliva and pooled upper respiratory specimens.Source: Anterior Nare ID Date Data Source [id number] 12/24/2020 11:39:00 AM EDT [facility] Name Value Range Interpretation Code Description Data Najma rce(s) Supporting Document(s) SARS-CoV-2 (COVID-19) RNA [Presence] in Respiratory specimen by JW with probe detection Undetected [facility] This lab was ordered by [facility] and reported by [facility]. ID Date Data Source [id number] 12/24/2020 05:37:00 PM EDT [facility] Anterior NareScreening Z20.822 COVIDPTR2 [id number] Name Value Range Interpretation Code Description Data Najma rce(s) Supporting Document(s) SARS Coronavirus-2, PCR Undetected Undetected [facility] Negative results do not preclude SARS-Co V-2 infection andshould not be used as the sole basis for patient managementdecisions.The Tetracore RT-PCR COVID-19 assay has been internallyvalidated for saliva and pooled upper respiratory specimens.Source: Anterior Nare ID Date Data Source [id number] 12/21/2020 11:32:00 AM EDT [facility] Name Value Range Interpretation Code Description Data Najma rce(s) Supporting Document(s) SARS-CoV-2 (COVID-19) RNA [Presence] in Respiratory specimen by JW with probe detection Undetected [facility] This lab was ordered by [facility] and reported by [facility]. ID Date Data Source [id number] 12/21/2020 04:26:00 PM EDT [facility] Anterior NareScreening Z20.822 COVIDPTR2 [id number] Name Value Range Interpretation Code Description Data Najma rce(s) Supporting Document(s) SARS Coronavirus-2, PCR Undetected Undetected [facility] Negative results do not preclude SARS-Co V-2 infection andshould not be used as the sole basis for patient managementdecisions.The Tetracore RT-PCR COVID-19 assay has been internallyvalidated for saliva and pooled upper respiratory specimens.Source: Anterior Nare ID Date Data Source [id number] 12/19/2020 11:46:00 AM EDT [facility] Name Value Range Interpretation Code Description Data Najma rce(s) Supporting Document(s) SARS-CoV-2 (COVID-19) RNA [Presence] in Respiratory specimen by JW with probe detection Undetected [facility] This lab was ordered by [facility] and reported by [facility]. ID Date Data Source [id number] 12/19/2020 06:38:00 PM EDT [facility] Anterior NareScreening Z20.822 COVIDPTR2 [id number] Name Value Range Interpretation Code Description Data Najma rce(s) Supporting Document(s) SARS Coronavirus-2, PCR Undetected Undetected [facility] Negative results do not preclude SARS-Co V-2 infection andshould not be used as the sole basis for patient managementdecisions.The Tetracore RT-PCR COVID-19 assay has been internallyvalidated for saliva and pooled upper respiratory specimens.Source: Anterior Nare ID Date Data Source [id number] 12/16/2020 04:32:00 PM EDT [facility] Name Value Range Interpretation Code Description Data Najma rce(s) Supporting Document(s) SARS-CoV-2 (COVID-19) RNA [Presence] in Respiratory specimen by JW with probe detection Undetected [facility] This lab was ordered by [facility] and reported by [facility]. ID Date Data Source [id number] 12/17/2020 01:00:00 PM EDT [facility] Anterior NareScreening Z20.822 COVIDPTR2 [id number] Name Value Range Interpretation Code Description Data Najma rce(s) Supporting Document(s) SARS Coronavirus-2, PCR Undetected Undetected [facility] Negative results do not preclude SARS-Co V-2 infection andshould not be used as the sole basis for patient managementdecisions.The Tetracore RT-PCR COVID-19 assay has been internallyvalidated for saliva and pooled upper respiratory specimens.Source: Anterior Nare ID Date Data Source [id number] 12/10/2020 01:54:00 PM EDT [facility] Name Value Range Interpretation Code Description Data Najma rce(s) Supporting Document(s) SARS-CoV-2 (COVID-19) RNA [Presence] in Respiratory specimen by JW with probe detection Undetected [facility] This lab was ordered by [facility] and reported by [facility]. ID Date Data Source [id number] 12/10/2020 08:36:00 PM EDT [facility] Anterior NareScreening Z20.822 COVIDPTR2 [id number] Name Value Range Interpretation Code Description Data Najma rce(s) Supporting Document(s) SARS Coronavirus-2, PCR Undetected Undetected [facility] Negative results do not preclude SARS-Co V-2 infection andshould not be used as the sole basis for patient managementdecisions.The Tetracore RT-PCR COVID-19 assay has been internallyvalidated for saliva and pooled upper respiratory specimens.Source: Anterior Nare ID Date Data Source [id number] 12/07/2020 01:31:00 PM EDT [facility] Name Value Range Interpretation Code Description Data Najma rce(s) Supporting Document(s) SARS-CoV-2 (COVID-19) RNA [Presence] in Respiratory specimen by JW with probe detection Undetected [facility] This lab was ordered by [facility] and reported by [facility]. ID Date Data Source [id number] 12/08/2020 03:08:00 PM EDT [facility] Anterior NareScreening Z20.822 COVIDPTR2 [id number] Name Value Range Interpretation Code Description Data Najma rce(s) Supporting Document(s) SARS Coronavirus-2, PCR Undetected Undetected [facility] Negative results do not preclude SARS-Co V-2 infection andshould not be used as the sole basis for patient managementdecisions.The Tetracore RT-PCR COVID-19 assay has been internallyvalidated for saliva and pooled upper respiratory specimens.Source: Anterior Nare ID Date Data Source [id number] 12/03/2020 12:52:00 PM EST [facility] ([facility] Name Value Range Interpretation Code Description Data Najma rce(s) Supporting Document(s) Sodium [Moles/volume] in Serum or Plasma 140 mmol/L 135-145 [facility] ([facility] Potassium [Moles/volume] in Serum or Plasma 3.8 mmol/L 3.5-5.0 [facility] ([facility] Chloride [Moles/volume] in Serum or Plasma 107 mmol/L 101-111 [facility] ([facility] Carbon dioxide, total [Moles/volume] in Serum or Plasma 27 mmol/L 22 -32 [facility] ([facility] Anion Gap 6 mmol/L 2-11 [facility] ([facility] Urea nitrogen [Mass/volume] in Serum or Plasma 12 mg/dL 6-24 [facility] ([facility] Glucose [Mass/volume] in Serum or Plasma 93 mg/dL 70-100 [facility] ([facility] Creatinine [Mass/volume] in Serum or Plasma 0.86 mg/dL 0.51-0.95 [facility] ([facility] BUN/Creatinine Ratio 14.0 8-20 [facility] ([facility] Calcium [Mass/volume] in Serum or Plasma 9.4 mg/dL 8.6-10.3 [facility] ([facility] Glomerular filtration rate/1.73 sq M pre dicted among non-blacks [Volume Rate/Area] in Serum or Plasma by Creatinine-based formula (MDRD) 78.0 [facility] ([facility] Glomerular filtration rate/1.73 sq M pre dicted among blacks [Volume Rate/Area] in Serum or Plasma by Creatinine-based formula (MDRD) 94.4 [facility] ([facility] <content>Because ethnic data [...] (or dialysis)</content>
<content></content> ID Date Data Source [id number] 12/03/2020 01:24:00 PM [facility] Name Value Range Interpretation Code Description Data Najma rce(s) Supporting Document(s) Sodium 140 mmol/L 135-145 [facility] Potassium 3.8 mmol/L 3.5-5.0 N [facility] Chloride 107 mmol/L 101-111 N [facility] CO2 Carbon Dioxide 27 mmol/L 22-32 N [facility] Anion Gap 6 mmol/L 2-11 N [facility] Glucose 93 mg/dL 70-100 N [facility] Blood Urea Nitrogen 12 mg/dL 6-24 N [facility] ical [place] Creatinine 0.86 mg/dL 0.51-0.[address] [facility] [address] BUN/Creatinine Ratio 14.0 8-20 N [facility] Calcium 9.4 mg/dL 8.6-10.3 N [facility] r EGFR Non- 78.0 >60 [facility] EGFR 94.4 >60 [facility] Because ethnic data is not [...] <15 (or dialysis) ID Date Data Source [id number] 12/03/2020 05:26:00 PM [facility] Anterior NareScreening Z20.822 COVIDPTR2 [id number] Name Value Range Interpretation Code Description Data Najma rce(s) Supporting Document(s) SARS Coronavirus-2, PCR Undetected Undetected [facility] Negative results do not preclude SARS-Co V-2 infection andshould not be used as the sole basis for patient managementdecisions.The Tetracore RT-PCR COVID-19 assay has been internallyvalidated for saliva and pooled upper respiratory specimens.Source: Anterior Nare ID Date Data Source [id number] 11/30/2020 04:32:00 PM [facility] Anterior NareScreening Z20.822 COVIDPTR2 [id number] Name Value Range Interpretation Code Description Data Najma rce(s) Supporting Document(s) SARS Coronavirus-2, PCR Undetected Undetected [facility] Negative results do not preclude SARS-Co V-2 infection andshould not be used as the sole basis for patient managementdecisions.The Tetracore RT-PCR COVID-19 assay has been internallyvalidated for saliva and pooled upper respiratory specimens.Source: Anterior Nare ID Date Data Source [id number] 11/26/2020 04:30:00 PM [facility] Anterior NareScreening Z20.822 COVIDPTR1 [id number] Name Value Range Interpretation Code Description Data Najma rce(s) Supporting Document(s) SARS Coronavirus-2, PCR Undetected Undetected [facility] Negative results do not preclude SARS-Co V-2 infection andshould not be used as the sole basis for patient managementdecisions.The Tetracore RT-PCR COVID-19 assay has been internallyvalidated for saliva and pooled upper respiratory specimens.Source: Anterior Nare ID Date Data Source [id number] 11/24/2020 04:33:00 PM EST [facility] ([facility] Name Value Range Interpretation Code Description Data Najma rce(s) Supporting Document(s) Sodium [Moles/volume] in Serum or Plasma 141 mmol/L 135-145 [facility] ([facility] Potassium [Moles/volume] in Serum or Plasma 4.1 mmol/L 3.5-5.0 [facility] ([facility] Chloride [Moles/volume] in Serum or Plasma 108 mmol/L 101-111 [facility] ([facility] Anion Gap 4 mmol/L 2-11 [facility] ([facility] Carbon dioxide, total [Moles/volume] in Serum or Plasma 29 mmol/L 22 -32 [facility] ([facility] Glucose [Mass/volume] in Serum or Plasma 72 mg/dL 70-100 [facility] ([facility] Urea nitrogen [Mass/volume] in Serum or Plasma 13 mg/dL 6-24 [facility] ([facility] BUN/Creatinine Ratio 13.7 8-20 [facility] ([facility] Creatinine [Mass/volume] in Serum or Plasma 0.95 mg/dL 0.51-0.95 [facility] ([facility] Calcium [Mass/volume] in Serum or Plasma 9.5 mg/dL 8.6-10.3 [facility] ([facility] Glomerular filtration rate/1.73 sq M pre dicted among non-blacks [Volume Rate/Area] in Serum or Plasma by Creatinine-based formula (MDRD) 69.5 [facility] ([facility] Glomerular filtration rate/1.73 sq M pre dicted among blacks [Volume Rate/Area] in Serum or Plasma by Creatinine-based formula (MDRD) 84.2 [facility] ([facility] <content>Because ethnic data is [...] (or dialysis)</content>
<content></content> ID Date Data Source [id number] 11/24/2020 07:24:00 [facility] [id number] Name Value Range Interpretation Code Description Data Najma rce(s) Supporting Document(s) Sodium 141 mmol/L 135-145 [facility] Potassium 4.1 mmol/L 3.5-5.0 [facility] Chloride 108 mmol/L 101-111 [facility] er CO2 Carbon Dioxide 29 mmol/L 22-32 N [facility] Anion Gap 4 mmol/L 2-11 N [facility] r Glucose 72 mg/dL 70-100 [facility] r Blood Urea Nitrogen 13 mg/dL 6-24 N [facility] Creatinine 0.95 mg/dL 0.51-0.95 N [facility] BUN/Creatinine Ratio 13.7 8-20 N [facility] Calcium 9.5 mg/dL 8.6-10.3 N [facility] r EGFR Non- 69.5 >60 [facility] EGFR 84.2 >60 [facility] Because ethnic data is not [...] <15 (or dialysis) ID Date Data Source [id number] 11/23/2020 12:00:00 PM EST [facility] ([facility] Name Value Range Interpretation Code Description Data Najma rce(s) Supporting Document(s) Gardnerella/Yeast: Vaginal Dna Laboratory test result [facility] ([facility] Run Date: 11/24/20 [facility] Lab Live Page 1 Gardnerella/Yeast: Vaginal Dna Laboratory test result [facility] ([facility] Run Time: [address] [place] [address] Gardnerella/Yeast: Vaginal Dna Laboratory test result [facility] ([facility] Gardnerella/Yeast: Vaginal Dna Laboratory test result [facility] ([facility] Gardnerella/Yeast: Vaginal Dna Laboratory test result [facility] ([facility] Name: Janna Mora Cristofer OB: [address]: Chana REYES Gardnerella/Yeast: Vaginal Dna Laboratory test result [facility] ([facility] Acct: [id number] Unit: [id number] ge: 30 Location: [facility] Gardnerella/Yeast: Vaginal Dna Laboratory test result [facility] ([facility] Gardnerella/Yeast: Vaginal Dna Laboratory test result [facility] ([facility] Re11/23/20 S ex: F Status: Reg Ref Gardnerella/Yeast: Vaginal Dna Laboratory test result [facility] ([facility] Spec: [id number] Rajat: 1-[address]: Chana REYES Gardnerella/Yeast: Vaginal Dna Laboratory test result [facility] ([facility] Gardnerella/Yeast: Vaginal Dna Laboratory test result [facility] ([facility] Gardnerella/Yeast: Vaginal Dna Laboratory test result [facility] ([facility] Gardnerella/Yeast: Vaginal Dna Laboratory test result [facility] ([facility] Gardnerella/Yeast: Vaginal Dna Laboratory test result [facility] ([facility] Gardnerella/Yeast: Vaginal Dna Laboratory test result [facility] ([facility] Gardnerella/Yeast: Vaginal Dna Laboratory test result [facility] ([facility] Gardnerella/Yeast: Vaginal Dna Laboratory test result [facility] ([facility] Verbal to Barbara Sin by Adv1008 at 0811 on 11/24/20. Gardnerella/Yeast: Vaginal Dna Laboratory test result [facility] ([facility] Queries: Would you like to order Tricho monas Vaginalis testing? Yes Gardnerella/Yeast: Vaginal Dna Laboratory test result [facility] ([facility] Gardnerella/Yeast: Vaginal Dna Laboratory test result [facility] ([facility] Procedure Result Reported Site Gardnerella/Yeast: Vaginal Dna Laboratory test result [facility] ([facility] Gardnerella/Yeast: Vaginal Dna Laboratory test result [facility] ([facility] Gardnerella/Yeast: Vaginal Dna Final 11/24/20-1214 ML Gardnerella/Yeast: Vaginal Dna Laboratory test result [facility] ([facility] Gardnerella/Yeast: Vaginal Dna Laboratory test result [facility] ([facility] The presence of G. vaginalis, although s uggestive, is not Gardnerella/Yeast: Vaginal Dna Laboratory test result [facility] ([facility] Gardnerella/Yeast: Vaginal Dna Laboratory test result [facility] ([facility] interpreted in conjuction with other cli nical and laboratory Gardnerella/Yeast: Vaginal Dna Laboratory test result [facility] ([facility] diagnostic for bacterial vaginosis. Res ults should be Gardnerella/Yeast: Vaginal Dna Laboratory test result [facility] ([facility] Gardnerella/Yeast: Vaginal Dna Laboratory test result [facility] ([facility] Women with vaginal discharge should be e valuated for risk Gardnerella/Yeast: Vaginal Dna Laboratory test result [facility] ([facility] factors of cervicitis and pelvic inflamm atory disease, toxic Gardnerella/Yeast: Vaginal Dna Laboratory test result [facility] ([facility] shock syndrome (S.aureus), and if presen t, evaluated for Gardnerella/Yeast: Vaginal Dna Laboratory test result [facility] ([facility] organisms not included in this assay suc h as N. gonorrhoeae, Gardnerella/Yeast: Vaginal Dna Laboratory test result [facility] ([facility] C. trachomatis, Mobiluncus, Mycoplasma a nd/or Prevotella. Gardnerella/Yeast: Vaginal Dna Laboratory test result [facility] ([facility] Gardnerella/Yeast: Vaginal Dna Laboratory test result [facility] ([facility] The performance of this test on patient specimens collected Gardnerella/Yeast: Vaginal Dna Laboratory test result [facility] ([facility] Gardnerella/Yeast: Vaginal Dna Laboratory test result [facility] ([facility] vaginalis cannot be used as a test for therapeutic success Gardnerella/Yeast: Vaginal Dna Laboratory test result [facility] ([facility] unknown. The presence or absence of Cand lina species, or G. Gardnerella/Yeast: Vaginal Dna Laboratory test result [facility] ([facility] Gardnerella/Yeast: Vaginal Dna Laboratory test result [facility] ([facility] Trichomonas: Vaginal Dna Probe Final 11/24/20-1214 ML Gardnerella/Yeast: Vaginal Dna Laboratory test result [facility] ([facility] Gardnerella/Yeast: Vaginal Dna Laboratory test result [facility] ([facility] Department Of Pathology, [address] [place], [place] [address] Gardnerella/Yeast: Vaginal Dna Laboratory test result [facility] ([facility] Gardnerella/Yeast: Vaginal Dna Laboratory test result [facility] ([facility] Fax #[phone] Gardnerella/Yeast: Vaginal Dna Laboratory test result [facility] ([facility] Sharmin Alcazar M.D. Director [facility] # [id number] Gardnerella/Yeast: Vaginal Dna Laboratory test result [facility] ([facility] Run Date: 11/24/20 [facility] Lab Live Page 2 Gardnerella/Yeast: Vaginal Dna Laboratory test result [facility] ([facility] Run Time: 4 [address] [place] [address] Gardnerella/Yeast: Vaginal Dna Laboratory test result [facility] ([facility] Gardnerella/Yeast: Vaginal Dna Laboratory test result [facility] ([facility] Gardnerella/Yeast: Vaginal Dna Laboratory test result [facility] ([facility] Patient: Janna Mora [id number] (Continued) Gardnerella/Yeast: Vaginal Dna Laboratory test result [facility] Gardnerella/Yeast: Vaginal Dna Laboratory test result [facility] ([facility] Specimen: [id number] Collected: Received: 11/23/20 (Continued) Gardnerella/Yeast: Vaginal Dna Laboratory test result [facility] ([facility] Gardnerella/Yeast: Vaginal Dna Laboratory test result [facility] ([facility] Procedure Result Reported Site Gardnerella/Yeast: Vaginal Dna Laboratory test result [facility] ([facility] Gardnerella/Yeast: Vaginal Dna Laboratory test result [facility] ([facility] The presence or absence of T. vaginalis cannot be used as a Gardnerella/Yeast: Vaginal Dna Laboratory test result [facility] ([facility] Trichomonas: Vaginal Dna Probe Final (continued) 11/24/20-1214 Gardnerella/Yeast: Vaginal Dna Laboratory test result [facility] ([facility] Gardnerella/Yeast: Vaginal Dna Laboratory test result [facility] ([facility] Gardnerella/Yeast: Vaginal Dna Laboratory test result [facility] ([facility] Gardnerella/Yeast: Vaginal Dna Laboratory test result [facility] ([facility] Gardnerella/Yeast: Vaginal Dna Laboratory test result [facility] ([facility] Gardnerella/Yeast: Vaginal Dna Laboratory test result [facility] ([facility] Department Of Pathology, [address] [place] [address] Gardnerella/Yeast: Vaginal Dna Laboratory test result [facility] ([facility] Fax # Gardnerella/Yeast: Vaginal Dna Laboratory test result [facility] ([facility] Sharmin Alcazar M.D. Director [facility] # [id number] ID Date Data Source [id number] 11/22/2020 05:07:00 PM [facility] Anterior NareScreening Z20.822 COVIDPTR1 [id number] Name Value Range Interpretation Code Description Data Najma rce(s) Supporting Document(s) SARS Coronavirus-2, PCR Undetected Undetected [facility] Negative results do not preclude SARS-Co V-2 infection andshould not be used as the sole basis for patient managementdecisions.The [email or web address] RT-PCR COVID-19 assay has been internallyvalidated for saliva and pooled upper respiratory specimens.Source: Anterior Nare ID Date Data Source [id number] 11/20/2020 12:00:00 AM EST [facility] Name Value Range Interpretation Code Description Data Najma rce(s) Supporting Document(s) SARS-CoV-2 (COVID-19) RNA [Presence] in Respiratory specimen by JW with probe detection Negative [facility] This lab was ordered by [facility] a nd reported by [facility]. ID Date Data Source [id number] 11/15/2020 01:58:00 PM EST [facility] Name Value Range Interpretation Code Description Data Najma rce(s) Supporting Document(s) SARS-CoV-2 (COVID-19) RNA [Presence] in Respiratory specimen by JW with probe detection Undetected [facility] This lab was ordered by [facility] and reported by [facility]. ID Date Data Source [id number] 11/15/2020 09:10:00 PM EST [facility] Anterior NareScreening Z20.822 COVIDPTR1 [id number] Name Value Range Interpretation Code Description Data Najma rce(s) Supporting Document(s) SARS Coronavirus-2, PCR Undetected Undetected [facility] Negative results do not preclude SARS-Co V-2 infection andshould not be used as the sole basis for patient managementdecisions.The Tetracore RT-PCR COVID-19 assay has been internallyvalidated for saliva and pooled upper respiratory specimens.Source: Anterior Nare ID Date Data Source [id number] 11/11/2020 01:14:00 PM EST [facility] Name Value Range Interpretation Code Description Data Najma rce(s) Supporting Document(s) SARS-CoV-2 (COVID-19) RNA [Presence] in Respiratory specimen by JW with probe detection Undetected [facility] This lab was ordered by [facility] and reported by [facility]. ID Date Data Source [id number] 11/11/2020 08:41:00 PM EST [facility] Anterior NareScreening Z20.822 COVIDPTR1 [id number] Name Value Range Interpretation Code Description Data Najma rce(s) Supporting Document(s) SARS Coronavirus-2, PCR Undetected Undetected [facility] Negative results do not preclude SARS-Co V-2 infection andshould not be used as the sole basis for patient managementdecisions.The Tetracore RT-PCR COVID-19 assay has been internallyvalidated for saliva and pooled upper respiratory specimens.Source: Anterior Nare ID Date Data Source [id number] 11/05/2020 10:02:00 PM EST [facility] Anterior NareScreening Z20.822 COVIDPTR1 [id number] Name Value Range Interpretation Code Description Data Najma rce(s) Supporting Document(s) SARS Coronavirus-2, PCR Undetected Undetected [facility] Negative results do not preclude SARS-Co V-2 infection andshould not be used as the sole basis for patient managementdecisions.The Tetracore RT-PCR COVID-19 assay has been internallyvalidated for saliva and pooled upper respiratory specimens.Source: Anterior Nare ID Date Data Source [id number] 11/01/2020 02:46:00 PM EST [facility] Name Value Range Interpretation Code Description Data Najma e(s) Supporting Document(s) SARS-CoV-2 (COVID-19) RNA [Presence] in Respiratory specimen by JW with probe detection Undetected [facility] This lab was ordered by [facility] and reported by [facility]. ID Date Data Source [id number] 11/01/2020 11:11:00 PM EST [facility] Anterior NareScreening Z20.822 COVIDPTR1 [id number] Name Value Range Interpretation Code Description Data Najma [facility](s) Supporting Document(s) SARS Coronavirus-2, PCR Undetected Undetected [facility] Negative results do not preclude SARS-Co V-2 infection andshould not be used as the sole basis for patient managementdecisions.The Tetracore RT-PCR COVID-19 assay has been internallyvalidated for saliva and pooled upper respiratory specimens.Source: Anterior Nare ID Date Data Source [id number] 10/28/2020 01:15:00 PM EST [facility] Name Value Range Interpretation Code Description Data Najma rce(s) Supporting Document(s) SARS-CoV-2 (COVID-19) RNA [Presence] in Respiratory specimen by JW with probe detection Undetected [facility] This lab was ordered by [facility] and reported by [facility]. ID Date Data Source [id number] 10/28/2020 06:51:00 PM EST [facility] Anterior NareScreening Z20.822 COVIDPTR1 [id number] Name Value Range Interpretation Code Description Data Najma rce(s) Supporting Document(s) SARS Coronavirus-2, PCR Undetected Undetected [facility] Negative results do not preclude SARS-Co V-2 infection andshould not be used as the sole basis for patient managementdecisions.The Tetracore RT-PCR COVID-19 assay has been internallyvalidated for saliva and pooled upper respiratory specimens.Source: Anterior Nare ID Date Data Source [id number] 10/25/2020 11:00:00 AM EST [facility] Name Value Range Interpretation Code Description Data [facility](s) Supporting Document(s) SARS-CoV-2 (COVID-19) RNA [Presence] in Respiratory specimen by JW with probe detection Undetected [facility] This lab was ordered by [facility] and reported by [facility]. ID Date Data Source [id number] 10/25/2020 05:57:00 PM [facility] Anterior NareScreening Z11.59 [id number] Name Value Range Interpretation Code Description Data [facility](s) Supporting Document(s) SARS Coronavirus-2, PCR Undetected Undetected [facility] Negative results do not preclude SARS-Co V-2 infection andshould not be used as the sole basis for patient managementdecisions.The Tetracore RT-PCR COVID-19 assay has been internallyvalidated for saliva and pooled upper respiratory specimens.Source: Anterior Nare ID Date Data Source [id number] 09/23/2020 07:33:00 PM [facility] Operative Report Patient: Janna Mora /Age: 06 1990 30 Admission Date: 09/22/20 Location: OPERATING ROOM [facility] Observation Date/Time: Provider: Gonsalo Lopez MD OPERATIVE REPORT: DATE OF OPERATION: 09/22/20 DATE OF : [birth year] SURGEON: Gonsalo Lopez MD. [employer]: ERIC Carr. A physician technical assistant was required for the length of [...] mg IV. IV FLUIDS: See anesthesia note. [id number]-WEFH TIME: 122 minutes approximately. SPECIMEN: None. IMPLANTS: [...] forward flexion and abduction. The [employer] lateral traction bony was applied to the [...] her labral tears were not particularly displaced. [id number]/[facility] #: [id number] <Electronically signed by Gonsalo Lopez MD> 09/24/201727 Gonsalo Lopez MD Dictated Date/Time: 09/23/201932 Transcribed Date/Time 09/24/20 0210 Copy to: CC: Gonsalo Lopez MD Name Value Range Interpretation Code Description Data Najma rce(s) Supporting Document(s) ID Date Data Source [id number] 09/18/2020 01:39:00 PM EST [facility] Name Value Range Interpretation Code Description Data Najma rce(s) Supporting Document(s) SARS-CoV-2 (COVID-19) RNA [Presence] in Respiratory specimen by JW with probe detection [facility] This lab was ordered by [facility] and reported by [facility]. ID Date Data Source [id number] 09/19/2020 03:47:00 PM EST [facility] Anterior NareScreening Z11.59 [id number] Name Value Range Interpretation Code Description Data Najma rce(s) Supporting Document(s) SARS Coronavirus-2, PCR Undetected Undetected [facility] Negative results do not preclude SARS-Co V-2 infection andshould not be used as the sole basis for patient managementdecisions.The Tet[employer] RT-PCR COVID-19 assay has been internallyvalidated for saliva and pooled upper respiratory specimens.Source: Anterior Nare ID Date Data Source [id number] 09/13/2020 12:17:00 PM EST [facility] Name Value Range Interpretation Code Description Data Najma rce(s) Supporting Document(s) SARS-CoV-2 (COVID-19) RNA [Presence] in Respiratory specimen by JW with probe detection [facility] This lab was ordered by [facility] and reported by [facility]. ID Date Data Source [id number] 09/14/2020 01:31:00 PM EST [facility] Anterior NareScreening Z11.59 [id number] Name Value Range Interpretation Code Description Data Najma rce(s) Supporting Document(s) SARS Coronavirus-2, PCR Undetected Undetected [facility] Negative results do not preclude SARS-Co V-2 infection andshould not be used as the sole basis for patient managementdecisions.The Tet[employer]ore RT-PCR COVID-19 assay has been internallyvalidated for saliva and pooled upper respiratory specimens.Source: Anterior Nare ID Date Data Source [id number] 09/10/2020 09:47:00 AM EST [facility] Name Value Range Interpretation Code Description Data Najma rce(s) Supporting Document(s) SARS-CoV-2 (COVID-19) RNA [Presence] in Respiratory specimen by JW with probe detection [facility] This lab was ordered by [facility] and reported by [facility]. ID Date Data Source [id number] 09/11/2020 12:17:00 PM EST [facility] Anterior NareScreening Z11.59 [id number] Name Value Range Interpretation Code Description Data Najma rce(s) Supporting Document(s) SARS Coronavirus-2, PCR Undetected Undetected [facility] Negative results do not preclude SARS-Co V-2 infection andshould not be used as the sole basis for patient managementdecisions.The [employer] RT-PCR COVID-19 assay has been internallyvalidated for saliva and pooled upper respiratory specimens.Source: Anterior Nare ID Date Data Source [id number] 09/08/2020 02:38:00 PM EST [facility] Name Value Range Interpretation Code Description Data Najma rce(s) Supporting Document(s) SARS-CoV-2 (COVID-19) RNA [Presence] in Respiratory specimen by JW with probe detection [facility] This lab was ordered by [facility] and reported by [facility]. ID Date Data Source [id number] 09/09/2020 01:56:00 PM EST [facility] Anterior NareScreening Z11.59 [id number] Name Value Range Interpretation Code Description Data Najma rce(s) Supporting Document(s) SARS Coronavirus-2, PCR Undetected Undetected [facility] Negative results do not preclude SARS-Co V-2 infection andshould not be used as the sole basis for patient managementdecisions.The Tetracore RT-PCR COVID-19 assay has been internallyvalidated for saliva and pooled upper respiratory specimens.Source: Anterior Nare ID Date Data Source [id number] 09/04/2020 02:43:00 PM EST [facility] Anterior NareScreening Z11.59 [id number] Name Value Range Interpretation Code Description Data Najma rce(s) Supporting Document(s) SARS Coronavirus-2, PCR Undetected Undetected [facility] Negative results do not preclude SARS-Co V-2 infection andshould not be used as the sole basis for patient managementdecisions.The Tetracore RT-PCR COVID-19 assay has been internallyvalidated for saliva and pooled upper respiratory specimens.Source: Anterior Nare ID Date Data Source [id number] 08/31/2020 12:00:00 PM EST [facility] ([facility] Name Value Range Interpretation Code Description Data Najma rce(s) Supporting Document(s) Laboratory test finding (navigational concept) Laboratory test result [facility] ([facility] ID Date Data Source [id number] 08/30/2020 08:12:00 AM EST [facility] Name Value Range Interpretation Code Description Data Najma rce(s) Supporting Document(s) SARS-CoV-2 (COVID-19) RNA [Presence] in Respiratory specimen by JW with probe detection [facility] This lab was ordered by [facility] and reported by [facility]. ID Date Data Source [id number] 08/31/2020 02:41:00 PM EST [facility] Anterior NareScreening Z11.59 [id number] Name Value Range Interpretation Code Description Data Najma rce(s) Supporting Document(s) SARS Coronavirus-2, PCR Undetected Undetected [facility] Negative results do not preclude SARS-Co V-2 infection andshould not be used as the sole basis for patient managementdecisions.The Tetracore RT-PCR COVID-19 assay has been internallyvalidated for saliva and pooled upper respiratory specimens.Source: Anterior Nare ID Date Data Source [id number] 08/28/2020 10:47:00 AM EST [facility] Name Value Range Interpretation Code Description Data Najma rce(s) Supporting Document(s) SARS-CoV-2 (COVID-19) RNA [Presence] in Respiratory specimen by JW with probe detection [facility] This lab was ordered by [facility] and reported by [facility]. ID Date Data Source [id number] 08/28/2020 05:36:00 PM EST [facility] Anterior NareScreening Z11.59 [id number] Name Value Range Interpretation Code Description Data Najma rce(s) Supporting Document(s) SARS Coronavirus-2, PCR Undetected Undetected [facility] Negative results do not preclude SARS-Co V-2 infection andshould not be used as the sole basis for patient managementdecisions.The Tetracore RT-PCR COVID-19 assay has been internallyvalidated for saliva and pooled upper respiratory specimens.Source: Anterior Nare ID Date Data Source [id number] 08/27/2020 02:40:00 PM EST [facility] Name Value Range Interpretation Code Description Data Najma rce(s) Supporting Document(s) SARS-CoV-2 (COVID-19) RNA [Presence] in Respiratory specimen by JW with probe detection [facility] This lab was ordered by [facility] and reported by [facility]. ID Date Data Source [id number] 08/28/2020 01:21:00 PM EST [facility] Anterior NareScreening Z11.59 [id number] Name Value Range Interpretation Code Description Data Najma rce(s) Supporting Document(s) SARS Coronavirus-2, PCR Undetected Undetected [facility] Negative results do not preclude SARS-Co V-2 infection andshould not be used as the sole basis for patient managementdecisions.The Tetracore RT-PCR COVID-19 assay has been internallyvalidated for saliva and pooled upper respiratory specimens.Source: Anterior Nare ID Date Data Source [id number] 08/23/2020 10:44:00 AM EST [facility] Name Value Range Interpretation Code Description Data Najma rce(s) Supporting Document(s) SARS-CoV-2 (COVID-19) RNA [Presence] in Respiratory specimen by JW with probe detection [facility] This lab was ordered by [facility] and reported by [facility]. ID Date Data Source [id number] 08/24/2020 12:10:00 PM [facility] Anterior NareScreening Z11.59 [id number] Name Value Range Interpretation Code Description Data Najma rce(s) Supporting Document(s) SARS Coronavirus-2, PCR Undetected Undetected [facility] Negative results do not preclude SARS-Co V-2 infection andshould not be used as the sole basis for patient managementdecisions.The Tetracore RT-PCR COVID-19 assay has been internallyvalidated for saliva and pooled upper respiratory specimens.Source: Anterior Nare ID Date Data Source [id number] 08/22/2020 10:19:00 AM [facility] Patient Name: Janna Mora Medical Record #: [id number] Ordering Physician: Laney Smith MD : 1990 Age: 30 Sex: F Location: [facility] Exam Date: 08/22/20 0946 ADM Status: REG ER Observation Date/Time: Order Information: THUMB RIGHT Accession Number: [id number] CPT: 21544 Indication: Right thumb pain. 3 views of [...] Vidal MD; Andreia Gardner NP Imaging - [facility] [address] [place] [address] ph [phone]) ph ([phone] ph ) Name Value Range Interpretation Code Description Data Najma rce(s) Supporting Document(s) ID Date Data Source [id number] 08/22/2020 10:17:00 AM [facility] Provider Documentation Patient: Janna Mora Account Number: [id number] /Age: 06 1990 30 Medical Record #: [id number] Service Date: 08/22/20 Location: [facility] Observation Date/Time: Hand/Wrist HPI - HPI Summary [...] rce(s) Supporting Document(s) ID Date Data Source [id number] 08/20/2020 01:23:00 PM EST [facility] Name Value Range Interpretation Code Description Data Najma rce(s) Supporting Document(s) SARS-CoV-2 (COVID-19) RNA [Presence] in Respiratory specimen by JW with probe detection [facility] This lab was ordered by [facility] and reported by [facility]. ID Date Data Source [id number] 08/21/2020 11:43:00 AM [facility] Anterior NareScreening Z11.59 [id number] Name Value Range Interpretation Code Description Data Najma rce(s) Supporting Document(s) SARS Coronavirus-2, PCR Undetected Undetected [facility] Negative results do not preclude SARS-Co V-2 infection andshould not be used as the sole basis for patient managementdecisions.The Tetracore RT-PCR COVID-19 assay has been internallyvalidated for saliva and pooled upper respiratory specimens.Source: Anterior Nare ID Date Data Source [id number] 08/17/2020 05:40:00 PM [facility] Patient Name: Janna Mora Medical Record #: [id number] Ordering Physician: Gonsalo Lopez MD Account Numb er: [id number] : 1990 Age: 30 Sex: F Location: [facility] Exam Date: 08/17/20 ADM Status: REG REF Observation Date/Time: Order Information: ARTHROGRAM SHOULDER RT Accession Number: [id number] CPT: 76644 CPT II Codes: G9500 PROCEDURE: Fluoroscopy guided [...] Copy to: CC:Gonsalo Lopez MD; Andreia Gardner [employer]; Fede Mae MD Imaging - [facility] us Imaging - [facility] Imaging - [facility] [address] [facility] [address] [address] ph ([phone]) ph ([phone]) ph ( [phone]) Name Value Range Interpretation Code Description Data Najma rce(s) Supporting Document(s) ID Date Data Source [id number] 08/17/2020 03:01:00 PM [facility] Patient Name: Janna Mora Medical Record #: [id number] Ordering Physician: Gonsalo Lopez MD Account Numb er: [id number] : 1990 Age: 30 Sex: F Location: [facility] Exam Date: 08/17/20 ADM Status: REG REF Observation Date/Time: Order Information: MRI SHOULDER ARTHROGRAM RIGHTW Accession Number: [id number] CPT: 37066 Indication: RIGHT shoulder instability. History of labral tears on MRI 3 years ago. Mack Danlos syndrome. Comparison: Limited spot images from conventional arthrogram performed immediately preceding and in preparation for the MRI arthrogram. June 08, 2020 radiographs. June 13, 2017 MRI. Technique: Get In Mulino 1.5 Dana [id number]. Following fluoroscopic guided intra-articular gadolinium administration multiplanar [...] Copy to: CC:Gonsalo Lopez MD; Andreia Gardner [employer]; Feliz Servin MD Imaging - [facility] Imaging - [facility] Imaging - [facility] [address] [place] [address] [address] [address] ph ([phone]) ph ([phone] ph ) Name Value Range Interpretation Code Description Data Najma rce(s) Supporting Document(s) ID Date Data Source [id number] 08/16/2020 02:03:00 PM EST [facility] Name Value Range Interpretation Code Description Data Najma rce(s) Supporting Document(s) SARS-CoV-2 (COVID-19) RNA [Presence] in Respiratory specimen by JW with probe detection [facility] This lab was ordered by [facility] and reported by [facility]. ID Date Data Source [id number] 08/17/2020 04:22:00 PM EST [facility] Anterior NareScreening Z11.59 [id number] Name Value Range Interpretation Code Description Data Najma rce(s) Supporting Document(s) SARS Coronavirus-2, PCR Undetected Undetected [facility] Negative results do not preclude SARS-Co V-2 infection andshould not be used as the sole basis for patient managementdecisions.The Tetracore RT-PCR COVID-19 assay has been internallyvalidated for saliva and pooled upper respiratory specimens.Source: Anterior Nare ID Date Data Source [id number] 08/14/2020 12:15:00 PM EST [facility] Anterior NareScreening Z11.59 [id number] Name Value Range Interpretation Code Description Data Najma rce(s) Supporting Document(s) SARS Coronavirus-2, PCR Undetected Undetected [facility] Negative results do not preclude SARS-Co V-2 infection andshould not be used as the sole basis for patient managementdecisions.The Tetracore RT-PCR COVID-19 assay has been internallyvalidated for saliva and pooled upper respiratory specimens.Source: Anterior Nare ID Date Data Source [id number] 08/09/2020 12:45:00 PM [facility] Name Value Range Interpretation Code Description Data Najma rce(s) Supporting Document(s) SARS-CoV-2 (COVID-19) RNA [Presence] in Respiratory specimen by JW with probe detection [facility] This lab was ordered by [facility] and reported by [facility]. ID Date Data Source [id number] 08/10/2020 11:35:00 AM [facility] Anterior NareScreening Z11.59 [id number] Name Value Range Interpretation Code Description Data Najma rce(s) Supporting Document(s) SARS Coronavirus-2, PCR Undetected Undetected [facility] Negative results do not preclude SARS-Co V-2 infection andshould not be used as the sole basis for patient managementdecisions.The Tetracore RT-PCR COVID-19 assay has been internallyvalidated for saliva and pooled upper respiratory specimens.Source: Anterior Nare ID Date Data Source [id number] 08/07/2020 05:00:00 PM [facility] Anterior NareScreening Z11.59 [id number] Name Value Range Interpretation Code Description Data Najma rce(s) Supporting Document(s) SARS Coronavirus-2, PCR Undetected Undetected [facility] Negative results do not preclude SARS-Co V-2 infection andshould not be used as the sole basis for patient managementdecisions.The Tetracore RT-PCR COVID-19 assay has been internallyvalidated for saliva and pooled upper respiratory specimens.Source: Anterior Nare ID Date Data Source [id number] 08/01/2020 02:48:00 PM EST [facility] Name Value Range Interpretation Code Description Data Njama rce(s) Supporting Document(s) SARS-CoV-2 (COVID-19) RNA [Presence] in Respiratory specimen by JW with probe detection [facility] This lab was ordered by [facility] and reported by [facility]. ID Date Data Source [id number] 08/02/2020 03:34:00 PM EST [facility] Anterior NareScreening Z11.59 [id number] Name Value Range Interpretation Code Description Data Najma rce(s) Supporting Document(s) SARS Coronavirus-2, PCR Undetected Undetected [facility] Negative results do not preclude SARS-Co V-2 infection andshould not be used as the sole basis for patient managementdecisions.The Tetracore RT-PCR COVID-19 assay has been internallyvalidated for saliva and pooled upper respiratory specimens.Source: Anterior Nare ID Date Data Source [id number] 07/27/2020 11:37:00 AM EST [facility] Name Value Range Interpretation Code Description Data Najma e(s) Supporting Document(s) SARS-CoV-2 (COVID-19) RNA [Presence] in Respiratory specimen by JW with probe detection [facility] This lab was ordered by [facility] and reported by [facility]. ID Date Data Source [id number] 07/27/2020 06:19:00 PM EST [facility] Anterior NareScreening Z11.59 [id number] Name Value Range Interpretation Code Description Data Najma rce(s) Supporting Document(s) SARS Coronavirus-2, PCR Undetected Undetected [facility] Negative results do not preclude SARS-Co V-2 infection andshould not be used as the sole basis for patient managementdecisions.The Tetracore RT-PCR COVID-19 assay has been internallyvalidated for saliva and pooled upper respiratory specimens.Source: Anterior Nare ID Date Data Source [id number] 07/20/2020 11:32:00 AM EDT [facility] Name Value Range Interpretation Code Description Data Najma rce(s) Supporting Document(s) SARS-CoV-2 (COVID-19) RNA [Presence] in Respiratory specimen by JW with probe detection [facility] This lab was ordered by [facility] and reported by [facility]. ID Date Data Source [id number] 07/20/2020 08:30:00 PM EDT [facility] Anterior NareScreening Z11.59 [id number] Name Value Range Interpretation Code Description Data Najma rce(s) Supporting Document(s) SARS Coronavirus-2, PCR Undetected Undetected [facility] Negative results do not preclude SARS-Co V-2 infection andshould not be used as the sole basis for patient managementdecisions.The Tetracore RT-PCR COVID-19 assay has been internallyvalidated for saliva and pooled upper respiratory specimens.Source: Anterior Nare ID Date Data Source [id number] 07/16/2020 03:58:00 PM EDT [facility] Name Value Range Interpretation Code Description Data Najma rce(s) Supporting Document(s) SARS-CoV-2 (COVID-19) RNA [Presence] in Respiratory specimen by JW with probe detection [facility] This lab was ordered by [facility] and reported by [facility]. ID Date Data Source [id number] 07/17/2020 08:16:00 PM EDT [facility] Anterior NareScreening Z11.59 [id number] Name Value Range Interpretation Code Description Data Najma rce(s) Supporting Document(s) SARS Coronavirus-2, PCR Undetected Undetected [facility] Negative results do not preclude SARS-Co V-2 infection andshould not be used as the sole basis for patient managementdecisions.The Tetracore RT-PCR COVID-19 assay has been internallyvalidated for saliva and pooled upper respiratory specimens.Source: Anterior Nare ID Date Data Source [id number] 07/12/2020 03:50:00 PM EDT [facility] Name Value Range Interpretation Code Description Data Najma rce(s) Supporting Document(s) SARS-CoV-2 (COVID-19) RNA [Presence] in Respiratory specimen by JW with probe detection [facility] This lab was ordered by [facility] and reported by [facility]. ID Date Data Source [id number] 07/13/2020 05:14:00 PM EDT [facility] Anterior Nare;Screening Z11.59 [id number] Name Value Range Interpretation Code Description Data Najma rce(s) Supporting Document(s) SARS Coronavirus-2, PCR Undetected Undetected [facility] Negative results do not preclude SARS-Co V-2 infection andshould not be used as the sole basis for patient managementdecisions.The Tetracore RT-PCR COVID-19 assay has been internallyvalidated for saliva and pooled upper respiratory specimens. SARS Coronavirus-2, Source Anterior Nare [facility] Anterior nare collection may be less sen sitive for viraldetection than nasopharyngeal sampling. ID Date Data Source [id number] 07/10/2020 01:24:00 PM EDT [facility] Anterior Nare;Screening Z11.59 [id number] Name Value Range Interpretation Code Description Data Najma rce(s) Supporting Document(s) SARS Coronavirus-2, PCR Undetected Undetected [facility] Negative results do not preclude SARS-Co V-2 infection andshould not be used as the sole basis for patient managementdecisions.The Tetracore RT-PCR COVID-19 assay has been internallyvalidated for saliva and pooled upper respiratory specimens. SARS Coronavirus-2, Source Anterior Nare [facility] Anterior nare collection may be less sen sitive for viraldetection than nasopharyngeal sampling. ID Date Data Source [id number] 07/05/2020 08:22:00 AM EDT [facility] Name Value Range Interpretation Code Description Data Najma rce(s) Supporting Document(s) SARS-CoV-2 (COVID-19) RNA [Presence] in Respiratory specimen by JW with probe detection [facility] This lab was ordered by [facility] and reported by [facility]. ID Date Data Source [id number] 07/06/2020 12:37:00 PM EDT [facility] Anterior [id number] Name Value Range Interpretation Code Description Data Najma rce(s) Supporting Document(s) SARS Coronavirus-2, PCR Undetected Undetected [facility] Negative results do not preclude SARS-Co V-2 infection andshould not be used as the sole basis for patient managementdecisions.The Tetracore RT-PCR COVID-19 assay has been internallyvalidated for saliva and pooled upper respiratory specimens. SARS Coronavirus-2, Source Anterior Nare [facility] Anterior nare collection may be less sen sitive for viraldetection than nasopharyngeal sampling. ID Date Data Source [id number] 07/03/2020 12:43:00 PM EDT [facility] Anterior [id number] Name Value Range Interpretation Code Description Data Najma rce(s) Supporting Document(s) SARS Coronavirus-2, PCR Undetected Undetected [facility] Negative results do not preclude SARS-Co V-2 infection andshould not be used as the sole basis for patient managementdecisions.The Tetracore RT-PCR COVID-19 assay has been internallyvalidated for saliva and pooled upper respiratory specimens. SARS Coronavirus-2, Source Anterior Nare [facility] Anterior nare collection may be less sen sitive for viraldetection than nasopharyngeal sampling. ID Date Data Source [id number] 06/28/2020 11:16:00 AM EDT [facility] Name Value Range Interpretation Code Description Data Najma rce(s) Supporting Document(s) SARS-CoV-2 (COVID-19) RNA [Presence] in Respiratory specimen by JW with probe detection [facility] This lab was ordered by [facility] and reported by [facility]. ID Date Data Source [id number] 06/29/2020 10:50:00 AM EDT [facility] Anterior [id number] Name Value Range Interpretation Code Description Data Najma rce(s) Supporting Document(s) SARS Coronavirus-2, PCR Undetected Undetected [facility] Negative results do not preclude SARS-Co V-2 infection andshould not be used as the sole basis for patient managementdecisions.The Tetracore RT-PCR COVID-19 assay has been internallyvalidated for saliva and pooled upper respiratory specimens. SARS Coronavirus-2, Source Anterior Nare [facility] Anterior nare collection may be less sen sitive for viraldetection than nasopharyngeal sampling. ID Date Data Source [id number] 06/25/2020 05:23:00 PM EDT [facility] Anterior [id number] Name Value Range Interpretation Code Description Data Najma rce(s) Supporting Document(s) SARS Coronavirus-2, PCR Undetected Undetected [facility] Negative results do not preclude SARS-Co V-2 infection andshould not be used as the sole basis for patient managementdecisions.The Tetracore RT-PCR COVID-19 assay has been internallyvalidated for saliva and pooled upper respiratory specimens. SARS Coronavirus-2, Source Anterior Nare [facility] Anterior nare collection may be less sen sitive for viraldetection than nasopharyngeal sampling. ID Date Data Source [id number] 06/22/2020 06:57:00 PM EDT [facility] Anterior [id number] Name Value Range Interpretation Code Description Data Najma e(s) Supporting Document(s) SARS Coronavirus-2, PCR Undetected Undetected [facility] Negative results do not preclude SARS-Co V-2 infection andshould not be used as the sole basis for patient managementdecisions.The Tetracore RT-PCR COVID-19 assay has been internallyvalidated for saliva and pooled upper respiratory specimens. SARS Coronavirus-2, Source Anterior Nare [facility] Anterior nare collection may be less sen sitive for viraldetection than nasopharyngeal sampling. ID Date Data Source [id number] 06/18/2020 08:13:00 AM EDT [facility] Name Value Range Interpretation Code [facility](s) SARS-CoV-2 (COVID-19) RNA [Presence] in Respiratory specimen by JW with probe detection [facility] This lab was ordered by [facility] and reported by [facility]. ID Date Data Source [id number] 06/18/2020 03:12:00 PM EDT [facility] Anterior [id number] Name Value Range Interpretation Code Description Data Najma rce(s) Supporting Document(s) SARS Coronavirus-2, PCR Undetected Undetected [facility] Negative results do not preclude SARS-Co V-2 infection andshould not be used as the sole basis for patient managementdecisions.The Tetracore RT-PCR COVID-19 assay has been internallyvalidated for saliva and pooled upper respiratory specimens. SARS Coronavirus-2, Source Anterior Nare [facility] Anterior nare collection may be less sen sitive for viraldetection than nasopharyngeal sampling. ID Date Data Source [id number] 06/14/2020 12:17:00 PM EDT [facility] Name Value Range Interpretation Code Description Data Najma rce(s) Supporting Document(s) SARS-CoV-2 (COVID-19) RNA [Presence] in Respiratory specimen by JW with probe detection [facility] This lab was ordered by [facility] and reported by [facility]. ID Date Data Source [id number] 06/14/2020 06:43:00 PM EDT [facility] Anterior [id number] Name Value Range Interpretation Code Description Data Najma rce(s) Supporting Document(s) SARS Coronavirus-2, PCR Undetected Undetected [facility] Negative results do not preclude SARS-Co V-2 infection andshould not be used as the sole basis for patient managementdecisions.The Tetracore RT-PCR COVID-19 assay has been internallyvalidated for saliva and pooled upper respiratory specimens. SARS Coronavirus-2, Source Anterior Nare [facility] Anterior nare collection may be less sen sitive for viraldetection than nasopharyngeal sampling. ID Date Data Source [id number] 06/11/2020 12:40:00 PM EDT [facility] Name Value Range Interpretation Code Description Data Najma rce(s) Supporting Document(s) SARS-CoV-2 (COVID-19) RNA [Presence] in Respiratory specimen by JW with probe detection [facility] This lab was ordered by [facility] and reported by [facility]. ID Date Data Source [id number] 06/11/2020 05:40:00 PM EDT [facility] [id number] Name Value Range Interpretation Code Description Data Najma rce(s) Supporting Document(s) SARS Coronavirus-2, PCR Undetected Undetected [facility] Negative results do not preclude SARS-Co V-2 infection andshould not be used as the sole basis for patient managementdecisions.The Tetracore RT-PCR COVID-19 assay has been internallyvalidated for saliva and pooled upper respiratory specimens. SARS Coronavirus-2, Source Nasopharyngeal [facility] Procedure Social History Code Duration Value Status Description Data Source(s ) Smoking 07/12/2021 12:00:00 AM EDT Patient has never smoked co mpleted Patient has never smoked MEDENT ([facility]) Smoking 04/28/2021 12:00:00 AM EDT Never Smoked Cigarettes com pleted Never Smoked Cigarettes MEDENT ([facility] Vital Signs ID Date Data Source UNK Name Value Range Interpretation Code Description Data Source(s) Body weight 185.00 [lb_av] 185.00 [lb_av] MEDEN T ([facility]) Body height 69 [in_i] 69 [in_i] [facility] ([facility]) 5'9" Body mass index (BMI) [Ratio] 27.3 kg/m2 27.3 k g/m2 [facility] ([facility]) Heart rate 74 /min 74 /min [facility] ([facility]) Systolic blood pressure--sitting 141 mm[Hg] 141 mm[Hg] [facility]ENT ([facility]) [place], large cuff/Ra; HR: 74 bpm Diastolic blood pressure--sitting 97 mm[Hg] 97 mm[Hg] MEDENT ([facility]) [place], large cuff/Ra; HR: 74 bpm Systolic blood pressure--supine 140 mm[Hg] 140 mm[Hg] MEDENT ([facility]) [place], large cuff/Ra; HR: 69 bpm Diastolic blood pressure--supine 93 mm[Hg] 93 mm[Hg] MEDENT ([facility]) [place], large cuff/Ra; HR: 69 bpm Systolic blood pressure--standing 128 mm[Hg] 12 8 mm[Hg] MEDENT ([facility]) [place], large cuff/Ra; HR: 86 bpm Diastolic blood pressure--standing 89 mm[Hg] 8 9 mm[Hg] MEDENT ([facility]) [place], large cuff/Ra; HR: 86 bpm Body temperature 97.8 [degF] 97.8 [degF] [facility] ([facility] Body mass index (BMI) [Ratio] 26.1 kg/m2 26.1 k g/m2 MEDENT ([facility] Body height 69 [in_i] 69 [in_i] [facility] ([facility] 5'9" Body weight 177.00 [lb_av] 177.00 [lb_av] MEDEN T ([facility] Heart rate 94 /min 94 /min MED[facility] ([facility] Systolic blood pressure 120 mm[Hg] 120 mm[Hg] M EDENT ([facility] Diastolic blood pressure 70 mm[Hg] 70 mm[Hg] [facility] ([facility] Body height 69 [in_i] 69 [in_i] MEDENT ([facility] 5'9" Body weight 180.25 [lb_av] 180.25 [lb_av] MEDEN T ([facility] Heart rate 66 /min 66 /min [facility] ([facility] Body temperature 96.8 [degF] 96.8 [degF] [facility] ([facility] Respiratory rate 18 /min 18 /min [facility] ( [facility] Body mass index (BMI) [Ratio] 26.6 kg/m2 26.6 k g/m2 [facility] ([facility] Body weight 180.00 [lb_av] 180.00 [lb_av] MEDEN T ([facility] Diastolic blood pressure--standing 80 mm[Hg] 8 0 mm[Hg] [facility] ([facility] Diastolic blood pressure 78 mm[Hg] 78 mm[Hg] [facility] ([facility] Body height 69 [in_i] 69 [in_i] [facility] ([facility] 5'9" Heart rate 68 /min 68 /min [facility] ([facility] Systolic blood pressure 118 mm[Hg] 118 mm[Hg] M EDENT ([facility] Systolic blood pressure--standing 120 mm[Hg] 12 0 mm[Hg] [facility] ([facility] Body temperature 97.3 [degF] 97.3 [degF] [facility] ([facility] Body mass index (BMI) [Ratio] 26.6 kg/m2 26.6 k g/m2 [facility] ([facility] Systolic blood pressure 110 mm[Hg] 110 mm[Hg] M EDENT ([facility] Diastolic blood pressure 80 mm[Hg] 80 mm[Hg] [facility] ([facility] Respiratory rate 18 /min 18 /min [facility] ( [facility] Body temperature 97.1 [degF] 97.1 [degF] [facility] ([facility] Body mass index (BMI) [Ratio] 26.3 kg/m2 26.3 k g/m2 [facility] ([facility] Body height 69 [in_i] 69 [in_i] [facility] ([facility] 5'9" Body weight 178.00 [lb_av] 178.00 [lb_av] MEDEN T ([facility] Heart rate 72 /min 72 /min [facility] ([facility] Body height 69 [in_i] 69 [in_i] [facility] ([facility] 5'9" Body weight 132.00 [lb_av] 132.00 [lb_av] MEDEN T ([facility] Systolic blood pressure 112 mm[Hg] 112 mm[Hg] M EDENT ([facility] Diastolic blood pressure 90 mm[Hg] 90 mm[Hg] [facility] ([facility] Systolic blood pressure--standing 110 mm[Hg] 11 0 mm[Hg] [facility] ([facility] Diastolic blood pressure--standing 92 mm[Hg] 9 2 mm[Hg] [facility] ([facility] Body mass index (BMI) [Ratio] 19.5 kg/m2 19.5 k g/m2 [facility] ([facility] Heart rate 64 /min 64 /min [facility] ([facility] Body temperature 97.7 [degF] 97.7 [degF] [facility] ([facility] Systolic blood pressure--standing 110 mm[Hg] 11 0 mm[Hg] [facility] ([facility] Diastolic blood pressure--standing 70 mm[Hg] 7 0 mm[Hg] [facility] ([facility] Body temperature 97.7 [degF] 97.7 [degF] [facility] ([facility] Body mass index (BMI) [Ratio] 19.5 kg/m2 19.5 k g/m2 [facility] ([facility] Body height 69 [in_i] 69 [in_i] [facility] ([facility] 5'9" Body weight 132.00 [lb_av] 132.00 [lb_av] MEDEN T ([facility] clothes/shoes Heart rate 64 /min 64 /min [facility] ([facility] Systolic blood pressure--sitting 112 mm[Hg] 112 mm[Hg] [facility] ([facility] Diastolic blood pressure--sitting 60 mm[Hg] 60 mm[Hg] [facility] ([facility] Systolic blood pressure--sitting 114 mm[Hg] 114 mm[Hg] [facility] ([facility] Diastolic blood pressure--sitting 80 mm[Hg] 80 mm[Hg] [facility] ([facility] Body weight 179.00 [lb_av] 179.00 [lb_av] MEDEN T ([facility] clothes/shoes Body height 69 [in_i] 69 [in_i] [facility] ([facility] 5'9" Heart rate 64 /min 64 /min [facility] ([facility] Body temperature 96.9 [degF] 96.9 [degF] [facility] ([facility] Body mass index (BMI) [Ratio] 26.4 kg/m2 26.4 k g/m2 [facility] ([facility] Body height 69 [in_i] 69 [in_i] [facility] ([facility] 5'9" Diastolic blood pressure 70 mm[Hg] 70 mm[Hg] [facility] ([facility] Body mass index (BMI) [Ratio] 26.3 kg/m2 26.3 k g/m2 [facility] ([facility] Body weight 178.00 [lb_av] 178.00 [lb_av] MEDEN T ([facility] Heart rate 84 /min 84 /min [facility] ([facility] Systolic blood pressure 136 mm[Hg] 136 mm[Hg] M EDENT ([facility] Body temperature 97.1 [degF] 97.1 [degF] [facility] ([facility] Oxygen saturation in Arterial blood by Pulse oximetry 98 % 98 % [facility] ([facility] Body height 69 [in_i] 69 [in_i] [facility] ([facility] 5'9" Heart rate 84 /min 84 /min [facility] ([facility] Systolic blood pressure 100 mm[Hg] 100 mm[Hg] M EDENT ([facility] Diastolic blood pressure 80 mm[Hg] 80 mm[Hg] [facility] ([facility] Respiratory rate 18 /min 18 /min [facility] ( [facility] Body temperature 97.5 [degF] 97.5 [degF] [facility] ([facility] Body temperature 97.5 [degF] 97.5 [degF] [facility] ([facility] Heart rate 96 /min 96 /min [facility] ([facility] Systolic blood pressure 114 mm[Hg] 114 mm[Hg] M EDENT ([facility] Body height 69 [in_i] 69 [in_i] [facility] ([facility] 5'9" Body weight 179.00 [lb_av] 179.00 [lb_av] MEDEN T ([facility] Diastolic blood pressure 72 mm[Hg] 72 mm[Hg] [facility] ([facility] Oxygen saturation in Arterial blood by Pulse oximetry 97 % 97 % [facility] ([facility] Body mass index (BMI) [Ratio] 26.4 kg/m2 26.4 k g/m2 [facility] ([facility] Body height 69 [in_i] 69 [in_i] [facility] ([facility] 5'9" Body weight 172.00 [lb_av] 172.00 [lb_av] MEDEN T ([facility] Heart rate 76 /min 76 /min [facility] ([facility] Systolic blood pressure--standing 128 mm[Hg] 12 8 mm[Hg] [facility] ([facility] Lue Diastolic blood pressure--standing 90 mm[Hg] 9 0 mm[Hg] [facility] ([facility] Lue Respiratory rate 17 /min 17 /min [facility] ( [facility] Body temperature 97.1 [degF] 97.1 [degF] [facility] ([facility] Body mass index (BMI) [Ratio] 25.4 kg/m2 25.4 k g/m2 [facility] ([facility] Body height 69 [in_i] 69 [in_i] [facility] ([facility] 5'9" Body weight 176.00 [lb_av] 176.00 [lb_av] MEDEN T ([facility] Heart rate 64 /min 64 /min [facility] ([facility] Systolic blood pressure 119 mm[Hg] 119 mm[Hg] M EDENT ([facility] Diastolic blood pressure 74 mm[Hg] 74 mm[Hg] [facility] ([facility] Body temperature 97.1 [degF] 97.1 [degF] [facility] ([facility] Body mass index (BMI) [Ratio] 26.0 kg/m2 26.0 k g/m2 [facility] ([facility] Body height 69 [in_i] 69 [in_i] [facility] ([facility] 5'9" Body weight 178.00 [lb_av] 178.00 [lb_av] MEDEN T ([facility] Heart rate 72 /min 72 /min [facility] ([facility] Systolic blood pressure 116 mm[Hg] 116 mm[Hg] M EDENT ([facility] Diastolic blood pressure 64 mm[Hg] 64 mm[Hg] [facility] ([facility] Respiratory rate 12 /min 12 /min [facility] ( [facility] Body temperature 96.6 [degF] 96.6 [degF] [facility] ([facility] Body mass index (BMI) [Ratio] 26.3 kg/m2 26.3 k g/m2 [facility] ([facility] Body temperature 96.8 [degF] 96.8 [degF] [facility] ([facility] Body height 69.5 [in_i] 69.5 [in_i] [facility] ([facility] 5'9.50" Systolic blood pressure 120 mm[Hg] 120 mm[Hg] M EDENT ([facility] Diastolic blood pressure 84 mm[Hg] 84 mm[Hg] [facility] ([facility] Body temperature 97.5 [degF] 97.5 [degF] [facility] ([facility] Body mass index (BMI) [Ratio] 25.0 kg/m2 25.0 k g/m2 [facility] ([facility] Body weight 172.00 [lb_av] 172.00 [lb_av] MEDEN T ([facility] Heart rate 82 /min 82 /min [facility] ([facility] ID Date Data Source [id number] 09/24/2020 05:29:00 PM EST [facility] Name Value Range Interpretation Code Description Data Source(s) HEIGHT 175 cm 175 cm [facility] WEIGHT RECORDED 79.2 kg 79.2 kg [facility] HEIGHT 175.26 cm 175.26 cm [facility] WEIGHT RECORDED 77.562811 kg 77.655412 kg [facility] ID Date Data Source [id number] 08/17/2020 05:44:00 PM EST [facility] Name Value Range Interpretation Code Description Data Source(s) WEIGHT RECORDED 77.735765 kg 77.957705 kg [facility] WEIGHT RECORDED 77.026230 kg 77.647340 kg [facility] ID Date Data Source [id number] 12/03/2020 11:36:00 AM EST [facility] Name Value Range Interpretation Code Description Data Source(s) HEIGHT 175.26 cm 175.26 cm [facility] WEIGHT RECORDED 74.993911 kg 74.983046 kg [facility] ID Date Data Source [id number] 12/03/2020 11:36:00 AM EST [facility] Name Value Range Interpretation Code Description Data Source(s) HEIGHT 175.26 cm 175.26 cm [facility] WEIGHT RECORDED 72.652421 kg 72.108896 kg [facility] HEIGHT 175.26 cm 175.26 cm [facility] WEIGHT RECORDED 72.907903 kg 72.575526 kg [facility] ID Date Data Source [id number] 12/03/2020 11:36:00 AM EST [facility] Name Value Range Interpretation Code Description Data Source(s) HEIGHT 175.26 cm 175.26 cm [facility] WEIGHT RECORDED 70.831181 kg 70.576434 kg [facility] HEIGHT 175.26 cm 175.26 cm [facility] WEIGHT RECORDED 70.938677 kg 70.704914 kg [facility] HEIGHT 175.26 cm 175.26 cm [facility] WEIGHT RECORDED 70.238245 kg 70.628506 kg [facility]
[2021-08-09] MEDS: traZODone 50 MG TAB PO PRN (00:07)
[2021-08-09] MEDS ORDERED: LORazepam 2 MG TAB PO PRN (08:55)
[2021-08-09] MEDS ORDERED: buPROPion **XL** TABLET 150MG (WELLBUTRIN XL) PO SCH (09:00)
[2021-08-09] MEDS ORDERED: FLUDROCORTISONE ACETATE 0.1 MG TAB PO SCH (09:00)
[2021-08-09] MEDS: FLUDROCORTISONE ACETATE 0.1 MG TAB PO SCH (09:00)
[2021-08-09] MEDS ORDERED: INFLUENZA QUADRIVALENT PF VACCINE 0.5ML SYRINGE IM ONE (09:00)
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
[2021-08-09] MEDS ORDERED: WELLTAB38 PO (09:09)
[2021-08-09] MEDS ORDERED: HOME MED LIST COMPLETE! XX SCH (09:10)
[2021-08-09] MEDS: FOLIC ACID 1 MG TAB PO SCH (09:39)
[2021-08-09] MEDS: MULTIVITAMINS/MINERALS THERAP 1 TAB PO SCH (09:39)
[2021-08-09] MEDS: THIAMINE 100 MG TAB PO SCH ×2 (09:39→21:39)
[2021-08-09] MEDS ORDERED: ALBUTEROL SULFATE 2.5 MG/0.5 ML INH NEB SOLN INH PRN (12:30)
--- NOTE | 2021-08-09 12:31 | HPEPDOC ---
[facility] Medical History & Physical Date of Admission Aug 08, 2021 Date of Service: Aug 09, 2021 History and Physical Chief complaint: Who is transferred to the inpatient mental health unit after she had a suicidal attempt History of present illness: Patient is a 31-year-old female who initially presented to [facility] on 08/06 after she had a suicidal attempt via drug overdose with Benadryl. Patient was initially intubated and remains on the osd clerk service until 08/08 at which point patient was medically cleared and discharge to [facility]. Hospital service was consulted and the [facility] for medical screening evaluation. Patient reports a mild headache and nausea. Denies any chest pain. Does report some shortness of breath with a mild cough with reported mucus production. Patient denies any vomiting, abdominal pain, diarrhea, consultation or urinary discomfort. She denies any recent fevers or chills. 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 Review of Systems: 10 point review of systems complete, all negative otherwise stated in HPI Physical exam: - Vitals: BP [153/94], HR [93], RR [18], Sat [96%RA], Temp [99.1F] - General: Sitting up in exam chair, Speaking in full sentences, AAOx3 - HEENT: NC, AT, PERRLA - CVS: RRR, +S1S2 - Lungs: Fair air entry bilaterally, No appreciable wheezing / rales / rhonchi - Abdomen: Soft, Non-distended, Non-tender - Extremities: No lower extremity edema, No calf tenderness - Neuro: No focal motor or sensory deficit - Skin: No visible rashes Labs: See below Imaging: See below EKG: See below Assessment and Plan: Suicidal attempt with a drug overdose - Patient remained inpatient from 08/06-08/08 for an intentional drug overdose with - Patient has been transitioned inpatient mental health unit on 08/08 - Hx of Depression / PTSD - Currently being managed by psychiatry Asthma - No evidence of exacerbation - Continue with inhaled therapy as ordered Efe Zambrano POTS - c/w Fludrocoritsone DVT prophylaxis - Will continue with early ambulation Female interpretive program coordinator was present throughout the duration of his history and physical examination Thank you for this consultation. Hospitalist service will now sign off; please reconsult as needed Vital Signs Vital Signs Date Time Temp Pulse Resp B/P (MAP) Pulse Ox O2 Delivery O2 Flow Rate FiO2 08/08/21 22:29 99.1 93 18 153/94 (113) 96 Room Air Home Medications Scheduled Bupropion HCl (Wellbutrin Xl) 150 Mg Tab.er.24h, 150 MG PO DAILY for Fludrocortisone Acetate (Fludrocortisone Acetate) 0.1 Mg Tablet, 0.3 MG PO DAILY for PT HAS BEEN TAKING 0.2MG DAILY Allergies Coded Allergies: Penicillins (Verified Allergy, Unknown, 05/12/21) codeine (Verified Allergy, Unknown, 05/12/21) AURORA FLEMING MD Aug 09, 2021 12:31
[2021-08-09 17:55] VITALS: BP 163/88
[2021-08-09 18:44] VITALS: BP 163/83
[2021-08-09 21:00] VITALS: BP 129/92
[2021-08-09] MEDS ORDERED: MIRTAZAPINE 7.5MG PER 1/2 TABLET PO SCH (21:00)
[2021-08-10 06:00] VITALS: BP 144/80
[2021-08-10 06:30] VITALS: BP 129/92
[2021-08-10] MEDS: MULTIVITAMINS/MINERALS THERAP 1 TAB PO SCH (08:44)
[2021-08-10] MEDS: buPROPion **XL** TABLET 150MG (WELLBUTRIN XL) PO SCH (08:44)
[2021-08-10] MEDS: FOLIC ACID 1 MG TAB PO SCH (08:45)
[2021-08-10] MEDS: FLUDROCORTISONE ACETATE 0.1 MG TAB PO SCH (08:45)
[2021-08-10] MEDS: THIAMINE 100 MG TAB PO SCH ×2 (08:45→21:33)
[2021-08-10] MEDS: CEPACOL LOZENGE PO PRN ×3 (13:21→21:33)
--- NOTE | 2021-08-10 13:53 | MHIPNPDOC ---
[facility] Progress Note Progress Note DATE OF SERVICE: 08/10/21 HISTORY: Patient is a 31 -year-old , female, who has a pph of reported PTSD, MDD, ADHD who was brought to the hospital by EMS on 07/27 and stabilized on the medical floor after taking an intentional overdose on "a hundred pills of 25 mg benadryl", "but I was not feeling suicidal", states was trying to spread out my Wellbutrin because I didn't have enough, "my provider violated hippa I don't feel comfortable seeing her". Patient has a past medical history of Ehler Danlos, POTS, asthma. Reports she took the overdose impulsively and is usually suicidal at baseline. Reports recently moved to [place] for a job after graduation from [employer] school in [place] in [facility]. States tsang still studies in [employer] school in [facility] and is in the area visiting and taking care of her pets. Denies relationship stressors, but reports work stress at her job [employer]. Per Dr Pickett's consultation report "was taken from her fianc and emergency physician. Patient was having an argument with her fianc at home. She went into the bathroom and took some pills. When she came out of the bathroom, she collapsed. She told her fianc that she took the bottle of Benadryl. Her fianc called EMS and EMS brought her to the emergency department. On route, patient had an episode of tonic-clonic seizure in which she received Ativan and broke. In the emergency department, she was intubated for airway protection. Labs show slight leukocytosis of 12,000. ABG with significant metabolic acidosis. Lactic acid was 16. There is no evidence of renal failure. [place], salicylate, acetaminophen, ethyl alcohol level were undetectable. EKG with slight prolonged QTC respiratory viral panel was negative. CT scan of the head and neck showed no evidence of intracranial abnormality or neck fracture. Chest x-ray show no evidence of effusion or infiltrate. Endotracheal tube in appropriate position. Poison control was consulted and she was given activated charcoal. She was also given 2 g of magnesium. She will be admitted to ICU for further management." Interval: Patient states she wants to have her medication today including Wellbutrin, made aware of risks of taking Wellbutrin in context of recent seizure and diazepam use, no endorsed history of eating disorder, denies alcohol use, patient took lorazepam with [facility] protocol. 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 Despite this patient continues to minimize suicide attempt, with poor judgment and insight into the events leading up to the suicide attempt. Per collateral from Molly Jeronimo, patient's trinh, patient requested for me to speak with shantel and donna [facility], : Abran was seen waving through the window into the inpatient unit, was made aware of concern for privacy for other patients and that this should not occur. Abran states "I've voiced to the discharge person stress is huge trigger for her and with her PTSD and POTS do not feel that she is managing well on the unit and would benefit from discharge before the weekend." States they have created the safety plan together and has talked to the outpatient therapist, has removed excess medications in their home. The severity of the attempt was explained and the concerns of needing to be be stabilized on medication prior to discharge to ensure safety, made aware being evaluated by medical team, nursing staff aware of medical conditions and to monitor. VITAL SIGNS: See below. NEW TEST RESULTS: see below CURRENT MEDICATIONS: See below. MENTAL STATUS EXAMINATION: Patient is a 31-year old female, who is in no acute distress, wearing glasses, fair hygiene, fair eye contact Speech: Is normal rate, volume, amount, spontaneous Language skills are intact. Thought processes including: Linear and logical. Thought content: States she is not currently suicidal, but does endorse attempt was impulsive and reports that not being stable on her Wellbutrin might of been a trigger Abstract reasoning, and computation: Good description of associations: Good based on interview. Description of abnormal or psychotic thoughts: Denies, not observed Judgment: Poor with regards to suicide attempt and events leading up to this attempt, improving Insight: Poor with regards to suicide attempt and events leading up to this attempt, improving Orientation: X4. Recent and remote memory: Intact. Attention span and concentration: Mildly decreased based on interview. Language: Armenian. Fund of knowledge: Above average. Mood: "fine". Affect: Irritated, mildly anxious, labile mood in context of being frustrated on the unit DIAGNOSES: Major Depressive disorder, severe, per hx PTSD by history Cluster B traits, R/O Borderline personality disorder suicide attempt POTS EfeJuan Manuel. Asthma ASSESSMENT: Patient refused mirtazapine and was d/c, states she does not want take antihistamines, explained to patient that has antihistaminic properties to help with sleep and is not the same medication as when she overdosed with, reports sore throat in context of previous intubation and Cepacol throat lozenge was ordered. Patient was irritated by the fact that she needs admission, wanted to take a dose of her medication this morning of Wellbutrin and be discharged, explained that since she has not been consistent with her medication takes time for her to adjust the medication and she had reported that not being consistent with the medication possibly was a trigger for suicide attempt, needs extended stay also in context of the severity of suicide attempt which she does not seem to appreciate based on questioning, stating despite it being the worst time she is ever had she feels she would not go through with another suicide attempt, despite history of extensive suicidal ideations and previous attempts. Will assess for improvement upon restarting Wellbutrin. MANAGEMENT PLAN: Continue wellbutrin 150 mg xl, possible discharge once stable on medications, safety plan can be arranged, with improvement in insight and judgment. TIME SPENT: 35 minutes. Vital Signs Vital Signs Date Time Temp Pulse Resp B/P (MAP) Pulse Ox O2 Delivery O2 Flow Rate FiO2 08/10/21 06:30 98 129/92 08/10/21 06:00 99.8 16 98 08/08/21 22:29 Room Air Current Medications Current Medications Medications (Trade) Dose Ordered Sig/Jenny Route PRN Reason Start Time Stop Time Status Last Admin Dose Admin Acetaminophen (Tylenol Tab) 650 mg Q6HP PRN PO HEADACHE or MILD DISCOMFORT 08/08/21 18:30 Al Hydrox/Mg Hydrox/Simethicone (Mylanta) 30 ml Q4HP PRN PO HEARTBURN/INDIGESTION 08/08/21 18:30 Albuterol Sulfate (Proventil Neb) 2.5 mg Q2HP PRN INH SOB/WHEEZING 08/09/21 12:30 Bupropion HCl (Wellbutrin Xl) 150 mg DAILY PO 08/09/21 09:00 08/09/21 08:56 DC Bupropion HCl (Wellbutrin Xl) 150 mg DAILY PO 08/10/21 09:00 08/10/21 08:44 Cetylpyridinium Chloride (Cepacol) 1 michael Q2HP PRN PO COUGH 08/10/21 11:45 08/10/21 13:21 Fludrocortisone Acetate (Florinef) 0.1 mg DAILY PO 08/09/21 09:00 08/09/21 08:32 DC Fludrocortisone Acetate (Florinef) 0.3 mg DAILY PO 08/09/21 09:00 08/10/21 08:45 Folic Acid (Folic Acid) 1 mg DAILY PO 08/09/21 09:00 08/10/21 08:45 Home Med (Home Med List Complete!) ASDIRECTED XX 08/09/21 09:10 08/09/21 09:20 DC Lorazepam (Ativan) 2 mg ASDIRECTED PRN PO SEE PROTOCOL 08/09/21 08:55 08/09/21 17:58 Magnesium Hydroxide (Milk Of Magnesia) 30 ml DAILYPRN PRN PO CONSTIPATION 08/08/21 18:30 Mirtazapine (Remeron) 7.5 mg QHS PO 08/09/21 21:00 Multivitamins (Theragram-M) 1 tab DAILY PO 08/09/21 09:00 08/10/21 08:44 Olanzapine (ZyPREXA ZYDIS) 5 mg Q8HP PRN PO ANXIETY 08/08/21 18:30 Thiamine HCl (Thiamine HCl) 100 mg BID PO 08/09/21 09:00 08/11/21 21:01 08/10/21 08:45 Trazodone HCl (Desyrel) 50 mg QHSP PRN PO INSOMNIA 08/08/21 18:30 08/09/21 00:07 Allergies Coded Allergies: Penicillins (Verified Allergy, Unknown, 05/12/21) codeine (Verified Allergy, Unknown, 05/12/21) TOBI PRASAD MD Aug 10, 2021 13:53
[2021-08-10 17:51] VITALS: BP 142/90
[2021-08-10] MEDS: traZODone 50 MG TAB PO PRN (21:33)
[2021-08-11 06:49] VITALS: BP 145/89
[2021-08-11] MEDS: ACETAMINOPHEN TAB 650MG DOSE (2X325MG) PO PRN (08:26)
[2021-08-11] MEDS: buPROPion **XL** TABLET 150MG (WELLBUTRIN XL) PO SCH (08:26)
[2021-08-11] MEDS: THIAMINE 100 MG TAB PO SCH ×2 (08:26→20:14)
[2021-08-11] MEDS: FOLIC ACID 1 MG TAB PO SCH (08:26)
[2021-08-11] MEDS: FLUDROCORTISONE ACETATE 0.1 MG TAB PO SCH (08:26)
[2021-08-11] MEDS: MULTIVITAMINS/MINERALS THERAP 1 TAB PO SCH (08:26)
[2021-08-11] MEDS: CEPACOL LOZENGE PO PRN ×2 (08:27→20:15)
[2021-08-11] MEDS ORDERED: ONDANSETRON 4 MG TAB PO PRN (12:20)
--- NOTE | 2021-08-11 13:55 | MHIPNPDOC ---
[facility] Progress Note Progress Note DATE OF SERVICE: 08/11/21 HISTORY: Patient is a 31 -year-old , female, who has a pph of reported PTSD, MDD, ADHD who was brought to the hospital by EMS on 07/27 and stabilized on the medical floor after taking an intentional overdose on "a hundred pills of 25 mg benadryl", "but I was not feeling suicidal", states was trying to spread out my Wellbutrin because I didn't have enough, "my provider violated hippa I don't feel comfortable seeing her". Patient has a past medical history of Ehler Danlos, POTS, asthma. Reports she took the overdose impulsively and is usually suicidal at baseline. Reports recently moved to [place] for a job after graduation from [employer] school in [place] in [facility]. States tsang still studies in [employer] school in [facility] and is in the area visiting and taking care of her pets. Denies relationship stressors, but reports work stress at her job [employer]. Per Dr Pickett's consultation report "was taken from her fianc and emergency physician. Patient was having an argument with her fianc at home. She went into the bathroom and took some pills. When she came out of the bathroom, she collapsed. She told her fianc that she took the bottle of Benadryl. Her fianc called EMS and EMS brought her to the emergency department. On route, patient had an episode of tonic-clonic seizure in which she received Ativan and broke. In the emergency department, she was intubated for airway protection. Labs show slight leukocytosis of 12,000. ABG with significant metabolic acidosis. Lactic acid was 16. There is no evidence of renal failure. [place], salicylate, acetaminophen, ethyl alcohol level were undetectable. EKG with slight prolonged QTC respiratory viral panel was negative. CT scan of the head and neck showed no evidence of intracranial abnormality or neck fracture. Chest x-ray show no evidence of effusion or infiltrate. Endotracheal tube in appropriate position. Poison control was consulted and she was given activated charcoal. She was also given 2 g of magnesium. She will be admitted to ICU for further management." Interval: Patient states she feels she is doing lot better since taking medications but continues to have some brain fog and sensitivity to bright lights in context of recovering from overdose and stress of being on the unit with high activity in groups. Does not want other medications or treatments to help her condition and would rather continue with Wellbutrin which she reports she is tolerating well, without new or concerning side effects. States she has had some time to think about her attempt, our discussion surrounding the severity of the attempt, states that she realizes it was impulsive because she had not been taking her Wellbutrin, which likely contributed to her impulsivity in context of ADHD and that she regrets her actions and understands that her attempt could have been fatal. Now feels better that she is back on medication and would not harm herself if discharged, consults for safety, states that her partner will be staying with her for the next 2 weeks and watch her 16/04 between appointments. No other acute physical complaints or concerns endorsed. VITAL SIGNS: See below. NEW TEST RESULTS: see below CURRENT MEDICATIONS: See below. MENTAL STATUS EXAMINATION: Patient is a 31-year old female, who is in no acute distress, wearing glasses, fair hygiene, fair eye contact Speech: Is normal rate, volume, amount, spontaneous Language skills are intact. Thought processes including: Linear and logical. Thought content: States she is not currently suicidal, no suicidal ideations, intent or plan. No homicidal ideations, intent or plan endorsed. Abstract reasoning, and computation: Good description of associations: Good based on interview. Description of abnormal or psychotic thoughts: Denies, not observed Judgment: Improving Insight: Improving Orientation: X4. Recent and remote memory: Intact. Attention span and concentration: Fair Language: Mohawk. Fund of knowledge: Above average. Mood: "Good". Affect: Irritated, mildly anxious, labile mood in context of being frustrated on the unit DIAGNOSES: Major Depressive disorder, severe, per hx PTSD by history Cluster B traits, R/O Borderline personality disorder suicide attempt POTS EfeJuan Manuel. Asthma ASSESSMENT: Patient reports some mild headaches, photophobia which is improved have been consistent since taking the overdose, no neck pain, no tight muscles or rigidity or other acute physiological complaints, states she continues to have brain fog but is stable on Wellbutrin, no new side effects, well-tolerated. Does not want other medications or treatments and is agreeable to possible discharge tomorrow. Denies suicidal ideation, intent or plan, no signs of louise or psychosis. MANAGEMENT PLAN: Continue wellbutrin 150 mg xl, possible discharge once stable on medications, safety plan can be arranged, has demonstrated improvement in insight and judgment. TIME SPENT: 15 minutes. Vital Signs Vital Signs Date Time Temp Pulse Resp B/P (MAP) Pulse Ox O2 Delivery O2 Flow Rate FiO2 08/11/21 06:49 97.6 91 16 145/89 (107) 100 Room Air Current Medications Current Medications Medications (Trade) Dose Ordered Sig/Jenny Route PRN Reason Start Time Stop Time Status Last Admin Dose Admin Acetaminophen (Tylenol Tab) 650 mg Q6HP PRN PO HEADACHE or MILD DISCOMFORT 08/08/21 18:30 08/11/21 08:26 Al Hydrox/Mg Hydrox/Simethicone (Mylanta) 30 ml Q4HP PRN PO HEARTBURN/INDIGESTION 08/08/21 18:30 Albuterol Sulfate (Proventil Neb) 2.5 mg Q2HP PRN INH SOB/WHEEZING 08/09/21 12:30 Bupropion HCl (Wellbutrin Xl) 150 mg DAILY PO 08/09/21 09:00 08/09/21 08:56 DC Bupropion HCl (Wellbutrin Xl) 150 mg DAILY PO 08/10/21 09:00 08/11/21 08:26 Cetylpyridinium Chloride (Cepacol) 1 michael Q2HP PRN PO COUGH 08/10/21 11:45 08/11/21 08:27 Fludrocortisone Acetate (Florinef) 0.1 mg DAILY PO 08/09/21 09:00 08/09/21 08:32 DC Fludrocortisone Acetate (Florinef) 0.3 mg DAILY PO 08/09/21 09:00 08/11/21 08:26 Folic Acid (Folic Acid) 1 mg DAILY PO 08/09/21 09:00 08/11/21 08:26 Home Med (Home Med List Complete!) ASDIRECTED XX 08/09/21 09:10 08/09/21 09:20 DC Lorazepam (Ativan) 2 mg ASDIRECTED PRN PO SEE PROTOCOL 08/09/21 08:55 08/10/21 13:42 DC 08/09/21 17:58 Magnesium Hydroxide (Milk Of Magnesia) 30 ml DAILYPRN PRN PO CONSTIPATION 08/08/21 18:30 Mirtazapine (Remeron) 7.5 mg QHS PO 08/09/21 21:00 08/10/21 14:20 DC Multivitamins (Theragram-M) 1 tab DAILY PO 08/09/21 09:00 08/11/21 08:26 Olanzapine (ZyPREXA ZYDIS) 5 mg Q8HP PRN PO ANXIETY 08/08/21 18:30 Ondansetron HCl (Zofran) 4 mg Q6HP PRN PO NAUSEA OR VOMITING 08/11/21 12:20 08/11/21 12:27 Thiamine HCl (Thiamine HCl) 100 mg BID PO 08/09/21 09:00 08/11/21 21:01 08/11/21 08:26 Trazodone HCl (Desyrel) 50 mg QHSP PRN PO INSOMNIA 08/08/21 18:30 08/10/21 21:33 Allergies Coded Allergies: Penicillins (Verified Allergy, Unknown, 05/12/21) codeine (Verified Allergy, Unknown, 05/12/21) TOBI PRASAD MD Aug 11, 2021 13:55
[2021-08-11 17:30] VITALS: BP 146/90
[2021-08-11] MEDS: traZODone 50 MG TAB PO PRN (20:14)
[2021-08-12 06:43] VITALS: BP 123/75
[2021-08-12] MEDS ORDERED: WELLTAB38 PO (07:40)
[2021-08-12] MEDS ORDERED: FLUD0.1T PO ×2 (07:40→07:41)
[2021-08-12] MEDS ORDERED: SORE15LO PO (07:40)
[2021-08-12] MEDS ORDERED: TRAZ-252 PO (07:40)
[2021-08-12] MEDS: FOLIC ACID 1 MG TAB PO SCH (08:12)
[2021-08-12] MEDS: buPROPion **XL** TABLET 150MG (WELLBUTRIN XL) PO SCH (08:12)
[2021-08-12] MEDS: FLUDROCORTISONE ACETATE 0.1 MG TAB PO SCH (08:12)
[2021-08-12] MEDS: MULTIVITAMINS/MINERALS THERAP 1 TAB PO SCH (08:12)
[2021-08-12] MEDS: CEPACOL LOZENGE PO PRN (08:14)
[2021-08-12] MEDS: ACETAMINOPHEN TAB 650MG DOSE (2X325MG) PO PRN (08:14)
--- NOTE | 2021-08-12 13:41 | MHDSPDOC ---
[facility] Discharge Summary Discharge Summary DATE OF ADMISSION: Aug 08, 2021 at 18:37 DATE OF DISCHARGE: Aug 12, 2021 at 11:49 Discharge diagnoses: Major Depressive disorder, severe, per hx PTSD by history Cluster B traits suicide attempt POTS Ehler-Danlos. Asthma Reason for admission: Patient is a 31 -year-old , female, who has a pph of reported PTSD, MDD, ADHD who was brought to the hospital by EMS on 07/27 and stabilized on the medical floor after taking an intentional overdose on "a hundred pills of 25 mg benadryl", "but I was not feeling suicidal", states "was trying to spread out my Wellbutrin because I didn't have enough", "my provider violated hippa I don't feel comfortable seeing her". Patient has a past medical history of Ehler Danlos, POTS, asthma. Reports she took the overdose impulsively and is usually suicidal at baseline. Reports recently moved to [place] for a job after graduation from [employer] school in [place] in [facility]. States tsang still studies in [employer] school in [facility] and is in the area visiting and taking care of her pets. Denies relationship stressors, but reports work stress at her job [employer]. Per Dr Pickett's consultation report "was taken from her fianc and emergency physician. Patient was having an argument with her fianc at home. She went into the bathroom and took some pills. When she came out of the bathroom, she collapsed. She told her fianc that she took the bottle of Benadryl. Her fianc called EMS and EMS brought her to the emergency department. On route, patient had an episode of tonic-clonic seizure in which she received Ativan and broke. In the emergency department, she was intubated for airway protection. Labs show slight leukocytosis of 12,000. ABG with significant metabolic acidosis. Lactic acid was 16. There is no evidence of renal failure. [place]an, salicylate, acetaminophen, ethyl alcohol level were undetectable. EKG with slight prolonged QTC respiratory viral panel was negative. CT scan of the head and neck showed no evidence of intracranial abnormality or neck fracture. Chest x-ray show no evidence of effusion or infiltrate. Endotracheal tube in appropriate position. Poison control was consulted and she was given activated charcoal. She was also given 2 g of magnesium. She will be admitted to ICU for further management." Vital signs: See below Consultants involved: See medical H&P by hospitalist Treatment and progress on the unit: Patient was admitted to the [facility] on a .39 legal status and was afforded the following treatment modalities: 1. Individual therapy 2. Group therapy 3. Medication management 4. Milieu therapy 5. Safe environment Hospital course: Patient was admitted to the [facility] on a 939 legal status. Was medically cleared prior to coming up to the [facility]. After being medically cleared and extubated patient reported having sore throat, was given Cipro lozenges to help with throat pain, endorsed regret for her suicide attempt, continue to report some headaches, photophobia, muscle pains, likely in context of recovering from overdose, no signs of delirium tremens, had not ingested alcohol or benzodiazepines. Was offered mirtazapine due to reported poor sleep and history of POTS, risk for using medications including trazodone and Seroquel, patient refused mirtazapine, but excepted her home medication of Wellbutrin 150 mg XL, which she had reported kept her stable for years, felt that being not consistent with medication in context of losing her outpatient provider worsened her symptoms of impulsivity in context of ADHD. Patient was made aware of risks of restarting the medication including risk for seizure, given history of head injuries with horse riding, also discussed other common and rare medication side effects, however she had been taking the medication reportedly for years after the horse riding accidents and head injuries without issue or seizures, denied eating disorder and consistent or excessive alcohol use. Patient took the medication, and responded well to treatment, without new side effects reported. Made patient aware to follow-up with outpatient medical treatment provider, because patient has been reporting back pain and requesting baclofen during discharge process, this had not been mentioned before during stay, also reported some stiff neck in context of sleeping on her side, also reported that the headache, although improved, still remained and still has some sensitivity to light. Patient was agreeable to this, however with product planner refused her medical appointment to be scheduled. Patient found medications beneficial and tolerated them well. Of note during stay patient's partner was parked next to the building and waving into the inpatient unit to the patient, patient and patient's partner [place] were made aware that this may violate the privacy of other patients and should not be conducted, collateral was obtained by partner see progress note, patient's partner is upset the patient had extended stay in the unit despite the severe suicide attempt, this was explained to her clearly and that there is medical staff on the unit to help with the patient's medical conditions. With treatment patient denies mood, anxiety and intrusive thoughts. Patient attended groups daily during stay. Patient symptoms improved with treatment. On day of discharge patient denied depression, anxiety, insomnia, suicidal or homicidal ideations intent or plan, hallucinations, delusions. Patient was discharged home with follow-up. Patient felt safe for discharge. Patient refused continued stay on voluntary status. Discharge assessment: On today's interview patient is alert and oriented, dressed appropriately. Hygiene and grooming is well-kept. Smiles on approach and is pleasant and engaged on interview. Denies depression and anxiety. Denies suicidal homicidal ideation, intent or planning. Denies and is not observed with louise or psychotic symptoms of delusions, hallucinations, bizarre thinking, obsessions, paranoia, ruminations, illogical thoughts, flight of ideas or having poor insight or judgment. Patient has normal mentation, declines further hospitalization of voluntary status and meets criteria for discharge today, patient encouraged to return the hospital if symptoms worsen or change and encouraged to call unit if they feel they need provider's questions to be answered or help with medications or care. Patient is future oriented looks forward to stay with her partner for the next 2 weeks to watch her 16/04, get to appointments. Mental status: Patient is a 31-year old female, who is in no acute distress, wearing glasses, fair hygiene, good eye contact Speech: Is normal rate, volume, amount, spontaneous Language skills are intact. Thought processes including: Linear and logical, future oriented, goal-directed Thought content: States she is not currently suicidal, no suicidal ideations, intent or plan. No homicidal ideations, intent or plan endorsed. Abstract reasoning, and computation: Good description of associations: Good based on interview. Description of abnormal or psychotic thoughts: Denies, not observed Judgment: Fair Insight: Good Orientation: X4. Recent and remote memory: Intact. Attention span and concentration: Fair Language: Malagasy. Fund of knowledge: Above average. Mood: "Good, 7 out of 10". Affect: Euthymic, mildly constricted, does smile and laugh, appropriate Medications on discharge: see medication reconciliation: CSSRS on discharge: Wish to be : No nonspecific active suicidal thoughts: No lifetime attempts: multiple, "a handful", all by overdose interrupted attempts: yes aborted attempts: 0 preparatory acts or behavior: No Taking into consideration safety state, status, safety plan, protective factors including strong support system, modifiable, non-modifiable risk factors patient is at chronically elevated risk on discharge for suicide according to [place] suicide evaluation. PLAN/FOLLOWUP ARRANGEMENTS: Follow Up Care Education Label * Mental Health Appt 1 * Established With This Provider Yes * Therapist NORRIS * Date Aug 16, 2021 * Time 08:15 * Address of Clinic or Practice [address] [place] [address] Follow Up Care Education Label * Medical * Additional information PATIENT DECLINED MEDICAL APPOINTMENT The amount of time spent in the coordination of care for this patient was approximately 35 minutes. ETOH/Disorder Med Rx ETOH/DRUG DISORDER RX: Offrd @ d/c & pt refused Vital Signs/I&Os Vital Signs Date Time Temp Pulse Resp B/P (MAP) Pulse Ox O2 Delivery O2 Flow Rate FiO2 08/12/21 06:43 98.9 93 16 123/75 (91) 99 Room Air Medications Scheduled Bupropion HCl (Wellbutrin Xl) 150 Mg Tab.er.24h, 150 MG PO DAILY for depression, #7 Fludrocortisone Acetate (Fludrocortisone Acetate) 0.1 Mg Tablet, 0.3 MG PO DAILY for dysautonomia, #21 PT HAS BEEN TAKING 0.2MG DAILY Scheduled PRN Benzocaine/Menthol (Sore Throat Lozenge) 1 Each Lozenge, 1 CIPRIANO PO Q2HP PRN for COUGH, #7 Trazodone HCl (Trazodone HCl) 50 Mg Tablet, 50 MG PO QHSP PRN for INSOMNIA, #7 Allergies Coded Allergies: Penicillins (Verified Allergy, Unknown, 05/12/21) codeine (Verified Allergy, Unknown, 05/12/21) TOBI PRASAD MD Aug 12, 2021 13:41
== END 2021-08-12 11:49 | disposition home or self-care (01) | DRG 751 ==
LOC: M ED INP 18:37 → M PSY 22:23
PROVIDERS: ADMIT Student in an Organized Health Care Education/Training Program; ATTEND Student in an Organized Health Care Education/Training Program
DX: F32.3 Major depressive disorder, single episode, severe with psychotic features (principal); Q79.60 Ehlers-Danlos syndrome, unspecified; R45.851 Suicidal ideations; F43.10 Post-traumatic stress disorder, unspecified; J45.909 Unspecified asthma, uncomplicated; F60.89 Other specific personality disorders; Z88.0 Allergy status to penicillin; Z88.5 Allergy status to narcotic agent; Z79.899 Other long term (current) drug therapy

== ENCOUNTER → 2021-12-29 | Outpatient (REF) | payer BC ==
[~2021-12-29] MED LIST changes: +SORE15LO PO; +TRAZ-252 PO; +WELLTAB38 PO
== END ==
LOC: M LAB REF 19:11
PROVIDERS: ATTEND Nurse Practitioner Family
DX: R68.89 Other general symptoms and signs (principal)

== ENCOUNTER → 2022-03-22 | Outpatient (CLI) | payer BC | LOC: M RAD 11:10 | PROVIDERS: ATTEND Nurse Practitioner Family | DX: F07.81 Postconcussional syndrome (principal) ==

== ENCOUNTER 2022-06-18 19:21 | Inpatient (IN) | payer BC ==
[~2022-06-18] VITALS: Ht 172.7 cm; Wt 83.1 kg
[~2022-06-18 19:21] MED LIST changes: +BENZ1LOZ2 PO; -SORE15LO PO
[2022-06-18] MEDS ORDERED: NS 1,000 ML IV ONE (19:35)
[2022-06-18] MEDS ORDERED: CHARCOAL ACTIVATED LIQUID 25 GM/120 ML BTL PO ONE (19:35)
[2022-06-18 20:02] LABS: BASO % 0.2 % (0.0-1.0); EOS % 0.1 % (0.0-3.0); HEMATOCRIT 40.1 % (36.0-47.0); HEMOGLOBIN 13.7 g/dl (12.0-15.5); LYMPH # 1.2 10^3/uL (1.5-5.0); LYMPH % 7.6 % (24.0-44.0); MEAN CORPUSCULAR HEMOGLOBIN 31.9 pg (27.0-33.0); MEAN CORPUSCULAR HGB CONC 34.2 g/dl (32.0-36.5); MEAN CORPUSCULAR VOLUME 93.5 fl (80.0-96.0); MONO # 0.7 10^3/uL (0.0-0.8); MONO % 4.3 % (2.0-8.0); NEUTROPHILS # 14.3 10^3/uL (1.5-8.5); NEUTROPHILS % 87.2 % (36.0-66.0); PLATELET COUNT, AUTOMATED 244 10^3/uL (150-450); RED BLOOD COUNT 4.29 10^6/uL (4.00-5.40); WHITE BLOOD COUNT 16.4 10^3/uL (4.0-10.0)
[2022-06-18 20:35] LABS: RSV AMPLIFICATION NEGATIVE (NEGATIVE)
[2022-06-18 20:48] LABS: HCG, SERUM QUALITATIVE NEGATIVE (NEGATIVE)
[2022-06-18 20:54] LABS: AMPHETAMINES LEVEL URINE NEGATIVE (NEGATIVE); BARBITURATES URINE NEGATIVE (NEGATIVE); BENZODIAZEPINES URINE NEGATIVE (NEGATIVE); CANNABINOIDS URINE POSITIVE (NEGATIVE); COCAINE METABOLITE URINE NEGATIVE (NEGATIVE); METHADONE URINE NEGATIVE (NEGATIVE); OPIATES URINE NEGATIVE (NEGATIVE); PHENCYCLIDINE URINE NEGATIVE (NEGATIVE)
[2022-06-18 20:56] LABS: ACETAMINOPHEN LEVEL < 2.0 UG/ML (10.0-30.0); ALBUMIN 4.3 GM/DL (3.2-5.2); ALT/SGPT 48 U/L (12-78); BILIRUBIN,DIRECT 0.1 MG/DL (0.0-0.2); BILIRUBIN,TOTAL 0.3 MG/DL (0.2-1.0); BLOOD UREA NITROGEN 10 MG/DL (7-18); CALCIUM LEVEL 8.3 MG/DL (8.5-10.1); CARBON DIOXIDE LEVEL 23 MEQ/L (21-32); CHLORIDE LEVEL 110 MEQ/L (98-107); CREATININE FOR GFR 1.03 MG/DL (0.55-1.30); GLOMERULAR FILTRATION RATE > 60.0 (>60); GLUCOSE, FASTING 173 MG/DL (70-100); MAGNESIUM LEVEL 1.8 MG/DL (1.8-2.4); POTASSIUM SERUM 3.3 MEQ/L (3.5-5.1); SALICYLATE LEVEL < 1.7 MG/DL (5.0-30.0); SODIUM LEVEL 139 MEQ/L (136-145); TOTAL PROTEIN 7.4 GM/DL (6.4-8.2)
[2022-06-18] MEDS ORDERED: FLUD0.1T PO (20:59)
[2022-06-18] MEDS ORDERED: BUPR150T12 PO (20:59)
[2022-06-18] MEDS ORDERED: TEMA15CA2 PO (20:59)
[2022-06-18] MEDS ORDERED: TRAZ-252 PO (20:59)
[2022-06-18] MEDS ORDERED: HOME MED LIST COMPLETE! XX SCH (21:00)
[2022-06-18] MEDS ORDERED: ONDANSETRON 4MG 2ML VIAL IV ONE (21:10)
[2022-06-18] MEDS ORDERED: POTASSIUM CHLORIDE 10MEQ SR TABLET PO ONE (22:00)
[2022-06-18] MEDS ORDERED: NS 1,000 ML IV SCH (23:50)
[2022-06-19] MEDS: ONDANSETRON 4MG 2ML VIAL IV PRN ×2 (02:32→08:44)
[2022-06-19 06:55] LABS: BLOOD UREA NITROGEN 10 MG/DL (7-18); CALCIUM LEVEL 9.1 MG/DL (8.5-10.1); CARBON DIOXIDE LEVEL 25 MEQ/L (21-32); CHLORIDE LEVEL 108 MEQ/L (98-107); CREATININE FOR GFR 0.99 MG/DL (0.55-1.30); GLOMERULAR FILTRATION RATE > 60.0 (>60); GLUCOSE, FASTING 104 MG/DL (70-100); POTASSIUM SERUM 4.1 MEQ/L (3.5-5.1); SODIUM LEVEL 140 MEQ/L (136-145)
[2022-06-19 08:00] VITALS: BP 131/78
[2022-06-19] MEDS ORDERED: PANTOPRAZOLE 40MG VIAL IV SCH (09:00)
[2022-06-19] MEDS: ENOXAPARIN 40MG/0.4ML SYRINGE (J1650 PER 10MG) SC SCH (10:09)
[2022-06-19 16:00] VITALS: BP 131/87
[2022-06-19 22:14] VITALS: BP 136/79
[2022-06-19] MEDS: TEMAZEPAM 15 MG CAP PO PRN (23:39)
[2022-06-20 06:00] VITALS: BP 123/83
[2022-06-20 06:32] LABS: BASO # 0.1 10^3/uL (0.0-0.2); BASO % 0.8 % (0.0-1.0); EOS # 0.2 10^3/uL (0.0-0.5); EOS % 2.2 % (0.0-3.0); HEMOGLOBIN 12.8 g/dl (12.0-15.5); LYMPH # 3.5 10^3/uL (1.5-5.0); LYMPH % 32.3 % (24.0-44.0); MEAN CORPUSCULAR HEMOGLOBIN 31.4 pg (27.0-33.0); MEAN CORPUSCULAR HGB CONC 33.7 g/dl (32.0-36.5); MEAN CORPUSCULAR VOLUME 93.4 fl (80.0-96.0); MONO # 0.8 10^3/uL (0.0-0.8); MONO % 7.4 % (2.0-8.0); NEUTROPHILS # 6.2 10^3/uL (1.5-8.5); NEUTROPHILS % 56.9 % (36.0-66.0); PLATELET COUNT, AUTOMATED 225 10^3/uL (150-450); RED BLOOD COUNT 4.07 10^6/uL (4.00-5.40)
[2022-06-20 07:08] LABS: BLOOD UREA NITROGEN 13 MG/DL (7-18); CARBON DIOXIDE LEVEL 25 MEQ/L (21-32); CHLORIDE LEVEL 108 MEQ/L (98-107); CREATININE FOR GFR 0.98 MG/DL (0.55-1.30); GLOMERULAR FILTRATION RATE > 60.0 (>60); GLUCOSE, FASTING 98 MG/DL (70-100); SODIUM LEVEL 139 MEQ/L (136-145)
[2022-06-20] MEDS ORDERED: INFLUENZA QUADRIVALENT PF VACCINE 0.5ML SYRINGE IM.IMMUN ONE (09:00)
[2022-06-20] MEDS: ENOXAPARIN 40MG/0.4ML SYRINGE (J1650 PER 10MG) SC SCH (10:11)
[2022-06-20] MEDS: PANTOPRAZOLE 40MG TAB (PROTONIX) PO SCH (10:11)
[2022-06-20] MEDS: ONDANSETRON 4MG 2ML VIAL IV PRN (14:02)
[2022-06-20] MEDS ORDERED: clonazePAM 1 MG TAB PO ONE (19:00)
[2022-06-20 20:00] VITALS: BP 140/85
[2022-06-20] MEDS ORDERED: CALCIUM CARBONATE 500 MG CHEW U/D PO PRN (22:50)
[2022-06-20] MEDS ORDERED: PANTOPRAZOLE 40MG TAB (PROTONIX) PO ONE (22:55)
[2022-06-20] MEDS: TEMAZEPAM 15 MG CAP PO PRN (23:02)
[2022-06-21 06:00] VITALS: BP 100/69
[2022-06-21] MEDS: ENOXAPARIN 40MG/0.4ML SYRINGE (J1650 PER 10MG) SC SCH (09:00)
[2022-06-21] MEDS: PANTOPRAZOLE 40MG TAB (PROTONIX) PO SCH (09:36)
[2022-06-21 14:00] VITALS: BP 122/88
[2022-06-24] MEDS ORDERED: ONDA-83 PO (08:11)
== END 2022-06-21 14:22 | DRG 812 ==
LOC: M ED 19:21 → M ED INP 23:50 → M MSPAV 06-19 21:46
PROVIDERS: ADMIT Internal Medicine; ATTEND Student in an Organized Health Care Education/Training Program
DX: T45.0X2A Poisoning by antiallergic and antiemetic drugs, intentional self-harm, initial encounter (principal); N18.6 End stage renal disease; E11.22 Type 2 diabetes mellitus with diabetic chronic kidney disease; E11.51 Type 2 diabetes mellitus with diabetic peripheral angiopathy without gangrene; Q79.60 Ehlers-Danlos syndrome, unspecified; F32.9 Major depressive disorder, single episode, unspecified; D72.829 Elevated white blood cell count, unspecified; E87.6 Hypokalemia; F12.10 Cannabis abuse, uncomplicated; F60.3 Borderline personality disorder; J45.909 Unspecified asthma, uncomplicated; R00.0 Tachycardia, unspecified; R11.0 Nausea; Z88.0 Allergy status to penicillin; Z88.5 Allergy status to narcotic agent; Z79.899 Other long term (current) drug therapy; Z79.01 Long term (current) use of anticoagulants; Z86.73 Personal history of transient ischemic attack (TIA), and cerebral infarction without residual deficits; Z95.1 Presence of aortocoronary bypass graft; Z91.14 Patient's other noncompliance with medication regimen

== ENCOUNTER 2022-06-21 12:50 | Inpatient (IN) | payer BC ==
[~2022-06-21] VITALS: Ht 172.7 cm; Wt 180.0 kg
[2022-06-21] MEDS: buPROPion **XL** TABLET 150MG (WELLBUTRIN XL) PO SCH (09:00)
[~2022-06-21 12:50] MED LIST changes: -BENZ1LOZ2 PO; +SORE15LO PO; +TEMA15CA2 PO
[2022-06-21] MEDS ORDERED: MOM 30ML SUSPENSION UDC PO PRN (13:20)
[2022-06-21] MEDS ORDERED: MAALOX 30 ML SUSP *UDC PO PRN (13:20)
[2022-06-21] MEDS ORDERED: clonazePAM 0.5 MG TAB PO PRN (13:20)
[2022-06-21 14:43] VITALS: BP 146/80
[2022-06-21] MEDS ORDERED: HOME MED LIST COMPLETE! XX SCH (14:50)
[2022-06-21] MEDS: IBUPROFEN 400MG TAB PO PRN (22:00)
[2022-06-21] MEDS: TEMAZEPAM 15 MG CAP PO SCH (22:00)
[2022-06-22 06:48] VITALS: BP 118/60
[2022-06-22] MEDS ORDERED: ONDANSETRON 4MG TAB PO PRN (09:45)
[2022-06-22] MEDS: buPROPion **XL** TABLET 150MG (WELLBUTRIN XL) PO SCH (09:47)
[2022-06-22] MEDS: PANTOPRAZOLE 40MG TAB (PROTONIX) PO PRN (12:36)
[2022-06-22 18:27] VITALS: BP 127/80
[2022-06-22] MEDS: IBUPROFEN 400MG TAB PO PRN (20:49)
[2022-06-22] MEDS: TEMAZEPAM 15 MG CAP PO SCH (20:49)
[2022-06-23 06:40] VITALS: BP 148/87
[2022-06-23] MEDS: buPROPion **XL** TABLET 150MG (WELLBUTRIN XL) PO SCH (08:22)
[2022-06-23] MEDS: PANTOPRAZOLE 40MG TAB (PROTONIX) PO PRN (08:22)
[2022-06-24] MEDS ORDERED: ONDA-83 PO (08:11)
== END 2022-06-23 11:42 | disposition home or self-care (01) | DRG 751 ==
LOC: M PSY 14:25
PROVIDERS: ADMIT Psychiatry & Neurology Psychiatry; ATTEND Psychiatry & Neurology Psychiatry
DX: F33.2 Major depressive disorder, recurrent severe without psychotic features (principal); F43.10 Post-traumatic stress disorder, unspecified; J45.909 Unspecified asthma, uncomplicated; Q79.60 Ehlers-Danlos syndrome, unspecified; F32.A Depression, unspecified; F90.9 Attention-deficit hyperactivity disorder, unspecified type; F60.89 Other specific personality disorders; Z91.14 Patient's other noncompliance with medication regimen; G47.00 Insomnia, unspecified; Z88.0 Allergy status to penicillin; Z88.5 Allergy status to narcotic agent; R45.851 Suicidal ideations; F12.90 Cannabis use, unspecified, uncomplicated; Z91.410 Personal history of adult physical and sexual abuse; Z79.899 Other long term (current) drug therapy

== ENCOUNTER 2022-08-25 16:00 | Emergency (ER) | payer BC ==
[~2022-08-25] VITALS: Ht 175.3 cm; Wt 79.5 kg
[~2022-08-25 16:00] MED LIST changes: +BENZ1LOZ2 PO; +ONDA-83 PO; -SORE15LO PO
[2022-08-25] MEDS ORDERED: CLON-383 PO (16:21)
[2022-08-25 20:13] LABS: BASO # 0.1 10^3/uL (0.0-0.2); EOS # 0.3 10^3/uL (0.0-0.5); EOS % 3.8 % (0.0-3.0); HEMATOCRIT 38.5 % (36.0-47.0); HEMOGLOBIN 12.9 g/dl (12.0-15.5); LYMPH # 3.3 10^3/uL (1.5-5.0); LYMPH % 45.2 % (24.0-44.0); MEAN CORPUSCULAR HEMOGLOBIN 31.5 pg (27.0-33.0); MEAN CORPUSCULAR HGB CONC 33.5 g/dl (32.0-36.5); MEAN CORPUSCULAR VOLUME 94.1 fl (80.0-96.0); MONO # 0.6 10^3/uL (0.0-0.8); MONO % 8.6 % (2.0-8.0); NEUTROPHILS % 41.3 % (36.0-66.0); RED BLOOD COUNT 4.09 10^6/uL (4.00-5.40); WHITE BLOOD COUNT 7.3 10^3/uL (4.0-10.0)
[2022-08-25 20:37] LABS: BILIRUBIN,DIRECT 0.1 MG/DL (<0.4)
[2022-08-25 20:40] LABS: THYROID STIMULATING HORMONE 1.963 uIU/ML (0.55-4.78)
[2022-08-25] MEDS ORDERED: NS 1,000 ML IV ONE (21:00)
[2022-08-25 21:03] LABS: ALBUMIN 4.3 G/DL (3.2-5.2); ALKALINE PHOSPHATASE 44 U/L (46-116); ALT/SGPT 20 U/L (7.0-40); AST/SGOT 40 U/L (<34); BILIRUBIN,TOTAL 0.6 MG/DL (0.3-1.2); BLOOD UREA NITROGEN 19 MG/DL (9-23); CALCIUM LEVEL 9.2 MG/DL (8.5-10.1); CARBON DIOXIDE LEVEL 22 MMOL/L (20-31); CHLORIDE LEVEL 110 MMOL/L (98-107); CREATININE FOR GFR 0.89 MG/DL (0.55-1.30); GLOMERULAR FILTRATION RATE > 60.0 (>60); GLUCOSE, FASTING 87 MG/DL (60-100); POTASSIUM SERUM 4.4 MMOL/L (3.5-5.1); SODIUM LEVEL 143 MMOL/L (136-145); TOTAL PROTEIN 6.9 G/DL (5.7-8.2)
[2022-08-25 21:23] LABS: HCG, SERUM QUALITATIVE NEGATIVE (NEGATIVE)
[2022-08-25 21:52] LABS: ERYTHROCYTE SEDIMENTATION RATE 3 mm/hr (0-20)
[2022-08-25 22:59] VITALS: BP 127/58
== END 2022-08-25 23:07 | disposition home or self-care (01) ==
LOC: M ED 16:00
DX: G90.A Postural orthostatic tachycardia syndrome [POTS] (principal); E86.0 Dehydration; F90.9 Attention-deficit hyperactivity disorder, unspecified type; F41.9 Anxiety disorder, unspecified; F43.10 Post-traumatic stress disorder, unspecified; K21.9 Gastro-esophageal reflux disease without esophagitis; J45.909 Unspecified asthma, uncomplicated; G40.89 Other seizures; Z88.0 Allergy status to penicillin; Z88.5 Allergy status to narcotic agent; Z79.3 Long term (current) use of hormonal contraceptives; Z79.83 Long term (current) use of bisphosphonates

== ENCOUNTER → 2022-10-04 | Outpatient (REF) | payer BC ==
[~2022-10-04] MED LIST changes: +CLON-383 PO
[2022-10-04 13:06] LABS: BASO # 0.1 10^3/uL (0.0-0.2); EOS # 0.3 10^3/uL (0.0-0.5); EOS % 4.5 % (0.0-3.0); HEMATOCRIT 40.1 % (36.0-47.0); HEMOGLOBIN 13.6 g/dl (12.0-15.5); LYMPH # 2.4 10^3/uL (1.5-5.0); LYMPH % 37.4 % (24.0-44.0); MEAN CORPUSCULAR HEMOGLOBIN 31.9 pg (27.0-33.0); MEAN CORPUSCULAR HGB CONC 33.9 g/dl (32.0-36.5); MEAN CORPUSCULAR VOLUME 94.1 fl (80.0-96.0); MONO # 0.6 10^3/uL (0.0-0.8); MONO % 9.1 % (2.0-8.0); NEUTROPHILS % 47.7 % (36.0-66.0); PLATELET COUNT, AUTOMATED 260 10^3/uL (150-450); RED BLOOD COUNT 4.26 10^6/uL (4.00-5.40); WHITE BLOOD COUNT 6.3 10^3/uL (4.0-10.0)
[2022-10-04 13:30] LABS: THYROID STIMULATING HORMONE 2.088 uIU/ML (0.55-4.78)
[2022-10-04 13:33] LABS: ALBUMIN 4.2 G/DL (3.2-5.2); ALKALINE PHOSPHATASE 55 U/L (46-116); ALT/SGPT 14 U/L (7.0-40); AST/SGOT 12 U/L (<34); BILIRUBIN,TOTAL 0.5 MG/DL (0.3-1.2); BLOOD UREA NITROGEN 16 MG/DL (9-23); CALCIUM LEVEL 9.5 MG/DL (8.5-10.1); CARBON DIOXIDE LEVEL 28 MMOL/L (20-31); CHLORIDE LEVEL 106 MMOL/L (98-107); CHOLESTEROL LEVEL 136 MG/DL (<200); CHOLESTEROL RISK RATIO 3.46 (<5); CREATININE FOR GFR 0.95 MG/DL (0.55-1.30); GLOMERULAR FILTRATION RATE > 60.0 (>60); GLUCOSE, FASTING 95 MG/DL (60-100); HDL CHOLESTEROL 39.3 MG/DL (>40); LDL CHOLESTEROL 84.7 MG/DL (<100); NON-HDL-C 97 MG/DL; POTASSIUM SERUM 4.5 MMOL/L (3.5-5.1); SODIUM LEVEL 138 MMOL/L (136-145); TOTAL PROTEIN 6.7 G/DL (5.7-8.2); TRIGLYCERIDES LEVEL 60 MG/DL (<150)
[2022-10-04 13:34] LABS: HEMOGLOBIN A1c 5.1 % (4.0-6.0)
== END ==
LOC: M LAB REF 12:20
PROVIDERS: ATTEND Nurse Practitioner Family
DX: E66.3 Overweight (principal)

== ENCOUNTER → 2022-12-11 | Outpatient (CLI) | payer BC | LOC: M SOG 08:16 | PROVIDERS: ATTEND Physician Assistant | DX: M79.641 Pain in right hand (principal) ==